=== PATIENT | male | born 1950 | race Caucasian/White ===

== ENCOUNTER 2017-10-21 09:31 | Inpatient (IN) | payer MEDICARE, MEDICAID, SELFPAY ==
[2017-10-21] VITALS (29 sets, daily range): BP systolic 112–157; BP diastolic 59–99; PULSE 71–105; RESP 8–37; TEMP 36.7–37.6; O2SAT 90–99; BMI 20.7; BMI 20.6
--- NOTE | 2017-10-21 09:45 | RAD_ITS ---
STUDY: X-RAY CHEST REASON FOR EXAM: Male, 66 years old. Increasing shortness of breath. TECHNIQUE: Single AP portable view of the chest. COMPARISON: Comparison is made with prior study dated October 04, 2017. FINDINGS: EKG electrodes are seen. Hyperinflation. Mild increased markings in the lingular segment of the left upper lobe slightly more prominent as compared to prior study. This may represent atelectasis and/or early infiltrate superimposed on scarring. There is no demonstrated pleural abnormality. Normal size heart. Normal mediastinum and dennise. There is prominence of the pulmonary hilar arteries without peripheral pulmonary vascular congestion, suggesting pulmonary hypertension. Normal visualized aortic arch and descending thoracic aorta. There are degenerative changes of the visualized thoracic spine. Normal visualized ribs, clavicles, and shoulders. There is no demonstrated abnormality of the visualized soft tissue structures of the upper abdomen. RAD/Chest 1 View (Portable) IMPRESSION: Hyperinflation. Mild increased markings in the lingular segment of the left upper lobe suggestive of atelectasis and/or early infiltrate superimposed on scarring. Prominence of the pulmonary arteries bilaterally. Electronically Signed: Bienvenido Carmen MD at 10:25 EST Tel [phone], Service support ,
--- NOTE | 2017-10-21 09:45 | EKG12_ITS ---
Test Reason : SOB Blood Pressure : / mmHG Vent. Rate : 086 BPM Atrial Rate : 086 BPM P-R Int : 108 ms QRS Dur : 084 ms QT Int : 356 ms P-R-T Axes : 075 069 101 degrees QTc Int : 426 ms Sinus rhythm with short NE T wave abnormality, consider lateral ischemia Abnormal ECG Confirmed by KATHLEEN DOVE, KAREN ([id number]), pictures editor LAURIE FAN ([id number]) on 10/28/2017 8:50:13 AM Referred By: KB/PHIL Confirmed By:KAREN WANG MD
--- NOTE | 2017-10-21 09:49 | ED.VISSUMM ---
- ER Visit Summary Date of Service: 10/21/17 Chief Complaint: Short of breath History of Present Illness: The patient is a 66 M with shortness of breath. Symptoms started this morning when he woke up. He denies any other associated symptoms like chest pain, cough, or sputum. He does have a history of COPD and is currently on prednisone 5 mg daily and a course of doxycycline. He wears a nasal cannula at 3 L. His pulse ox at his nursing facility was noted to be in the 80s and he was increased to 4 L. This resolved his hypoxia. Patient is denying any other complaints at this time. Denies any other history of lung disease. He does have history of diabetes, hypertension, and hyperlipidemia. Denies any history of PE or DVT. He is a former smoker. Physical Examination: 99% on 2.5 L currently. Blood pressure 155/76. Afebrile. Heart rate 99 and respiratory rate 28. Patient is slightly somnolent, but arouses easily to voice. He is clearly oriented. Head atraumatic. Cranial nerves grossly intact. HEENT exam otherwise unremarkable. Heart regular. Lungs show mild wheezing, more so on the left side. Diminished throughout all [place]. Abdomen soft. Skin appears normal. Calves soft and supple. Test Results: EKG, chest x-ray, laboratory studies pending. Emergency Department Course and Treatment: Patient was treated with Solu-Medrol and DuoNeb while awaiting results. I suspect a respiratory etiology. I also considered cardiac causes. Nothing to suggest PE currently. EKG showed sinus rhythm at a rate of 86 with some lateral T-wave inversions. This is new from earlier in the month. Troponin was normal. White count is elevated at 18.3. And his chest x-ray is concerning for chronic changes with a left upper lobe infiltrate. Patient meets sepsis criteria. A lactate, hepatic panel, coags, urinalysis, and cultures were added. Fluid resuscitation continued and he was started on Zosyn and vancomycin. He continued to remain somnolent despite normal oxygen saturation. Blood gas showed a pH of 7.38. CO2 is 64.8. Patient has a respiratory acidosis. He was started on BiPAP. He had additional albuterol. Workup and resuscitation are still in progress, but the patient will need admission to the ICU. The therapeutic radiologist and hospitalist were contacted. Will check magnesium. Patient is tolerating BiPAP. Will admit to the ICU. Treatment Plan: As above Disposition: Admission Impression: 1. Acute respiratory failure, hypercapnia 2. Healthcare associated pneumonia 3. Sepsis 4. EKG changes This note was generated with [employer] dictation software. It may contain incorrect words, spelling, and punctuation that were not noted in review of the chart prior to signing ED Disposition - Plan for ED Patient: Chief Complaint: Shortness of Breath Referrals: Care Physician,No Primary [Primary Care Provider] -
--- NOTE | 2017-10-21 09:52 | ED.DCSUM_ITS ---
- ER Visit Summary Date of Service: 10/21/17 Chief Complaint: Short of breath History of Present Illness: The patient is a 66 M with shortness of breath. Symptoms started this morning when he woke up. He denies any other associated symptoms like chest pain, cough, or sputum. He does have a history of COPD and is currently on prednisone 5 mg daily and a course of doxycycline. He wears a nasal cannula at 3 L. His pulse ox at his nursing facility was noted to be in the 80s and he was increased to 4 L. This resolved his hypoxia. Patient is denying any other complaints at this time. Denies any other history of lung disease. He does have history of diabetes, hypertension, and hyperlipidemia. Denies any history of PE or DVT. He is a former smoker. Physical Examination: 99% on 2.5 L currently. Blood pressure 155/76. Afebrile. Heart rate 99 and respiratory rate 28. Patient is slightly somnolent , but arouses easily to voice. He is clearly oriented. Head atraumatic. Cranial nerves grossly intact. HEENT exam otherwise unremarkable. Heart regular. Lungs show mild wheezing, more so on the left side. Diminished throughout all [place]. Abdomen soft. Skin appears normal. Calves soft and supple. Test Results: EKG, chest x-ray, laboratory studies pending. Emergency Department Course and Treatment: Patient was treated with Solu-Medrol and DuoNeb while awaiting results. I suspect a respiratory etiology. I also considered cardiac causes. Nothing to suggest PE currently. EKG showed sinus rhythm at a rate of 86 with some lateral T-wave inversions. This is new from earlier in the month. Troponin was normal. White count is elevated at 18.3. And his chest x-ray is concerning for chronic changes with a left upper lobe infiltrate. Patient meets sepsis criteria. A lactate, hepatic panel, coags, urinalysis, and cultures were added. Fluid resuscitation continued and he was started on Zosyn and vancomycin. He continued to remain somnolent despite normal oxygen saturation. Blood gas showed a pH of 7.38. CO2 is 64.8. Patient has a respiratory acidosis. He was started on BiPAP. He had additional albuterol. Workup and resuscitation are still in progress, but the patient will need admission to the ICU. The 911 emergency services dispatcher and hospitalist were contacted. Will check magnesium. Patient is tolerating BiPAP. Will admit to the ICU. Treatment Plan: As above Disposition: Admission Impression: 1. Acute respiratory failure, hypercapnia 2. Healthcare associated pneumonia 3. Sepsis 4. EKG changes This note was generated with [employer] dictation software. It may contain incorrect words, spelling, and punctuation that were not noted in review of the chart prior to signing ED Disposition - Plan for ED Patient: Chief Complaint: Shortness of Breath Referrals: Care Physician,No Primary [Primary Care Provider] -
[2017-10-21 09:58] LABS: Absolute Lymphocyte Count 0.32 X10^3/ul (0.83-4.51); Absolute Neutrophil Count 17.2 X10^3/uL (2.0-7.7); Basophil# 0.01 X10^3/uL; Basophil% 0.1 % (0-1); Differential Indicated SCAN CRITERIA MET; Eosinophil# 0.09 X10^3/uL; Eosinophils% 0.5 % (0-5); Hematocrit 41.3 % (40-54); Hemoglobin 13.6 g/dl (13.0-16.5); Lymphocyte # 0.32 X10^3/ul (4.0); Lymphocyte % 1.7 % (19-41); Mean Corp Hgb Conc 32.9 g/gl (32-36); Mean Corpuscular Hgb 31.5 pg (27.0-32.0); Mean Corpuscular Volume 95.6 fL (80-94); Mean Platelet Vol. 10.6 fl (6.2-12.0); Monocyte# 0.61 X10^3/uL; Monocyte% 3.3 % (0-10); Neutrophil # 17.24 X10^3/uL (2.7-7.7); Neutrophil % 94.1 % (47-70); POSITIVE COUNT NO; POSITIVE DIFFERENTIAL YES; POSITIVE MORPHOLOGY NO; Platelet Count 199 K/mm3 (150-450); RBC Distribution Width CV 12.8 % (11.6-14.6); RBC Distribution Width SD 43.3 fl (35.1-43.9); Red Blood Count 4.32 M/mm3 (4.6-6.2); White Blood Count 18.3 K/mm3 (4.4-11.0)
[2017-10-21] MEDS: Ipratropium/Albuterol Sulfate 3 ML AMPUL.NEB INHALATION ×2 (09:59→23:00)
[2017-10-21 10:13] LABS: Anion Gap 4 (5-15); BUN 7 mg/dL (7-18); BUN/Creat Ratio 10.6 RATIO (10-20); Calcium,Total 8.9 mg/dL (8.5-10.1); Chloride 96 mmol/L (98-107); Creatinine, Serum 0.66 mg/dL (0.70-1.30); EST Glomerular Filtration Rate 129 mL/min (>60); Est Glom Filt Rate - Afr Amer 156 mL/min (>60); Estimated Creatinine Clearance 90.23 ml/min; Glucose 233 mg/dL (70-110); Potassium 4.3 mmol/L (3.5-5.1); Sodium Level 135 mmol/L (136-145)
[2017-10-21] MEDS: MethylPREDNISolone 125 MG/2 ML Vial IV (10:18)
[2017-10-21 10:26] LABS: Allen Test POS; Base Excess 13 mmol/L (-2 to +2); Bicarbonate 38.5 mmol/L (22-26); Blood Gas Specimen Type ART; O2 Delivery Device Nasal Can; PO2 69 mmHG (75-100); SITE R Radial; SO2 92 % (95-99); Time Given 1023; Total Carbon Dioxide 40 mmol/L; pCO2 64.8 mmHg (35-45); pH 7.38 (7.35-7.45)
[2017-10-21] MEDS: 0.9% Normal Saline 1,000 ML 999 ML IV (11:05)
[2017-10-21 11:17] LABS: Partial Thromboplast Time 25.8 Seconds (24.1-36.2)
[2017-10-21 11:25] LABS: AST(SGOT) 10 U/L (15-37); Alanine Aminotransfer ALT/SGPT 17 U/L (12-78); Albumin, Serum 3.7 g/dL (3.4-5.0); Alkaline Phosphatase 78 U/L (45-117); Bilirubin, Direct 0.14 mg/dL (0.00-0.30); Globulin 2.8 g/dL (2.2-4.2); Lactic Acid 1.7 mmol/L (0.4-2.0); Protein, Total 6.5 g/dL (6.4-8.2)
[2017-10-21 11:45] LABS: Magnesium 1.5 mg/dL (1.8-2.4)
[2017-10-21] MEDS: Albuterol 2.5 MG/3 ML VIAL.NEB. INHALATION ×2 (11:46→20:41)
[2017-10-21 17:07] LABS: Bacteria 0 SEEN /hpf (None Seen); Mucous, Urine 0 SEEN /hpf (<or=2+); Red Blood Cells-Urine 0 SEEN /hpf (0-5)
[2017-10-21] MEDS: Glucerna Shake 120 ML LIQUID PO ×2 (17:13→22:19)
[2017-10-21 17:16] LABS: Bedside Glucose 342 mg/dL (70-110)
[2017-10-21 17:18] LABS: Color, Urine Straw (Yellow); Glucose, Dipstick 1000 mg/dl (Normal); Ketone-Dipstick Negative (Negative); Leukocyte Esterase-Dipstick Negative /ul (Negative); Nitrite-Dipstick Negative (Negative); Occult Blood-Urine Negative /ul (Negative); Protein-Dipstick Negative (Negative); Urine Bilirubin Dipstick Negative (Negative); Urine Clarity Clear (Clear); Urine Urobilinogen Normal (Normal)
[2017-10-21 17:32] LABS: Squamous Epithelial Cells - UA 0-5 SEEN /hpf (0-5)
[2017-10-21 17:33] LABS: White Blood Cells 0-5 SEEN /hpf (0-5)
--- NOTE | 2017-10-21 18:09 | PCM.HP.STD ---
Problem List (1) Acute hypercapnic respiratory failure Status: Acute (2) COPD exacerbation Status: Acute (3) Chronic respiratory failure with hypoxia Status: Chronic (4) HCAP (healthcare-associated pneumonia) Status: Acute (5) Hypomagnesemia Status: Acute (6) Noncompliance with CPAP treatment Status: Chronic (7) Obstructive sleep apnea Status: Acute (8) Bipolar affective disorder Status: Chronic (9) CVD (cerebrovascular disease) Status: Chronic (10) Dyslipidemia Status: Chronic (11) GERD (gastroesophageal reflux disease) Status: Chronic (12) HTN (hypertension) Status: Chronic Qualifiers: Hypertension type: essential hypertension Qualified Code(s): I10 - Essential (primary) hypertension (13) History of TIA (transient ischemic attack) Status: Chronic (14) History of alcoholism Status: Chronic (15) PVD (peripheral vascular disease) Status: Chronic (16) Schizophrenia Status: Chronic (17) Tobacco use disorder Status: Chronic (18) Metabolic alkalosis with respiratory acidosis Status: Acute (19) Hyperglycemia Status: Acute History of Present Illness Date of Admission: 10/21/17 Chief Complaint: SOB The patient is a 66 year old M with a past medical history of bipolar disorder, schizophrenia, COPD, dyslipidemia, GERD, hypertension, history of alcoholism, peripheral vascular disease, ongoing tobacco dependence, CVA in the past and history of TIAs who was sent to the emergency room for shortness of breath. He denied chest pain, cough, sputum production, nausea/vomiting, muscle aches and pains. He is chronically on prednisone 5 mg daily and had a recent course of doxycycline. He has CPAP but does not consistently wear it. He wears a 3 L nasal cannula off and on when he feels short of breath. Pulse ox at the shelter was in the 80s and his oxygen was increased to 4 L. Vital signs at presentation to the emergency room were temperature 99.7, pulse rate 99, blood pressure 155/76, respiratory rate of 29 and he was 99% saturated on a 3 L nasal cannula. Significant lab included an elevated white blood cell count at 18.3 with 94% neutrophils. Hemoglobin and platelets were within normal limits. An ABG done on a 2 L nasal cannula showed pH of 7.38, PCO2 of 65 and PO2 of 69. Serum bicarb is elevated at 35 and the sodium is mildly decreased at 135. Random blood sugar was 233 and his hemoglobin A1c is 6.5. Magnesium was low at 1.5. LFTs were unremarkable. Chest x-ray showed hyperinflation with increased markings in the lingula suspicious for atelectasis versus early infiltrate. He was admitted to the hospital with a diagnosis of HCAP and acute exacerbation of COPD with hypoxia and hypercapnia. He had an echocardiogram done in 2012 which showed a 60% ejection fraction with mild concentric left ventricular hypertrophy. There was mild aortic stenosis and 2+ aortic valve insufficiency. Past Medical History Past Medical History (Chronic Problems): Chronic Problems Bipolar affective disorder (Chronic) CVD (cerebrovascular disease) (Chronic) Dyslipidemia (Chronic) GERD (gastroesophageal reflux disease) (Chronic) HTN (hypertension) (Chronic) History of alcoholism (Chronic) PVD (peripheral vascular disease) (Chronic) Schizophrenia (Chronic) Tobacco use disorder (Chronic) History of TIA (transient ischemic attack) (Chronic) Chronic respiratory failure with hypoxia (Chronic) Noncompliance with CPAP treatment (Chronic) Allergies No Known Allergies Allergy (Verified 10/21/17 09:40) Home Medications: Ambulatory Orders Medication Instructions Recorded Acetaminophen [Tylenol Extra 1,000 mg PO QHS 08/08/17 Strength] Acetaminophen [Tylenol] 650 mg PO Q6H PRN 08/08/17 Albuterol Inhaler [Ventolin Hfa 1 puff INHALATION Q4H PRN PRN 08/08/17 (SP)] Aspirin 81 mg PO DAILY 08/08/17 Atorvastatin Calcium 40 mg PO DAILY 08/08/17 Cilostazol 100 mg PO BID 08/08/17 Ferrous Fumarate [Ferretts] 325 mg PO TID 08/08/17 Guaifenesin [Tussin Mucus-Chest 200 mg PO Q6H PRN 08/08/17 Congestion] Haloperidol Decanoate [Haldol 300 mg IM Q30D 08/08/17 Decanoate 100] Insulin Aspart [Novolog Flexpen 0 - 15 units SC ACHS PRN 08/08/17 ([facility])] Insulin Detemir [Levemir] 10 unit SQ BREAKFAST 08/08/17 Insulin Detemir [Levemir] 18 unit SQ QHS 08/08/17 [place] Carbonate 600 mg PO DAILY 08/08/17 Lorazepam [Ativan] 1 mg PO Q4H PRN 08/08/17 Losartan Potassium 75 mg PO QHS 08/08/17 Mag Hydrox/Al Hydrox/Simeth 30 ml PO Q4H PRN PRN 08/08/17 [Mylanta II] Magnesium Oxide [Mag-Oxide 800 mg PO DAILY 08/08/17 Magnesium] Metformin HCl 1,000 mg PO BID 08/08/17 Metoprolol Tartrate [Lopressor 50 mg PO BID 08/08/17 (Beta Andriy)] Omeprazole [Prilosec] 40 mg PO DAILY 08/08/17 Oxygen, Home [Home Oxygen] 2 lpm NASAL DAILY 08/08/17 Pseudoephedrine [Sudafed] 60 mg PO Q8H PRN 08/08/17 Sodium Chloride [Saline Mist] 1 spray NASAL Q6H PRN 08/08/17 Fluticasone 0.05% [Flonase Nasal 1 spray NASAL DAILY 10/04/17 [place]] Guaifenesin [Mucinex] 400 mg PO TID 10/04/17 Loxapine Succinate [Loxapine] 25 mg PO QHS 10/04/17 Prednisone 5 mg PO DAILY 10/04/17 Albuterol Aerosols [Ventolin 2.5 mg INHALATION Q6HWA.RT 10/21/17 Aerosols] Cetirizine HCl [Zyrtec] 10 mg PO DAILY 10/21/17 Doxycycline [Vibramycin] 100 mg PO BID 10/21/17 Surgical History: colectomy Psychiatric History: Bipolar, Schizophrenia Lives: Prison Smoking Status: Current every day smoker Tobacco Use: Cigarettes Alcohol: None Drugs: None - *Family History Maternal History Items: Unknown Paternal History Items: No pertinent history Sibling History Items: No pertinent history Review of Systems Constitutional: Denies: Anorexia, Chills, Fever, Weakness HEENT: Denies: Difficulty Hearing, Head Aches, Nasal Congestion, Sore Throat Cardiovascular: Denies: Chest Pain, Edema, Light Headedness, Palpitations Respiratory: Reports: Cough, Shortness of Breath, Shortness of breath at rest, Shortness of breath upon exertion. Denies: Hemoptysis Gastrointestinal: Denies: Abdominal Pain, Nausea, Vomiting Genitourinary: Denies: Dysuria Musculoskeletal: Denies: Joint Pain, Joint Tenderness Skin: Denies: Jaundice, Rash, Wounds Neurological: Denies: Numbness, Tingling, Focal weakness Psychiatric: Denies: Homicidal Ideations, Suicidal Ideations Hematologic/ Lymphatic: Denies: Hx of blood clot VTE Information - Inpt Only VTE Present on Admission: No VTE Mechan Device Prophylaxis: None VTE Pharm Prophylaxis ordered?: Yes Patient Problems: Active and Suspected Problems HCAP (healthcare-associated pneumonia) (Acute) COPD exacerbation (Acute) Acute hypercapnic respiratory failure (Acute) Obstructive sleep apnea (Acute) Hypomagnesemia (Acute) Metabolic alkalosis with respiratory acidosis (Acute) Hyperglycemia (Acute) - Physical Exam General: Alert, Cooperative HEENT: Atraumatic, PERRLA Oral: Moist Mucosa Neck: No JVD, No Nodes, No Nuchal Rigidity, Trachea Midline Lungs: No rales, Tachypneic, Using Accessory Muscles, Wheezes - inspiratory and expiratory Cardiovascular: Regular Rhythm, Normal S1, Normal S2, No Gallop, Tachycardic, - - difficult to assess for MM over the loud wheezing Abdomen: Bowel Sounds Present, Soft, Non Tender, Non-Distended Extremities: No cyanosis, No edema, No Calf Tenderness Skin: No rashes, No breakdown Neurological: Cranial nerves II-XII grossly intact, Neuro grossly intact Psych/Mental Status: Appropriate Vital Signs Temp Pulse Resp BP Pulse Ox 99.0 F 105 H 20 H 154/99 H 95 10/21/17 17:40 10/21/17 17:40 10/21/17 17:40 10/21/17 17:40 10/21/17 17:40 Oxygen Flow Rate 2 Oxygen Delivery Method Nasal Cannula Weight: 124 lb Body Mass Index (BMI) 20.6 Intake and Output for Last 24 Hours 10/19/17 10/20/17 10/21/17 23:59 23:59 23:59 Intake Total 360 / 360 Output Total 1450 / 1450 Balance -1090 / -1090 Laboratory Tests Past 24 Hrs 10/21/17 16:50 Urine Color Straw Urine Clarity Clear Urine pH 7.0 Ur Specific [place] 1.010 Urine Protein Negative Urine Glucose (UA) 1000 H Urine Ketones Negative Urine Occult Blood Negative Urine Nitrite Negative Urine Bilirubin Negative Urine Urobilinogen Normal Ur Leukocyte Esterase Negative Urine RBC 0 SEEN Urine WBC 0-5 SEEN Ur Squamous Epith Cells 0-5 SEEN Urine Bacteria 0 SEEN Urine Mucus 0 SEEN POC Glucose 10/21/17 17:10 POC Glucose 342 H Assessment/Plan Active and Suspected Problems HCAP (healthcare-associated pneumonia) (Acute) COPD exacerbation (Acute) Acute hypercapnic respiratory failure (Acute) Obstructive sleep apnea (Acute) Hypomagnesemia (Acute) Metabolic alkalosis with respiratory acidosis (Acute) Hyperglycemia (Acute) Impressions 1. Severe sepsis due to HCAP 2. acute exacerbation of COPD 3. Acute respiratory failure with hypoxemia and hypercapnia requiring BiPAP with tachypnea and accessory muscle use 4. Obstructive sleep apnea-not compliant with CPAP 5. Ongoing tobacco dependence 6. Bipolar disorder 7. Schizophrenia 8. History of alcoholism in the past 9. Hypomagnesemia 10. History of CVA in the past and also TIAs 11. GERD 12. Dyslipidemia 13. Hypertension 14. Peripheral vascular disease 15. Metabolic alkalosis with respiratory acidosis 16. Hyperglycemia with no history of diabetes 17. Mild aortic stenosis, mild left ventricular hypertrophy and 2+ aortic valve insufficiency on an echocardiogram done in 2012 Continue with BIPAP Continue the Vanco and the Zosyn started in the ER High-dose intravenous steroids and [id number] aerosols Mucinex 1200 mg p.o. twice daily PEP therapy Continue home medications Pepcid for GI prophylaxis Check a hemoglobin A1c Code Visit Inpatient E&M: 28781 Init Hosp L3
[2017-10-21 19:27] LABS: Hemoglobin A1c 6.5 % (4.2-6.3)
[2017-10-21] MEDS: 0.9% Normal Saline 1,000 ML 75 ML IV (21:00)
[2017-10-21] MEDS: guaiFENesin 1,200 MG Tablet 1200 MG PO (22:13)
[2017-10-21] MEDS: Famotidine 20 MG Tablet PO (22:13)
[2017-10-21] MEDS: Atorvastatin Calcium 40 MG Tablet PO (22:14)
[2017-10-21] MEDS: Losartan Potassium 25 MG Tablet 75 MG PO (22:14)
[2017-10-21] MEDS: Cilostazol 50 MG Tablet 100 MG PO (22:14)
[2017-10-21] MEDS: Metoprolol Tartrate 50 MG Tablet PO (22:16)
[2017-10-21] MEDS: 0.9% NaCl Peripheral Flush Adult/Peds IV (22:22)
[2017-10-21 22:36] LABS: Bedside Glucose 364 mg/dL (70-110)
[2017-10-22] VITALS (12 sets, daily range): BP systolic 125–143; BP diastolic 65–78; PULSE 72–96; RESP 12–21; TEMP 36.1–36.7; O2SAT 92–96
[2017-10-22] MEDS: Piperacil/Tazobactam 3.375 GM/50 ML ML IV ×2 (00:41→05:03)
[2017-10-22] MEDS: LORazepam 1 MG Tablet PO ×2 (01:27→13:58)
[2017-10-22] MEDS: Ipratropium/Albuterol Sulfate 3 ML AMPUL.NEB INHALATION ×3 (02:51→14:36)
[2017-10-22] MEDS: Enoxaparin 40 MG/0.4 ML Syringe SC (05:03)
[2017-10-22 05:41] LABS: Hemoglobin 11.8 g/dl (13.0-16.5); Mean Corp Hgb Conc 32.8 g/gl (32-36); Mean Corpuscular Hgb 31.4 pg (27.0-32.0); Mean Corpuscular Volume 95.7 fL (80-94); Mean Platelet Vol. 10.6 fl (6.2-12.0); Platelet Count 171 K/mm3 (150-450); RBC Distribution Width CV 12.4 % (11.6-14.6); RBC Distribution Width SD 42.3 fl (35.1-43.9); Red Blood Count 3.76 M/mm3 (4.6-6.2); White Blood Count 10.5 K/mm3 (4.4-11.0)
[2017-10-22 05:53] LABS: Scan Indicated on CBC? Y/N NO
--- NOTE | 2017-10-22 05:59 | RAD_ITS ---
STUDY: X-RAY CHEST REASON FOR EXAM: Male, 66 years old. Shortness of breath. Cough. TECHNIQUE: PA and lateral views of the chest. COMPARISON: Comparison is made with prior study dated October 21, 2017. FINDINGS: EKG electrodes are seen. Hyperinflation. Stable mild increased markings in the lingular segment of the left upper lobe. Calcified granuloma in the right lower lobe. There is no demonstrated pleural abnormality. Normal size heart. Normal mediastinum and dennise. Normal visualized pulmonary arteries. There is atherosclerotic calcification of the aortic arch with tortuosity. There are degenerative changes of the visualized thoracic spine. Healed right rib fractures. There is no demonstrated abnormality of the visualized soft tissue structures of the upper abdomen. RAD/Chest PA and Lateral IMPRESSION: Hyperinflation. Stable increased markings in the lingular segment of the left upper lobe. There has been essentially no change since prior study. Electronically Signed: Bienvenido Carmen MD at 8:54 EST Tel [phone], Service support ,
[2017-10-22 06:04] LABS: ALB/GLOB Ratio 1.1 RATIO (0.9-2.4); AST(SGOT) 9 U/L (15-37); Alanine Aminotransfer ALT/SGPT 14 U/L (12-78); Alkaline Phosphatase 67 U/L (45-117); Anion Gap 6 (5-15); BUN 12 mg/dL (7-18); Calcium,Total 8.4 mg/dL (8.5-10.1); Chloride 95 mmol/L (98-107); Creatinine, Serum 0.75 mg/dL (0.70-1.30); EST Glomerular Filtration Rate 112 mL/min (>60); Est Glom Filt Rate - Afr Amer 135 mL/min (>60); Estimated Creatinine Clearance 79.16 ml/min; Globulin 2.8 g/dL (2.2-4.2); Glucose 287 mg/dL (70-110); Magnesium 2.3 mg/dL (1.8-2.4); Phosphorus 2.5 mg/dL (2.5-4.9); Potassium 4.6 mmol/L (3.5-5.1); Protein, Total 5.8 g/dL (6.4-8.2); Sodium Level 132 mmol/L (136-145)
[2017-10-22] MEDS: guaiFENesin 1,200 MG Tablet 1200 MG PO (08:30)
[2017-10-22] MEDS: metFORMIN HCl 1,000 MG Tablet 1000 MG PO (08:30)
[2017-10-22] MEDS: Magnesium Oxide 400 MG Tablet 800 MG PO (08:30)
[2017-10-22] MEDS: Cilostazol 50 MG Tablet 100 MG PO (08:31)
[2017-10-22] MEDS: Glucerna Shake 120 ML LIQUID PO (08:31)
[2017-10-22] MEDS: Famotidine 20 MG Tablet PO (08:31)
[2017-10-22] MEDS: Aspirin 81 MG TAB.CHEW PO (08:31)
[2017-10-22 08:41] LABS: Bedside Glucose 282 mg/dL (70-110)
[2017-10-22] MEDS: Metoprolol Tartrate 50 MG Tablet PO (08:46)
--- NOTE | 2017-10-22 09:37 | CASEMGMT ---
Patient is from [facility]. SAL called Randi at [facility] and patient is a residential resident. she did ask that he have PT/OT here and hopefully if he gets a qualifying stay he can return skilled. SAL faxed updates to [facility]. Plan: Return to [facility] Zaira RON
[2017-10-22] MEDS: 0.9% Normal Saline 1,000 ML 75 ML IV (09:56)
[2017-10-22] MEDS: Fluticasone 0.05% 1 SPRAY NASAL.SRY NASAL (10:34)
[2017-10-22 11:11] LABS: Bedside Glucose 281 mg/dL (70-110)
--- NOTE | 2017-10-22 12:10 | NURSING ---
Patient is taking good PO intake, discontinued glucerna shakes.
[2017-10-22 12:11] LABS: Bedside Glucose 324 mg/dL (70-110)
--- NOTE | 2017-10-22 12:32 | PCM.PROGNOTE ---
Patient Problems: Active and Suspected Problems Acute exacerbation of chronic obstructive pulmonary disease (Acute) Acute respiratory failure with hypoxia and hypercapnia (Acute) Influenza A (Acute) Subjective: Patient is a 66-year-old resident of a fdc with bipolar disorder and schizophrenia who presented to the emergency room with increasing shortness of breath and required BiPAP rescue to keep him oxygenated. Chest x-ray at admission showed increased markings in the lingula thought to be secondary to an early pneumonia. He is afebrile except for the first temp at admission which was 99.7. Vital signs are stable. He shovels his food in his mouth and is coughing while eating. He will not stop talking long enough to listen to instructions. There is sputum and saliva running down his chin. Pulse ox is 96% on 2 L nasal O2 today and his respiratory rate is 20. White blood cell count today is 10.5, down from 18.3 at admission. Sodium was low at 132 and the chloride is low at 95. BUN is 12 with a creatinine of 0.75. Blood sugars are high secondary to steroids. Respiratory panel is negative. Streptococcal and Legionella antigens are negative. Influenza swab was negative. Urine and blood cultures are pending. Sputum sample was ordered but not obtained....pt does not follow instruction Chest x-ray today is unchanged from chest x-ray on 10/21. He was seen by speech therapy today and approved for mechanical soft textures and nectar thick liquids. He had overt signs of aspiration with thin liquids.He felt he swallowed much better with thickened liquids - Physical Exam General: Alert, - - yelling profanities and very agitated. His older sister is in the room and she always agitates him HEENT: Atraumatic, Normocephalic Oral: - - Edentulous Neck: Supple, Trachea Midline Lungs: No rales, Wheezes - Mild, only in end expiration, no conversational dyspnea, no accessory muscle use Cardiovascular: Regular rate, Regular Rhythm, No Gallop Abdomen: Bowel Sounds Present, Soft, Non Tender, Non-Distended Extremities: No edema Vital Signs Temp Pulse Resp BP Pulse Ox 97.0 F L 88 20 H 143/65 H 96 10/22/17 10:30 10/22/17 10:30 10/22/17 10:30 10/22/17 10:30 10/22/17 10:30 Oxygen Flow Rate 2 Oxygen Delivery Method Nasal Cannula Weight: 123 lb 15.808 oz Body Mass Index (BMI) 20.6 Intake and Output for Last 24 Hours 10/20/17 10/21/17 10/22/17 23:59 23:59 23:59 Intake Total 1530 / 1530 1479 / 1479 Output Total 2024 1275 / 1275 Balance -495 / -495 204 / 204 Microbiology Past 72 Hours 10/21/17 20:30 Respiratory Panel (PCR) - Final Mucosa - Nasopharyngeal 10/21/17 20:30 Influenza Types A,B Direct FA (JEANINE) - Final Mucosa - Nasopharyngeal 10/21/17 22:05 Streptococcus pneumoniae Antigen (M - Final Urine, Clean Catch 10/21/17 22:05 Legionella Antigen - Final Urine, Clean Catch Laboratory Tests Past 24 Hrs 10/21/17 10/22/17 10/22/17 16:50 05:10 05:10 WBC 10.5 RBC 3.76 L Hgb 11.8 L Hct 36.0 L MCV 95.7 H MCH 31.4 MCHC 32.8 RDW 12.4 RDW Differential 42.3 Plt Count 171 MPV 10.6 Sodium 132 L Potassium 4.6 Chloride 95 L Carbon Dioxide 31.0 Anion Gap 6 BUN 12 Creatinine 0.75 Estim Creat Clear Calc 79.16 Est GFR (MDRD) Af Amer 135 Est GFR (MDRD) Non-Af 112 BUN/Creatinine Ratio 16.0 Glucose 287 H Calcium 8.4 L Phosphorus 2.5 Magnesium 2.3 Total Bilirubin 0.40 AST 9 L ALT 14 Alkaline Phosphatase 67 Total Protein 5.8 L Albumin 3.0 L Globulin 2.8 Albumin/Globulin Ratio 1.1 Urine Color Straw Urine Clarity Clear Urine pH 7.0 Ur Specific [place] 1.010 Urine Protein Negative Urine Glucose (UA) 1000 H Urine Ketones Negative Urine Occult Blood Negative Urine Nitrite Negative Urine Bilirubin Negative Urine Urobilinogen Normal Ur Leukocyte Esterase Negative Urine RBC 0 SEEN Urine WBC 0-5 SEEN Ur Squamous Epith Cells 0-5 SEEN Urine Bacteria 0 SEEN Urine Mucus 0 SEEN POC Glucose 10/22/17 10/22/17 10/22/17 12:01 08:23 06:42 POC Glucose 324 H 282 H 281 H 10/21/17 10/21/17 22:31 17:10 POC Glucose 364 H 342 H Assessment/Plan Active and Suspected Problems Acute exacerbation of chronic obstructive pulmonary disease (Acute) Acute respiratory failure with hypoxia and hypercapnia (Acute) Influenza A (Acute) Impressions 1. Severe sepsis due to HCAP 2. acute exacerbation of COPD 3. Acute respiratory failure with hypoxemia and hypercapnia requiring BiPAP with tachypnea and accessory muscle use 4. Obstructive sleep apnea-not compliant with CPAP 5. Ongoing tobacco dependence 6. Bipolar disorder 7. Schizophrenia 8. History of alcoholism in the past 9. Hypomagnesemia 10. History of CVA in the past and also TIAs 11. GERD 12. Dyslipidemia 13. Hypertension 14. Peripheral vascular disease 15. Metabolic alkalosis with respiratory acidosis 16. Hyperglycemia with no history of diabetes 17. Mild aortic stenosis, mild left ventricular hypertrophy and 2+ aortic valve insufficiency on an echocardiogram done in 2012 He is very disruptive today and on his baseline oxygen requirement Will DC back to the [facility]. I suspect he aspirates at the [facility] because he gulps his food down like he is ravenous and then aspirates. He does much better with supervision while eating. Likely will not be compliant with thickening at the [facility] but may benefit from supervision with eating. Suspect he will be a regular visitor to the ED and hospital due to non-compliance with smoking, thickening his liquids, CPAP.
--- NOTE | 2017-10-22 12:47 | PN_ITS ---
Patient Problems: Active and Suspected Problems Acute exacerbation of chronic obstructive pulmonary disease (Acute) Acute respiratory failure with hypoxia and hypercapnia (Acute) Influenza A (Acute) Subjective: Patient is a 66-year-old resident of a [facility] with bipolar disorder and schizophrenia who presented to the emergency room with increasing shortness of breath and required BiPAP rescue to keep him oxygenated. Chest x-ray at admission showed increased markings in the lingula thought to be secondary to an early pneumonia. He is afebrile except for the first temp at admission which was 99.7. Vital signs are stable. He shovels his food in his mouth and is coughing while eating. He will not stop talking long enough to listen to instructions. There is sputum and saliva running down his chin. Pulse ox is 96% on 2 L nasal O2 today and his respiratory rate is 20. White blood cell count today is 10.5, down from 18.3 at admission. Sodium was low at 132 and the chloride is low at 95. BUN is 12 with a creatinine of 0.75. Blood sugars are high secondary to steroids. Respiratory panel is negative. Streptococcal and Legionella antigens are negative. Influenza swab was negative. Urine and blood cultures are pending. Sputum sample was ordered but not obtained....pt does not follow instruction Chest x-ray today is unchanged from chest x-ray on 10/21. He was seen by speech therapy today and approved for mechanical soft textures and nectar thick liquids. He had overt signs of aspiration with thin liquids.He felt he swallowed much better with thickened liquids - Physical Exam General: Alert, - - yelling profanities and very agitated. His older sister is in the room and she always agitates him HEENT: Atraumatic, Normocephalic Oral: - - Edentulous Neck: Supple, Trachea Midline Lungs: No rales, Wheezes - Mild, only in end expiration, no conversational dyspnea, no accessory muscle use Cardiovascular: Regular rate, Regular Rhythm, No Gallop Abdomen: Bowel Sounds Present, Soft, Non Tender, Non-Distended Extremities: No edema Vital Signs Temp Pulse Resp BP Pulse Ox 97.0 F L 88 20 H 143/65 H 96 10/22/17 10:30 10/22/17 10:30 10/22/17 10:30 10/22/17 10:30 10/22/17 10:30 Oxygen Flow Rate 2 Oxygen Delivery Method Nasal Cannula Weight: 123 lb 15.808 oz Body Mass Index (BMI) 20.6 Intake and Output for Last 24 Hours 10/20/17 10/21/17 10/22/17 23:59 23:59 23:59 Intake Total 1530 / 1530 1479 / 1479 Output Total 2024 1275 / 1275 Balance -495 / -495 204 / 204 Microbiology Past 72 Hours 10/21/17 20:30 Respiratory Panel (PCR) - Final Mucosa - Nasopharyngeal 10/21/17 20:30 Influenza Types A,B Direct FA (JEANINE) - Final Mucosa - Nasopharyngeal 10/21/17 22:05 Streptococcus pneumoniae Antigen (M - Final Urine, Clean Catch 10/21/17 22:05 Legionella Antigen - Final Urine, Clean Catch Laboratory Tests Past 24 Hrs 10/21/17 10/22/17 10/22/17 16:50 05:10 05:10 WBC 10.5 RBC 3.76 L Hgb 11.8 L Hct 36.0 L MCV 95.7 H MCH 31.4 MCHC 32.8 RDW 12.4 RDW Differential 42.3 Plt Count 171 MPV 10.6 Sodium 132 L Potassium 4.6 Chloride 95 L Carbon Dioxide 31.0 Anion Gap 6 BUN 12 Creatinine 0.75 Estim Creat Clear Calc 79.16 Est GFR (MDRD) Af Amer 135 Est GFR (MDRD) Non-Af 112 BUN/Creatinine Ratio 16.0 Glucose 287 H Calcium 8.4 L Phosphorus 2.5 Magnesium 2.3 Total Bilirubin 0.40 AST 9 L ALT 14 Alkaline Phosphatase 67 Total Protein 5.8 L Albumin 3.0 L Globulin 2.8 Albumin/Globulin Ratio 1.1 Urine Color Straw Urine Clarity Clear Urine pH 7.0 Ur Specific [place] 1.010 Urine Protein Negative Urine Glucose (UA) 1000 H Urine Ketones Negative Urine Occult Blood Negative Urine Nitrite Negative Urine Bilirubin Negative Urine Urobilinogen Normal Ur Leukocyte Esterase Negative Urine RBC 0 SEEN Urine WBC 0-5 SEEN Ur Squamous Epith Cells 0-5 SEEN Urine Bacteria 0 SEEN Urine Mucus 0 SEEN POC Glucose 10/22/17 10/22/17 10/22/17 12:01 08:23 06:42 POC Glucose 324 H 282 H 281 H 10/21/17 10/21/17 22:31 17:10 POC Glucose 364 H 342 H Assessment/Plan Active and Suspected Problems Acute exacerbation of chronic obstructive pulmonary disease (Acute) Acute respiratory failure with hypoxia and hypercapnia (Acute) Influenza A (Acute) Impressions 1. Severe sepsis due to HCAP 2. acute exacerbation of COPD 3. Acute respiratory failure with hypoxemia and hypercapnia requiring BiPAP with tachypnea and accessory muscle use 4. Obstructive sleep apnea-not compliant with CPAP 5. Ongoing tobacco dependence 6. Bipolar disorder 7. Schizophrenia 8. History of alcoholism in the past 9. Hypomagnesemia 10. History of CVA in the past and also TIAs 11. GERD 12. Dyslipidemia 13. Hypertension 14. Peripheral vascular disease 15. Metabolic alkalosis with respiratory acidosis 16. Hyperglycemia with no history of diabetes 17. Mild aortic stenosis, mild left ventricular hypertrophy and 2+ aortic valve insufficiency on an echocardiogram done in 2012 He is very disruptive today and on his baseline oxygen requirement Will DC back to the [facility]. I suspect he aspirates at the [facility] because he gulps his food down like he is ravenous and then aspirates. He does much better with supervision while eating. Likely will not be compliant with thickening at the [facility] but may benefit from supervision with eating. Suspect he will be a regular visitor to the ED and hospital due to non- compliance with smoking, thickening his liquids, CPAP.
--- NOTE | 2017-10-22 14:58 | PCM.TXEXTCAR ---
- Diet 10/21/17 17:23 Diet: Cardiac: Carb-Controlled Food consistency:: Soft Liquid Consistency:: [place] Thick Dietary Modifications:: [place] Thick Liquids Soft Diet Is pt able to select menu?: No - Routine Orders/Code Status Enema Type: Fleetz Enema Frequency: Daily PRN Suppository Type: Dulcolax 10mg Suppository Frequency: Daily PRN O2 Frequency: Continuous Keep PO Greater than or Equal to (%): 88 - Problem/Diagnosis (1) Acute hypercapnic respiratory failure Status: Acute Current Visit: Yes (2) COPD exacerbation Status: Acute Current Visit: Yes (3) Chronic respiratory failure with hypoxia Status: Chronic Current Visit: Yes (4) HCAP (healthcare-associated pneumonia) Status: Ruled-out Current Visit: Yes (5) Hypomagnesemia Status: Acute Current Visit: Yes (6) Noncompliance with CPAP treatment Status: Chronic Current Visit: Yes (7) Obstructive sleep apnea Status: Chronic Current Visit: Yes (8) Bipolar affective disorder Status: Chronic Current Visit: No (9) CVD (cerebrovascular disease) Status: Chronic Current Visit: No (10) Dyslipidemia Status: Chronic Current Visit: No (11) GERD (gastroesophageal reflux disease) Status: Chronic Current Visit: No (12) HTN (hypertension) Status: Chronic Current Visit: No (13) History of TIA (transient ischemic attack) Status: Chronic Current Visit: No (14) History of alcoholism Status: Chronic Current Visit: No (15) PVD (peripheral vascular disease) Status: Chronic Current Visit: No (16) Schizophrenia Status: Chronic Current Visit: No (17) Tobacco use disorder Status: Chronic Current Visit: No (18) Metabolic alkalosis with respiratory acidosis Status: Acute Current Visit: Yes (19) Hyperglycemia Status: Acute Current Visit: Yes (20) Dysphagia Status: Acute Current Visit: Yes (21) Aspiration of food Status: Acute Current Visit: Yes (22) Severe sepsis Status: Ruled-out Current Visit: Yes (23) Aortic stenosis, mild Status: Chronic Current Visit: Yes (24) Aortic valve insufficiency Status: Chronic Current Visit: Yes - Allergies/Procedures Done in Hospital Allergies/Adverse Reactions: Allergies No Known Allergies Allergy (Verified 10/21/17 09:40) Procedures: None - Type of Care/Length of Stay Estimated LOS: More Than 30 Days Type of Care Needed: Senior Living/Assisted Living Rehab Potential: Fair Prognosis: Fair - Additional Orders/Day of Discharge H&P will serve as current which was dated: 10/21/17 Day of Discharge: 10/22/17 - Dietary and Speech Recommendations Dietitian Recommendations/Changes: Continue cardiac, CHO controlled diet and Glucerna via medpass. Diet consistency per REL[employer]ORMAN recommendation. Likes vanilla Glucerna. - Follow Up Care Primary Care Physician: Care Physician,No Primary [Primary Care Provider] -
--- NOTE | 2017-10-22 15:05 | TREXTCAR_ITS ---
- Diet 10/21/17 17:23 Diet: Cardiac: Carb-Controlled Food consistency:: Soft Liquid Consistency:: [place] Dietary Modifications:: [place] Liquids Soft Diet Is pt able to select menu?: No - Routine Orders/Code Status Enema Type: Fleetz Enema Frequency: Daily PRN Suppository Type: Dulcolax 10mg Suppository Frequency: Daily PRN O2 Frequency: Continuous Keep PO Greater than or Equal to (%): 88 - Problem/Diagnosis (1) Acute hypercapnic respiratory failure Status: Acute Current Visit: Yes (2) COPD exacerbation Status: Acute Current Visit: Yes (3) Chronic respiratory failure with hypoxia Status: Chronic Current Visit: Yes (4) HCAP (healthcare-associated pneumonia) Status: Ruled-out Current Visit: Yes (5) Hypomagnesemia Status: Acute Current Visit: Yes (6) Noncompliance with CPAP treatment Status: Chronic Current Visit: Yes (7) Obstructive sleep apnea Status: Chronic Current Visit: Yes (8) Bipolar affective disorder Status: Chronic Current Visit: No (9) CVD (cerebrovascular disease) Status: Chronic Current Visit: No (10) Dyslipidemia Status: Chronic Current Visit: No (11) GERD (gastroesophageal reflux disease) Status: Chronic Current Visit: No (12) HTN (hypertension) Status: Chronic Current Visit: No (13) History of TIA (transient ischemic attack) Status: Chronic Current Visit: No (14) History of alcoholism Status: Chronic Current Visit: No (15) PVD (peripheral vascular disease) Status: Chronic Current Visit: No (16) Schizophrenia Status: Chronic Current Visit: No (17) Tobacco use disorder Status: Chronic Current Visit: No (18) Metabolic alkalosis with respiratory acidosis Status: Acute Current Visit: Yes (19) Hyperglycemia Status: Acute Current Visit: Yes (20) Dysphagia Status: Acute Current Visit: Yes (21) Aspiration of food Status: Acute Current Visit: Yes (22) Severe sepsis Status: Ruled-out Current Visit: Yes (23) Aortic stenosis, mild Status: Chronic Current Visit: Yes (24) Aortic valve insufficiency Status: Chronic Current Visit: Yes - Allergies/Procedures Done in Hospital Allergies/Adverse Reactions: Allergies No Known Allergies Allergy (Verified 10/21/17 09:40) Procedures: None - Type of Care/Length of Stay Estimated LOS: More Than 30 Days Type of Care Needed: Skilled Nursing/Assisted Living Rehab Potential: Fair Prognosis: Fair - Additional Orders/Day of Discharge H&P will serve as current which was dated: 10/21/17 Day of Discharge: 10/22/17 - Dietary and Speech Recommendations Dietitian Recommendations/Changes: Continue cardiac, CHO controlled diet and Glucerna via medpass. Diet consistency per CLINICAL PHARMACOLOGIST recommendation. Likes vanilla Glucerna. - Follow Up Care Primary Care Physician: Care Physician,No Primary [Primary Care Provider] -
--- NOTE | 2017-10-22 15:07 | PCM.DC.SUM ---
Discharge Date and Diagnosis - Problem List Patient Problems: Active and Suspected Problems COPD exacerbation (Acute) Acute hypercapnic respiratory failure (Acute) Hypomagnesemia (Acute) Metabolic alkalosis with respiratory acidosis (Acute) Hyperglycemia (Acute) Dysphagia (Acute) Aspiration of food (Acute) Date of Admission: 10/21/17 Date of Discharge: 10/22/17 - Primary Discharge Diagnosis Active and Suspected Problems COPD exacerbation (Acute) Acute hypercapnic respiratory failure (Acute) Hypomagnesemia (Acute) Metabolic alkalosis with respiratory acidosis (Acute) Hyperglycemia (Acute) Dysphagia (Acute) Aspiration of food (Acute) - Secondary Discharge Diagnosis Chronic Problems Bipolar affective disorder (Chronic) CVD (cerebrovascular disease) (Chronic) Dyslipidemia (Chronic) GERD (gastroesophageal reflux disease) (Chronic) HTN (hypertension) (Chronic) History of alcoholism (Chronic) PVD (peripheral vascular disease) (Chronic) Schizophrenia (Chronic) Tobacco use disorder (Chronic) History of TIA (transient ischemic attack) (Chronic) Chronic respiratory failure with hypoxia (Chronic) Obstructive sleep apnea (Chronic) Noncompliance with CPAP treatment (Chronic) Aortic stenosis, mild (Chronic) Aortic valve insufficiency (Chronic) Hospital Course and Treatment Imaging Results: Clinical Impression(s) from Imaging Studies Chest X-Ray 10/21/17 09:45 IMPRESSION: Hyperinflation. Mild increased markings in the lingular segment of the left upper lobe suggestive of atelectasis and/or early infiltrate superimposed on scarring. Prominence of the pulmonary arteries bilaterally. Electronically Signed: Bienvenido Carmen MD at 10:25 EST Tel [phone], Service support , Chest X-Ray 10/22/17 05:59 IMPRESSION: Hyperinflation. Stable increased markings in the lingular segment of the left upper lobe. There has been essentially no change since prior study. Electronically Signed: Bienvenido Carmen MD at 8:54 EST Tel [phone], Service support , none Operations: None Procedures: None Summary of Care Provided: The patient is a 66 year old M with a past medical history of bipolar disorder, schizophrenia, COPD, dyslipidemia, GERD, hypertension, history of alcoholism, peripheral vascular disease, ongoing tobacco dependence, CVA in the past and history of TIAs who was sent to the emergency room for shortness of breath. He denied chest pain, cough, sputum production, nausea/vomiting, muscle aches and pains. He is chronically on prednisone 5 mg daily and had a recent course of doxycycline. He has CPAP but does not consistently wear it. He wears a 3 L nasal cannula off and on when he feels short of breath. Pulse ox at the shelter was in the 80s and his oxygen was increased to 4 L. Vital signs at presentation to the emergency room were temperature 99.7, pulse rate 99, blood pressure 155/76, respiratory rate of 29 and he was 99% saturated on a 3 L nasal cannula. Significant lab included an elevated white blood cell count at 18.3 with 94% neutrophils. Hemoglobin and platelets were within normal limits. An ABG done on a 2 L nasal cannula showed pH of 7.38, PCO2 of 65 and PO2 of 69. Serum bicarb was elevated at 35 and the sodium was mildly decreased at 135. Random blood sugar was 233 and his hemoglobin A1c was 6.5. Magnesium was low at 1.5. LFTs were unremarkable. Chest x-ray showed hyperinflation with increased markings in the lingula suspicious for atelectasis versus early infiltrate. He was admitted to the hospital with a diagnosis of HCAP and acute exacerbation of COPD with hypoxia and hypercapnia. He was started on vancomycin and Zosyn. [id number] DuoNeb aerosols were ordered and q. 2 hour albuterol aerosols as needed for dyspnea and wheezing. He was placed on BiPAP in the emergency room for tachypnea with accessory muscle use and diffuse inspiratory and expiratory wheezing. He was observed eating his dinner and was noted to have coughing with every attempt to consume thin liquids. He was seen in consultation by speech therapy and had dysphagia. His diet was converted to a cardiac, carb control diet with nectar thick liquids and mechanical soft foods. He tolerated this much better. He was afebrile since admission. The leukocytosis resolved in less than 24 hours from admission. White blood cell count on 10/22 was 10.5. Blood sugars have been elevated secondary to high-dose steroids. He was weaned off BiPAP and on the date of discharge his pulse ox on a 2 L nasal cannula was 96%. He was not tachypneic, had no conversational dyspnea and also had no accessory muscle use. Auscultation of his lungs at the time of discharge had fair air exchange with symmetric chest rise. There was scattered mild end expiratory wheezing. He requested to be discharged and in fact he was quite emphatic and profane about it. He will be discharged to the shelter and continued on Augmentin 875 p.o. twice daily for treatment of aspiration. He will be placed on a steroid taper over the next 12 days and then resume prednisone 5 mg p.o. daily. Smoking cessation counseling was administered in the hospital. This note was generated with [employer] dictation software. It may contain incorrect words, spelling, and punctuation that were not noted in checking the note before signing. Home Medications: Medications to take at Discharge Acetaminophen [Tylenol Extra Strength] 1,000 mg PO QHS 08/08/17 Acetaminophen [Tylenol] 650 mg PO Q6H PRN 08/08/17 Albuterol Inhaler [Ventolin Hfa] 1 puff INHALATION Q4H PRN PRN 08/08/17 Aspirin 81 mg PO DAILY 08/08/17 Atorvastatin Calcium 40 mg PO DAILY 08/08/17 Cilostazol 100 mg PO BID 08/08/17 Ferrous Fumarate [Ferretts] 325 mg PO TID 08/08/17 Guaifenesin [Tussin Mucus-Chest Congestion] 200 mg PO Q6H PRN 08/08/17 Haloperidol Decanoate [Haldol Decanoate 100] 300 mg IM Q30D 08/08/17 Insulin Aspart [Novolog Flexpen] 0 - 15 units SC ACHS PRN 08/08/17 Insulin Detemir [Levemir] 10 unit SQ BREAKFAST 08/08/17 Insulin Detemir [Levemir] 18 unit SQ QHS 08/08/17 Boomer Carbonate 600 mg PO DAILY 08/08/17 Lorazepam [Ativan] 1 mg PO Q4H PRN 08/08/17 Losartan Potassium 75 mg PO QHS 08/08/17 Mag Hydrox/Al Hydrox/Simeth [Mylanta II] 30 ml PO Q4H PRN PRN 08/08/17 Magnesium Oxide [Mag-Oxide Magnesium] 800 mg PO DAILY 08/08/17 Metformin HCl 1,000 mg PO BID 08/08/17 Metoprolol Tartrate [Lopressor (beta tia)] 50 mg PO BID 08/08/17 Omeprazole [Prilosec] 40 mg PO DAILY 08/08/17 Oxygen, Home [Home Oxygen] 2 lpm NASAL DAILY 08/08/17 Pseudoephedrine [Sudafed] 60 mg PO Q8H PRN 08/08/17 Sodium Chloride [Saline Mist] 1 spray NASAL Q6H PRN 08/08/17 Fluticasone 0.05% [Flonase Nasal [place]] 1 spray NASAL DAILY 10/04/17 Guaifenesin [Mucinex] 400 mg PO TID 10/04/17 Loxapine Succinate [Loxapine] 25 mg PO QHS 10/04/17 Prednisone 5 mg PO DAILY 10/04/17 Albuterol Aerosols [Ventolin Aerosols] 2.5 mg INHALATION Q6HWA.RT 10/21/17 Cetirizine HCl [Zyrtec] 10 mg PO DAILY 10/21/17 Acetaminophen [Tylenol Tablet] 650 mg PO Q4H PRN PRN tablet 10/22/17 Amox/Clavulanate Tablet [Augmentin Tablet] 875 mg PO Q12H #14 tab 10/22/17 Prednisone 10 mg PO UD #30 tab 10/22/17 Following Prescrptions Were Given to Patient: Amox/Clavulanate Tablet [Augmentin Tablet] 875 mg PO Q12H #14 tab Prednisone 10 mg PO UD #30 tab Primary Care Physician: Care Physician,No Primary [Primary Care Provider] - Disposition: Asstd Living/Non-Skill NH Minutes spent on discharge:: 37 Patient Condition:: Stable Meaningful Use Info Meaningful Use Diagnoses (Choose all that apply): None applicable Code Visit Inpatient E&M: 31383 Disch Hosp
--- NOTE | 2017-10-22 15:16 | DS.PCM_ITS ---
Discharge Date and Diagnosis - Problem List Patient Problems: Active and Suspected Problems COPD exacerbation (Acute) Acute hypercapnic respiratory failure (Acute) Hypomagnesemia (Acute) Metabolic alkalosis with respiratory acidosis (Acute) Hyperglycemia (Acute) Dysphagia (Acute) Aspiration of food (Acute) Date of Admission: 10/21/17 Date of Discharge: 10/22/17 - Primary Discharge Diagnosis Active and Suspected Problems COPD exacerbation (Acute) Acute hypercapnic respiratory failure (Acute) Hypomagnesemia (Acute) Metabolic alkalosis with respiratory acidosis (Acute) Hyperglycemia (Acute) Dysphagia (Acute) Aspiration of food (Acute) - Secondary Discharge Diagnosis Chronic Problems Bipolar affective disorder (Chronic) CVD (cerebrovascular disease) (Chronic) Dyslipidemia (Chronic) GERD (gastroesophageal reflux disease) (Chronic) HTN (hypertension) (Chronic) History of alcoholism (Chronic) PVD (peripheral vascular disease) (Chronic) Schizophrenia (Chronic) Tobacco use disorder (Chronic) History of TIA (transient ischemic attack) (Chronic) Chronic respiratory failure with hypoxia (Chronic) Obstructive sleep apnea (Chronic) Noncompliance with CPAP treatment (Chronic) Aortic stenosis, mild (Chronic) Aortic valve insufficiency (Chronic) Hospital Course and Treatment Imaging Results: Clinical Impression(s) from Imaging Studies Chest X-Ray 10/21/17 09:45 IMPRESSION: Hyperinflation. Mild increased markings in the lingular segment of the left upper lobe suggestive of atelectasis and/or early infiltrate superimposed on scarring. Prominence of the pulmonary arteries bilaterally. Electronically Signed: Bienvenido Carmen MD at 10:25 EST Tel [phone], Service support , Chest X-Ray 10/22/17 05:59 IMPRESSION: Hyperinflation. Stable increased markings in the lingular segment of the left upper lobe. There has been essentially no change since prior study. Electronically Signed: Bienvenido Carmen MD at 8:54 EST Tel [phone], Service support , none Operations: None Procedures: None Summary of Care Provided: The patient is a 66 year old M with a past medical history of bipolar disorder, schizophrenia, COPD, dyslipidemia, GERD, hypertension, history of alcoholism, peripheral vascular disease, ongoing tobacco dependence, CVA in the past and history of TIAs who was sent to the emergency room for shortness of breath. He denied chest pain, cough, sputum production, nausea/vomiting, muscle aches and pains. He is chronically on prednisone 5 mg daily and had a recent course of doxycycline. He has CPAP but does not consistently wear it. He wears a 3 L nasal cannula off and on when he feels short of breath. Pulse ox at the [place] [facility] was in the 80s and his oxygen was increased to 4 L. Vital signs at presentation to the emergency room were temperature 99.7, pulse rate 99, blood pressure 155/76, respiratory rate of 29 and he was 99% saturated on a 3 L nasal cannula. Significant lab included an elevated white blood cell count at 18.3 with 94% neutrophils. Hemoglobin and platelets were within normal limits. An ABG done on a 2 L nasal cannula showed pH of 7.38, PCO2 of 65 and PO2 of 69. Serum bicarb was elevated at 35 and the sodium was mildly decreased at 135. Random blood sugar was 233 and his hemoglobin A1c was 6.5. Magnesium was low at 1.5. LFTs were unremarkable. Chest x-ray showed hyperinflation with increased markings in the lingula suspicious for atelectasis versus early infiltrate. He was admitted to the hospital with a diagnosis of HCAP and acute exacerbation of COPD with hypoxia and hypercapnia. He was started on vancomycin and Zosyn. [id number] DuoNeb aerosols were ordered and q. 2 hour albuterol aerosols as needed for dyspnea and wheezing. He was placed on BiPAP in the emergency room for tachypnea with accessory muscle use and diffuse inspiratory and expiratory wheezing. He was observed eating his dinner and was noted to have coughing with every attempt to consume thin liquids. He was seen in consultation by speech therapy and had dysphagia. His diet was converted to a cardiac, carb control diet with nectar thick liquids and mechanical soft foods. He tolerated this much better. He was afebrile since admission. The leukocytosis resolved in less than 24 hours from admission. White blood cell count on 10/22 was 10.5. Blood sugars have been elevated secondary to high- dose steroids. He was weaned off BiPAP and on the date of discharge his pulse ox on a 2 L nasal cannula was 96%. He was not tachypneic, had no conversational dyspnea and also had no accessory muscle use. Auscultation of his lungs at the time of discharge had fair air exchange with symmetric chest rise. There was scattered mild end expiratory wheezing. He requested to be discharged and in fact he was quite emphatic and profane about it. He will be discharged to the [place] and continued on Augmentin 875 p.o. twice daily for treatment of aspiration. He will be placed on a steroid taper over the next 12 days and then resume prednisone 5 mg p.o. daily. Smoking cessation counseling was administered in the hospital. This note was generated with [employer] dictation software. It may contain incorrect words, spelling, and punctuation that were not noted in checking the note before signing. Home Medications: Medications to take at Discharge Acetaminophen [Tylenol Extra Strength] 1,000 mg PO QHS 08/08/17 Acetaminophen [Tylenol] 650 mg PO Q6H PRN 08/08/17 Albuterol Inhaler [Ventolin Hfa] 1 puff INHALATION Q4H PRN PRN 08/08/17 Aspirin 81 mg PO DAILY 08/08/17 Atorvastatin Calcium 40 mg PO DAILY 08/08/17 Cilostazol 100 mg PO BID 08/08/17 Ferrous Fumarate [Ferretts] 325 mg PO TID 08/08/17 Guaifenesin [Tussin Mucus-Chest Congestion] 200 mg PO Q6H PRN 08/08/17 Haloperidol Decanoate [Haldol Decanoate 100] 300 mg IM Q30D 08/08/17 Insulin Aspart [Novolog Flexpen] 0 - 15 units SC ACHS PRN 08/08/17 Insulin Detemir [Levemir] 10 unit SQ BREAKFAST 08/08/17 Insulin Detemir [Levemir] 18 unit SQ QHS 08/08/17 [place] Carbonate 600 mg PO DAILY 08/08/17 Lorazepam [Ativan] 1 mg PO Q4H PRN 08/08/17 Losartan Potassium 75 mg PO QHS 08/08/17 Mag Hydrox/Al Hydrox/Simeth [Mylanta II] 30 ml PO Q4H PRN PRN 08/08/17 Magnesium Oxide [Mag-Oxide Magnesium] 800 mg PO DAILY 08/08/17 Metformin HCl 1,000 mg PO BID 08/08/17 Metoprolol Tartrate [Lopressor (beta tia)] 50 mg PO BID 08/08/17 Omeprazole [Prilosec] 40 mg PO DAILY 08/08/17 Oxygen, Home [Home Oxygen] 2 lpm NASAL DAILY 08/08/17 Pseudoephedrine [Sudafed] 60 mg PO Q8H PRN 08/08/17 Sodium Chloride [Saline Mist] 1 spray NASAL Q6H PRN 08/08/17 Fluticasone 0.05% [Flonase Nasal Shell] 1 spray NASAL DAILY 10/04/17 Guaifenesin [Mucinex] 400 mg PO TID 10/04/17 Loxapine Succinate [Loxapine] 25 mg PO QHS 10/04/17 Prednisone 5 mg PO DAILY 10/04/17 Albuterol Aerosols [Ventolin Aerosols] 2.5 mg INHALATION Q6HWA.RT 10/21/17 Cetirizine HCl [Zyrtec] 10 mg PO DAILY 10/21/17 Acetaminophen [Tylenol Tablet] 650 mg PO Q4H PRN PRN tablet 10/22/17 Amox/Clavulanate Tablet [Augmentin Tablet] 875 mg PO Q12H #14 tab 10/22/17 Prednisone 10 mg PO UD #30 tab 10/22/17 Following Prescrptions Were Given to Patient: Amox/Clavulanate Tablet [Augmentin Tablet] 875 mg PO Q12H #14 tab Prednisone 10 mg PO UD #30 tab Primary Care Physician: Care Physician,No Primary [Primary Care Provider] - Disposition: Asstd Living/Non-Skill NH Minutes spent on discharge:: 37 Patient Condition:: Stable Meaningful Use Info Meaningful Use Diagnoses (Choose all that apply): None applicable Code Visit Inpatient E&M: 88318 Disch Hosp
--- NOTE | 2017-10-22 15:20 | CASEMGMT ---
Patient is ready for d/c back to [facility]. SAL called Randi and let her know. SAL faxed orders to [facility]. [place] called [facility] [place] arranged [place] to get picked up at 4p via [employer] van. SAL notified RN and Randi at [facility]. All in agreement with d/c plan. Plan: Patient returning to [facility] under intermediate level of care. [facility] [place] [employer] van. Zaira FIGUEROA MSW
== END 2017-10-22 16:45 | disposition intermediate care facility (04) | DRG 871 ==
LOC: ED 09:52 → PCU 12:07
PROVIDERS: Admitting Provider Internal Medicine; Emergency Provider Emergency Medicine; Visit Provider Internal Medicine
DX: A41.9 Sepsis, unspecified organism (principal); J96.02 Acute respiratory failure with hypercapnia; J69.0 Pneumonitis due to inhalation of food and vomit; E87.4 Mixed disorder of acid-base balance; J96.11 Chronic respiratory failure with hypoxia; R13.10 Dysphagia, unspecified; J44.1 Chronic obstructive pulmonary disease with (acute) exacerbation; R65.20 Severe sepsis without septic shock; E83.42 Hypomagnesemia; F20.9 Schizophrenia, unspecified; Z99.81 Dependence on supplemental oxygen; K21.9 Gastro-esophageal reflux disease without esophagitis; E78.5 Hyperlipidemia, unspecified; F17.210 Nicotine dependence, cigarettes, uncomplicated; I73.9 Peripheral vascular disease, unspecified; I35.2 Nonrheumatic aortic (valve) stenosis with insufficiency; I10 Essential (primary) hypertension; F31.9 Bipolar disorder, unspecified; F10.21 Alcohol dependence, in remission; G47.33 Obstructive sleep apnea (adult) (pediatric); R73.9 Hyperglycemia, unspecified; Z86.73 Personal history of transient ischemic attack (TIA), and cerebral infarction without residual deficits; Z79.899 Other long term (current) drug therapy
CPT/HCPCS: 36415; 36600; 71010; 71020; 80048; 80053; 80076; 81001; 82803; 82962; 83036; 83605; 83735; 84100; 84484; 85025; 85027; 85610; 85730; 87040; 87086; 87088; 87449; 87633; 87804; 92610; 93005; 94002; 94640; 97802; 99285; 99406; J7030; J7040; A4216

== ENCOUNTER 2017-11-04 16:32 | Inpatient (IN) | payer MEDICARE, MEDICAID, SELFPAY ==
[2017-11-04] VITALS (19 sets, daily range): BP systolic 98–164; BP diastolic 50–74; PULSE 104–146; RESP 12–46; TEMP 37.2–37.8; O2SAT 69–100; BMI 25.0; BMI 20.1; BMI 20.2
[2017-11-04 16:50] LABS: Bedside Glucose 163 mg/dL (70-110)
--- NOTE | 2017-11-04 16:51 | RAD_ITS ---
STUDY: X-RAY CHEST REASON FOR EXAM: Male, 66 years old. Chest pain, shortness of breath TECHNIQUE: A single frontal view of the chest was obtained. COMPARISON: October 22, 2017 FINDINGS: The lungs are hyperinflated. There are stable coarse opacities in the lung bases, left greater than right. There are no focal airspace opacities. There is no demonstrated pleural abnormality. The cardiac silhouette is normal in size. The mediastinum and hilar regions are unremarkable. Normal visualized pulmonary arteries. There is atherosclerotic calcification of the aortic arch. There are diffuse degenerative changes of the visualized thoracic spine. There are old rib fractures on the right side. There is no demonstrated abnormality of the visualized upper abdomen. RAD/Chest 1 View (Portable) IMPRESSION: No acute cardiopulmonary abnormalities or changes. Stable hyperinflation/COPD with bibasilar scarring/fibrosis. Electronically Signed: Roxy Ahmadi MD at 17:20 EST Tel Direct: [phone], Service support ,
--- NOTE | 2017-11-04 16:51 | EKG12_ITS ---
Test Reason : Blood Pressure : / mmHG Vent. Rate : 113 BPM Atrial Rate : 113 BPM P-R Int : 098 ms QRS Dur : 076 ms QT Int : 348 ms P-R-T Axes : 099 106 079 degrees QTc Int : 477 ms Suspect arm lead reversal, interpretation assumes no reversal Sinus tachycardia with short CT with Premature atrial complexes Biatrial enlargement Nonspecific T wave abnormality Abnormal ECG Confirmed by KATHLEEN DOVE, KAREN ([id number]), story editor LAURIE FAN ([id number]) on 11/06/2017 11:37:35 AM Referred By: Confirmed By:KAREN WANG MD
--- NOTE | 2017-11-04 16:57 | ED.VISSUMM ---
- ER Visit Summary Date of Service: 11/04/17 Chief Complaint: Wheezing and shortness of breath History of Present Illness: The patient is a 66 M history of COPD on 3 L at the retirement. Also history of insulin-dependent diabetes, hypertension, hypercholesterolemia and prior stroke. Physical Examination: Vital signs are stable he is tachycardic at 118 and has a low-grade temperature 100.1. 97% that is on 4 L. HEENT exam shows dry mucous membranes with thick green phlegm. Neck nontender no lymphadenopathy. Heart tachycardic rate about 115 120 no murmur. Lungs prolonged expiratory phase bilaterally. Decreased air movement. Expiratory wheezing throughout. Light cough. Abdomen soft nontender. Nondistended normal bowel sounds. No peritoneal signs. Moving all 4 extremities neurovascularly intact. Nontender no edema. Neurologically is awake and alert following commands. No focal deficits. Test Results: CBC shows a white count of 9 and normal H&H. Electrolytes are abnormal but not significantly remarkable. Gap is 2. Normal creatinine. Chest x-ray shows no acute abnormality read both by myself the radiologist. Chronic changes consistent with COPD. No infiltrate. EKG sinus tach at 113. Emergency Department Course and Treatment: Treated with IV Solu-Medrol, IV fluids and aerosol treatments. Treatment Plan: Repeat exam at 1755 patient is doing much better but currently is on BiPAP. I will speak to the hospitalist about admission. Disposition: Admission Impression: Acute exacerbation COPD Acute bronchitis Respiratory failure on BiPAP This note was generated with [employer] dictation software. It may contain incorrect words, spelling, and punctuation that were not noted in review of the chart prior to signing ED Disposition - Plan for ED Patient: Chief Complaint: Shortness of Breath Referrals: Care Physician,No Primary [Primary Care Provider] -
--- NOTE | 2017-11-04 17:01 | ED.DCSUM_ITS ---
- ER Visit Summary Date of Service: 11/04/17 Chief Complaint: Wheezing and shortness of breath History of Present Illness: The patient is a 66 M history of COPD on 3 L at the [place] [facility]. Also history of insulin-dependent diabetes, hypertension, hypercholesterolemia and prior stroke. Physical Examination: Vital signs are stable he is tachycardic at 118 and has a low-grade temperature 100.1. 97% that is on 4 L. HEENT exam shows dry mucous membranes with thick green phlegm. Neck nontender no lymphadenopathy. Heart tachycardic rate about 115 120 no murmur. Lungs prolonged expiratory phase bilaterally. Decreased air movement. Expiratory wheezing throughout. Light cough. Abdomen soft nontender. Nondistended normal bowel sounds. No peritoneal signs. Moving all 4 extremities neurovascularly intact. Nontender no edema. Neurologically is awake and alert following commands. No focal deficits. Test Results: CBC shows a white count of 9 and normal H&H. Electrolytes are abnormal but not significantly remarkable. Gap is 2. Normal creatinine. Chest x-ray shows no acute abnormality read both by myself the radiologist. Chronic changes consistent with COPD. No infiltrate. EKG sinus tach at 113. Emergency Department Course and Treatment: Treated with IV Solu-Medrol, IV fluids and aerosol treatments. Treatment Plan: Repeat exam at 1755 patient is doing much better but currently is on BiPAP. I will speak to the hospitalist about admission. Disposition: Admission Impression: Acute exacerbation COPD Acute bronchitis Respiratory failure on BiPAP This note was generated with [employer] dictation software. It may contain incorrect words, spelling, and punctuation that were not noted in review of the chart prior to signing ED Disposition - Plan for ED Patient: Chief Complaint: Shortness of Breath Referrals: Care Physician,No Primary [Primary Care Provider] -
[2017-11-04] MEDS: Ipratropium/Albuterol Sulfate 3 ML AMPUL.NEB INHALATION ×2 (17:10→23:05)
[2017-11-04] MEDS: Albuterol 2.5 MG/3 ML VIAL.NEB. INHALATION (17:10)
[2017-11-04] MEDS: 0.9% Normal Saline 1,000 ML 999 ML IV (17:14)
[2017-11-04] MEDS: MethylPREDNISolone 125 MG/2 ML Vial IV (17:16)
[2017-11-04 17:22] LABS: Absolute Lymphocyte Count 0.32 X10^3/ul (0.83-4.51); Absolute Neutrophil Count 9.2 X10^3/uL (2.0-7.7); Basophil# 0.02 X10^3/uL; Basophil% 0.2 % (0-1); Hematocrit 45.2 % (40-54); Hemoglobin 14.4 g/dl (13.0-16.5); Lymphocyte # 0.32 X10^3/ul (4.0); Lymphocyte % 3.2 % (19-41); Mean Corp Hgb Conc 31.9 g/gl (32-36); Mean Corpuscular Hgb 31.5 pg (27.0-32.0); Mean Corpuscular Volume 98.9 fL (80-94); Mean Platelet Vol. 10.3 fl (6.2-12.0); Monocyte# 0.34 X10^3/uL; Monocyte% 3.4 % (0-10); Neutrophil # 9.22 X10^3/uL (2.7-7.7); Platelet Count 150 K/mm3 (150-450); RBC Distribution Width CV 12.8 % (11.6-14.6); RBC Distribution Width SD 45.7 fl (35.1-43.9); Red Blood Count 4.57 M/mm3 (4.6-6.2); White Blood Count 9.9 K/mm3 (4.4-11.0)
[2017-11-04 17:25] LABS: Anion Gap 2 (5-15); BUN 17 mg/dL (7-18); BUN/Creat Ratio 20.2 RATIO (10-20); Calcium,Total 9.1 mg/dL (8.5-10.1); Chloride 95 mmol/L (98-107); Creatinine, Serum 0.84 mg/dL (0.70-1.30); EST Glomerular Filtration Rate 97 mL/min (>60); Est Glom Filt Rate - Afr Amer 118 mL/min (>60); Estimated Creatinine Clearance 85.95 ml/min; Glucose 153 mg/dL (70-110); Potassium 4.6 mmol/L (3.5-5.1); Sodium Level 132 mmol/L (136-145)
[2017-11-04 17:41] LABS: POSITIVE COUNT NO; POSITIVE DIFFERENTIAL YES; POSITIVE MORPHOLOGY NO
[2017-11-04 17:42] LABS: Differential Indicated SCAN CRITERIA MET
[2017-11-04 17:48] LABS: Anisocytosis RARE; Macrocytosis RARE; Platelet Estimate ADEQUATE (ADEQ)
--- NOTE | 2017-11-04 17:49 | ED.RN ---
PT'S SPO2 DROPPED TO 69%, NASAL CANNULA WAS NOT IN NOSE, PT HOB DOWN, INCONTINENCE CARE BEING PROVIDED. NON-REBREATHER WITH 15L APPLIED, SPO2 UP TO 80'S, 94% AFTER SEVERAL MINUTES. RT IN ROOM, BIPAP APPLIED AT 15/5 60%. PT NOW RESTING QUIETLY IN BED WITH NO SIGNS OF DISTRESS.
--- NOTE | 2017-11-04 19:00 | PCM.HP.STD ---
Problem List (1) Acute exacerbation of chronic obstructive pulmonary disease Status: Acute (2) Acute respiratory failure with hypoxia and hypercapnia Status: Acute (3) Dysphagia Status: Chronic Comment: supposed to be on a mechanical soft diet with nectar thick liquids (4) Hypomagnesemia Status: Chronic (5) Aortic stenosis, mild Status: Chronic (6) Aortic valve insufficiency Status: Chronic (7) Bipolar affective disorder Status: Chronic (8) CVD (cerebrovascular disease) Status: Chronic (9) Chronic respiratory failure with hypoxia Status: Chronic (10) Dyslipidemia Status: Chronic (11) GERD (gastroesophageal reflux disease) Status: Chronic (12) HTN (hypertension) Status: Chronic Qualifiers: (13) History of TIA (transient ischemic attack) Status: Chronic (14) History of alcoholism Status: Chronic (15) Noncompliance with CPAP treatment Status: Chronic (16) Obstructive sleep apnea Status: Chronic (17) PVD (peripheral vascular disease) Status: Chronic (18) Schizophrenia Status: Chronic (19) Tobacco use disorder Status: Chronic (20) HCAP (healthcare-associated pneumonia) Status: Ruled-out (21) Severe sepsis Status: Ruled-out (22) Edentulous Status: Chronic (23) Noncompliance of patient with dietary regimen Status: Chronic History of Present Illness Date of Admission: 11/04/17 Chief Complaint: Wheezing and shortness of breath The patient is a 66 year old M with a past medical history of bipolar disorder, schizophrenia, severe COPD, dyslipidemia, GERD, hypertension, past history of alcoholism, peripheral vascular disease, tobacco addiction, remote CVA, history of TIAs and dysphagia who was sent to the [facility] emergency room on 11/04/2017 from the long term with a complaint of increasing shortness of breath and increased wheezing. Vital signs at presentation to the emergency room were temperature 100.1, pulse rate 118, blood pressure 164/74, respiratory rate 40 and he was 97% saturated on a 4 L nasal cannula. He had accessory muscle use with retractions. Lab in the emergency room revealed a white blood cell count of 9.9 with a left shift. Patient is chronically on steroids for treatment of severe COPD. Hemoglobin was 14.4 and the platelets are 151,000. Sodium is low at 132 and the serum bicarb is elevated at 35. Random blood sugar was 153. Chest x-ray showed hyperinflation with chronic changes in the bases but no acute infiltrates, pulmonary vascular congestion or pleural effusions. Influenza swab was negative. He had multiple aerosols in the emergency room and was given 125 mg of Solu-Medrol. He was placed on BiPAP and his respiratory rate has slowed down. He remains tachycardic with a heart rate of 123 and his respiratory rate is now 30. He is 96-98% saturated on an FiO2 of 60%. He is being admitted to the hospital with a diagnosis of acute on chronic combined respiratory failure and acute exacerbation of chronic obstructive pulmonary disease. He was recently an inpt at [facility] on PCU. He was admitted on 10/21 for shortness of breath and admitted to the hospital with a diagnosis of HCAP an acute exacerbation of COPD however he demanded to be discharged on 10/22 and he was sent back to the long term on a tapering dose of steroids and Augmentin. During that admission he was seen in consultation by the speech therapist and diagnosed with dysphagia. He was placed on a mechanical soft diet with nectar thick liquids however he has not been compliant with this at the long term because his family states that he would not drink or eat because he does not like thickened liquids. He is known to be noncompliant with CPAP and he continues to smoke despite multiple admonishments to discontinue smoking due to chronic hypoxemia and severe COPD. Past Medical History Past Medical History (Chronic Problems): Chronic Problems Bipolar affective disorder (Chronic) CVD (cerebrovascular disease) (Chronic) Dyslipidemia (Chronic) GERD (gastroesophageal reflux disease) (Chronic) HTN (hypertension) (Chronic) History of alcoholism (Chronic) PVD (peripheral vascular disease) (Chronic) Schizophrenia (Chronic) Tobacco use disorder (Chronic) History of TIA (transient ischemic attack) (Chronic) Chronic respiratory failure with hypoxia (Chronic) Obstructive sleep apnea (Chronic) Noncompliance with CPAP treatment (Chronic) Hypomagnesemia (Chronic) Dysphagia (Chronic) supposed to be on a mechanical soft diet with nectar thick liquids Aortic stenosis, mild (Chronic) Aortic valve insufficiency (Chronic) Edentulous (Chronic) Noncompliance of patient with dietary regimen (Chronic) Allergies No Known Allergies Allergy (Verified 11/04/17 16:37) Home Medications: Ambulatory Orders Medication Instructions Recorded Acetaminophen [Tylenol Extra 1,000 mg PO QHS 08/08/17 Strength] Acetaminophen [Tylenol] 650 mg PO Q6H PRN 08/08/17 Albuterol Inhaler [Ventolin Hfa] 1 puff INHALATION Q4H PRN PRN 08/08/17 Aspirin 81 mg PO DAILY 08/08/17 Atorvastatin Calcium 40 mg PO DAILY 08/08/17 Cilostazol 100 mg PO BID 08/08/17 Ferrous Fumarate [Ferretts] 325 mg PO TID 08/08/17 Guaifenesin [Tussin Mucus-Chest 200 mg PO Q6H PRN 08/08/17 Congestion] Haloperidol Decanoate [Haldol 300 mg IM Q30D 08/08/17 Decanoate 100] Insulin Aspart [Novolog Flexpen] 0 - 15 units SC ACHS PRN 08/08/17 Insulin Detemir [Levemir] 10 unit SQ BREAKFAST 08/08/17 Insulin Detemir [Levemir] 18 unit SQ QHS 08/08/17 [place] Carbonate 600 mg PO DAILY 08/08/17 Lorazepam [Ativan] 1 mg PO Q4H PRN 08/08/17 Losartan Potassium 75 mg PO QHS 08/08/17 Mag Hydrox/Al Hydrox/Simeth 30 ml PO Q4H PRN PRN 08/08/17 [Mylanta II] Magnesium Oxide [Mag-Oxide 800 mg PO DAILY 08/08/17 Magnesium] Metformin HCl 1,000 mg PO BID 08/08/17 Metoprolol Tartrate [Lopressor 50 mg PO BID 08/08/17 (beta tia)] Omeprazole [Prilosec] 40 mg PO DAILY 08/08/17 Oxygen, Home [Home Oxygen] 2 lpm NASAL DAILY 08/08/17 Pseudoephedrine [Sudafed] 60 mg PO Q8H PRN 08/08/17 Sodium Chloride [Saline Mist] 1 spray NASAL Q6H PRN 08/08/17 Fluticasone 0.05% [Flonase Nasal 1 spray NASAL DAILY 10/04/17 [place]] Guaifenesin [Mucinex] 400 mg PO TID 10/04/17 Loxapine Succinate [Loxapine] 25 mg PO QHS 10/04/17 Prednisone 5 mg PO DAILY 10/04/17 Albuterol Aerosols [Ventolin 2.5 mg INHALATION Q6HWA.RT 10/21/17 Aerosols] Cetirizine HCl [Zyrtec] 10 mg PO DAILY 10/21/17 Acetaminophen [Tylenol Tablet] 650 mg PO Q4H PRN PRN tablet 10/22/17 Amox/Clavulanate Tablet [Augmentin 875 mg PO Q12H #14 tab 10/22/17 Tablet] Prednisone 10 mg PO UD #30 tab 10/22/17 Lactobacillus Acidophilus 1 each PO BID 11/04/17 [Acidophilus] Oseltamivir Phosphate [Tamiflu] 75 mg PO DAILY 11/04/17 Surgical History: colectomy Psychiatric History: Bipolar, Schizophrenia Smoking Status: Current every day smoker Tobacco Use: Cigarettes Alcohol: None Drugs: None - *Family History Maternal History Items: Unknown Paternal History Items: No pertinent history Sibling History Items: No pertinent history Review of Systems Constitutional: Reports: Fever HEENT: Reports: Difficulty Swallowing. Denies: Head Aches, Sore Throat Cardiovascular: Denies: Chest Pain Respiratory: Reports: Shortness of Breath, Wheezing Gastrointestinal: Denies: Diarrhea, Vomiting Skin: Denies: Jaundice, Rash, Wounds Unable to obtain accurate/complete ROS d/t: limnited to him being on BIPAP and being edentulous and I could not underst VTE Information - Inpt Only VTE Present on Admission: No VTE Mechan Device Prophylaxis: SCD's, Knee High REESE Hose VTE Pharm Prophylaxis ordered?: Yes Patient Problems: Active and Suspected Problems Acute exacerbation of chronic obstructive pulmonary disease (Acute) Acute respiratory failure with hypoxia and hypercapnia (Acute) - Physical Exam General: Alert, - - on BIPAP and requiring a high FIO2 to maintain saturation HEENT: Atraumatic, PERRLA, EOMI, Normocephalic Oral: No Gingival or Mucosal Lesions/ Ulcerations, Dry Mucosa, - - Edentulous Neck: Supple, No JVD, No Nodes, Trachea Midline Lungs: No rales, Diminished, Short of Breath, Tachypneic, Using Accessory Muscles, Wheezes Cardiovascular: Regular Rhythm, Normal S1, Normal S2, Murmur, No Gallop, Tachycardic Abdomen: Bowel Sounds Present, Soft, Non Tender, Non-Distended Extremities: No cyanosis, No edema, No Calf Tenderness, Clubbing Skin: No rashes, No breakdown Musculoskeletal: No Tenderness to Palpation of Joints or Extremities Neurological: Cranial nerves II-XII grossly intact, Neuro grossly intact Vital Signs Temp Pulse Resp BP Pulse Ox 98.9 F 123 H 30 H 132/70 H 98 11/04/17 18:23 11/04/17 18:23 11/04/17 18:23 11/04/17 18:23 11/04/17 18:23 Oxygen Flow Rate 15 Oxygen Delivery Method Bi-pap Weight: 165 lb Body Mass Index (BMI) 25.0 Microbiology Past 72 Hours 11/04/17 17:10 Influenza Types A,B Direct FA (JEANINE) - Final Mucosa - Nose Laboratory Tests Past 24 Hrs 11/04/17 11/04/17 16:38 16:38 WBC 9.9 RBC 4.57 L Hgb 14.4 Hct 45.2 MCV 98.9 H MCH 31.5 MCHC 31.9 L RDW 12.8 RDW Differential 45.7 H Plt Count 150 MPV 10.3 Immature Gran % (Auto) 0.200 Neut % (Auto) 93.0 H Lymph % (Auto) 3.2 L [place] % (Auto) 3.4 Eos % (Auto) 0.0 Baso % (Auto) 0.2 Absolute Neuts (auto) 9.2 H Absolute Lymphs (auto) 0.32 L Total Counted Not Reportable Differential Comment SEE COMMENT Platelet Estimate ADEQUATE Anisocytosis RARE Macrocytosis RARE Sodium 132 L Potassium 4.6 Chloride 95 L Carbon Dioxide 35.0 H Anion Gap 2 L BUN 17 Creatinine 0.84 Estim Creat Clear Calc 85.95 Est GFR (MDRD) Af Amer 118 Est GFR (MDRD) Non-Af 97 BUN/Creatinine Ratio 20.2 H Glucose 153 H Calcium 9.1 POC Glucose 11/04/17 16:43 POC Glucose 163 H Assessment/Plan Active and Suspected Problems Acute exacerbation of chronic obstructive pulmonary disease (Acute) Acute respiratory failure with hypoxia and hypercapnia (Acute) Impressions 1. Acute respiratory failure with hypoxemia and hypercarbia Start high-dose intravenous steroids [id number] aerosols Mucinex 1200 p.o. twice daily Keep n.p.o. and reevaluate in the a.m. Maintain on BiPAP 2. Acute exacerbation of COPD 3. Acute febrile illness-suspect viral No infiltrates on chest x-ray, normal white blood cell count, no purulent sputum Blood cultures and sputum cultures ordered. Will obtain respiratory panel in the a.m. MRSA swab of his nose Empiric cefepime started 4. History of dysphagia-noncompliant with thickening of his liquids 5. ROLANDO-noncompliant with CPAP 6. Diabetes mellitus type 2/peripheral vascular disease/history of CVA and TIAs/schizophrenia/bipolar disorder/nicotine addiction/G of alcoholism/hyperlipidemia/GERD/hypertension -complicate care, management, prognosis and recovery. Recheck lab in the a.m. Droplet precautions Give oral medications with applesauce but otherwise keep the patient n.p.o. Code Visit Inpatient E&M: 37667 Init Hosp L3
--- NOTE | 2017-11-04 19:01 | ED.RN ---
MED SURG ACUTE EXACERBATION COPD, ACUTE ON CHRONIC RESPITORY FAILURE SEMENTI
--- NOTE | 2017-11-04 19:15 | HP.PCM_ITS ---
Problem List (1) Acute exacerbation of chronic obstructive pulmonary disease Status: Acute (2) Acute respiratory failure with hypoxia and hypercapnia Status: Acute (3) Dysphagia Status: Chronic Comment: supposed to be on a mechanical soft diet with nectar thick liquids (4) Hypomagnesemia Status: Chronic (5) Aortic stenosis, mild Status: Chronic (6) Aortic valve insufficiency Status: Chronic (7) Bipolar affective disorder Status: Chronic (8) CVD (cerebrovascular disease) Status: Chronic (9) Chronic respiratory failure with hypoxia Status: Chronic (10) Dyslipidemia Status: Chronic (11) GERD (gastroesophageal reflux disease) Status: Chronic (12) HTN (hypertension) Status: Chronic Qualifiers: (13) History of TIA (transient ischemic attack) Status: Chronic (14) History of alcoholism Status: Chronic (15) Noncompliance with CPAP treatment Status: Chronic (16) Obstructive sleep apnea Status: Chronic (17) PVD (peripheral vascular disease) Status: Chronic (18) Schizophrenia Status: Chronic (19) Tobacco use disorder Status: Chronic (20) HCAP (healthcare-associated pneumonia) Status: Ruled-out (21) Severe sepsis Status: Ruled-out (22) Edentulous Status: Chronic (23) Noncompliance of patient with dietary regimen Status: Chronic History of Present Illness Date of Admission: 11/04/17 Chief Complaint: Wheezing and shortness of breath The patient is a 66 year old M with a past medical history of bipolar disorder, schizophrenia, severe COPD, dyslipidemia, GERD, hypertension, past history of alcoholism, peripheral vascular disease, tobacco addiction, remote CVA, history of TIAs and dysphagia who was sent to the [facility] emergency room on 11/04/2017 from the assisted with a complaint of increasing shortness of breath and increased wheezing. Vital signs at presentation to the emergency room were temperature 100.1, pulse rate 118, blood pressure 164/74, respiratory rate 40 and he was 97% saturated on a 4 L nasal cannula. He had accessory muscle use with retractions. Lab in the emergency room revealed a white blood cell count of 9.9 with a left shift. Patient is chronically on steroids for treatment of severe COPD. Hemoglobin was 14.4 and the platelets are 151,000. Sodium is low at 132 and the serum bicarb is elevated at 35. Random blood sugar was 153. Chest x-ray showed hyperinflation with chronic changes in the bases but no acute infiltrates, pulmonary vascular congestion or pleural effusions. Influenza swab was negative. He had multiple aerosols in the emergency room and was given 125 mg of Solu-Medrol. He was placed on BiPAP and his respiratory rate has slowed down. He remains tachycardic with a heart rate of 123 and his respiratory rate is now 30. He is 96-98% saturated on an FiO2 of 60%. He is being admitted to the hospital with a diagnosis of acute on chronic combined respiratory failure and acute exacerbation of chronic obstructive pulmonary disease. He was recently an inpt at [facility] on PCU. He was admitted on 10/21 for shortness of breath and admitted to the hospital with a diagnosis of HCAP an acute exacerbation of COPD however he demanded to be discharged on 10/22 and he was sent back to the assisted on a tapering dose of steroids and Augmentin. During that admission he was seen in consultation by the speech therapist and diagnosed with dysphagia. He was placed on a mechanical soft diet with nectar thick liquids however he has not been compliant with this at the assisted because his family states that he would not drink or eat because he does not like thickened liquids. He is known to be noncompliant with CPAP and he continues to smoke despite multiple admonishments to discontinue smoking due to chronic hypoxemia and severe COPD. Past Medical History Past Medical History (Chronic Problems): Chronic Problems Bipolar affective disorder (Chronic) CVD (cerebrovascular disease) (Chronic) Dyslipidemia (Chronic) GERD (gastroesophageal reflux disease) (Chronic) HTN (hypertension) (Chronic) History of alcoholism (Chronic) PVD (peripheral vascular disease) (Chronic) Schizophrenia (Chronic) Tobacco use disorder (Chronic) History of TIA (transient ischemic attack) (Chronic) Chronic respiratory failure with hypoxia (Chronic) Obstructive sleep apnea (Chronic) Noncompliance with CPAP treatment (Chronic) Hypomagnesemia (Chronic) Dysphagia (Chronic) supposed to be on a mechanical soft diet with nectar thick liquids Aortic stenosis, mild (Chronic) Aortic valve insufficiency (Chronic) Edentulous (Chronic) Noncompliance of patient with dietary regimen (Chronic) Allergies No Known Allergies Allergy (Verified 11/04/17 16:37) Home Medications: Ambulatory Orders Medication Instructions Recorded Acetaminophen [Tylenol Extra 1,000 mg PO QHS 08/08/17 Strength] Acetaminophen [Tylenol] 650 mg PO Q6H PRN 08/08/17 Albuterol Inhaler [Ventolin Hfa] 1 puff INHALATION Q4H PRN PRN 08/08/17 Aspirin 81 mg PO DAILY 08/08/17 Atorvastatin Calcium 40 mg PO DAILY 08/08/17 Cilostazol 100 mg PO BID 08/08/17 Ferrous Fumarate [Ferretts] 325 mg PO TID 08/08/17 Guaifenesin [Tussin Mucus-Chest 200 mg PO Q6H PRN 08/08/17 Congestion] Haloperidol Decanoate [Haldol 300 mg IM Q30D 08/08/17 Decanoate 100] Insulin Aspart [Novolog Flexpen] 0 - 15 units SC ACHS PRN 08/08/17 Insulin Detemir [Levemir] 10 unit SQ BREAKFAST 08/08/17 Insulin Detemir [Levemir] 18 unit SQ QHS 08/08/17 [place] Carbonate 600 mg PO DAILY 08/08/17 Lorazepam [Ativan] 1 mg PO Q4H PRN 08/08/17 Losartan Potassium 75 mg PO QHS 08/08/17 Mag Hydrox/Al Hydrox/Simeth 30 ml PO Q4H PRN PRN 08/08/17 [Mylanta II] Magnesium Oxide [Mag-Oxide 800 mg PO DAILY 08/08/17 Magnesium] Metformin HCl 1,000 mg PO BID 08/08/17 Metoprolol Tartrate [Lopressor 50 mg PO BID 08/08/17 (beta tia)] Omeprazole [Prilosec] 40 mg PO DAILY 08/08/17 Oxygen, Home [Home Oxygen] 2 lpm NASAL DAILY 08/08/17 Pseudoephedrine [Sudafed] 60 mg PO Q8H PRN 08/08/17 Sodium Chloride [Saline Mist] 1 spray NASAL Q6H PRN 08/08/17 Fluticasone 0.05% [Flonase Nasal 1 spray NASAL DAILY 10/04/17 [place]] Guaifenesin [Mucinex] 400 mg PO TID 10/04/17 Loxapine Succinate [Loxapine] 25 mg PO QHS 10/04/17 Prednisone 5 mg PO DAILY 10/04/17 Albuterol Aerosols [Ventolin 2.5 mg INHALATION Q6HWA.RT 10/21/17 Aerosols] Cetirizine HCl [Zyrtec] 10 mg PO DAILY 10/21/17 Acetaminophen [Tylenol Tablet] 650 mg PO Q4H PRN PRN tablet 10/22/17 Amox/Clavulanate Tablet [Augmentin 875 mg PO Q12H #14 tab 10/22/17 Tablet] Prednisone 10 mg PO UD #30 tab 10/22/17 Lactobacillus Acidophilus 1 each PO BID 11/04/17 [Acidophilus] Oseltamivir Phosphate [Tamiflu] 75 mg PO DAILY 11/04/17 Surgical History: colectomy Psychiatric History: Bipolar, Schizophrenia Smoking Status: Current every day smoker Tobacco Use: Cigarettes Alcohol: None Drugs: None - *Family History Maternal History Items: Unknown Paternal History Items: No pertinent history Sibling History Items: No pertinent history Review of Systems Constitutional: Reports: Fever HEENT: Reports: Difficulty Swallowing. Denies: Head Aches, Sore Throat Cardiovascular: Denies: Chest Pain Respiratory: Reports: Shortness of Breath, Wheezing Gastrointestinal: Denies: Diarrhea, Vomiting Skin: Denies: Jaundice, Rash, Wounds Unable to obtain accurate/complete ROS d/t: limnited to him being on BIPAP and being edentulous and I could not underst VTE Information - Inpt Only VTE Present on Admission: No VTE Mechan Device Prophylaxis: SCD's, Knee High REESE Hose VTE Pharm Prophylaxis ordered?: Yes Patient Problems: Active and Suspected Problems Acute exacerbation of chronic obstructive pulmonary disease (Acute) Acute respiratory failure with hypoxia and hypercapnia (Acute) - Physical Exam General: Alert, - - on BIPAP and requiring a high FIO2 to maintain saturation HEENT: Atraumatic, PERRLA, EOMI, Normocephalic Oral: No Gingival or Mucosal Lesions/ Ulcerations, Dry Mucosa, - - Edentulous Neck: Supple, No JVD, No Nodes, Trachea Midline Lungs: No rales, Diminished, Short of Breath, Tachypneic, Using Accessory Muscles, Wheezes Cardiovascular: Regular Rhythm, Normal S1, Normal S2, Murmur, No Gallop, Tachycardic Abdomen: Bowel Sounds Present, Soft, Non Tender, Non-Distended Extremities: No cyanosis, No edema, No Calf Tenderness, Clubbing Skin: No rashes, No breakdown Musculoskeletal: No Tenderness to Palpation of Joints or Extremities Neurological: Cranial nerves II-XII grossly intact, Neuro grossly intact Vital Signs Temp Pulse Resp BP Pulse Ox 98.9 F 123 H 30 H 132/70 H 98 11/04/17 18:23 11/04/17 18:23 11/04/17 18:23 11/04/17 18:23 11/04/17 18:23 Oxygen Flow Rate 15 Oxygen Delivery Method Bi-pap Weight: 165 lb Body Mass Index (BMI) 25.0 Microbiology Past 72 Hours 11/04/17 17:10 Influenza Types A,B Direct FA (JEANINE) - Final Mucosa - Nose Laboratory Tests Past 24 Hrs 11/04/17 11/04/17 16:38 16:38 WBC 9.9 RBC 4.57 L Hgb 14.4 Hct 45.2 MCV 98.9 H MCH 31.5 MCHC 31.9 L RDW 12.8 RDW Differential 45.7 H Plt Count 150 MPV 10.3 Immature Gran % (Auto) 0.200 Neut % (Auto) 93.0 H Lymph % (Auto) 3.2 L [place] % (Auto) 3.4 Eos % (Auto) 0.0 Baso % (Auto) 0.2 Absolute Neuts (auto) 9.2 H Absolute Lymphs (auto) 0.32 L Total Counted Not Reportable Differential Comment SEE COMMENT Platelet Estimate ADEQUATE Anisocytosis RARE Macrocytosis RARE Sodium 132 L Potassium 4.6 Chloride 95 L Carbon Dioxide 35.0 H Anion Gap 2 L BUN 17 Creatinine 0.84 Estim Creat Clear Calc 85.95 Est GFR (MDRD) Af Amer 118 Est GFR (MDRD) Non-Af 97 BUN/Creatinine Ratio 20.2 H Glucose 153 H Calcium 9.1 POC Glucose 11/04/17 16:43 POC Glucose 163 H Assessment/Plan Active and Suspected Problems Acute exacerbation of chronic obstructive pulmonary disease (Acute) Acute respiratory failure with hypoxia and hypercapnia (Acute) Impressions 1. Acute respiratory failure with hypoxemia and hypercarbia * Start high-dose intravenous steroids * [id number] aerosols * Mucinex 1200 p.o. twice daily * Keep n.p.o. and reevaluate in the a.m. * Maintain on BiPAP 2. Acute exacerbation of COPD 3. Acute febrile illness-suspect viral * No infiltrates on chest x-ray, normal white blood cell count, no purulent sputum * Blood cultures and sputum cultures ordered. Will obtain respiratory panel in the a.m. * MRSA swab of his nose * Empiric cefepime started 4. History of dysphagia-noncompliant with thickening of his liquids 5. ROLANDO-noncompliant with CPAP 6. Diabetes mellitus type 2/peripheral vascular disease/history of CVA and TIAs /schizophrenia/bipolar disorder/nicotine addiction/G of alcoholism/ hyperlipidemia/GERD/hypertension -complicate care, management, prognosis and recovery. Recheck lab in the a.m. Droplet precautions Give oral medications with applesauce but otherwise keep the patient n.p.o. Code Visit Inpatient E&M: 49546 Init Hosp L3
[2017-11-04] MEDS: Dextrose 5%/0.9% NaCl 1,000 ML 100 ML IV (20:25)
[2017-11-04] MEDS: Metoprolol Tartrate 50 MG Tablet PO (22:27)
[2017-11-04] MEDS: Famotidine 20 MG Tablet PO (22:27)
[2017-11-04] MEDS: Acetaminophen 500 MG Tablet 1000 MG PO (22:28)
[2017-11-04] MEDS: Losartan Potassium 25 MG Tablet 75 MG PO (22:28)
[2017-11-04] MEDS: guaiFENesin 1,200 MG Tablet 1200 MG PO (22:28)
[2017-11-04] MEDS: Cilostazol 50 MG Tablet 100 MG PO (22:28)
[2017-11-04] MEDS: Atorvastatin Calcium 40 MG Tablet PO (22:28)
[2017-11-04 22:51] LABS: Allen Test POS; Base Excess 8 mmol/L (-2 to +2); Bicarbonate 35.4 mmol/L (22-26); Blood Gas Specimen Type ART; O2 Delivery Device Nasal Can; PO2 69 mmHG (75-100); SITE R Radial; SO2 88 % (95-99); Time Given 2245; Total Carbon Dioxide 38 mmol/L; pCO2 86.4 mmHg (35-45); pH 7.22 (7.35-7.45)
[2017-11-04 23:05] LABS: Bedside Glucose 357 mg/dL (70-110)
[2017-11-05] VITALS (20 sets, daily range): BP systolic 106–129; BP diastolic 54–64; PULSE 63–110; RESP 12–26; TEMP 36.3–37.1; O2SAT 83–100
--- NOTE | 2017-11-05 04:22 | NURSING ---
Let Adriana TAM know lab called pt is Flue A +
[2017-11-05] MEDS: Acetaminophen 500 MG Tablet 1000 MG PO ×2 (05:40→13:56)
[2017-11-05] MEDS: Dextrose 5%/0.9% NaCl 1,000 ML 100 ML IV (05:42)
[2017-11-05 06:05] LABS: Bedside Glucose 318 mg/dL (70-110)
[2017-11-05 07:02] LABS: Hematocrit 39.6 % (40-54); Hemoglobin 12.4 g/dl (13.0-16.5); Mean Corp Hgb Conc 31.3 g/gl (32-36); Mean Corpuscular Hgb 31.3 pg (27.0-32.0); Mean Platelet Vol. 10.7 fl (6.2-12.0); Platelet Count 108 K/mm3 (150-450); RBC Distribution Width CV 12.9 % (11.6-14.6); Red Blood Count 3.96 M/mm3 (4.6-6.2); White Blood Count 6.9 K/mm3 (4.4-11.0)
[2017-11-05 07:06] LABS: Scan Indicated on CBC? Y/N NO
[2017-11-05] MEDS: Ipratropium/Albuterol Sulfate 3 ML AMPUL.NEB INHALATION ×4 (07:09→18:49)
[2017-11-05 07:20] LABS: ALB/GLOB Ratio 0.7 RATIO (0.9-2.4); AST(SGOT) 25 U/L (15-37); Alanine Aminotransfer ALT/SGPT 19 U/L (12-78); Albumin, Serum 2.5 g/dL (3.4-5.0); Alkaline Phosphatase 53 U/L (45-117); Anion Gap 6 (5-15); BUN 22 mg/dL (7-18); BUN/Creat Ratio 23.4 RATIO (10-20); Calcium,Total 8.4 mg/dL (8.5-10.1); Chloride 100 mmol/L (98-107); Creatinine, Serum 0.94 mg/dL (0.70-1.30); EST Glomerular Filtration Rate 86 mL/min (>60); Est Glom Filt Rate - Afr Amer 104 mL/min (>60); Estimated Creatinine Clearance 61.76 ml/min; Globulin 3.5 g/dL (2.2-4.2); Glucose 318 mg/dL (70-110); Magnesium 1.8 mg/dL (1.8-2.4); Phosphorus 4.4 mg/dL (2.5-4.9); Sodium Level 132 mmol/L (136-145)
[2017-11-05] MEDS: Famotidine 20 MG Tablet PO (08:57)
[2017-11-05] MEDS: Cilostazol 50 MG Tablet 100 MG PO (08:57)
[2017-11-05] MEDS: Aspirin 81 MG TAB.CHEW PO (08:57)
[2017-11-05] MEDS: Metoprolol Tartrate 50 MG Tablet PO ×2 (08:57→22:25)
[2017-11-05] MEDS: Magnesium Oxide 400 MG Tablet 800 MG PO (08:58)
[2017-11-05] MEDS: guaiFENesin 1,200 MG Tablet 1200 MG PO ×2 (08:58→22:25)
[2017-11-05] MEDS: Lithium Carbonate 300mg Capsule 600 MG PO (08:58)
[2017-11-05] MEDS: Fluticasone 0.05% 1 SPRAY NASAL.SRY NASAL (09:01)
[2017-11-05] MEDS: Oseltamivir Phosphate 75 MG Capsule PO ×2 (09:01→22:25)
[2017-11-05] MEDS: Enoxaparin 40 MG/0.4 ML Syringe SC (09:02)
[2017-11-05 10:56] LABS: Bedside Glucose 327 mg/dL (70-110)
--- NOTE | 2017-11-05 11:23 | CASEMGMT ---
Social Work Reviewed chart and pt is a long-term pt at [facility]. Updated clinicals faxed. Will continue to follow and assist with discharge planning. La Hardy, LPC [employer]
--- NOTE | 2017-11-05 12:58 | PCM.PROGNOTE ---
Patient Problems: Active and Suspected Problems Acute exacerbation of chronic obstructive pulmonary disease (Acute) Acute respiratory failure with hypoxia and hypercapnia (Acute) Subjective: Admitted 1/ with acute exacerbation of COPD and acute on chronic combined respiratory failure. All events the past 24 hours of been reviewed. Afebrile this morning. T-max was 100.1 and that was in the emergency room. Tachycardia has significantly improved and his heart rate was in the 60s and 70s this morning. When he gets agitated it increases. Respiratory rate today is ranging between 20 and 25 and he was 94-99% saturated on a 60% FiO2 with BiPAP. White blood cell count today is 6.9, platelets are low at 108,000 and his hemoglobin dropped from 14.4-12.4 with hydration. Blood sugars are in the 300s with the institution of IV steroids. LFTs are within normal limits. Potassium is 5.0 today. The serum bicarb is down to 26 from 35 at admission. He has been compliant with the BIPAP and states his breathing is better. Less cough. He has seen Dr. Londono in the past and did have a sleep study. Has ROLANDO and central sleep apnea also. Pressure needed 18/12. He has had 4 admissions this past year for acute exacerbations COPD. - Physical Exam General: Alert, Cooperative, No apparent distress - while on the BIPAP.....when he was placed on a NC at 3 LPM he had a pulse ox of 83%. He was placed back on BIPAP and was fed even though he did not tolerate the cannula and I was told he was coughing even with nectar thick liquids. HEENT: Atraumatic Oral: - - he is edentulous. His kdrtue-et-hhi brought his upper dentures in......he has no lower dentures. Neck: Supple, No JVD Lungs: No rales, Wheezes - mild while on BIPAP Cardiovascular: Regular rate, Regular Rhythm, Normal S1, Normal S2, No Gallop Abdomen: Bowel Sounds Present, Soft, Non Tender, Non-Distended Extremities: No cyanosis, No edema, Clubbing Skin: No rashes Psych/Mental Status: Appropriate Vital Signs Temp Pulse Resp BP Pulse Ox 97.3 F L 110 H 25 H 115/55 L 99 11/05/17 08:52 11/05/17 11:10 11/05/17 11:10 11/05/17 08:52 11/05/17 08:52 Oxygen Flow Rate 3 Oxygen Delivery Method Bi-pap Weight: 121 lb 4.068 oz Body Mass Index (BMI) 20.1 Intake and Output for Last 24 Hours 11/03/17 11/04/17 11/05/17 23:59 23:59 23:59 Intake Total 1240 / 1240 Output Total 300 / 300 Balance 940 / 940 Microbiology Past 72 Hours 11/05/17 01:10 Streptococcus pneumoniae Antigen (M - Final Urine, Clean Catch 11/05/17 01:10 Legionella Antigen - Final Urine, Clean Catch Laboratory Tests Past 24 Hrs 11/04/17 11/05/17 11/05/17 22:39 06:38 06:38 WBC 6.9 RBC 3.96 L Hgb 12.4 L Hct 39.6 L MCV 100.0 H MCH 31.3 MCHC 31.3 L RDW 12.9 RDW Differential 46.0 H Plt Count 108 L MPV 10.7 Specimen Type ART Sample Site R Radial pH 7.22 L Bicarbonate Actual 35.4 H POC Total CO2 38 Base Excess 8 H O2 Saturation 88 L ABG pCO2 86.4 H* ABG pO2 69 L Ney Test POS O2 Delivery Device Nasal Can Liter Flow 5.0 Blood Gas Notified Whom HOSP Blood Gas Notified Time 2245 Sodium 132 L Potassium 5.0 Chloride 100 Carbon Dioxide 26.0 Anion Gap 6 BUN 22 H Creatinine 0.94 Estim Creat Clear Calc 61.76 Est GFR (MDRD) Af Amer 104 Est GFR (MDRD) Non-Af 86 BUN/Creatinine Ratio 23.4 H Glucose 318 H Calcium 8.4 L Phosphorus 4.4 Magnesium 1.8 Total Bilirubin 0.30 AST 25 ALT 19 Alkaline Phosphatase 53 Total Protein 6.0 L Albumin 2.5 L Globulin 3.5 Albumin/Globulin Ratio 0.7 L POC Glucose 11/05/17 11/05/17 11/04/17 10:45 05:40 22:26 POC Glucose 327 H 318 H 357 H Assessment/Plan Active and Suspected Problems Acute exacerbation of chronic obstructive pulmonary disease (Acute) Acute respiratory failure with hypoxia and hypercapnia (Acute) Impressions 1. Acute respiratory failure with hypoxemia and hypercarbia due to influenza A ( diagnosed on the respiratory panel) Start high-dose intravenous steroids Ppdlst-leq-iwgmk aerosols Mucinex 1200 p.o. twice daily keep NPO and consult the ST.....I think he needs to have a MBS......he tolerated nectar thick 1 month ago and now he is even coughing with nectar thick Maintain on BiPAP 2. Acute exacerbation of COPD due to influenza A 3. Influenza A No infiltrates on chest x-ray, normal white blood cell count, no purulent sputum Blood cultures and sputum cultures ordered. MRSA swab of his nose Empiric cefepime started 4. History of dysphagia-noncompliant with thickening of his liquids 5. ROLANDO-noncompliant with CPAP 6. Diabetes mellitus type 2/peripheral vascular disease/history of CVA and TIAs/schizophrenia/bipolar disorder/nicotine addiction/G of alcoholism/hyperlipidemia/GERD/hypertension -complicate care, management, prognosis and recovery. NPO Maintain on BIPAP Continue high-dose intravenous steroids and aqxtay-wwv-aywtb aerosol treatments Consult Dr. Acuna-we are hopeful that he can have a Trilogy for discharge to the [place] when he is stable He will follow up in the pulmonary office post DC for ongoing treatment Adjust insulin to get better control of the blood sugars Recheck CXR in the AM Continue Cefepime for now since I think he may have aspirated today. If the CXR is no change in the AM will DC the Cefepime Code Visit Inpatient E&M: [id number] [facility] L3
--- NOTE | 2017-11-05 13:01 | PN_ITS ---
Patient Problems: Active and Suspected Problems Acute exacerbation of chronic obstructive pulmonary disease (Acute) Acute respiratory failure with hypoxia and hypercapnia (Acute) Subjective: Admitted 1/ with acute exacerbation of COPD and acute on chronic combined respiratory failure. All events the past 24 hours of been reviewed. Afebrile this morning. T-max was 100.1 and that was in the emergency room. Tachycardia has significantly improved and his heart rate was in the 60s and 70s this morning. When he gets agitated it increases. Respiratory rate today is ranging between 20 and 25 and he was 94-99% saturated on a 60% FiO2 with BiPAP. White blood cell count today is 6.9, platelets are low at 108,000 and his hemoglobin dropped from 14.4-12.4 with hydration. Blood sugars are in the 300s with the institution of IV steroids. LFTs are within normal limits. Potassium is 5.0 today. The serum bicarb is down to 26 from 35 at admission. He has been compliant with the BIPAP and states his breathing is better. Less cough. He has seen Dr. Londono in the past and did have a sleep study. Has ROLANDO and central sleep apnea also. Pressure needed 18/12. He has had 4 admissions this past year for acute exacerbations COPD. - Physical Exam General: Alert, Cooperative, No apparent distress - while on the BIPAP.....when he was placed on a NC at 3 LPM he had a pulse ox of 83%. He was placed back on BIPAP and was fed even though he did not tolerate the cannula and I was told he was coughing even with nectar thick liquids. HEENT: Atraumatic Oral: - - he is edentulous. His jrclfj-rq-uij brought his upper dentures in......he has no lower dentures. Neck: Supple, No JVD Lungs: No rales, Wheezes - mild while on BIPAP Cardiovascular: Regular rate, Regular Rhythm, Normal S1, Normal S2, No Gallop Abdomen: Bowel Sounds Present, Soft, Non Tender, Non-Distended Extremities: No cyanosis, No edema, Clubbing Skin: No rashes Psych/Mental Status: Appropriate Vital Signs Temp Pulse Resp BP Pulse Ox 97.3 F L 110 H 25 H 115/55 L 99 11/05/17 08:52 11/05/17 11:10 11/05/17 11:10 11/05/17 08:52 11/05/17 08:52 Oxygen Flow Rate 3 Oxygen Delivery Method Bi-pap Weight: 121 lb 4.068 oz Body Mass Index (BMI) 20.1 Intake and Output for Last 24 Hours 11/03/17 11/04/17 11/05/17 23:59 23:59 23:59 Intake Total 1240 / 1240 Output Total 300 / 300 Balance 940 / 940 Microbiology Past 72 Hours 11/05/17 01:10 Streptococcus pneumoniae Antigen (M - Final Urine, Clean Catch 11/05/17 01:10 Legionella Antigen - Final Urine, Clean Catch Laboratory Tests Past 24 Hrs 11/04/17 11/05/17 11/05/17 22:39 06:38 06:38 WBC 6.9 RBC 3.96 L Hgb 12.4 L Hct 39.6 L MCV 100.0 H MCH 31.3 MCHC 31.3 L RDW 12.9 RDW Differential 46.0 H Plt Count 108 L MPV 10.7 Specimen Type ART Sample Site R Radial pH 7.22 L Bicarbonate Actual 35.4 H POC Total CO2 38 Base Excess 8 H O2 Saturation 88 L ABG pCO2 86.4 H* ABG pO2 69 L Ney Test POS O2 Delivery Device Nasal Can Liter Flow 5.0 Blood Gas Notified Whom HOSP Blood Gas Notified Time 2245 Sodium 132 L Potassium 5.0 Chloride 100 Carbon Dioxide 26.0 Anion Gap 6 BUN 22 H Creatinine 0.94 Estim Creat Clear Calc 61.76 Est GFR (MDRD) Af Amer 104 Est GFR (MDRD) Non-Af 86 BUN/Creatinine Ratio 23.4 H Glucose 318 H Calcium 8.4 L Phosphorus 4.4 Magnesium 1.8 Total Bilirubin 0.30 AST 25 ALT 19 Alkaline Phosphatase 53 Total Protein 6.0 L Albumin 2.5 L Globulin 3.5 Albumin/Globulin Ratio 0.7 L POC Glucose 11/05/17 11/05/17 11/04/17 10:45 05:40 22:26 POC Glucose 327 H 318 H 357 H Assessment/Plan Active and Suspected Problems Acute exacerbation of chronic obstructive pulmonary disease (Acute) Acute respiratory failure with hypoxia and hypercapnia (Acute) Impressions 1. Acute respiratory failure with hypoxemia and hypercarbia due to influenza A ( diagnosed on the respiratory panel) * Start high-dose intravenous steroids * Ajjcet-qqd-fvpmw aerosols * Mucinex 1200 p.o. twice daily * keep NPO and consult the ST.....I think he needs to have a MBS......he tolerated nectar thick 1 month ago and now he is even coughing with nectar thick * Maintain on BiPAP 2. Acute exacerbation of COPD due to influenza A 3. Influenza A * No infiltrates on chest x-ray, normal white blood cell count, no purulent sputum * Blood cultures and sputum cultures ordered. * MRSA swab of his nose * Empiric cefepime started 4. History of dysphagia-noncompliant with thickening of his liquids 5. ROLANDO-noncompliant with CPAP 6. Diabetes mellitus type 2/peripheral vascular disease/history of CVA and TIAs /schizophrenia/bipolar disorder/nicotine addiction/G of alcoholism/ hyperlipidemia/GERD/hypertension -complicate care, management, prognosis and recovery. NPO Maintain on BIPAP Continue high-dose intravenous steroids and frkjxb-lnc-nukfy aerosol treatments Consult Dr. Acuna-we are hopeful that he can have a Trilogy for discharge to the [place] when he is stable He will follow up in the pulmonary office post DC for ongoing treatment Adjust insulin to get better control of the blood sugars Recheck CXR in the AM Continue Cefepime for now since I think he may have aspirated today. If the CXR is no change in the AM will DC the Cefepime Code Visit Inpatient E&M: [id number] [facility] L3
--- NOTE | 2017-11-05 13:45 | NURSING ---
discussed pt w/ aware attempt to trial patient without bipap and just on NC. back to check on pt, he is also asking about changing to NC as wants to eat. Pt changed to 3lnc, bipap on standby. cont.spo2 maintained. primary RN informed.
[2017-11-05 16:36] LABS: Bedside Glucose 239 mg/dL (70-110)
[2017-11-05] MEDS: LORazepam 1 MG Tablet 0.5 MG PO (18:24)
[2017-11-05] MEDS: Losartan Potassium 25 MG Tablet 75 MG PO (22:25)
[2017-11-05] MEDS: 0.9% NaCl Peripheral Flush Adult/Peds IV (22:25)
[2017-11-05 23:00] LABS: Bedside Glucose 227 mg/dL (70-110)
[2017-11-06] VITALS (15 sets, daily range): BP systolic 97–130; BP diastolic 53–61; PULSE 58–103; RESP 3–18; TEMP 36.6–37; O2SAT 92–100
[2017-11-06] MEDS: 0.9% NaCl Peripheral Flush Adult/Peds IV ×4 (05:39→22:02)
--- NOTE | 2017-11-06 05:55 | RAD_ITS ---
STUDY: X-RAY CHEST REASON FOR EXAM: Male, 66 years old. Hypoxemia. Wheezing and COPD. TECHNIQUE: Single AP portable view of the chest. COMPARISON: Comparison is made with prior study dated November 04, 2017. FINDINGS: Stable mild increased markings at the left lung base suggesting atelectasis and/or scarring. The right lung is clear. There is no demonstrated pleural abnormality. Normal size heart. Normal mediastinum and dennise. Normal visualized pulmonary arteries. There is atherosclerotic calcification of the aortic arch with tortuosity. Normal visualized thoracic spine. Healed right rib fractures. There is no demonstrated abnormality of the visualized soft tissue structures of the upper abdomen. RAD/Chest 1 View (Portable) IMPRESSION: Mild degree of increased markings at the left lung base. This is unchanged. Electronically Signed: Bienvenido Carmen MD at 8:58 EST Tel [phone], Service support ,
[2017-11-06 06:00] LABS: Bedside Glucose 164 mg/dL (70-110)
[2017-11-06] MEDS: Ipratropium/Albuterol Sulfate 3 ML AMPUL.NEB INHALATION ×5 (06:46→22:53)
[2017-11-06] MEDS: guaiFENesin 1,200 MG Tablet 1200 MG PO ×2 (09:53→22:03)
[2017-11-06] MEDS: Aspirin 81 MG TAB.CHEW PO (09:53)
[2017-11-06] MEDS: Lithium Carbonate 300mg Capsule 600 MG PO (09:53)
[2017-11-06] MEDS: Famotidine 20 MG Tablet PO ×2 (09:53→22:02)
[2017-11-06] MEDS: Metoprolol Tartrate 50 MG Tablet PO ×2 (09:53→22:02)
[2017-11-06] MEDS: Enoxaparin 40 MG/0.4 ML Syringe SC (09:53)
[2017-11-06] MEDS: Magnesium Oxide 400 MG Tablet 800 MG PO (09:53)
[2017-11-06] MEDS: Oseltamivir Phosphate 75 MG Capsule PO ×2 (09:54→22:03)
[2017-11-06] MEDS: Cilostazol 50 MG Tablet 100 MG PO ×2 (09:54→22:02)
[2017-11-06] MEDS: Fluticasone 0.05% 1 SPRAY NASAL.SRY NASAL (09:55)
--- NOTE | 2017-11-06 10:30 | NURSING ---
Patient was only able to tolerate being off Bipap for approximately 20 minutes. He was resting in bed the entire time and called out stating that he needed oxygen. Bipap mask placed back on patient. Will continue to monitor.
--- NOTE | 2017-11-06 11:40 | BH.SGPN.T2 ---
NURSING INFORMED RT THAT PATIENT WAS TRIED ON 4 LPM NC. PATIENT BECAME SHORT OF BREATH AND PLACED BACK ON BIPAP PER ORDERED SETTINGS.
[2017-11-06 12:10] LABS: M R Staph aureus DNA By PCR Negative (Negative); Probe Check PASS; Specimen Processing Control PASS
[2017-11-06 12:16] LABS: Bedside Glucose 144 mg/dL (70-110)
--- NOTE | 2017-11-06 12:22 | CON.PCM_ITS ---
Problem List (1) Influenza A Status: Acute Reason for Consult Date of Consultation: 11/05/17 - ROLANDO and central sleep apnea Reason for Consultation: ROLANDO and central sleep apnea History of Present Illness: The patient is a 66 year old M who resides at [facility] and was sent to the emergency department for evaluation after experiencing weakness that lasted 4 days. In the last 48 hours they noticed an increase in shortness of breath and wheezing. Upon presentation to the emergency department the patient did have a temperature of 100.1, was tachycardic with a heart rate of 118 and tachypneic with a respiratory rate of 40. He was requiring 4 L of nasal cannula oxygen to adequately oxygenate. According to the documentation from ED he was using his accessory muscles. Family reports that there has been an outbreak of influenza at the long-term, and he was being premedicated with Tamiflu prophylactically 2 days prior to presentation to the emergency department. The patient has tested positive for influenza a on this admission. Also of note he was recently treated for HCAP Pneumonia on October 21 - October 22. The patient is a known smoker of one pack per day. He was previously seen by our practice here in the hospital for consultation and did follow-up with us in the outpatient setting. He was prescribed BiPAP for his sleep apnea, and has been reported to be noncompliant. He does utilize 2 L of nasal cannula oxygen at baseline. We do not have a plenty function test on file to document or quantify his lung function. He does present as having COPD, with the stage of clubbing that he has in the amount of tobacco abuse it is likely that he has moderate to severe COPD. The patient was previously evaluated for a 4 mm lung nodule, which will require a repeat CT of the chest in 6 months. Past Medical History Past Medical History (Chronic Problems): Chronic Problems Bipolar affective disorder (Chronic) CVD (cerebrovascular disease) (Chronic) Dyslipidemia (Chronic) GERD (gastroesophageal reflux disease) (Chronic) HTN (hypertension) (Chronic) History of alcoholism (Chronic) PVD (peripheral vascular disease) (Chronic) Schizophrenia (Chronic) Tobacco use disorder (Chronic) History of TIA (transient ischemic attack) (Chronic) Chronic respiratory failure with hypoxia (Chronic) Obstructive sleep apnea (Chronic) Noncompliance with CPAP treatment (Chronic) Hypomagnesemia (Chronic) Dysphagia (Chronic) supposed to be on a mechanical soft diet with nectar thick liquids Aortic stenosis, mild (Chronic) Aortic valve insufficiency (Chronic) Edentulous (Chronic) Noncompliance of patient with dietary regimen (Chronic) Allergies No Known Allergies Allergy (Verified 11/04/17 16:37) Home Medications: Ambulatory Orders Medication Instructions Recorded Acetaminophen [Tylenol Extra 1,000 mg PO QHS 08/08/17 Strength] Acetaminophen [Tylenol] 650 mg PO Q6H PRN 08/08/17 Albuterol Inhaler [Ventolin Hfa] 1 puff INHALATION Q4H PRN PRN 08/08/17 Aspirin 81 mg PO DAILY 08/08/17 Atorvastatin Calcium 40 mg PO DAILY 08/08/17 Cilostazol 100 mg PO BID 08/08/17 Ferrous Fumarate [Ferretts] 325 mg PO TID 08/08/17 Guaifenesin [Tussin Mucus-Chest 200 mg PO Q6H PRN 08/08/17 Congestion] Haloperidol Decanoate [Haldol 300 mg IM Q30D 08/08/17 Decanoate 100] Insulin Aspart [Novolog Flexpen] 0 - 15 units SC ACHS PRN 08/08/17 Insulin Detemir [Levemir] 10 unit SQ BREAKFAST 08/08/17 Insulin Detemir [Levemir] 18 unit SQ QHS 08/08/17 Titanic Carbonate 600 mg PO DAILY 08/08/17 Lorazepam [Ativan] 1 mg PO Q4H PRN 08/08/17 Losartan Potassium 75 mg PO QHS 08/08/17 Mag Hydrox/Al Hydrox/Simeth 30 ml PO Q4H PRN PRN 08/08/17 [Mylanta II] Magnesium Oxide [Mag-Oxide 800 mg PO DAILY 08/08/17 Magnesium] Metformin HCl 1,000 mg PO BID 08/08/17 Metoprolol Tartrate [Lopressor 50 mg PO BID 08/08/17 (beta tia)] Omeprazole [Prilosec] 40 mg PO DAILY 08/08/17 Oxygen, Home [Home Oxygen] 2 lpm NASAL DAILY 08/08/17 Pseudoephedrine [Sudafed] 60 mg PO Q8H PRN 08/08/17 Sodium Chloride [Saline Mist] 1 spray NASAL Q6H PRN 08/08/17 Fluticasone 0.05% [Flonase Nasal 1 spray NASAL DAILY 10/04/17 [place]] Guaifenesin [Mucinex] 400 mg PO TID 10/04/17 Loxapine Succinate [Loxapine] 25 mg PO QHS 10/04/17 Prednisone 5 mg PO DAILY 10/04/17 Albuterol Aerosols [Ventolin 2.5 mg INHALATION Q6HWA.RT 10/21/17 Aerosols] Cetirizine HCl [Zyrtec] 10 mg PO DAILY 10/21/17 Acetaminophen [Tylenol Tablet] 650 mg PO Q4H PRN PRN tablet 10/22/17 Amox/Clavulanate Tablet [Augmentin 875 mg PO Q12H #14 tab 10/22/17 Tablet] Prednisone 10 mg PO UD #30 tab 10/22/17 Lactobacillus Acidophilus 1 each PO BID 11/04/17 [Acidophilus] Oseltamivir Phosphate [Tamiflu] 75 mg PO DAILY 11/04/17 Surgical History: colectomy Psychiatric History: Bipolar, Schizophrenia Smoking Status: Current every day smoker Tobacco Use: Cigarettes Alcohol: None Drugs: None - *Family History Maternal History Items: No pertinent history Paternal History Items: Cancer - Colon cancer Sibling History Items: COPD Review of Systems Constitutional: Reports: Weakness, Fatigue. Denies: Anorexia, Chills, Fever Eyes: Denies: Blurred vision, Pain, Vision Change HEENT: Denies: Head Aches, Nasal Congestion, Post Nasal Drip, Sore Throat Cardiovascular: Reports: Chest Tightness. Denies: Chest Pain, Heaviness, Orthopnea, Palpitations Respiratory: Reports: Cough, Shortness of Breath, Sputum production, Wheezing. Denies: Hemoptysis Gastrointestinal: Denies: Abdominal Pain Genitourinary: Denies: Dysuria Skin: Denies: Dryness, Jaundice, Rash, Wounds Neurological: Reports: Difficulty swallowing - Chronic. Denies: Balance problems, Numbness, Tingling Psychiatric: Reports: Anxiety, Depression Endocrine: Denies: Change in Body Habitus, Heat/ Cold Intolerance, Polydipsia, Polyuria Hematologic/ Lymphatic: Denies: Adenopathy, Anemia, Easy Bruising, Easy Bleeding Patient Problems: Active and Suspected Problems Acute exacerbation of chronic obstructive pulmonary disease (Acute) Acute respiratory failure with hypoxia and hypercapnia (Acute) Influenza A (Acute) - Physical Exam Vital Signs Temp Pulse Resp BP Pulse Ox 98.1 F 95 18 126/61 H 96 11/06/17 09:30 11/06/17 11:00 11/06/17 11:00 11/06/17 09:30 11/06/17 11:00 Oxygen Flow Rate 4 Oxygen Delivery Method Nasal Cannula Weight: 121 lb 4.068 oz Body Mass Index (BMI) 20.1 Intake and Output for Last 24 Hours 11/04/17 11/05/17 11/06/17 23:59 23:59 23:59 Intake Total 1540 / 1540 Output Total 300 / 300 100 / 100 Balance 1240 / 1240 -100 / -100 Microbiology Past 72 Hours 11/05/17 01:10 Streptococcus pneumoniae Antigen (M - Final Urine, Clean Catch 11/05/17 01:10 Legionella Antigen - Final Urine, Clean Catch Laboratory Tests Past 24 Hrs 11/06/17 08:20 MRSA (PCR) Negative POC Glucose 11/06/17 11/05/17 11/05/17 05:35 22:00 16:28 POC Glucose 164 H 227 H 239 H Assessment/Plan Active and Suspected Problems Acute exacerbation of chronic obstructive pulmonary disease (Acute) Acute respiratory failure with hypoxia and hypercapnia (Acute) Influenza A (Acute) RECOMMENDATIONS: 1. Continue BiPAP, offer breaks, use supplemental oxygen to maintain saturations 89-92% 2. Continue bronchodilators 3. Continue steroids, discharged on a prednisone taper 4. Continue Tamiflu, complete recommended course, today is treatment day 4 5. Continue antibiotics, await culture results 6. Continue follow-up with pulmonary medicine and posterior on an outpatient basis 7. Encourage smoking cessation IMPRESSIONS: 1. Acute on chronic respiratory failure secondary to COPD exacerbation from influenza A Complete Tamiflu therapy, continue antibiotics while awaiting culture results. Continue steroids and discharged on a prednisone taper. Continue support with BiPAP as needed, wean oxygen as tolerates to maintain saturation 89 -92%. Continue to follow-up with pulmonary medicine was from outpatient basis, primary function test would be helpful. Discharge patient when ready for baseline oxygen requirements of 2 L/min. Encourage smoking cessation. 2. Sleep apnea The patient was previously set up with BiPAP, per report has been noncompliant. Discharged on it previously determined BiPAP settings, keep follow-up as previously scheduled with pulmonary medicine and posterior. Encourage BiPAP compliance. 3. Tobacco abuse Current 1 pack per day smoker, continue to encourage smoking cessation. 4. Schizophrenia/bipolar affective disorder/CVD/dyslipidemia/GERD/ hypertension/history of alcoholism/PVD/history of TIA Comorbid illness complicated exam, plan, care and prognosis. Continue all home medications as tolerates. Thank you for the consultation and the opportunity to participate in this patient's care. This note was generated with [employer] dictation software. It may contain incorrect words, spelling, and punctuation that were not noted in checking the note before signing.
[2017-11-06] MEDS: Acetaminophen 500 MG Tablet 1000 MG PO ×2 (13:35→22:03)
[2017-11-06] MEDS: 0.45% Normal Saline 1,000 ML 80 ML IV (14:21)
--- NOTE | 2017-11-06 17:30 | NURSING ---
Patient taken off BiPAP and placed on 5L via nasal cannula. On continuous pulse ox, will cont to monitor.
[2017-11-06 18:50] LABS: Bedside Glucose 108 mg/dL (70-110)
[2017-11-06] MEDS: LORazepam 1 MG Tablet 0.5 MG PO (19:46)
[2017-11-06] MEDS: Losartan Potassium 25 MG Tablet 75 MG PO (22:01)
[2017-11-06] MEDS: LOXAPINE SUCCINATE 25 MG CAPSULE PO (22:02)
[2017-11-06] MEDS: Atorvastatin Calcium 40 MG Tablet PO (22:02)
[2017-11-06] MEDS: LORazepam 2 MG/ML Syringe 1 MG IV (22:03)
[2017-11-06 22:16] LABS: Bedside Glucose 99 mg/dL (70-110)
--- NOTE | 2017-11-06 22:58 | PCM.PROGNOTE ---
Patient Problems: Active and Suspected Problems Acute exacerbation of chronic obstructive pulmonary disease (Acute) Acute respiratory failure with hypoxia and hypercapnia (Acute) Influenza A (Acute) Subjective: All events of the past 24 hours of been reviewed. He is afebrile and vital signs are stable. He has intermittently been on BiPAP and a 5 L nasal cannula today. When he is awake and on a 5 L nasal cannula his pulse ox was 99%. When he is sleeping or complains of shortness of breath he is 98% saturated on BiPAP with a 50% FiO2. He gets agitated at times and yells but, he has had no aggressive behavior. He was resting in bed when I saw him and on a NC. He was not tachypneic and had no accessory muscle use. BS's are controlled and he has not had any hypoglycemia. He remains NPO. no bedside swallowing done by ST today because he has still been requiring BIPAP. He will be re-evaluated in the AM and he has been able to tolerate longer periods of time off BIPAP so I think we will be able to start him on some kind of oral intake tomorrow. He was very pleasant with me tonight and he talked a lot without having tachypnea or conversational dyspnea......he is difficult to understand because he did not have dentures in. - Physical Exam General: Alert, Cooperative, No apparent distress HEENT: Atraumatic, Normocephalic Oral: Moist Mucosa Neck: Supple, No Nodes, No Nuchal Rigidity, Trachea Midline Lungs: No rhonchi, No rales, Diminished - rare, Wheezes - mild today Abdomen: Bowel Sounds Present, Soft, Non Tender, Non-Distended Extremities: No cyanosis, No edema, Clubbing Neurological: Cranial nerves II-XII grossly intact, Neuro grossly intact Psych/Mental Status: Appropriate Vital Signs Temp Pulse Resp BP Pulse Ox 98.6 F 66 18 130/58 H 97 11/06/17 19:40 11/06/17 22:53 11/06/17 22:53 11/06/17 19:40 11/06/17 22:53 Oxygen Flow Rate 5 Oxygen Delivery Method Nasal Cannula Weight: 121 lb 4.068 oz Body Mass Index (BMI) 20.1 Intake and Output for Last 24 Hours 11/04/17 11/05/17 11/06/17 23:59 23:59 23:59 Intake Total 1540 / 1540 Output Total 300 / 300 100 / 100 Balance 1240 / 1240 -100 / -100 Microbiology Past 72 Hours 11/05/17 01:10 Streptococcus pneumoniae Antigen (M - Final Urine, Clean Catch 11/05/17 01:10 Legionella Antigen - Final Urine, Clean Catch Laboratory Tests Past 24 Hrs 11/06/17 08:20 MRSA (PCR) Negative POC Glucose 11/06/17 11/06/17 11/06/17 22:06 18:43 12:10 POC Glucose 99 108 144 H 11/06/17 11/05/17 05:35 22:00 POC Glucose 164 H 227 H Assessment/Plan Active and Suspected Problems Acute exacerbation of chronic obstructive pulmonary disease (Acute) Acute respiratory failure with hypoxia and hypercapnia (Acute) Influenza A (Acute) Impressions 1. Acute respiratory failure with hypoxemia and hypercarbia due to influenza A ( diagnosed on the respiratory panel) Start high-dose intravenous steroids Utcjop-yyf-ejkdo aerosols Mucinex 1200 p.o. twice daily keep NPO and consult the ST.....I think he needs to have a MBS......he tolerated nectar thick 1 month ago and now he is even coughing with nectar thick Maintain on BiPAP 2. Acute exacerbation of COPD due to influenza A 3. Influenza A diagnosed on a respiratory panel.....nasal swab was negative for influenza in the ER No infiltrates on chest x-ray, normal white blood cell count, no purulent sputum Blood cultures and sputum cultures ordered. MRSA swab of his nose Empiric cefepime started - because he is know to have dysphagia and aspirate 4. History of dysphagia-noncompliant with thickening of his liquids 5. ROLANDO-noncompliant with CPAP 6. Diabetes mellitus type 2/peripheral vascular disease/history of CVA and TIAs/schizophrenia/bipolar disorder/nicotine addiction/G of alcoholism/hyperlipidemia/GERD/hypertension -complicate care, management, prognosis and recovery. wean oxygen as tolerated Increased time off BiPAP as tolerated. Will use BiPAP when he is sleeping or napping. Bedside swallowing eval in the a.m. and start some type of oral intake Plan modified barium swallow for Thursday if he is still in the hospital Recheck lab in the a.m. Discontinue cefepime since chest x-ray today failed to show any infiltrates and he is afebrile. Legionella and streptococcal antigens in the urine were negative. Blood cultures have had no growth to date. Discussed CODE STATUS with his brother fernando and recommended he consider DNR CC arrest. With schizophrenia and bipolar disorder he is unlikely ever to be compliant with CPAP/BiPAP, tobacco cessation or thickening of liquids. If he were to be placed on a ventilator he would likely require tracheostomy and I suspect the PEG tube. He would have no quality of life if this happened. He is going to discuss this with his and his siblings and get back to me. I did review Dr. Acuna's consult and because the patient is noncompliant with CPAP there is no plan to get a trilogy. Finish 10 doses of Tamiflu Decrease Solu-Medrol to 40 mg IV every 12 hours time spent talking with family and with the pt - 30minutes Code Visit Inpatient E&M: 26233 [facility] Hosp L3
--- NOTE | 2017-11-06 23:16 | PN_ITS ---
Patient Problems: Active and Suspected Problems Acute exacerbation of chronic obstructive pulmonary disease (Acute) Acute respiratory failure with hypoxia and hypercapnia (Acute) Influenza A (Acute) Subjective: All events of the past 24 hours of been reviewed. He is afebrile and vital signs are stable. He has intermittently been on BiPAP and a 5 L nasal cannula today. When he is awake and on a 5 L nasal cannula his pulse ox was 99%. When he is sleeping or complains of shortness of breath he is 98% saturated on BiPAP with a 50% FiO2. He gets agitated at times and yells but, he has had no aggressive behavior. He was resting in bed when I saw him and on a NC. He was not tachypneic and had no accessory muscle use. BS's are controlled and he has not had any hypoglycemia. He remains NPO. no bedside swallowing done by ST today because he has still been requiring BIPAP. He will be re-evaluated in the AM and he has been able to tolerate longer periods of time off BIPAP so I think we will be able to start him on some kind of oral intake tomorrow. He was very pleasant with me tonight and he talked a lot without having tachypnea or conversational dyspnea......he is difficult to understand because he did not have dentures in. - Physical Exam General: Alert, Cooperative, No apparent distress HEENT: Atraumatic, Normocephalic Oral: Moist Mucosa Neck: Supple, No Nodes, No Nuchal Rigidity, Trachea Midline Lungs: No rhonchi, No rales, Diminished - rare, Wheezes - mild today Abdomen: Bowel Sounds Present, Soft, Non Tender, Non-Distended Extremities: No cyanosis, No edema, Clubbing Neurological: Cranial nerves II-XII grossly intact, Neuro grossly intact Psych/Mental Status: Appropriate Vital Signs Temp Pulse Resp BP Pulse Ox 98.6 F 66 18 130/58 H 97 11/06/17 19:40 11/06/17 22:53 11/06/17 22:53 11/06/17 19:40 11/06/17 22:53 Oxygen Flow Rate 5 Oxygen Delivery Method Nasal Cannula Weight: 121 lb 4.068 oz Body Mass Index (BMI) 20.1 Intake and Output for Last 24 Hours 11/04/17 11/05/17 11/06/17 23:59 23:59 23:59 Intake Total 1540 / 1540 Output Total 300 / 300 100 / 100 Balance 1240 / 1240 -100 / -100 Microbiology Past 72 Hours 11/05/17 01:10 Streptococcus pneumoniae Antigen (M - Final Urine, Clean Catch 11/05/17 01:10 Legionella Antigen - Final Urine, Clean Catch Laboratory Tests Past 24 Hrs 11/06/17 08:20 MRSA (PCR) Negative POC Glucose 11/06/17 11/06/17 11/06/17 22:06 18:43 12:10 POC Glucose 99 108 144 H 11/06/17 11/05/17 05:35 22:00 POC Glucose 164 H 227 H Assessment/Plan Active and Suspected Problems Acute exacerbation of chronic obstructive pulmonary disease (Acute) Acute respiratory failure with hypoxia and hypercapnia (Acute) Influenza A (Acute) Impressions 1. Acute respiratory failure with hypoxemia and hypercarbia due to influenza A ( diagnosed on the respiratory panel) * Start high-dose intravenous steroids * Bxokmd-gis-claza aerosols * Mucinex 1200 p.o. twice daily * keep NPO and consult the ST.....I think he needs to have a MBS......he tolerated nectar thick 1 month ago and now he is even coughing with nectar thick * Maintain on BiPAP 2. Acute exacerbation of COPD due to influenza A 3. Influenza A diagnosed on a respiratory panel.....nasal swab was negative for influenza in the ER * No infiltrates on chest x-ray, normal white blood cell count, no purulent sputum * Blood cultures and sputum cultures ordered. * MRSA swab of his nose * Empiric cefepime started - because he is know to have dysphagia and aspirate 4. History of dysphagia-noncompliant with thickening of his liquids 5. ROLANDO-noncompliant with CPAP 6. Diabetes mellitus type 2/peripheral vascular disease/history of CVA and TIAs /schizophrenia/bipolar disorder/nicotine addiction/G of alcoholism/ hyperlipidemia/GERD/hypertension -complicate care, management, prognosis and recovery. * wean oxygen as tolerated * Increased time off BiPAP as tolerated. Will use BiPAP when he is sleeping or napping. * Bedside swallowing eval in the a.m. and start some type of oral intake * Plan modified barium swallow for Thursday if he is still in the hospital * Recheck lab in the a.m. * Discontinue cefepime since chest x-ray today failed to show any infiltrates and he is afebrile. Legionella and streptococcal antigens in the urine were negative. Blood cultures have had no growth to date. * Discussed CODE STATUS with his brother fernando and recommended he consider DNR CC arrest. With schizophrenia and bipolar disorder he is unlikely ever to be compliant with CPAP/BiPAP, tobacco cessation or thickening of liquids. If he were to be placed on a ventilator he would likely require tracheostomy and I suspect the PEG tube. He would have no quality of life if this happened. He is going to discuss this with his and his siblings and get back to me. * I did review Dr. Acuna's consult and because the patient is noncompliant with CPAP there is no plan to get a trilogy. * Finish 10 doses of Tamiflu * Decrease Solu-Medrol to 40 mg IV every 12 hours time spent talking with family and with the pt - 30minutes Code Visit Inpatient E&M: 30656 Subs Hosp L3
[2017-11-07] VITALS (16 sets, daily range): BP systolic 125–157; BP diastolic 69–77; PULSE 51–85; RESP 12–20; TEMP 36.7–37.2; O2SAT 77–100
[2017-11-07] MEDS: Dextrose 50%-Water 25 GM/50 ML DISP.SYRIN IV (01:06)
[2017-11-07] MEDS: 0.45% Normal Saline 1,000 ML 80 ML IV ×2 (01:09→12:42)
[2017-11-07 01:16] LABS: Bedside Glucose 62 mg/dL (70-110)
[2017-11-07 01:46] LABS: Bedside Glucose 134 mg/dL (70-110)
[2017-11-07 06:06] LABS: Bedside Glucose 125 mg/dL (70-110)
[2017-11-07] MEDS: Ipratropium/Albuterol Sulfate 3 ML AMPUL.NEB INHALATION ×4 (07:15→19:14)
[2017-11-07 08:04] LABS: Hematocrit 36.8 % (40-54); Hemoglobin 11.2 g/dl (13.0-16.5); Mean Corp Hgb Conc 30.4 g/gl (32-36); Mean Corpuscular Hgb 30.6 pg (27.0-32.0); Mean Corpuscular Volume 100.5 fL (80-94); Mean Platelet Vol. 10.9 fl (6.2-12.0); Platelet Count 113 K/mm3 (150-450); RBC Distribution Width CV 12.6 % (11.6-14.6); RBC Distribution Width SD 45.1 fl (35.1-43.9); Red Blood Count 3.66 M/mm3 (4.6-6.2); White Blood Count 6.8 K/mm3 (4.4-11.0)
[2017-11-07 08:17] LABS: Anion Gap 3 (5-15); BUN 25 mg/dL (7-18); BUN/Creat Ratio 38.7 RATIO (10-20); Calcium,Total 8.7 mg/dL (8.5-10.1); Chloride 101 mmol/L (98-107); Creatinine, Serum 0.65 mg/dL (0.70-1.30); EST Glomerular Filtration Rate 132 mL/min (>60); Est Glom Filt Rate - Afr Amer 160 mL/min (>60); Estimated Creatinine Clearance 89.32 ml/min; Glucose 105 mg/dL (70-110); Potassium 4.7 mmol/L (3.5-5.1); Sodium Level 137 mmol/L (136-145)
[2017-11-07 08:19] LABS: Scan Indicated on CBC? Y/N NO
--- NOTE | 2017-11-07 10:27 | PCM.PROGNOTE ---
Patient Problems: Active and Suspected Problems Acute exacerbation of chronic obstructive pulmonary disease (Acute) Acute respiratory failure with hypoxia and hypercapnia (Acute) Influenza A (Acute) Subjective: The patient was seen and examined at the bedside this morning. Events from the last 24 hours have been reviewed. The patient is currently afebrile, hemodynamically stable and maintaining appropriate oxygen saturations on 5 L/min via nasal cannula. The patient is currently sitting in his bedside recliner eating ice cream. He was evaluated by speech therapy with plans for possible modified barium swallow on Thursday. Objective: The patient's most recent lab work, culture data and imaging studies have all been personally reviewed. Blood cultures are pending. Strep and urine Legionella antigens were both negative. Respiratory viral panel was positive for influenza A. 6 minute walk test from July 2017 revealed the need for 3 L of supplemental oxygen with exertion. - Physical Exam General: Alert, Cooperative, No apparent distress HEENT: Atraumatic, PERRLA, Normocephalic Oral: Moist Mucosa, No Gingival or Mucosal Lesions/ Ulcerations Neck: Supple, No Nodes, Trachea Midline Lungs: No rhonchi, No wheeze, No rales, Diminished Cardiovascular: Regular rate, Regular Rhythm, Normal S1, Normal S2, No murmurs Abdomen: Bowel Sounds Present, Soft, Non Tender Extremities: No cyanosis, No edema, Clubbing Skin: - - No significant change from previous Musculoskeletal: No Tenderness to Palpation of Joints or Extremities Lymphatic: No Cervical, Supraclavicular, or Inguinal Adenopathy Neurological: Neuro grossly intact Psych/Mental Status: Normal Affect, Appropriate Vital Signs Temp Pulse Resp BP Pulse Ox 98.9 F 68 18 157/72 H 97 11/07/17 07:50 11/07/17 07:55 11/07/17 07:55 11/07/17 07:50 11/07/17 07:50 Oxygen Flow Rate 5 Oxygen Delivery Method Nasal Cannula Weight: 121 lb 4.068 oz Body Mass Index (BMI) 20.1 Intake and Output for Last 24 Hours 11/05/17 11/06/17 11/07/17 23:59 23:59 23:59 Intake Total 1540 / 1540 1016 / 1016 Output Total 300 / 300 100 / 100 Balance 1240 / 1240 -100 / -100 1016 / 1016 Microbiology Past 72 Hours 11/05/17 01:10 Streptococcus pneumoniae Antigen (M - Final Urine, Clean Catch 11/05/17 01:10 Legionella Antigen - Final Urine, Clean Catch Laboratory Tests Past 24 Hrs 11/06/17 11/07/17 11/07/17 08:20 07:15 07:15 WBC 6.8 RBC 3.66 L Hgb 11.2 L Hct 36.8 L MCV 100.5 H MCH 30.6 MCHC 30.4 L RDW 12.6 RDW Differential 45.1 H Plt Count 113 L MPV 10.9 Sodium 137 Potassium 4.7 Chloride 101 Carbon Dioxide 33.0 H Anion Gap 3 L BUN 25 H Creatinine 0.65 L Estim Creat Clear Calc 89.32 Est GFR (MDRD) Af Amer 160 Est GFR (MDRD) Non-Af 132 BUN/Creatinine Ratio 38.7 H Glucose 105 Calcium 8.7 MRSA (PCR) Negative POC Glucose 11/07/17 11/07/17 11/07/17 06:02 01:40 00:58 POC Glucose 125 H 134 H 62 L 11/06/17 11/06/17 11/06/17 22:06 18:43 12:10 POC Glucose 99 108 144 H Clinical Impression(s) from Imaging Studies Chest X-Ray 11/04/17 16:51 IMPRESSION: No acute cardiopulmonary abnormalities or changes. Stable hyperinflation/COPD with bibasilar scarring/fibrosis. Electronically Signed: Roxy Ahmadi MD at 17:20 EST Tel Direct: [phone], Service support , Chest X-Ray 11/06/17 05:55 IMPRESSION: Mild degree of increased markings at the left lung base. This is unchanged. Electronically Signed: Bienvenido Carmen MD at 8:58 EST Tel [phone], Service support , Assessment/Plan Active and Suspected Problems Acute exacerbation of chronic obstructive pulmonary disease (Acute) Acute respiratory failure with hypoxia and hypercapnia (Acute) Influenza A (Acute) RECOMMENDATIONS: 1. Continue scheduled aerosol regimen, steroids and Tamiflu 2. Encourage the use of nocturnal noninvasive positive pressure ventilation 3. Wean supplemental oxygen as tolerated 4. Diet recommendations per speech therapy 5. Encourage incentive spirometer use and mobilize patient as tolerated IMPRESSIONS: 1. Acute on chronic hypoxemic respiratory failure due to presumptive COPD with exacerbation secondary to influenza A Continue current supportive measures with BiPAP therapy as tolerated. Wean supplemental oxygen to maintain oxygen saturations at or above 90%. Continue Tamiflu, steroids and scheduled aerosol regimen. The patient will require a prednisone taper at discharge. Perform walking oximetry study prior to consideration for discharge from the hospital. Recommend close interval follow-up in the pulmonary medicine clinic following discharge. Baseline pulmonary function testing should ideally be performed, if the patient follows up in the pulmonary medicine clinic. 2. Complex severe sleep apnea The patient reports noncompliance with the use of nocturnal positive pressure ventilation. He does not seem overtly interested in maintaining compliance on an outpatient basis. There would be no indication for the initiation of a trilogy machine, given the patient's noncompliance with BiPAP therapy. 3. Ongoing tobacco dependence Smoking cessation strongly advised. Nicotine replacement therapy can be offered while inpatient. 4. Dysphagia with concern for aspiration Speech therapy following. Tentative plans for modified barium swallow on Thursday This note was generated with [employer] dictation software. It may contain incorrect words, spelling, and punctuation that were not noted in checking the note before signing. Code Visit Inpatient E&M: 23440 Subs Hosp L2
--- NOTE | 2017-11-07 10:30 | PN_ITS ---
Patient Problems: Active and Suspected Problems Acute exacerbation of chronic obstructive pulmonary disease (Acute) Acute respiratory failure with hypoxia and hypercapnia (Acute) Influenza A (Acute) Subjective: The patient was seen and examined at the bedside this morning. Events from the last 24 hours have been reviewed. The patient is currently afebrile, hemodynamically stable and maintaining appropriate oxygen saturations on 5 L/ min via nasal cannula. The patient is currently sitting in his bedside recliner eating ice cream. He was evaluated by speech therapy with plans for possible modified barium swallow on Thursday. Objective: The patient's most recent lab work, culture data and imaging studies have all been personally reviewed. Blood cultures are pending. Strep and urine Legionella antigens were both negative. Respiratory viral panel was positive for influenza A. 6 minute walk test from July 2017 revealed the need for 3 L of supplemental oxygen with exertion. - Physical Exam General: Alert, Cooperative, No apparent distress HEENT: Atraumatic, PERRLA, Normocephalic Oral: Moist Mucosa, No Gingival or Mucosal Lesions/ Ulcerations Neck: Supple, No Nodes, Trachea Midline Lungs: No rhonchi, No wheeze, No rales, Diminished Cardiovascular: Regular rate, Regular Rhythm, Normal S1, Normal S2, No murmurs Abdomen: Bowel Sounds Present, Soft, Non Tender Extremities: No cyanosis, No edema, Clubbing Skin: - - No significant change from previous Musculoskeletal: No Tenderness to Palpation of Joints or Extremities Lymphatic: No Cervical, Supraclavicular, or Inguinal Adenopathy Neurological: Neuro grossly intact Psych/Mental Status: Normal Affect, Appropriate Vital Signs Temp Pulse Resp BP Pulse Ox 98.9 F 68 18 157/72 H 97 11/07/17 07:50 11/07/17 07:55 11/07/17 07:55 11/07/17 07:50 11/07/17 07:50 Oxygen Flow Rate 5 Oxygen Delivery Method Nasal Cannula Weight: 121 lb 4.068 oz Body Mass Index (BMI) 20.1 Intake and Output for Last 24 Hours 11/05/17 11/06/17 11/07/17 23:59 23:59 23:59 Intake Total 1540 / 1540 1016 / 1016 Output Total 300 / 300 100 / 100 Balance 1240 / 1240 -100 / -100 1016 / 1016 Microbiology Past 72 Hours 11/05/17 01:10 Streptococcus pneumoniae Antigen (M - Final Urine, Clean Catch 11/05/17 01:10 Legionella Antigen - Final Urine, Clean Catch Laboratory Tests Past 24 Hrs 11/06/17 11/07/17 11/07/17 08:20 07:15 07:15 WBC 6.8 RBC 3.66 L Hgb 11.2 L Hct 36.8 L MCV 100.5 H MCH 30.6 MCHC 30.4 L RDW 12.6 RDW Differential 45.1 H Plt Count 113 L MPV 10.9 Sodium 137 Potassium 4.7 Chloride 101 Carbon Dioxide 33.0 H Anion Gap 3 L BUN 25 H Creatinine 0.65 L Estim Creat Clear Calc 89.32 Est GFR (MDRD) Af Amer 160 Est GFR (MDRD) Non-Af 132 BUN/Creatinine Ratio 38.7 H Glucose 105 Calcium 8.7 MRSA (PCR) Negative POC Glucose 11/07/17 11/07/17 11/07/17 06:02 01:40 00:58 POC Glucose 125 H 134 H 62 L 11/06/17 11/06/17 11/06/17 22:06 18:43 12:10 POC Glucose 99 108 144 H Clinical Impression(s) from Imaging Studies Chest X-Ray 11/04/17 16:51 IMPRESSION: No acute cardiopulmonary abnormalities or changes. Stable hyperinflation/COPD with bibasilar scarring/fibrosis. Electronically Signed: Roxy Ahmadi MD at 17:20 EST Tel Direct: [phone], Service support , Chest X-Ray 11/06/17 05:55 IMPRESSION: Mild degree of increased markings at the left lung base. This is unchanged. Electronically Signed: Bienvenido Carmen MD at 8:58 EST Tel [phone], Service support , Assessment/Plan Active and Suspected Problems Acute exacerbation of chronic obstructive pulmonary disease (Acute) Acute respiratory failure with hypoxia and hypercapnia (Acute) Influenza A (Acute) RECOMMENDATIONS: 1. Continue scheduled aerosol regimen, steroids and Tamiflu 2. Encourage the use of nocturnal noninvasive positive pressure ventilation 3. Wean supplemental oxygen as tolerated 4. Diet recommendations per speech therapy 5. Encourage incentive spirometer use and mobilize patient as tolerated IMPRESSIONS: 1. Acute on chronic hypoxemic respiratory failure due to presumptive COPD with exacerbation secondary to influenza A Continue current supportive measures with BiPAP therapy as tolerated. Wean supplemental oxygen to maintain oxygen saturations at or above 90%. Continue Tamiflu, steroids and scheduled aerosol regimen. The patient will require a prednisone taper at discharge. Perform walking oximetry study prior to consideration for discharge from the hospital. Recommend close interval follow- up in the pulmonary medicine clinic following discharge. Baseline pulmonary function testing should ideally be performed, if the patient follows up in the pulmonary medicine clinic. 2. Complex severe sleep apnea The patient reports noncompliance with the use of nocturnal positive pressure ventilation. He does not seem overtly interested in maintaining compliance on an outpatient basis. There would be no indication for the initiation of a trilogy machine, given the patient's noncompliance with BiPAP therapy. 3. Ongoing tobacco dependence Smoking cessation strongly advised. Nicotine replacement therapy can be offered while inpatient. 4. Dysphagia with concern for aspiration Speech therapy following. Tentative plans for modified barium swallow on Thursday This note was generated with [employer] dictation software. It may contain incorrect words, spelling, and punctuation that were not noted in checking the note before signing. Code Visit Inpatient E&M: 19502 Subs Hosp L2
[2017-11-07] MEDS: Enoxaparin 40 MG/0.4 ML Syringe SC (10:54)
[2017-11-07] MEDS: Lithium Carbonate 300mg Capsule 600 MG PO (10:54)
[2017-11-07] MEDS: Magnesium Oxide 400 MG Tablet 800 MG PO (10:54)
[2017-11-07] MEDS: Aspirin 81 MG TAB.CHEW PO (10:54)
[2017-11-07] MEDS: Oseltamivir Phosphate 75 MG Capsule PO ×2 (10:54→23:16)
[2017-11-07] MEDS: Cilostazol 50 MG Tablet 100 MG PO ×2 (10:55→23:15)
[2017-11-07] MEDS: Metoprolol Tartrate 50 MG Tablet PO ×2 (10:55→23:15)
[2017-11-07] MEDS: Fluticasone 0.05% 1 SPRAY NASAL.SRY NASAL (10:55)
[2017-11-07] MEDS: Menthol/Lanolin/Calamine/Znox 113 GM Tube 1 APPLIC TOPICAL ×2 (10:56→23:16)
[2017-11-07] MEDS: guaiFENesin 1,200 MG Tablet 1200 MG PO ×2 (11:00→23:15)
[2017-11-07] MEDS: Famotidine 20 MG Tablet PO ×2 (11:00→23:15)
--- NOTE | 2017-11-07 11:54 | PCM.PROGNOTE ---
Patient Problems: Active and Suspected Problems Acute exacerbation of chronic obstructive pulmonary disease (Acute) Acute respiratory failure with hypoxia and hypercapnia (Acute) Influenza A (Acute) Subjective: The patient is a 66 year old M with a past medical history of bipolar disorder, schizophrenia, severe COPD, dyslipidemia, GERD, hypertension, past history of alcoholism, peripheral vascular disease, tobacco addiction, remote CVA, history of TIAs and dysphagia who was sent to the [facility] emergency room on 11/04/2017 from the correction with a complaint of increasing shortness of breath and increased wheezing. Respiratory panel was + for influenza A. He required BIPAP for an extended period of time. He has dysphagia and was seen by speech therapy for a bedside swallowing evaluation on 11/07/2017. He has been approved for nectar thick liquids and mechanical soft diet. He requires supervision with eating to sit upright and not gulp his food. He is afebrile. Vital signs are good. He is 95% saturated on a 4 L nasal cannula and his baseline oxygen requirement on a 6 minute walk within the past 6 months is 3 L. All lab was personally reviewed. White blood cell count is normal at 6.8 and platelets are starting to increase again and are 113,000 today. Serum bicarb is 33 and the BUN is 25 with creatinine 0.65. Potassium is within normal limits. Blood sugars are controlled. He did have a low blood sugar at midnight 62 but the blood sugar this morning is 125 and he has been approved for a diet. He was calm this AM until his older sister came in and then became very agitated. they frequently end up in a shouting match with the profanities flying. She left and he was given a mg of Ativan and is now more calm. - Physical Exam General: Alert, Cooperative, - - He gets more wheezy when he is agitated and he is agitated now. He is however talking to me with no significant conversational dyspnea. HEENT: Atraumatic, Normocephalic Oral: Moist Mucosa Neck: Supple, No Nodes, Trachea Midline Lungs: No rales, Wheezes Cardiovascular: Regular rate, Regular Rhythm, Normal S1, Normal S2, No Gallop Abdomen: Bowel Sounds Present, Soft, Non Tender, Non-Distended Extremities: No cyanosis, No edema, Clubbing Skin: No rashes, No breakdown Neurological: Cranial nerves II-XII grossly intact, Neuro grossly intact Psych/Mental Status: Agitated, - - hearing voices but tehy are telling him the mafia killed the cat and he does not know if it the good mafia or the bad mafia. He tells them to shut up and let him think. Vital Signs Temp Pulse Resp BP Pulse Ox 98.9 F 84 18 157/72 H 97 11/07/17 07:50 11/07/17 10:55 11/07/17 07:55 11/07/17 07:50 11/07/17 07:50 Oxygen Flow Rate 5 Oxygen Delivery Method Nasal Cannula Weight: 121 lb 4.068 oz Body Mass Index (BMI) 20.1 Intake and Output for Last 24 Hours 11/05/17 11/06/17 11/07/17 23:59 23:59 23:59 Intake Total 1540 / 1540 1016 / 1016 Output Total 300 / 300 100 / 100 Balance 1240 / 1240 -100 / -100 1016 / 1016 Microbiology Past 72 Hours 11/05/17 01:10 Streptococcus pneumoniae Antigen (M - Final Urine, Clean Catch 11/05/17 01:10 Legionella Antigen - Final Urine, Clean Catch Laboratory Tests Past 24 Hrs 11/06/17 11/07/17 11/07/17 08:20 07:15 07:15 WBC 6.8 RBC 3.66 L Hgb 11.2 L Hct 36.8 L MCV 100.5 H MCH 30.6 MCHC 30.4 L RDW 12.6 RDW Differential 45.1 H Plt Count 113 L MPV 10.9 Sodium 137 Potassium 4.7 Chloride 101 Carbon Dioxide 33.0 H Anion Gap 3 L BUN 25 H Creatinine 0.65 L Estim Creat Clear Calc 89.32 Est GFR (MDRD) Af Amer 160 Est GFR (MDRD) Non-Af 132 BUN/Creatinine Ratio 38.7 H Glucose 105 Calcium 8.7 MRSA (PCR) Negative POC Glucose 11/07/17 11/07/17 11/07/17 06:02 01:40 00:58 POC Glucose 125 H 134 H 62 L 11/06/17 11/06/17 11/06/17 22:06 18:43 12:10 POC Glucose 99 108 144 H Assessment/Plan Active and Suspected Problems Acute exacerbation of chronic obstructive pulmonary disease (Acute) Acute respiratory failure with hypoxia and hypercapnia (Acute) Influenza A (Acute) Impressions 1. Acute respiratory failure with hypoxemia and hypercarbia due to influenza A (diagnosed on the respiratory panel) Started high-dose intravenous steroids [id number] aerosols Mucinex 1200 p.o. twice daily keep NPO and consult the ST.....I think he needs to have a MBS......he tolerated nectar thick 1 month ago and now he is even coughing with nectar thick Maintain on BiPAP when sleeping tolerating NC when awake 2. Acute exacerbation of COPD due to influenza A - improving. able to tolerate time off BIPAP now. 3. Influenza A diagnosed on a respiratory panel.....nasal swab was negative for influenza in the ER No infiltrates on chest x-ray, normal white blood cell count, no purulent sputum Blood cultures and sputum cultures ordered. BC's have no growth so far. he never gave a sputum sample MRSA swab of his nose Empiric cefepime started - because he is know to have dysphagia and aspirate but this was stopped on 11/06 4. History of dysphagia-noncompliant with thickening of his liquids but did fine on the bedside swallow today when supervised.....even thin thin per the note 5. ROLANDO-noncompliant with CPAP 6. Diabetes mellitus type 2/peripheral vascular disease/history of CVA and TIAs/schizophrenia/bipolar disorder/nicotine addiction/G of alcoholism/hyperlipidemia/GERD/hypertension -complicate care, management, prognosis and recovery. wean oxygen as tolerated Increased time off BiPAP as tolerated. Will use BiPAP when he is sleeping or napping. started on NTL and mech soft 11/07 Plan modified [facility]ium swallow for Thursday [facility]....will need to limit visitation if he gets too agitated. Cefepime discontinued on 11/06/2017 Discussed CODE STATUS with his brother and recommended he consider DNR CC arrest. With schizophrenia and bipolar disorder he is unlikely ever to be compliant with CPAP/BiPAP, tobacco cessation or thickening of liquids. If he were to be placed on a ventilator he would likely require tracheostomy and I suspect the PEG tube. He would have no quality of life if this happened. He is going to discuss this with his and his siblings and get back to me. I did review Dr. Acuna's consult and because the patient is noncompliant with CPAP there is no plan to get a trilogy. Finish 10 doses of Tamiflu Decrease Solu-Medrol to 40 mg IV every 12 hours Wean steroids as tolerated however he is still wheezy today so will continue with 40 mg of Solu-Medrol every 12 hours now Code Visit Inpatient E&M: 37736 Subs Hosp L2
--- NOTE | 2017-11-07 12:06 | PN_ITS ---
Patient Problems: Active and Suspected Problems Acute exacerbation of chronic obstructive pulmonary disease (Acute) Acute respiratory failure with hypoxia and hypercapnia (Acute) Influenza A (Acute) Subjective: The patient is a 66 year old M with a past medical history of bipolar disorder, schizophrenia, severe COPD, dyslipidemia, GERD, hypertension, past history of alcoholism, peripheral vascular disease, tobacco addiction, remote CVA, history of TIAs and dysphagia who was sent to the [facility] emergency room on 11/04/2017 from the skilled nursing with a complaint of increasing shortness of breath and increased wheezing. Respiratory panel was + for influenza A. He required BIPAP for an extended period of time. He has dysphagia and was seen by speech therapy for a bedside swallowing evaluation on 11/07/2017. He has been approved for nectar thick liquids and mechanical soft diet. He requires supervision with eating to sit upright and not gulp his food. He is afebrile. Vital signs are good. He is 95% saturated on a 4 L nasal cannula and his baseline oxygen requirement on a 6 minute walk within the past 6 months is 3 L. All lab was personally reviewed. White blood cell count is normal at 6.8 and platelets are starting to increase again and are 113,000 today. Serum bicarb is 33 and the BUN is 25 with creatinine 0.65. Potassium is within normal limits. Blood sugars are controlled. He did have a low blood sugar at midnight 62 but the blood sugar this morning is 125 and he has been approved for a diet. He was calm this AM until his older sister came in and then became very agitated. they frequently end up in a shouting match with the profanities flying. She left and he was given a mg of Ativan and is now more calm. - Physical Exam General: Alert, Cooperative, - - He gets more wheezy when he is agitated and he is agitated now. He is however talking to me with no significant conversational dyspnea. HEENT: Atraumatic, Normocephalic Oral: Moist Mucosa Neck: Supple, No Nodes, Trachea Midline Lungs: No rales, Wheezes Cardiovascular: Regular rate, Regular Rhythm, Normal S1, Normal S2, No Gallop Abdomen: Bowel Sounds Present, Soft, Non Tender, Non-Distended Extremities: No cyanosis, No edema, Clubbing Skin: No rashes, No breakdown Neurological: Cranial nerves II-XII grossly intact, Neuro grossly intact Psych/Mental Status: Agitated, - - hearing voices but tehy are telling him the mafia killed the cat and he does not know if it the good mafia or the bad mafia. He tells them to shut up and let him think. Vital Signs Temp Pulse Resp BP Pulse Ox 98.9 F 84 18 157/72 H 97 11/07/17 07:50 11/07/17 10:55 11/07/17 07:55 11/07/17 07:50 11/07/17 07:50 Oxygen Flow Rate 5 Oxygen Delivery Method Nasal Cannula Weight: 121 lb 4.068 oz Body Mass Index (BMI) 20.1 Intake and Output for Last 24 Hours 11/05/17 11/06/17 11/07/17 23:59 23:59 23:59 Intake Total 1540 / 1540 1016 / 1016 Output Total 300 / 300 100 / 100 Balance 1240 / 1240 -100 / -100 1016 / 1016 Microbiology Past 72 Hours 11/05/17 01:10 Streptococcus pneumoniae Antigen (M - Final Urine, Clean Catch 11/05/17 01:10 Legionella Antigen - Final Urine, Clean Catch Laboratory Tests Past 24 Hrs 11/06/17 11/07/17 11/07/17 08:20 07:15 07:15 WBC 6.8 RBC 3.66 L Hgb 11.2 L Hct 36.8 L MCV 100.5 H MCH 30.6 MCHC 30.4 L RDW 12.6 RDW Differential 45.1 H Plt Count 113 L MPV 10.9 Sodium 137 Potassium 4.7 Chloride 101 Carbon Dioxide 33.0 H Anion Gap 3 L BUN 25 H Creatinine 0.65 L Estim Creat Clear Calc 89.32 Est GFR (MDRD) Af Amer 160 Est GFR (MDRD) Non-Af 132 BUN/Creatinine Ratio 38.7 H Glucose 105 Calcium 8.7 MRSA (PCR) Negative POC Glucose 11/07/17 11/07/17 11/07/17 06:02 01:40 00:58 POC Glucose 125 H 134 H 62 L 11/06/17 11/06/17 11/06/17 22:06 18:43 12:10 POC Glucose 99 108 144 H Assessment/Plan Active and Suspected Problems Acute exacerbation of chronic obstructive pulmonary disease (Acute) Acute respiratory failure with hypoxia and hypercapnia (Acute) Influenza A (Acute) Impressions 1. Acute respiratory failure with hypoxemia and hypercarbia due to influenza A (diagnosed on the respiratory panel) * Started high-dose intravenous steroids * Nhyogq-czw-katnt aerosols * Mucinex 1200 p.o. twice daily * keep NPO and consult the ST.....I think he needs to have a MBS......he tolerated nectar thick 1 month ago and now he is even coughing with nectar thick * Maintain on BiPAP when sleeping tolerating NC when awake 2. Acute exacerbation of COPD due to influenza A - improving. able to tolerate time off BIPAP now. 3. Influenza A diagnosed on a respiratory panel.....nasal swab was negative for influenza in the ER * No infiltrates on chest x-ray, normal white blood cell count, no purulent sputum * Blood cultures and sputum cultures ordered. BC's have no growth so far. he never gave a sputum sample * MRSA swab of his nose * Empiric cefepime started - because he is know to have dysphagia and aspirate but this was stopped on 11/06 4. History of dysphagia-noncompliant with thickening of his liquids but did fine on the bedside swallow today when supervised.....even thin thin per the note 5. ROLANDO-noncompliant with CPAP 6. Diabetes mellitus type 2/peripheral vascular disease/history of CVA and TIAs /schizophrenia/bipolar disorder/nicotine addiction/G of alcoholism/ hyperlipidemia/GERD/hypertension -complicate care, management, prognosis and recovery. * wean oxygen as tolerated * Increased time off BiPAP as tolerated. Will use BiPAP when he is sleeping or napping. * started on NTL and mech soft 11/07 * Plan modified barium swallow for Thursday * As needed Ativan for severe agitation ordered....will need to limit visitation if he gets too agitated. * Cefepime discontinued on 11/06/2017 * Discussed CODE STATUS with his brother and recommended he consider DNR CC arrest. With schizophrenia and bipolar disorder he is unlikely ever to be compliant with CPAP/BiPAP, tobacco cessation or thickening of liquids. If he were to be placed on a ventilator he would likely require tracheostomy and I suspect the PEG tube. He would have no quality of life if this happened. He is going to discuss this with his and his siblings and get back to me. * I did review Dr. Acuna's consult and because the patient is noncompliant with CPAP there is no plan to get a trilogy. * Finish 10 doses of Tamiflu * Decrease Solu-Medrol to 40 mg IV every 12 hours * Wean steroids as tolerated however he is still wheezy today so will continue with 40 mg of Solu-Medrol every 12 hours now Code Visit Inpatient E&M: 40961 Subs Hosp L2
[2017-11-07] MEDS: LORazepam 2 MG/ML Syringe 1 MG IV (12:39)
[2017-11-07] MEDS: 0.9% NaCl Peripheral Flush Adult/Peds IV (12:39)
[2017-11-07] MEDS: Acetaminophen 500 MG Tablet 1000 MG PO ×2 (15:50→23:16)
[2017-11-07 17:31] LABS: Bedside Glucose 143 mg/dL (70-110)
[2017-11-07 19:36] LABS: Bedside Glucose 410 mg/dL (70-110)
[2017-11-07] MEDS: Losartan Potassium 25 MG Tablet 75 MG PO (23:15)
[2017-11-07] MEDS: Atorvastatin Calcium 40 MG Tablet PO (23:15)
[2017-11-07] MEDS: LOXAPINE SUCCINATE 25 MG CAPSULE PO (23:16)
[2017-11-07] MEDS: LORazepam 1 MG Tablet 0.5 MG PO (23:16)
[2017-11-07 23:30] LABS: Bedside Glucose 100 mg/dL (70-110)
[2017-11-08] VITALS (13 sets, daily range): BP systolic 128–166; BP diastolic 59–82; PULSE 53–92; RESP 12–20; TEMP 36.6–36.7; O2SAT 87–100
--- NOTE | 2017-11-08 04:22 | NURSING ---
Called Aaliyah in Respiratory to let her know that patient ripped the head gear of his CPAP and that he will need another one. I also communicated that I put patient on 4L NC and that his o2 saturation is 94% at this time
[2017-11-08] MEDS: 0.45% Normal Saline 1,000 ML 80 ML IV (04:44)
[2017-11-08 06:05] LABS: Bedside Glucose 135 mg/dL (70-110)
[2017-11-08] MEDS: Ipratropium/Albuterol Sulfate 3 ML AMPUL.NEB INHALATION ×3 (07:03→19:22)
--- NOTE | 2017-11-08 08:10 | PN_ITS ---
Patient Problems: Active and Suspected Problems Acute exacerbation of chronic obstructive pulmonary disease (Acute) Acute respiratory failure with hypoxia and hypercapnia (Acute) Influenza A (Acute) Subjective: The patient was seen and examined at the bedside this morning. Events from the last 24 hours have been reviewed. The patient is currently afebrile, hemodynamically stable and maintaining appropriate oxygen saturations on 2 L/ min via nasal cannula. The patient was tolerant of BiPAP overnight. Modified barium swallow is still tentatively planned for tomorrow. Objective: The patient's most recent lab work, culture data and imaging studies have all been personally reviewed. Blood cultures are pending. Strep and urine Legionella antigens were both negative. Respiratory viral panel was positive for influenza A. 6 minute walk test from July 2017 revealed the need for 3 L of supplemental oxygen with exertion. - Physical Exam General: Alert, Cooperative, No apparent distress HEENT: Atraumatic, PERRLA, Normocephalic Oral: Moist Mucosa, No Gingival or Mucosal Lesions/ Ulcerations Neck: Supple, No Nodes, Trachea Midline Lungs: No rhonchi, No wheeze, No rales, Diminished, - - No conversational dyspnea. Cardiovascular: Regular rate, Regular Rhythm, Normal S1, Normal S2, No murmurs Abdomen: Bowel Sounds Present, Soft, Non Tender, Non-Distended Extremities: No cyanosis, No edema, Clubbing Skin: - - No significant change from previous. Musculoskeletal: No Tenderness to Palpation of Joints or Extremities Lymphatic: No Cervical, Supraclavicular, or Inguinal Adenopathy Neurological: Neuro grossly intact Psych/Mental Status: Normal Affect, Appropriate Vital Signs Temp Pulse Resp BP Pulse Ox 97.8 F 70 20 H 128/59 H 97 11/08/17 04:00 11/08/17 07:03 11/08/17 07:03 11/08/17 04:00 11/08/17 07:03 Oxygen Flow Rate 2 Oxygen Delivery Method Nasal Cannula Weight: 121 lb 4.068 oz Body Mass Index (BMI) 20.1 Intake and Output for Last 24 Hours 11/06/17 11/07/17 11/08/17 23:59 23:59 23:59 Intake Total 3518 / 3518 850 / 850 Output Total 100 / 100 750 / 750 425 / 425 Balance -100 / -100 2768 / 2768 425 / 425 Laboratory Tests Past 24 Hrs 11/07/17 11/07/17 07:15 07:15 WBC 6.8 RBC 3.66 L Hgb 11.2 L Hct 36.8 L MCV 100.5 H MCH 30.6 MCHC 30.4 L RDW 12.6 RDW Differential 45.1 H Plt Count 113 L MPV 10.9 Sodium 137 Potassium 4.7 Chloride 101 Carbon Dioxide 33.0 H Anion Gap 3 L BUN 25 H Creatinine 0.65 L Estim Creat Clear Calc 89.32 Est GFR (MDRD) Af Amer 160 Est GFR (MDRD) Non-Af 132 BUN/Creatinine Ratio 38.7 H Glucose 105 Calcium 8.7 POC Glucose 11/08/17 11/07/17 11/07/17 06:02 23:13 17:24 POC Glucose 135 H 100 143 H 11/07/17 12:07 POC Glucose 410 H Clinical Impression(s) from Imaging Studies Chest X-Ray 11/04/17 16:51 IMPRESSION: No acute cardiopulmonary abnormalities or changes. Stable hyperinflation/COPD with bibasilar scarring/fibrosis. Electronically Signed: Roxy Ahmadi MD at 17:20 EST Tel Direct: [phone], Service support , Chest X-Ray 11/06/17 05:55 IMPRESSION: Mild degree of increased markings at the left lung base. This is unchanged. Electronically Signed: Bienvenido Carmen MD at 8:58 EST Tel [phone], Service support , Assessment/Plan Active and Suspected Problems Acute exacerbation of chronic obstructive pulmonary disease (Acute) Acute respiratory failure with hypoxia and hypercapnia (Acute) Influenza A (Acute) RECOMMENDATIONS: 1. Continue scheduled aerosol regimen, steroids and Tamiflu x 5 days 2. Encourage the use of nocturnal noninvasive positive pressure ventilation 3. Wean supplemental oxygen as tolerated 4. Diet recommendations per speech therapy. Plans for MBS tomorrow. 5. Encourage incentive spirometer use and mobilize patient as tolerated IMPRESSIONS: 1. Acute on chronic hypoxemic respiratory failure due to presumptive COPD with exacerbation secondary to influenza A Continue current supportive measures with BiPAP therapy as tolerated. Wean supplemental oxygen to maintain oxygen saturations at or above 90%. Continue Tamiflu, steroids and scheduled aerosol regimen. The patient will require a prednisone taper at discharge. Perform walking oximetry study prior to consideration for discharge from the hospital. Recommend close interval follow- up in the pulmonary medicine clinic following discharge. Baseline pulmonary function testing should ideally be performed, if the patient follows up in the pulmonary medicine clinic. 2. Complex severe sleep apnea The patient reports noncompliance with the use of nocturnal positive pressure ventilation. He does not seem overtly interested in maintaining compliance on an outpatient basis. There would be no indication for the initiation of a trilogy machine, given the patient's noncompliance with BiPAP therapy. 3. Ongoing tobacco dependence Smoking cessation strongly advised. Nicotine replacement therapy can be offered while inpatient. 4. Dysphagia with concern for aspiration Speech therapy following. Tentative plans for modified barium swallow on Thursday This note was generated with [employer] dictation software. It may contain incorrect words, spelling, and punctuation that were not noted in checking the note before signing. Code Visit Inpatient E&M: 31781 Subs Hosp L2
[2017-11-08] MEDS: LORazepam 2 MG/ML Syringe 1 MG IV (10:57)
[2017-11-08] MEDS: guaiFENesin 1,200 MG Tablet 1200 MG PO ×2 (11:05→22:26)
[2017-11-08] MEDS: Metoprolol Tartrate 50 MG Tablet PO ×2 (11:05→22:26)
[2017-11-08] MEDS: Lithium Carbonate 300mg Capsule 600 MG PO (11:05)
[2017-11-08] MEDS: Magnesium Oxide 400 MG Tablet 800 MG PO (11:05)
[2017-11-08] MEDS: Cilostazol 50 MG Tablet 100 MG PO ×2 (11:05→22:26)
[2017-11-08] MEDS: Enoxaparin 40 MG/0.4 ML Syringe SC (11:06)
[2017-11-08] MEDS: Aspirin 81 MG TAB.CHEW PO (11:06)
[2017-11-08] MEDS: Fluticasone 0.05% 1 SPRAY NASAL.SRY NASAL (11:06)
[2017-11-08] MEDS: Menthol/Lanolin/Calamine/Znox 113 GM Tube 1 APPLIC TOPICAL ×2 (11:07→22:24)
[2017-11-08] MEDS: Oseltamivir Phosphate 75 MG Capsule PO ×2 (11:10→22:26)
[2017-11-08] MEDS: Famotidine 20 MG Tablet PO ×2 (11:10→22:26)
--- NOTE | 2017-11-08 11:26 | PCM.PN.HOSP ---
Patient Problems: Active and Suspected Problems Acute exacerbation of chronic obstructive pulmonary disease (Acute) Acute respiratory failure with hypoxia and hypercapnia (Acute) Influenza A (Acute) Subjective: Patient seen and examined today. He was lying comfortably in bed. He had on 2 L of oxygen by nasal cannula. He denied any shortness of breath and had a cough which is nonproductive. He denied any chest pain, any wheezing, any abdominal pain, any diarrhea vomiting. Review of systems is otherwise negative. Objective: Patient is a 66-year-old male with a past medical history of bipolar disorder, schizophrenia, severe COPD, dyslipidemia, GERD, hypertension, peripheral vascular disease, nicotine dependence, remote CVA and history of TIAs and dysphagia was admitted on 11/04/2017 from his [facility] with a complaint of increasing shortness of breath and wheezing. He tested positive for influenza A. He was also put on BiPAP due to shortness of breath. He has long-term dysphagia and was seen by speech therapy for bedside swallow evaluation on 11/07/2017. He was approved for nectar thick liquids and mechanical soft diet and requires eating supervision and sit upright in bed and not comfortable seating. He is due to have swallowing evaluation. He has remained stable and is off BiPAP now and is on oxygen by nasal cannula. Vitals/I&O's: Vital Signs Temp Pulse Resp BP Pulse Ox 98.0 F 70 18 146/76 H 95 11/08/17 09:23 11/08/17 11:05 11/08/17 09:23 11/08/17 09:23 11/08/17 09:23 Oxygen Flow Rate 2 Oxygen Delivery Method Nasal Cannula Weight: 121 lb 4.068 oz Body Mass Index (BMI) 20.1 Intake and Output for Last 24 Hours 11/06/17 11/07/17 11/08/17 23:59 23:59 23:59 Intake Total 3518 / 3518 850 / 850 Output Total 100 / 100 750 / 750 425 / 425 Balance -100 / -100 2768 / 2768 425 / 425 General: Alert, Oriented x3, Cooperative HEENT: Atraumatic, PERRLA, EOMI, Normocephalic Oral: Moist Mucosa Neck: Supple Lungs: - - His breath sounds bibasilarly with few coarse crackles auscultated. No wheezing on auscultation. On 2 L of oxygen by nasal cannula. Cardiovascular: Regular rate, Regular Rhythm, Normal S1, Normal S2, No murmurs Abdomen: Bowel Sounds Present, Soft, Non Tender, Non-Distended, No Hepato-splenomegaly Extremities: No clubbing, No cyanosis, No edema, Capillary Refill Less than 3 Seconds Skin: No rashes, No breakdown Musculoskeletal: No Tenderness to Palpation of Joints or Extremities Lymphatic: No Cervical, Supraclavicular, or Inguinal Adenopathy Neurological: Cranial nerves II-XII grossly intact Psych/Mental Status: Normal Affect, Alert and oriented to time, place, person, mood and affect Laboratory Results 11/07/17 12:07: POC Glucose 410 H 11/07/17 17:24: POC Glucose 143 H 11/07/17 23:13: POC Glucose 100 11/08/17 06:02: POC Glucose 135 H Current Medications Acetaminophen (Tylenol) 1,000 mg PO Q8 [facility] Last Admin: 11/08/17 06:04 Dose: Not Given Albuterol Sulfate (Ventolin Aerosols) 2.5 mg INHALATION Q2H PRN PRN PRN Reason: DYSPNEA/WHEEZING/SOB Albuterol/Ipratropium (Duoneb) 3 ml INHALATION Q4HWA.RT [facility] Last Admin: 11/08/17 10:35 Dose: 3 ml Aspirin (Aspirin, Baby) 81 mg PO DAILY@0800 [facility] Last Admin: 11/08/17 11:06 Dose: 81 mg Atorvastatin Calcium (Lipitor) 40 mg PO QHS [facility] Last Admin: 11/07/17 23:15 Dose: 40 mg Calamine/Phenol (Calmoseptine Ointment) 1 applic TOPICAL BID [facility] PRN Reason: Protocol Last Admin: 11/08/17 11:07 Dose: 1 applicatio Cilostazol (Pletal) 100 mg PO BID [facility] Last Admin: 11/08/17 11:05 Dose: 100 mg Dextrose (D50w Syringe) 0 gm IV X1 PRN; Protocol PRN Reason: Hypoglycemia Last Admin: 11/07/17 01:06 Dose: 12.5 gm Enoxaparin Sodium (Lovenox) 40 mg SC DAILY@1000 [facility] Last Admin: 11/08/17 11:06 Dose: 40 mg Famotidine (Pepcid) 20 mg PO BID [facility] Last Admin: 11/08/17 11:10 Dose: 20 mg Fluticasone Propionate (Flonase Nasal [place]) 1 spray NASAL DAILY [facility] Last Admin: 11/08/17 11:06 Dose: 1 spray Glucagon () 1 mg IM .X1 PRN PRN Reason: Hypoglycemia Guaifenesin (Mucinex) 1,200 mg PO BID [facility] Last Admin: 11/08/17 11:05 Dose: 1,200 mg Sodium Chloride () 1,000 mls @ 80 mls/hr IV .[id number] [facility] Last Admin: 11/08/17 04:44 Dose: 80 mls/hr Insulin Aspart (Novolog Flexpen ([facility])) 0 units SC ACHS [facility] PRN Reason: Protocol Last Admin: 11/08/17 06:04 Dose: Not Given Insulin Detemir (Levemir ([facility])) 10 units SC BID [facility] Last Admin: 11/08/17 11:07 Dose: 10 u Lactobacillus Acidophilus (Acidophilus) 1 tablet PO BID [facility] Last Admin: 11/08/17 11:05 Dose: 1 tablet Bond Carbonate (Bond Carbonate) 600 mg PO DAILY [facility] Last Admin: 11/08/17 11:05 Dose: 600 mg Lorazepam (Ativan) 0.5 mg PO Q6H PRN PRN Reason: ANXIETY Last Admin: 11/07/17 23:16 Dose: 0.5 mg Lorazepam (Ativan) 1 mg IV Q6H PRN PRN PRN Reason: AGITATION Last Admin: 11/08/17 10:57 Dose: 1 mg Losartan Potassium (Cozaar) 75 mg PO QHS [facility] Last Admin: 11/07/17 23:15 Dose: 75 mg Loxapine Succinate (Loxapine) 25 mg PO QHS [facility] Last Admin: 11/07/17 23:16 Dose: 25 mg Magnesium Hydroxide (Milk Of Magnesia) 30 ml PO DAILY PRN PRN PRN Reason: Constipation Magnesium Oxide (Mag-Ox 400) 800 mg PO DAILY [facility] Last Admin: 11/08/17 11:05 Dose: 800 mg Methylprednisolone (Solu-Medrol) 40 mg IV Q12H [facility] Last Admin: 11/08/17 11:06 Dose: 40 mg Metoprolol Tartrate (Lopressor (Beta Andriy)) 50 mg PO BID [facility] Last Admin: 11/08/17 11:05 Dose: 50 mg Ondansetron HCl (Zofran) 4 mg IV Q8H PRN PRN PRN Reason: Nausea Oseltamivir Phosphate (Tamiflu) 75 mg PO BID [facility] Stop: 11/10/17 10:01 Last Admin: 11/08/17 11:10 Dose: 75 mg Sodium Chloride ([place] Nasal [place]) 1 spray NASAL Q6H PRN PRN Reason: STUFFINESS Sodium Chloride () 5 - 30 ml IV UD PRN PRN Reason: SALINE FLUSH Last Admin: 11/07/17 12:39 Dose: 10 ml Assessment/Plan Active and Suspected Problems Acute exacerbation of chronic obstructive pulmonary disease (Acute) Acute respiratory failure with hypoxia and hypercapnia (Acute) Influenza A (Acute) 1. Acute hypoxic and hypercapnic respiratory failure due to influenza A Resolving. Patient now on oxygen by nasal cannula- 2L. Of BiPAP. On breathing treatments with albuterol and DuoNeb. On steroids and Mucinex. Will switch steroids to p.o. 40 mg daily today. Blood cultures have been negative so far. Sputum sample was never obtained for analysis. Was on IV cefepime empirically but this was stopped on 11/06/2017. Chest x-ray showed no infiltrates and he had a normal white cell counts throughout admission. Will continue weaning off oxygen as tolerated. Will continue breathing treatments. To finish a 5 day course of Tamiflu. 2. Acute COPD exacerbation due to influenza infection Resolving. Of BiPAP and now on nasal cannula oxygen as documented above. Will continue steroids. Encouraged to stop smoking. 3. Dysphagia Has a history of long-standing dysphagia. At risk of aspiration. Has been noncompliant with thickening of his liquids. To keep n.p.o. past midnight for modified barium swallow tomorrow. Currently on nectar thick liquids. 4. ROLANDO: Stable. Noncompliant with CPAP. 5. Type 2 diabetes mellitus: On insulin detemir 10 units twice daily. On insulin sliding scale. Accu-Cheks before meals at bedtime. 6. Peripheral artery disease: Stable on cilostazol and aspirin as well as atorvastatin. 7. History of CVA and TIAs: Stable on atorvastatin and aspirin. 8. Hypertension hyperlipidemia: On losartan and metoprolol. 9. GERD: Stable on famotidine. 10. Schizophrenia and bipolar disorder: On Ativan as needed for anxiety. On lithium for bipolar disorder. 10. DVT prophylaxis: Lovenox 11. GI prophylaxis: Famotidine CODE STATUS: Currently remains full code. CODE STATUS was discussed with brother, who said he was going to discuss with his and siblings and get back to the team. Brother was informed by previous physician that patient will benefit from DNR CCA as with his history of comorbidities and severe COPD he may not benefit and would not be able to come off the ventilator if it got to that point. This note was generated with [employer] dictation software. It may contain incorrect words, spelling, and punctuation that were not noted in checking the note before signing. Code Visit Inpatient E&M: 55999 Subs Hosp L3
--- NOTE | 2017-11-08 11:37 | PN_ITS ---
Patient Problems: Active and Suspected Problems Acute exacerbation of chronic obstructive pulmonary disease (Acute) Acute respiratory failure with hypoxia and hypercapnia (Acute) Influenza A (Acute) Subjective: Patient seen and examined today. He was lying comfortably in bed. He had on 2 L of oxygen by nasal cannula. He denied any shortness of breath and had a cough which is nonproductive. He denied any chest pain, any wheezing, any abdominal pain, any diarrhea vomiting. Review of systems is otherwise negative. Objective: Patient is a 66-year-old male with a past medical history of bipolar disorder, schizophrenia, severe COPD, dyslipidemia, GERD, hypertension, peripheral vascular disease, nicotine dependence, remote CVA and history of TIAs and dysphagia was admitted on 11/04/2017 from his [facility] with a complaint of increasing shortness of breath and wheezing. He tested positive for influenza A. He was also put on BiPAP due to shortness of breath. He has long-term dysphagia and was seen by speech therapy for bedside swallow evaluation on 2017. He was approved for nectar thick liquids and mechanical soft diet and requires eating supervision and sit upright in bed and not comfortable seating. He is due to have swallowing evaluation. He has remained stable and is off BiPAP now and is on oxygen by nasal cannula. Vitals/I&O's: Vital Signs Temp Pulse Resp BP Pulse Ox 98.0 F 70 18 146/76 H 95 11/08/17 09:23 11/08/17 11:05 11/08/17 09:23 11/08/17 09:23 11/08/17 09:23 Oxygen Flow Rate 2 Oxygen Delivery Method Nasal Cannula Weight: 121 lb 4.068 oz Body Mass Index (BMI) 20.1 Intake and Output for Last 24 Hours 11/06/17 11/07/17 11/08/17 23:59 23:59 23:59 Intake Total 3518 / 3518 850 / 850 Output Total 100 / 100 750 / 750 425 / 425 Balance -100 / -100 2768 / 2768 425 / 425 General: Alert, Oriented x3, Cooperative HEENT: Atraumatic, PERRLA, EOMI, Normocephalic Oral: Moist Mucosa Neck: Supple Lungs: - - His breath sounds bibasilarly with few coarse crackles auscultated. No wheezing on auscultation. On 2 L of oxygen by nasal cannula. Cardiovascular: Regular rate, Regular Rhythm, Normal S1, Normal S2, No murmurs Abdomen: Bowel Sounds Present, Soft, Non Tender, Non-Distended, No Hepato- splenomegaly Extremities: No clubbing, No cyanosis, No edema, Capillary Refill Less than 3 Seconds Skin: No rashes, No breakdown Musculoskeletal: No Tenderness to Palpation of Joints or Extremities Lymphatic: No Cervical, Supraclavicular, or Inguinal Adenopathy Neurological: Cranial nerves II-XII grossly intact Psych/Mental Status: Normal Affect, Alert and oriented to time, place, person, mood and affect Laboratory Results 11/07/17 12:07: POC Glucose 410 H 11/07/17 17:24: POC Glucose 143 H 11/07/17 23:13: POC Glucose 100 11/08/17 06:02: POC Glucose 135 H Current Medications Acetaminophen (Tylenol) 1,000 mg PO Q8 [facility] Last Admin: 11/08/17 06:04 Dose: Not Given Albuterol Sulfate (Ventolin Aerosols) 2.5 mg INHALATION Q2H PRN PRN PRN Reason: DYSPNEA/WHEEZING/SOB Albuterol/Ipratropium (Duoneb) 3 ml INHALATION Q4HWA.RT [facility] Last Admin: 11/08/17 10:35 Dose: 3 ml Aspirin (Aspirin, Baby) 81 mg PO DAILY@0800 [facility] Last Admin: 11/08/17 11:06 Dose: 81 mg Atorvastatin Calcium (Lipitor) 40 mg PO QHS [facility] Last Admin: 11/07/17 23:15 Dose: 40 mg Calamine/Phenol (Calmoseptine Ointment) 1 applic TOPICAL BID [facility] PRN Reason: Protocol Last Admin: 11/08/17 11:07 Dose: 1 applicatio Cilostazol (Pletal) 100 mg PO BID [facility] Last Admin: 11/08/17 11:05 Dose: 100 mg Dextrose (D50w Syringe) 0 gm IV X1 PRN; Protocol PRN Reason: Hypoglycemia Last Admin: 11/07/17 01:06 Dose: 12.5 gm Enoxaparin Sodium (Lovenox) 40 mg SC DAILY@1000 [facility] Last Admin: 11/08/17 11:06 Dose: 40 mg Famotidine (Pepcid) 20 mg PO BID [facility] Last Admin: 11/08/17 11:10 Dose: 20 mg Fluticasone Propionate (Flonase Nasal [place]) 1 spray NASAL DAILY [facility] Last Admin: 11/08/17 11:06 Dose: 1 spray Glucagon () 1 mg IM .X1 PRN PRN Reason: Hypoglycemia Guaifenesin (Mucinex) 1,200 mg PO BID [facility] Last Admin: 11/08/17 11:05 Dose: 1,200 mg Sodium Chloride () 1,000 mls @ 80 mls/hr IV .[id number] [facility] Last Admin: 11/08/17 04:44 Dose: 80 mls/hr Insulin Aspart (Novolog Flexpen ([facility])) 0 units SC ACHS [facility] PRN Reason: Protocol Last Admin: 11/08/17 06:04 Dose: Not Given Insulin Detemir (Levemir ([facility])) 10 units SC BID [facility] Last Admin: 11/08/17 11:07 Dose: 10 u Lactobacillus Acidophilus (Acidophilus) 1 tablet PO BID [facility] Last Admin: 11/08/17 11:05 Dose: 1 tablet [place] Carbonate ([place] Carbonate) 600 mg PO DAILY [facility] Last Admin: 11/08/17 11:05 Dose: 600 mg Lorazepam (Ativan) 0.5 mg PO Q6H PRN PRN Reason: ANXIETY Last Admin: 11/07/17 23:16 Dose: 0.5 mg Lorazepam (Ativan) 1 mg IV Q6H PRN PRN PRN Reason: AGITATION Last Admin: 11/08/17 10:57 Dose: 1 mg Losartan Potassium (Cozaar) 75 mg PO QHS [facility] Last Admin: 11/07/17 23:15 Dose: 75 mg Loxapine Succinate (Loxapine) 25 mg PO QHS [facility] Last Admin: 11/07/17 23:16 Dose: 25 mg Magnesium Hydroxide (Milk Of Magnesia) 30 ml PO DAILY PRN PRN PRN Reason: Constipation Magnesium Oxide (Mag-Ox 400) 800 mg PO DAILY [facility] Last Admin: 11/08/17 11:05 Dose: 800 mg Methylprednisolone (Solu-Medrol) 40 mg IV Q12H [facility] Last Admin: 11/08/17 11:06 Dose: 40 mg Metoprolol Tartrate (Lopressor (Beta Andriy)) 50 mg PO BID [facility] Last Admin: 11/08/17 11:05 Dose: 50 mg Ondansetron HCl (Zofran) 4 mg IV Q8H PRN PRN PRN Reason: Nausea Oseltamivir Phosphate (Tamiflu) 75 mg PO BID [facility] Stop: 11/10/17 10:01 Last Admin: 11/08/17 11:10 Dose: 75 mg Sodium Chloride ([place] Nasal [place]) 1 spray NASAL Q6H PRN PRN Reason: STUFFINESS Sodium Chloride () 5 - 30 ml IV UD PRN PRN Reason: SALINE FLUSH Last Admin: 11/07/17 12:39 Dose: 10 ml Assessment/Plan Active and Suspected Problems Acute exacerbation of chronic obstructive pulmonary disease (Acute) Acute respiratory failure with hypoxia and hypercapnia (Acute) Influenza A (Acute) 1. Acute hypoxic and hypercapnic respiratory failure due to influenza A * Resolving. Patient now on oxygen by nasal cannula- 2L. Of BiPAP. * On breathing treatments with albuterol and DuoNeb. On steroids and Mucinex. Will switch steroids to p.o. 40 mg daily today. * Blood cultures have been negative so far. Sputum sample was never obtained for analysis. * Was on IV cefepime empirically but this was stopped on 11/06/2017. Chest x-ray showed no infiltrates and he had a normal white cell counts throughout admission. * Will continue weaning off oxygen as tolerated. Will continue breathing treatments. * To finish a 5 day course of Tamiflu. * 2. Acute COPD exacerbation due to influenza infection * Resolving. Of BiPAP and now on nasal cannula oxygen as documented above. Will continue steroids. * Encouraged to stop smoking. * 3. Dysphagia * Has a history of long-standing dysphagia. At risk of aspiration. Has been noncompliant with thickening of his liquids. To keep n.p.o. past midnight for modified barium swallow tomorrow. Currently on nectar thick liquids. * * 4. ROLANDO: Stable. Noncompliant with CPAP. 5. Type 2 diabetes mellitus: On insulin detemir 10 units twice daily. On insulin sliding scale. Accu-Cheks before meals at bedtime. 6. Peripheral artery disease: Stable on cilostazol and aspirin as well as atorvastatin. 7. History of CVA and TIAs: Stable on atorvastatin and aspirin. 8. Hypertension hyperlipidemia: On losartan and metoprolol. 9. GERD: Stable on famotidine. 10. Schizophrenia and bipolar disorder: On Ativan as needed for anxiety. On lithium for bipolar disorder. 10. DVT prophylaxis: Lovenox 11. GI prophylaxis: Famotidine CODE STATUS: Currently remains full code. CODE STATUS was discussed with brother, who said he was going to discuss with his and siblings and get back to the team. Brother was informed by previous physician that patient will benefit from DNR CCA as with his history of comorbidities and severe COPD he may not benefit and would not be able to come off the ventilator if it got to that point. This note was generated with [employer] dictation software. It may contain incorrect words, spelling, and punctuation that were not noted in checking the note before signing. * Code Visit Inpatient E&M: 19673 Subs Hosp L3
[2017-11-08 12:21] LABS: Bedside Glucose 191 mg/dL (70-110)
[2017-11-08 17:01] LABS: Bedside Glucose 173 mg/dL (70-110)
[2017-11-08] MEDS: LORazepam 1 MG Tablet 0.5 MG PO (22:25)
[2017-11-08] MEDS: Losartan Potassium 25 MG Tablet 75 MG PO (22:25)
[2017-11-08] MEDS: LOXAPINE SUCCINATE 25 MG CAPSULE PO (22:26)
[2017-11-08] MEDS: Atorvastatin Calcium 40 MG Tablet PO (22:26)
[2017-11-08] MEDS: Acetaminophen 500 MG Tablet 1000 MG PO (22:26)
[2017-11-08 22:31] LABS: Bedside Glucose 263 mg/dL (70-110)
[2017-11-09] VITALS (12 sets, daily range): BP systolic 145–186; BP diastolic 68–90; PULSE 64–92; RESP 12–20; TEMP 36.8–37.2; O2SAT 74–98
--- NOTE | 2017-11-09 00:15 | CPS ---
PT FOUND ON ROOM AIR WITH AN SPO2 OF 74%. PT PLACED ON BIPAP NURSING AWARE.
[2017-11-09] MEDS: Ipratropium/Albuterol Sulfate 3 ML AMPUL.NEB INHALATION ×4 (07:51→19:57)
--- NOTE | 2017-11-09 09:57 | PCM.PROGNOTE ---
Patient Problems: Active and Suspected Problems Acute exacerbation of chronic obstructive pulmonary disease (Acute) Acute respiratory failure with hypoxia and hypercapnia (Acute) Influenza A (Acute) Subjective: Chief complaint: Follow-up after admission for acute on chronic hypoxic and hypercapnic respiratory failure, acute COPD exacerbation, influenza A and chronic dysphagia. Patient seen and examined. No acute events overnight. Patient mentioned that his breathing is okay and he wants to go back to care home. He reported improvement of his shortness of breath, still complaining of cough without sputum production. He remained on BiPAP overnight, this morning he is on 3 L of oxygen and his pulse ox was 96%. His other vital signs are stable, afebrile. - Physical Exam General: Alert, Cooperative, Disoriented - Disoriented to time, oriented to place and person. HEENT: Atraumatic, PERRLA, EOMI Oral: Moist Mucosa Neck: Supple, No JVD, Negative Carotid Bruits, Trachea Midline, Thyroid Normal Size and Texture Lungs: No wheeze, No rales, Diminished, Rhonchi, Short of Breath, - - Decreased breath sounds bilateral, scattered rhonchi. Cardiovascular: Regular rate, Regular Rhythm, Normal S1, Normal S2, PMI Normal Abdomen: Bowel Sounds Present, Soft, Non Tender, Non-Distended, No Hepato-splenomegaly Extremities: No clubbing, No cyanosis, No edema Skin: No rashes, No breakdown Lymphatic: No Cervical, Supraclavicular, or Inguinal Adenopathy Neurological: Cranial nerves II-XII grossly intact, Motor Exam 5/5 strength throughout Psych/Mental Status: Normal Affect Vital Signs Temp Pulse Resp BP Pulse Ox 98.3 F 78 16 145/88 H 96 11/09/17 04:40 11/09/17 07:51 11/09/17 07:51 11/09/17 04:40 11/09/17 07:51 Oxygen Flow Rate 3 Oxygen Delivery Method Nasal Cannula Weight: 121 lb 4.068 oz Body Mass Index (BMI) 20.1 Intake and Output for Last 24 Hours 11/07/17 11/08/17 11/09/17 23:59 23:59 23:59 Intake Total 3518 / 3518 2090 / 2090 240 / 240 Output Total 750 / 750 725 / 725 Balance 2768 / 2768 1365 / 1365 240 / 240 POC Glucose 11/08/17 11/08/17 11/08/17 22:23 16:54 12:10 POC Glucose 263 H 173 H 191 H Clinical Impression(s) from Imaging Studies Chest X-Ray 11/04/17 16:51 IMPRESSION: No acute cardiopulmonary abnormalities or changes. Stable hyperinflation/COPD with bibasilar scarring/fibrosis. Electronically Signed: Roxy Ahmadi MD at 17:20 EST Tel Direct: [phone], Service support , Chest X-Ray 11/06/17 05:55 IMPRESSION: Mild degree of increased markings at the left lung base. This is unchanged. Electronically Signed: Bienvenido Carmen MD at 8:58 EST Tel [phone], Service support , Assessment/Plan Active and Suspected Problems Acute exacerbation of chronic obstructive pulmonary disease (Acute) Acute respiratory failure with hypoxia and hypercapnia (Acute) Influenza A (Acute) This is a 66 years old male patient admitted because of wheezing and shortness of breath, found to have acute on chronic hypoxic and hypercapnic respiratory failure secondary to acute COPD exacerbation that was triggered by influenza A. #1 acute on chronic hypoxic and hypercapnic respiratory failure: Secondary to acute COPD exacerbation that was triggered by influenza A. Patient is on bronchodilators, oral prednisone and Tamiflu. He has been on BiPAP at night. This morning, pulse ox is 96% on 3 L of oxygen. At home, he has been on 3 L as well. Chest x-ray showed no acute findings. ABG from admission reviewed. Plan: Continue same treatment, wean off oxygen as tolerated. #2 acute COPD exacerbation: He is on oral prednisone and bronchodilators. Pneumococcal and Legionella antigen were negative. Blood cultures are pending. Plan as above. #3 influenza A: He is on Tamiflu. Vital signs are stable, afebrile. #4 chronic dysphagia: With high risk of aspiration. Speech therapy is following. Plan for swallowing study today. #5 obstructive sleep apnea: Noncompliant with CPAP. #6 hypertension: Blood pressure stable, continue losartan and metoprolol. #7 type 2 diabetes mellitus: ADA diet, Accu-Cheks, continue Levemir insulin and insulin sliding scale. #7 bipolar disorder/schizophrenia: Continue lithium and loxapine as well as Ativan. #8 DVT prophylaxis: Subcu Lovenox. Other chronic medical problems: #1 GERD. #2 peripheral vascular disease. This note was generated with [employer] software. It may contain incorrect words, spelling, and punctuation that were not noted in checking the note before signing. Code Visit Inpatient E&M: 14265 Subs Hosp L2
--- NOTE | 2017-11-09 09:58 | PCM.PROGNOTE ---
Patient Problems: Active and Suspected Problems Acute exacerbation of chronic obstructive pulmonary disease (Acute) Acute respiratory failure with hypoxia and hypercapnia (Acute) Influenza A (Acute) Subjective: Patient seen and examined. No acute events overnight, no complaints today. Denies cough or sputum production. Denies wheezing. He does get short of breath with exertion per nursing staff. He is quite difficult to understand, he mumbles and gets frustrated/belligerent. Patient has been tolerating BiPAP at night and is maintaining oxygen saturations on 2-3L/nc during the day. Room air pulse ox 74% this a.m. He is scheduled for a swallowing study at 1430. Objective: Recent labwork and vitals reviewed, no new imaging. Patient was Influenza A (subtype H3) positive. He does have a baseline oxygen requirement of 3L/nc with exertion at the SNF per 6 minute walk test in July 2017. - Physical Exam General: Alert, Oriented x3, Cooperative, No apparent distress, - - difficult to comprehend his speech. No conversational dyspnea HEENT: Atraumatic, Normocephalic Oral: No Gingival or Mucosal Lesions/ Ulcerations, Dry Mucosa, - - edentulous Neck: Supple, No JVD, No Nodes, Trachea Midline Lungs: No rhonchi, Diminished Cardiovascular: Regular rate, Regular Rhythm, Normal S1, Normal S2, No murmurs Abdomen: Bowel Sounds Present, Soft, Non Tender, Non-Distended Extremities: No cyanosis, No edema, Capillary Refill Less than 3 Seconds, Clubbing, Diminished Peripheral Pulses Skin: No breakdown, - - ecchymosis to abdomen from injections Musculoskeletal: No Tenderness to Palpation of Joints or Extremities, Cachexia Lymphatic: No Cervical, Supraclavicular, or Inguinal Adenopathy Neurological: Cranial nerves II-XII grossly intact, Neuro grossly intact, Motor Exam 5/5 strength throughout Psych/Mental Status: Impulsive, - - cooperative Vital Signs Temp Pulse Resp BP Pulse Ox 98.3 F 78 16 145/88 H 96 11/09/17 04:40 11/09/17 07:51 11/09/17 07:51 11/09/17 04:40 11/09/17 07:51 Oxygen Flow Rate 3 Oxygen Delivery Method Nasal Cannula Weight: 55 kg Body Mass Index (BMI) 20.1 Intake and Output for Last 24 Hours 11/07/17 11/08/17 11/09/17 23:59 23:59 23:59 Intake Total 3518 / 3518 2090 / 2090 240 / 240 Output Total 750 / 750 725 / 725 Balance 2768 / 2768 1365 / 1365 240 / 240 POC Glucose 11/08/17 11/08/17 11/08/17 22:23 16:54 12:10 POC Glucose 263 H 173 H 191 H Assessment/Plan Active and Suspected Problems Acute exacerbation of chronic obstructive pulmonary disease (Acute) Acute respiratory failure with hypoxia and hypercapnia (Acute) Influenza A (Acute) RECOMMENDATIONS: 1. Continue scheduled aerosol regimen, steroids and Tamiflu x 5 days 2. Encourage the use of nocturnal noninvasive positive pressure ventilation 3. Wean supplemental oxygen as tolerated 4. Diet recommendations per speech therapy. Plans for MBS today at 1430. 5. Encourage incentive spirometer use and mobilize patient as tolerated 6. Patient should followup closely at pulmonary clinic if he is agreeable, recommend PFTs IMPRESSIONS: 1. Acute on chronic hypoxemic respiratory failure due to presumptive COPD with exacerbation secondary to influenza A Continue current supportive measures with BiPAP therapy as tolerated. Wean supplemental oxygen to maintain oxygen saturations at or above 90%. Continue Tamiflu, steroids and scheduled aerosol regimen. The patient will require a prednisone taper at discharge. Perform walking oximetry study prior to consideration for discharge from the hospital. Recommend close interval follow-up in the pulmonary medicine clinic following discharge. Baseline pulmonary function testing should ideally be performed, if the patient follows up in the pulmonary medicine clinic. 2. Complex severe sleep apnea The patient reports noncompliance with the use of nocturnal positive pressure ventilation. He does not seem overtly interested in maintaining compliance on an outpatient basis. There would be no indication for the initiation of a trilogy machine, given the patient's noncompliance with BiPAP therapy. 3. Ongoing tobacco dependence Smoking cessation strongly advised. Nicotine replacement therapy can be offered while inpatient. 4. Dysphagia with concern for aspiration Speech therapy following. Tentative plans for modified barium swallow 11/09/16 1430. 5. Hx ETOH abuse/Aortic stenosis/TIA/HTN/dyslipidemia/bipolar/CVD/GERD/PVD/schizophrenia Complicates care, management, recovery, and prognosis. Management per hospitalist recommendations. This note was generated with [employer] dictation software. It may contain incorrect words, spelling, and punctuation that were not noted in checking the note before signing.
--- NOTE | 2017-11-09 10:07 | PN_ITS ---
Patient Problems: Active and Suspected Problems Acute exacerbation of chronic obstructive pulmonary disease (Acute) Acute respiratory failure with hypoxia and hypercapnia (Acute) Influenza A (Acute) Subjective: Chief complaint: Follow-up after admission for acute on chronic hypoxic and hypercapnic respiratory failure, acute COPD exacerbation, influenza A and chronic dysphagia. Patient seen and examined. No acute events overnight. Patient mentioned that his breathing is okay and he [facility] to [facility] back to [facility]. He reported improvement of his shortness of breath, still complaining of cough without sputum production. He remained on BiPAP overnight, this morning he is on 3 L of oxygen and his pulse ox was 96%. His other vital signs are stable, afebrile. - Physical Exam General: Alert, Cooperative, Disoriented - Disoriented to time, oriented to place and person. HEENT: Atraumatic, PERRLA, EOMI Oral: Moist Mucosa Neck: Supple, No JVD, Negative Carotid Bruits, Trachea Midline, Thyroid Normal Size and Texture Lungs: No wheeze, No rales, Diminished, Rhonchi, Short of Breath, - - Decreased breath sounds bilateral, scattered rhonchi. Cardiovascular: Regular rate, Regular Rhythm, Normal S1, Normal S2, PMI Normal Abdomen: Bowel Sounds Present, Soft, Non Tender, Non-Distended, No Hepato- splenomegaly Extremities: No clubbing, No cyanosis, No edema Skin: No rashes, No breakdown Lymphatic: No Cervical, Supraclavicular, or Inguinal Adenopathy Neurological: Cranial nerves II-XII grossly intact, Motor Exam 5/5 strength throughout Psych/Mental Status: Normal Affect Vital Signs Temp Pulse Resp BP Pulse Ox 98.3 F 78 16 145/88 H 96 11/09/17 04:40 11/09/17 07:51 11/09/17 07:51 11/09/17 04:40 11/09/17 07:51 Oxygen Flow Rate 3 Oxygen Delivery Method Nasal Cannula Weight: 121 lb 4.068 oz Body Mass Index (BMI) 20.1 Intake and Output for Last 24 Hours 11/07/17 11/08/17 11/09/17 23:59 23:59 23:59 Intake Total 3518 / 3518 2090 / 2090 240 / 240 Output Total 750 / 750 725 / 725 Balance 2768 / 2768 1365 / 1365 240 / 240 POC Glucose 11/08/17 11/08/17 11/08/17 22:23 16:54 12:10 POC Glucose 263 H 173 H 191 H Clinical Impression(s) from Imaging Studies Chest X-Ray 11/04/17 16:51 IMPRESSION: No acute cardiopulmonary abnormalities or changes. Stable hyperinflation/COPD with bibasilar scarring/fibrosis. Electronically Signed: Roxy Ahmadi MD at 17:20 EST Tel Direct: [phone], Service support , Chest X-Ray 11/06/17 05:55 IMPRESSION: Mild degree of increased markings at the left lung base. This is unchanged. Electronically Signed: Bienvenido Carmen MD at 8:58 EST Tel [phone], Service support , Assessment/Plan Active and Suspected Problems Acute exacerbation of chronic obstructive pulmonary disease (Acute) Acute respiratory failure with hypoxia and hypercapnia (Acute) Influenza A (Acute) This is a 66 years old male patient admitted because of wheezing and shortness of breath, found to have acute on chronic hypoxic and hypercapnic respiratory failure secondary to acute COPD exacerbation that was triggered by influenza A. #1 acute on chronic hypoxic and hypercapnic respiratory failure: Secondary to acute COPD exacerbation that was triggered by influenza A. Patient is on bronchodilators, oral prednisone and Tamiflu. He has been on BiPAP at night. This morning, pulse ox is 96% on 3 L of oxygen. At home, he has been on 3 L as well. Chest x-ray showed no acute findings. ABG from admission reviewed. Plan : Continue same treatment, wean off oxygen as tolerated. #2 acute COPD exacerbation: He is on oral prednisone and bronchodilators. Pneumococcal and Legionella antigen were negative. Blood cultures are pending. Plan as above. #3 influenza A: He is on Tamiflu. Vital signs are stable, afebrile. #4 chronic dysphagia: With high risk of aspiration. Speech therapy is following. Plan for swallowing study today. #5 obstructive sleep apnea: Noncompliant with CPAP. #6 hypertension: Blood pressure stable, continue losartan and metoprolol. #7 type 2 diabetes mellitus: ADA diet, Accu-Cheks, continue Levemir insulin and insulin sliding scale. #7 bipolar disorder/schizophrenia: Continue lithium and loxapine as well as Ativan. #8 DVT prophylaxis: Subcu Lovenox. Other chronic medical problems: #1 GERD. #2 peripheral vascular disease. This note was generated with [employer].comation software. It may contain incorrect words, spelling, and punctuation that were not noted in checking the note before signing. Code Visit Inpatient E&M: 70965 Subs Hosp L2
--- NOTE | 2017-11-09 10:08 | PN_ITS ---
Patient Problems: Active and Suspected Problems Acute exacerbation of chronic obstructive pulmonary disease (Acute) Acute respiratory failure with hypoxia and hypercapnia (Acute) Influenza A (Acute) Subjective: Patient seen and examined. No acute events overnight, no complaints today. Denies cough or sputum production. Denies wheezing. He does get short of breath with exertion per nursing staff. He is quite difficult to understand, he mumbles and gets frustrated/belligerent. Patient has been tolerating BiPAP at night and is maintaining oxygen saturations on 2-3L/nc during the day. Room air pulse ox 74% this a.m. He is scheduled for a swallowing study at 1430. Objective: Recent labwork and vitals reviewed, no new imaging. Patient was Influenza A ( subtype H3) positive. He does have a baseline oxygen requirement of 3L/nc with exertion at the SNF per 6 minute walk test in July 2017. - Physical Exam General: Alert, Oriented x3, Cooperative, No apparent distress, - - difficult to comprehend his speech. No conversational dyspnea HEENT: Atraumatic, Normocephalic Oral: No Gingival or Mucosal Lesions/ Ulcerations, Dry Mucosa, - - edentulous Neck: Supple, No JVD, No Nodes, Trachea Midline Lungs: No rhonchi, Diminished Cardiovascular: Regular rate, Regular Rhythm, Normal S1, Normal S2, No murmurs Abdomen: Bowel Sounds Present, Soft, Non Tender, Non-Distended Extremities: No cyanosis, No edema, Capillary Refill Less than 3 Seconds, Clubbing, Diminished Peripheral Pulses Skin: No breakdown, - - ecchymosis to abdomen from injections Musculoskeletal: No Tenderness to Palpation of Joints or Extremities, Cachexia Lymphatic: No Cervical, Supraclavicular, or Inguinal Adenopathy Neurological: Cranial nerves II-XII grossly intact, Neuro grossly intact, Motor Exam 5/5 strength throughout Psych/Mental Status: Impulsive, - - cooperative Vital Signs Temp Pulse Resp BP Pulse Ox 98.3 F 78 16 145/88 H 96 11/09/17 04:40 11/09/17 07:51 11/09/17 07:51 11/09/17 04:40 11/09/17 07:51 Oxygen Flow Rate 3 Oxygen Delivery Method Nasal Cannula Weight: 55 kg Body Mass Index (BMI) 20.1 Intake and Output for Last 24 Hours 11/07/17 11/08/17 11/09/17 23:59 23:59 23:59 Intake Total 3518 / 3518 2090 / 2090 240 / 240 Output Total 750 / 750 725 / 725 Balance 2768 / 2768 1365 / 1365 240 / 240 POC Glucose 11/08/17 11/08/17 11/08/17 22:23 16:54 12:10 POC Glucose 263 H 173 H 191 H Assessment/Plan Active and Suspected Problems Acute exacerbation of chronic obstructive pulmonary disease (Acute) Acute respiratory failure with hypoxia and hypercapnia (Acute) Influenza A (Acute) RECOMMENDATIONS: 1. Continue scheduled aerosol regimen, steroids and Tamiflu x 5 days 2. Encourage the use of nocturnal noninvasive positive pressure ventilation 3. Wean supplemental oxygen as tolerated 4. Diet recommendations per speech therapy. Plans for MBS today at 1430. 5. Encourage incentive spirometer use and mobilize patient as tolerated 6. Patient should followup closely at pulmonary clinic if he is agreeable, recommend PFTs IMPRESSIONS: 1. Acute on chronic hypoxemic respiratory failure due to presumptive COPD with exacerbation secondary to influenza A Continue current supportive measures with BiPAP therapy as tolerated. Wean supplemental oxygen to maintain oxygen saturations at or above 90%. Continue Tamiflu, steroids and scheduled aerosol regimen. The patient will require a prednisone taper at discharge. Perform walking oximetry study prior to consideration for discharge from the hospital. Recommend close interval follow- up in the pulmonary medicine clinic following discharge. Baseline pulmonary function testing should ideally be performed, if the patient follows up in the pulmonary medicine clinic. 2. Complex severe sleep apnea The patient reports noncompliance with the use of nocturnal positive pressure ventilation. He does not seem overtly interested in maintaining compliance on an outpatient basis. There would be no indication for the initiation of a trilogy machine, given the patient's noncompliance with BiPAP therapy. 3. Ongoing tobacco dependence Smoking cessation strongly advised. Nicotine replacement therapy can be offered while inpatient. 4. Dysphagia with concern for aspiration Speech therapy following. Tentative plans for modified barium swallow 11/09/16 1430. 5. Hx ETOH abuse/Aortic stenosis/TIA/HTN/dyslipidemia/bipolar/CVD/GERD/PVD/ schizophrenia Complicates care, management, recovery, and prognosis. Management per hospitalist recommendations. This note was generated with [employer] dictation software. It may contain incorrect words, spelling, and punctuation that were not noted in checking the note before signing.
[2017-11-09] MEDS: Cilostazol 50 MG Tablet 100 MG PO ×2 (10:30→21:21)
[2017-11-09] MEDS: Metoprolol Tartrate 50 MG Tablet PO ×2 (10:30→22:48)
[2017-11-09] MEDS: Enoxaparin 40 MG/0.4 ML Syringe SC (10:30)
[2017-11-09] MEDS: guaiFENesin 1,200 MG Tablet 1200 MG PO ×2 (10:30→21:20)
[2017-11-09] MEDS: Famotidine 20 MG Tablet PO ×2 (10:30→21:20)
[2017-11-09] MEDS: Aspirin 81 MG TAB.CHEW PO (10:31)
[2017-11-09] MEDS: Magnesium Oxide 400 MG Tablet 800 MG PO (10:31)
[2017-11-09] MEDS: Menthol/Lanolin/Calamine/Znox 113 GM Tube 1 APPLIC TOPICAL ×2 (10:32→21:24)
[2017-11-09] MEDS: Fluticasone 0.05% 1 SPRAY NASAL.SRY NASAL (10:32)
[2017-11-09 11:11] LABS: Bedside Glucose 77 mg/dL (70-110)
[2017-11-09 11:11] LABS: Bedside Glucose 47 mg/dL (70-110)
[2017-11-09] MEDS: Oseltamivir Phosphate 75 MG Capsule PO ×2 (11:22→21:20)
[2017-11-09] MEDS: Lithium Carbonate 300mg Capsule 600 MG PO (11:22)
[2017-11-09 11:35] LABS: Bedside Glucose 165 mg/dL (70-110)
--- NOTE | 2017-11-09 12:24 | CASEMGMT ---
Social Work Note Updated clinicals faxed to SNF and informed that physician anticipated discharge tomorrow, 11/10. SW to continue to follow and assist with discharge planning. Plan: [facility]ynn for intermediate level of care. ASAF MccallumW
[2017-11-09] MEDS: Acetaminophen 500 MG Tablet 1000 MG PO ×2 (14:21→21:20)
--- NOTE | 2017-11-09 14:30 | RAD_ITS ---
STUDY: SWALLOWING STUDY REASON FOR EXAM: Male, 66 years old. Dysphasia. TECHNIQUE: The examination was performed with Speech Pathology in attendance. Under fluoroscopic observation, the patient ingested thin barium, thick barium, barium pudding, and barium coated cracker. FLUOROSCOPY TIME: 2:47 minutes/seconds. 2341 spot images were obtained. RADIOLOGIST INVOLVEMENT: Radiologist was present and providing direct supervision. COMPARISON: None. FINDINGS: The following was observed during swallowing of the various mixtures of barium: Thin Barium: Transient penetration to the level of the cords with ingestion of thin liquids. Thick Barium: There was no evidence of aspiration or laryngeal penetration. Barium Pudding: There was no evidence of aspiration or laryngeal penetration. RAD/Swallowing Function w/Video IMPRESSION: Transient penetration with ingestion of thin liquids. The swallow study findings were discussed with the patient by the speech pathologist at the conclusion of the examination. Please see speech pathology report for more information and recommendations. Electronically Signed: Bienvenido Carmen MD at 15:29 EST Tel [phone], Service support ,
--- NOTE | 2017-11-09 14:45 | SP.MBSS_ITS ---
PRIMARY / SECONDARY DIAGNOSIS: dysphagia (R13.10) REFERRING PHYSICIAN: Dr. Sofia Conte MD CURRENT DIET: mechanical soft textures, nectar thickened liquids DENTITION: edentulous MENTAL STATUS: impaired RESPIRATORY STATUS: O2 via room air PREVIOUS MODIFIED BARIUM SWALLOW STUDY: none REASON FOR REFERRAL: Patient is a 66 year old male referred for a modified barium swallow (MBS) study due to concerns for intolerance of more restrictive means of PO medication contributing to current medical condition. 11/06/2017 CXR revealed mild degree of increased markings at the left lung base, unchanged; mild degree of increased markings at the left lung base, unchanged. MEDICAL HISTORY: Bipolar affective disorder, schizophrenia, cerebrovascular disease, dyslipidemia, gastroesophageal reflux disease, hypertension, history of alcoholism, peripheral vascular disease, tobacco use disorder, history of transient ischemic attack, chronic respiratory failure with hypoxia, obstructive sleep apnea, noncompliance with CPAP treatment, hypomagnesemia, dysphagia, mild aortic stenosis, aortic valve insufficiency, edentulous, noncompliance of patient with dietary regimen. STUDY FINDINGS: Patient participated in a Modified Barium Swallow (MBS) study on 11/09/2017. Dr. Carmen was the radiologist present for this evaluation. This study was recorded in the lateral view and images were sent to PACs for storage. The following consistencies were presented to this patient for analysis of oropharyngeal swallow function: thin liquids, nectar thickened liquids, pudding , and a regular textured, Kathia Doone cookie. Results of the MBS are as follows: PENETRATION / ASPIRATION SCALE (OLVERA): 1 = does not enter airway 2 = enters airway/above vocal folds/ejected 3 = enters airway/above vocal folds/not ejected 4 = enters airway/contacts vocal folds/ejected 5 = enters airway/contacts vocal folds/not ejected 6 = enters airway/below vocal folds/ejected 7 = enters airway/below vocal folds/not ejected despite effort 8 = enters airway/below vocal folds/no effort PENETRATION / ASPIRATION SCALE (SCORE): Thin liquid - 5 mL tsp.: 1 Thin liquids via cup (single sip): 1 Thin liquids via cup (single sip): 1 Thin liquids via cup (single sip): 1 Thin liquids via cup (single sip): 1, 5* [place] thickened liquids via cup (single sip): 1 [place] thickened liquids via cup (single sip): 1 [place] thickened liquids via cup (single sip): 1 Pudding via spoon: 5 Thin liquids via cup (single sip): 5 Regular textured cookie: 2 [place] thickened liquids via cup (single sip): 1 [place] thickened liquids via cup (single sip): 1 * denotes post prandial / post deglutition penetration of pharyngeal residue denotes expectoration of solid bolus, consumption of barium pudding only IMPRESSION: DIAGNOSIS: mild to moderate oropharyngeal dysphagia (R13.12) ORAL PHASE CHARACTERIZED BY: LABIAL SEAL: no labial escape TONGUE CONTROL DURING BOLUS MANIPULATION: intermittent posterior escape of less than half of bolus BOLUS PREPARATION / MASTICATION: slow prolonged chewing/mashing with expectoration of solid components BOLUS TRANSPORT / LINGUAL MOTION: brisk tongue motion ORAL RESIDUE: residue collection on oral structures (posterior tongue base, intermittently along the soft palate / anterior hard palate) PHARYNGEAL PHASE CHARACTERIZED BY: INITIATION OF PHARYNGEAL SWALLOW: bolus head in valleculae at first hyoid excursion SOFT PALATE ELEVATION: no bolus between soft palate and pharyngeal wall LARYNGEAL ELEVATION: complete superior movement of thyroid cartilage with complete approximation of arytenoids cartilage to epiglottic petiole ANTERIOR HYOID EXCURSION: complete anterior movement EPIGLOTTIC MOVEMENT: complete epiglottic inversion LARYNGEAL VESTIBULE CLOSURE AT HEIGHT OF SWALLOW: complete laryngeal vestibule closure with no air/contrast in laryngeal vestibule PHARYNGEAL STRIPPING WAVE: pharyngeal stripping wave present / complete PHARYNGOESOPHAGEAL SEGMENT OPENING: partial to minimal distension and minimal duration with marked obstruction of flow TONGUE BASE RETRACTION: narrow column of contrast between tongue base and posterior pharyngeal wall PHARYNGEAL RESIDUE: collection of residue within or on pharyngeal structures ( pyriform sinus, valleculae) ESOPHAGEAL PHASE CHARACTERIZED BY: ESOPHAGEAL BOLUS CLEARANCE IN THE UPRIGHT POSITION: could not view EFFECTS OF TREATMENT STRATEGIES ATTEMPTED: Double swallow = moderately effective Liquid chaser = moderately effective Reduced bolus size = effective DIET TEXTURE RECOMMENDATIONS: Will recommend a pureed textured, nectar thickened liquid diet. COMPENSATORY STRATEGIES RECOMMENDED: Supervision, reduced bolus volume, reduced rate of intake, liquid chaser, avoid straws, seated upright at 90 degrees during PO intake, remain upright for 30-60 minutes post meal (GERD precaution), medications with applesauce INTERPRETATION OF RESULTS: Patient presents with mild to moderate oropharyngeal dysphagia (R13.12) secondary to what appears to be significant cervical osteophytes vs. diffuse idiopathic skeletal hyperostosis impeding pharyngeal motility complicated by typical intake patterns for individuals with schizophrenia (lager bolus volumes , rapid rate of intake). Oral phase marked by mastication inefficiency with noted inability to masticate solid bolus, though the Patient was noted to not utilize dentures (states he does not wear them down in radiology despite being aware that the current study focused on intake abilities). Pharyngeal phase primarily marked by poor pharyngeal motility / pharyngeal dysmotility attributed to reduced tongue based retraction and noted cervical osteophytes originating from C4 - C7 resulting in pharyngeal retention within the valleculae and pyriforms contributing to post-prandial penetration and higher risk of post prandial aspiration. All deficits ameliorated with bolus volume adjustments and execution of liquid chaser. No aspiration appreciated throughout trials, unable to definitively rule out silent aspiration. RECOMMENDATIONS: Patient requires intensive skilled speech-language intervention targeting continued diet texture management; training and implementation of recommended compensatory strategies; Patient and caregiver training targeting meal preparation / thickened liquid preparation if unable to advance to baseline diet textures prior to discharge. Concern for adherence to recommended aspiration precautions and recommended diet textures secondary to above mentioned diagnosis concerning for optimal decision making, along with very recent history of non-compliance with recommended aspiration precautions. ADDITIONAL COMMENTS/RECOMMENDATIONS: Results and recommendations were discussed with the Patient immediately following MBS completion, with the Patient verbalizing understanding and agreement with all recommendations and education provided. IMAGE COUNT: [id number]
--- NOTE | 2017-11-09 14:45 | NURSING ---
Patient off unit for swallow study.
[2017-11-09 16:16] LABS: Bedside Glucose 431 mg/dL (70-110)
[2017-11-09] MEDS: Losartan Potassium 25 MG Tablet 75 MG PO (21:19)
[2017-11-09] MEDS: Atorvastatin Calcium 40 MG Tablet PO (21:19)
[2017-11-09] MEDS: LOXAPINE SUCCINATE 25 MG CAPSULE PO (21:19)
[2017-11-09 22:46] LABS: Bedside Glucose 325 mg/dL (70-110)
[2017-11-09] MEDS: LORazepam 1 MG Tablet 0.5 MG PO (22:48)
[2017-11-10] VITALS (7 sets, daily range): BP systolic 147–169; BP diastolic 67–83; PULSE 61–82; RESP 18; TEMP 36.4–36.6; O2SAT 91–99
[2017-11-10] MEDS: Acetaminophen 500 MG Tablet 1000 MG PO (06:08)
[2017-11-10] MEDS: Ipratropium/Albuterol Sulfate 3 ML AMPUL.NEB INHALATION ×2 (07:13→10:46)
[2017-11-10] MEDS: Lithium Carbonate 300mg Capsule 600 MG PO (07:53)
[2017-11-10] MEDS: guaiFENesin 1,200 MG Tablet 1200 MG PO (07:53)
[2017-11-10] MEDS: Metoprolol Tartrate 50 MG Tablet PO (07:53)
[2017-11-10] MEDS: Magnesium Oxide 400 MG Tablet 800 MG PO (07:53)
[2017-11-10] MEDS: Famotidine 20 MG Tablet PO (07:53)
[2017-11-10] MEDS: Aspirin 81 MG TAB.CHEW PO (07:54)
[2017-11-10] MEDS: Fluticasone 0.05% 1 SPRAY NASAL.SRY NASAL (08:00)
--- NOTE | 2017-11-10 08:17 | PN_ITS ---
Patient Problems: Active and Suspected Problems Acute exacerbation of chronic obstructive pulmonary disease (Acute) Acute respiratory failure with hypoxia and hypercapnia (Acute) Influenza A (Acute) Subjective: Patient was seen and examined, no complaints this morning. Patient remains hemodynamically stable and afebrile. He had his MBS yesterday which showed transient penetration with ingestion of thin liquids, he is on nectar thickened liquid diet. Patient states he does not care for this. He is asking for a cigarette. He would like to go back to the intermediate today. - Physical Exam General: Alert, Oriented x3, Cooperative, No apparent distress, - - cachectic HEENT: Atraumatic, Normocephalic Oral: No Gingival or Mucosal Lesions/ Ulcerations, Dry Mucosa Neck: Supple, No Nodes, Trachea Midline Lungs: - - Diminished throughout, faint wheeze throughout right posterior [place]. no rales or rhonchi Cardiovascular: Regular rate, Regular Rhythm, Normal S1, Normal S2, No murmurs, No rub noted, No Gallop Abdomen: Bowel Sounds Present, Soft, Non Tender, Non-Distended Extremities: No cyanosis, No edema, Clubbing Skin: - - no change from previous Musculoskeletal: No Tenderness to Palpation of Joints or Extremities Lymphatic: No Cervical, Supraclavicular, or Inguinal Adenopathy Neurological: Cranial nerves II-XII grossly intact, Neuro grossly intact, Motor Exam 5/5 strength throughout Psych/Mental Status: Alert and oriented to time, place, person, mood and affect Vital Signs Temp Pulse Resp BP Pulse Ox 97.6 F L 62 18 154/67 H 95 11/10/17 07:45 11/10/17 07:53 11/10/17 07:45 11/10/17 07:45 11/10/17 07:45 Oxygen Flow Rate 3 Oxygen Delivery Method Nasal Cannula Weight: 121 lb 4.068 oz Body Mass Index (BMI) 20.1 Intake and Output for Last 24 Hours 11/08/17 11/09/17 11/10/17 23:59 23:59 23:59 Intake Total 2090 / 2090 860 / 860 350 / 350 Output Total 725 / 725 1300 / 1300 Balance 1365 / 1365 -440 / -440 350 / 350 POC Glucose 11/09/17 11/09/17 11/09/17 21:18 16:02 11:19 POC Glucose 325 H 431 H 165 H 11/09/17 11/09/17 09:27 08:53 POC Glucose 77 47 L Assessment/Plan Active and Suspected Problems Acute exacerbation of chronic obstructive pulmonary disease (Acute) Acute respiratory failure with hypoxia and hypercapnia (Acute) Influenza A (Acute) RECOMMENDATIONS: 1. Continue scheduled aerosol regimen, steroids and Tamiflu x 5 days, steroid taper at d/c 2. Encourage the use of nocturnal noninvasive positive pressure ventilation 3. Wean supplemental oxygen as tolerated, baseline 3L 4. Continue modified diet per speech recommendation 5. Encourage incentive spirometer use and mobilize patient as tolerated 6. Patient should followup closely at pulmonary clinic if he is agreeable, recommend PFTs 7. Okay from pulmonary standpoint to discharge patient back to SNF IMPRESSIONS: 1. Acute on chronic hypoxemic respiratory failure due to presumptive COPD with exacerbation secondary to influenza A Continue current supportive measures with BiPAP therapy as tolerated. Wean supplemental oxygen to maintain oxygen saturations at or above 90%. Continue Tamiflu, steroids and scheduled aerosol regimen. The patient will require a prednisone taper at discharge. Perform walking oximetry study prior to consideration for discharge from the hospital. Recommend close interval follow- up in the pulmonary medicine clinic following discharge. Baseline pulmonary function testing should ideally be performed, if the patient follows up in the pulmonary medicine clinic. 2. Complex severe sleep apnea The patient reports noncompliance with the use of nocturnal positive pressure ventilation. He does not seem overtly interested in maintaining compliance on an outpatient basis. There would be no indication for the initiation of a trilogy machine, given the patient's noncompliance with BiPAP therapy. 3. Ongoing tobacco dependence Smoking cessation strongly advised. Nicotine replacement therapy can be offered while inpatient. 4. Dysphagia with concern for aspiration Speech therapy following. MBS 11/09 showed transient penetration with ingestion of thin liquids. Patient is on nectar thickened liquids and should be continued at intermediate. 5. Hx ETOH abuse/Aortic stenosis/TIA/HTN/dyslipidemia/bipolar/CVD/GERD/PVD/ schizophrenia Complicates care, management, recovery, and prognosis. Management per hospitalist recommendations. This note was generated with Direct[employer] software. It may contain incorrect words, spelling, and punctuation that were not noted in checking the note before signing.
[2017-11-10 09:06] LABS: Bedside Glucose 172 mg/dL (70-110)
[2017-11-10] MEDS: Menthol/Lanolin/Calamine/Znox 113 GM Tube 1 APPLIC TOPICAL (10:16)
[2017-11-10] MEDS: Enoxaparin 40 MG/0.4 ML Syringe SC (10:16)
[2017-11-10] MEDS: Oseltamivir Phosphate 75 MG Capsule PO (10:16)
[2017-11-10] MEDS: Cilostazol 50 MG Tablet 100 MG PO (10:16)
--- NOTE | 2017-11-10 10:17 | PCM.TXEXTCAR ---
- Diet 11/09/17 09:30 Diet: Regular Diet Food consistency:: Mechanical Soft/Ground Liquid Consistency:: [place] Thick Dietary Modifications:: Mechanical Soft Diet [place] Thick Liquids Is pt able to select menu?: Yes Diet Comments: on nectar thickened liquids at [facility]. - Routine Orders/Code Status O2 Liters per Minute: 3 O2 Frequency: Continuous Keep PO Greater than or Equal to (%): 92 Code Status: Full Code - Suggestions for Active Care Change Position every (hours): 3 Hours to sit in a chair: 2 Times a day to sit in chair: 3 - Therapies Weight Bearing: Weight bearing as tolerated Physical Therapy: Eval and Treat Occupational Therapy: Eval and Treat - Allergies/Procedures Done in Hospital Allergies/Adverse Reactions: Allergies No Known Allergies Allergy (Verified 11/04/17 16:37) - Type of Care/Length of Stay Estimated LOS: More Than 30 Days Type of Care Needed: Intermediate Rehab Potential: Fair Prognosis: Fair - Additional Orders/Day of Discharge H&P will serve as current which was dated: 11/04/17 Day of Discharge: 11/10/17 - Dietary and Speech Recommendations Dietitian Recommendations/Changes: Continue liberal regular diet d/t malnutrition-consistency per FLOW SPECIALIST. Will continue provide Magic Cup BID for additional calories/protein if consumed. - Follow Up Care Primary Care Physician: Care Physician,No Primary [Primary Care Provider] - Please follow up with your Primary Care Physician in: 1-2 weeks.
--- NOTE | 2017-11-10 11:28 | NURSING ---
completed walking oxygen check on room air. pt saturations remained around 91-94% with walking around room. pt did c/o feeling short of breath. stated that he has been wearing 3L O2 for several months and did not want to try to wean down to 2L. 3L NC reapplied when pt sitting in recliner. will continue to monitor.
[2017-11-10 11:46] LABS: Bedside Glucose 229 mg/dL (70-110)
--- NOTE | 2017-11-10 11:55 | CASEMGMT ---
Social Work Note Transfer summary, medlist, and scripts faxed to SNF. Copies on chart and originals in SNF packet. Transport setup through [facility] via ambulette at 13:00. Notified SNF, RN and pt. Plan: [facility] for intermediate care. Transport via ambulette at 13:00 through [facility]. La Hardy MSW [employer]
--- NOTE | 2017-11-10 13:07 | NURSING ---
report called to Travis Wynn
[2017-11-10] MEDS: Sodium Chloride 0.65% 1 SPRAY SPRAY.BTL NASAL (13:10)
--- NOTE | 2017-11-11 14:29 | PCM.DC.SUM ---
Discharge Date and Diagnosis Date of Admission: 11/04/17 Date of Discharge: 11/10/17 - Primary Discharge Diagnosis #1 acute on chronic hypoxic and hypercapnic respiratory failure. #2 acute COPD exacerbation. #3 influenza A. #4 chronic dysphagia with high risk of aspiration. - Secondary Discharge Diagnosis Chronic Problems Bipolar affective disorder (Chronic) CVD (cerebrovascular disease) (Chronic) Dyslipidemia (Chronic) GERD (gastroesophageal reflux disease) (Chronic) HTN (hypertension) (Chronic) History of alcoholism (Chronic) PVD (peripheral vascular disease) (Chronic) Schizophrenia (Chronic) Tobacco use disorder (Chronic) History of TIA (transient ischemic attack) (Chronic) Chronic respiratory failure with hypoxia (Chronic) Obstructive sleep apnea (Chronic) Noncompliance with CPAP treatment (Chronic) Hypomagnesemia (Chronic) Dysphagia (Chronic) supposed to be on a mechanical soft diet with nectar thick liquids Aortic stenosis, mild (Chronic) Aortic valve insufficiency (Chronic) Edentulous (Chronic) Noncompliance of patient with dietary regimen (Chronic) Hospital Course and Treatment Imaging Results: Clinical Impression(s) from Imaging Studies Chest X-Ray 11/04/17 16:51 IMPRESSION: No acute cardiopulmonary abnormalities or changes. Stable hyperinflation/COPD with bibasilar scarring/fibrosis. Electronically Signed: Roxy Ahmadi MD at 17:20 EST Tel Direct: [phone], Service support , Chest X-Ray 11/06/17 05:55 IMPRESSION: Mild degree of increased markings at the left lung base. This is unchanged. Electronically Signed: Bienvenido Carmen MD at 8:58 EST Tel [phone], Service support , Videofluoroscopic Swallow 11/09/17 14:30 IMPRESSION: Transient penetration with ingestion of thin liquids. The swallow study findings were discussed with the patient by the speech pathologist at the conclusion of the examination. Please see speech pathology report for more information and recommendations. Electronically Signed: Bienvenido Carmen MD at 15:29 EST Tel [phone], Service support , Dr. Acuna/Dr. Londono, pulmonology. Operations: None Procedures: None Summary of Care Provided: Patient is seen and examined and appeared to be stable to be discharged home. He mentioned that his breathing is back to his baseline. He has been stable on 3 L of oxygen, other vital signs are stable. General: Alert, Cooperative, Disoriented - Disoriented to time, oriented to place and person. HEENT: Atraumatic, PERRLA, EOMI Oral: Moist Mucosa Neck: Supple, No JVD, Negative Carotid Bruits, Trachea Midline, Thyroid Normal Size and Texture Lungs: No wheeze, No rales, Diminished, Rhonchi, Short of Breath, - - Decreased breath sounds bilateral, scattered rhonchi. Cardiovascular: Regular rate, Regular Rhythm, Normal S1, Normal S2, PMI Normal Abdomen: Bowel Sounds Present, Soft, Non Tender, Non-Distended, No Hepato-splenomegaly Extremities: No clubbing, No cyanosis, No edema Skin: No rashes, No breakdown Lymphatic: No Cervical, Supraclavicular, or Inguinal Adenopathy Neurological: Cranial nerves II-XII grossly intact, Motor Exam 5/5 strength throughout Psych/Mental Status: Normal Affect Hospital course: This is a 66 years old male patient admitted because of wheezing and shortness of breath, found to have acute on chronic hypoxic and hypercapnic respiratory failure secondary to acute COPD exacerbation that was triggered by influenza A. #1 acute on chronic hypoxic and hypercapnic respiratory failure: Secondary to acute COPD exacerbation that was triggered by influenza A. He was treated with IV steroids, BiPAP and bronchodilators as well as Tamiflu for influenza A. With this treatment, patient symptoms improved and he was able to maintain his O2 saturation normally on 3 L which is his baseline at the snf. Blood culture showed no growth in 5 days. Pneumococcal and Legionella antigen were negative. Patient discharged to alf facility in a stable medical condition, discharged on tapering course of steroids, continue with on chronic bronchodilators without any changes, no antibiotic given upon discharge. #2 acute COPD exacerbation: Treated with IV steroids and bronchodilators as well as BiPAP. Pneumococcal and Legionella antigen were negative. Blood cultures are pending. Discharged to alf facility on tapering course of prednisone as above. #3 influenza A: Repleted 5 days of Tamiflu. #4 chronic dysphagia: With high risk of aspiration. Swallowing study done and revealed transient penetration with ingestion of thin liquids. Speech therapy recommended at the alf facility. #5 obstructive sleep apnea: Noncompliant with CPAP. #6 hypertension: Blood pressure been stable, continued ON losartan and metoprolol. Patient discharged to alf facility in a stable medical condition, discharged on tapering dose of prednisone, completed 5 days Tamiflu, no antibiotic prescribed upon discharge, continued on his chronic home medication including bronchodilators without any changes, plan to follow-up with PCP in 1-2 weeks and follow-up with pulmonology in 2-4 weeks. This note was generated with [employer] dictation software. It may contain incorrect words, spelling, and punctuation that were not noted in checking the note before signing. Home Medications: Medications to take at Discharge Acetaminophen [Tylenol Extra Strength] 1,000 mg PO QHS 08/08/17 Acetaminophen [Tylenol] 650 mg PO Q6H PRN 08/08/17 Albuterol Inhaler [Ventolin Hfa] 1 puff INHALATION Q4H PRN PRN 08/08/17 Aspirin 81 mg PO DAILY 08/08/17 Atorvastatin Calcium 40 mg PO DAILY 08/08/17 Cilostazol 100 mg PO BID 08/08/17 Ferrous Fumarate [Ferretts] 325 mg PO TID 08/08/17 Guaifenesin [Tussin Mucus-Chest Congestion] 200 mg PO Q6H PRN 08/08/17 Haloperidol Decanoate [Haldol Decanoate 100] 300 mg IM Q30D 08/08/17 Insulin Aspart [Novolog Flexpen] 0 - 15 units SC ACHS PRN 08/08/17 Insulin Detemir [Levemir] 10 unit SQ BREAKFAST 08/08/17 Insulin Detemir [Levemir] 18 unit SQ QHS 08/08/17 [place] Carbonate 600 mg PO DAILY 08/08/17 Lorazepam [Ativan] 1 mg PO Q4H PRN 08/08/17 Losartan Potassium 75 mg PO QHS 08/08/17 Mag Hydrox/Al Hydrox/Simeth [Mylanta II] 30 ml PO Q4H PRN PRN 08/08/17 Magnesium Oxide [Mag-Oxide Magnesium] 800 mg PO DAILY 08/08/17 Metformin HCl 1,000 mg PO BID 08/08/17 Metoprolol Tartrate [Lopressor (beta tia)] 50 mg PO BID 08/08/17 Omeprazole [Prilosec] 40 mg PO DAILY 08/08/17 Oxygen, Home [Home Oxygen] 2 lpm NASAL DAILY 08/08/17 Pseudoephedrine [Sudafed] 60 mg PO Q8H PRN 08/08/17 Sodium Chloride [Saline Mist] 1 spray NASAL Q6H PRN 08/08/17 Fluticasone 0.05% [Flonase Nasal [place]] 1 spray NASAL DAILY 10/04/17 Guaifenesin [Mucinex] 400 mg PO TID 10/04/17 Loxapine Succinate [Loxapine] 25 mg PO QHS 10/04/17 Prednisone 5 mg PO DAILY 10/04/17 Cetirizine HCl [Zyrtec] 10 mg PO DAILY 10/21/17 Lactobacillus Acidophilus [Acidophilus] 1 each PO BID 11/04/17 Albuterol Aerosols [Ventolin Aerosols] 2.5 mg INHALATION Q4H PRN PRN #1 vial.neb. 11/10/17 Ipratropium/Albuterol Sulfate [Duoneb] 3 ml INHALATION Q6H.RT #1 ampul.neb 11/10/17 Prednisone 40 mg PO DAILY #30 tab 11/10/17 Following Prescrptions Were Given to Patient: Albuterol Aerosols [Ventolin Aerosols] 2.5 mg INHALATION Q4H PRN PRN #1 vial.neb. PRN Reason: Shortness of breath, wheezing Ipratropium/Albuterol Sulfate [Duoneb] 3 ml INHALATION Q6H.RT #1 ampul.neb Prednisone 40 mg PO DAILY #30 tab Primary Care Physician: Care Physician,No Primary [Primary Care Provider] - Please follow up with your Primary Care Physician in: 1-2 weeks. Disposition: Custodial facility Minutes spent on discharge:: 34 Patient Condition:: Stable Meaningful Use Info Meaningful Use Diagnoses (Choose all that apply): None applicable Code Visit Inpatient E&M: 49297 Disch Hosp
--- NOTE | 2017-11-11 14:38 | DS.PCM_ITS ---
Discharge Date and Diagnosis Date of Admission: 11/04/17 Date of Discharge: 11/10/17 - Primary Discharge Diagnosis #1 acute on chronic hypoxic and hypercapnic respiratory failure. #2 acute COPD exacerbation. #3 influenza A. #4 chronic dysphagia with high risk of aspiration. - Secondary Discharge Diagnosis Chronic Problems Bipolar affective disorder (Chronic) CVD (cerebrovascular disease) (Chronic) Dyslipidemia (Chronic) GERD (gastroesophageal reflux disease) (Chronic) HTN (hypertension) (Chronic) History of alcoholism (Chronic) PVD (peripheral vascular disease) (Chronic) Schizophrenia (Chronic) Tobacco use disorder (Chronic) History of TIA (transient ischemic attack) (Chronic) Chronic respiratory failure with hypoxia (Chronic) Obstructive sleep apnea (Chronic) Noncompliance with CPAP treatment (Chronic) Hypomagnesemia (Chronic) Dysphagia (Chronic) supposed to be on a mechanical soft diet with nectar thick liquids Aortic stenosis, mild (Chronic) Aortic valve insufficiency (Chronic) Edentulous (Chronic) Noncompliance of patient with dietary regimen (Chronic) Hospital Course and Treatment Imaging Results: Clinical Impression(s) from Imaging Studies Chest X-Ray 11/04/17 16:51 IMPRESSION: No acute cardiopulmonary abnormalities or changes. Stable hyperinflation/COPD with bibasilar scarring/fibrosis. Electronically Signed: Roxy Ahmadi MD at 17:20 EST Tel Direct: [phone], Service support , Chest X-Ray 11/06/17 05:55 IMPRESSION: Mild degree of increased markings at the left lung base. This is unchanged. Electronically Signed: Bienvenido Carmen MD at 8:58 EST Tel [phone], Service support , Videofluoroscopic Swallow 11/09/17 14:30 IMPRESSION: Transient penetration with ingestion of thin liquids. The swallow study findings were discussed with the patient by the speech pathologist at the conclusion of the examination. Please see speech pathology report for more information and recommendations. Electronically Signed: Bienvenido Carmen MD at 15:29 EST Tel [phone], Service support , Dr. Acuna/Dr. Lonodno, pulmonology. Operations: None Procedures: None Summary of Care Provided: Patient is seen and examined and appeared to be stable to be discharged home. He mentioned that his breathing is back to his baseline. He has been stable on 3 L of oxygen, other vital signs are stable. General: Alert, Cooperative, Disoriented - Disoriented to time, oriented to place and person. HEENT: Atraumatic, PERRLA, EOMI Oral: Moist Mucosa Neck: Supple, No JVD, Negative Carotid Bruits, Trachea Midline, Thyroid Normal Size and Texture Lungs: No wheeze, No rales, Diminished, Rhonchi, Short of Breath, - - Decreased breath sounds bilateral, scattered rhonchi. Cardiovascular: Regular rate, Regular Rhythm, Normal S1, Normal S2, PMI Normal Abdomen: Bowel Sounds Present, Soft, Non Tender, Non-Distended, No Hepato- splenomegaly Extremities: No clubbing, No cyanosis, No edema Skin: No rashes, No breakdown Lymphatic: No Cervical, Supraclavicular, or Inguinal Adenopathy Neurological: Cranial nerves II-XII grossly intact, Motor Exam 5/5 strength throughout Psych/Mental Status: Normal Affect Hospital course: This is a 66 years old male patient admitted because of wheezing and shortness of breath, found to have acute on chronic hypoxic and hypercapnic respiratory failure secondary to acute COPD exacerbation that was triggered by influenza A. #1 acute on chronic hypoxic and hypercapnic respiratory failure: Secondary to acute COPD exacerbation that was triggered by influenza A. He was treated with IV steroids, BiPAP and bronchodilators as well as Tamiflu for influenza A. With this treatment, patient symptoms improved and he was able to maintain his O2 saturation normally on 3 L [facility]. Blood culture showed no growth in 5 days. Pneumococcal and Legionella antigen were negative. Patient discharged to [facility] in a stable medical condition, discharged on tapering course of steroids, continue with on chronic bronchodilators without any changes, no antibiotic given upon discharge. #2 acute COPD exacerbation: Treated with IV steroids and bronchodilators as well as BiPAP. Pneumococcal and Legionella antigen were negative. Blood cultures are pending. Discharged to [facility] facility on tapering course of prednisone as above. #3 influenza A: Repleted 5 days of Tamiflu. #4 chronic dysphagia: With high risk of aspiration. Swallowing study done and revealed transient penetration with ingestion of thin liquids. Speech therapy recommended at the [facility] facility. #5 obstructive sleep apnea: Noncompliant with CPAP. #6 hypertension: Blood pressure been stable, continued ON losartan and metoprolol. Patient discharged to [facility] facility in a stable medical condition, discharged on tapering dose of prednisone, completed 5 days Tamiflu, no antibiotic prescribed upon discharge, continued on his chronic home medication including bronchodilators without any changes, plan to follow-up with PCP in 1- 2 weeks and follow-up with pulmonology in 2-4 weeks. This note was generated with [employer] dictation software. It may contain incorrect words, spelling, and punctuation that were not noted in checking the note before signing. Home Medications: Medications to take at Discharge Acetaminophen [Tylenol Extra Strength] 1,000 mg PO QHS 08/08/17 Acetaminophen [Tylenol] 650 mg PO Q6H PRN 08/08/17 Albuterol Inhaler [Ventolin Hfa] 1 puff INHALATION Q4H PRN PRN 08/08/17 Aspirin 81 mg PO DAILY 08/08/17 Atorvastatin Calcium 40 mg PO DAILY 08/08/17 Cilostazol 100 mg PO BID 08/08/17 Ferrous Fumarate [Ferretts] 325 mg PO TID 08/08/17 Guaifenesin [Tussin Mucus-Chest Congestion] 200 mg PO Q6H PRN 08/08/17 Haloperidol Decanoate [Haldol Decanoate 100] 300 mg IM Q30D 08/08/17 Insulin Aspart [Novolog Flexpen] 0 - 15 units SC ACHS PRN 08/08/17 Insulin Detemir [Levemir] 10 unit SQ BREAKFAST 08/08/17 Insulin Detemir [Levemir] 18 unit SQ QHS 08/08/17 [place] Carbonate 600 mg PO DAILY 08/08/17 Lorazepam [Ativan] 1 mg PO Q4H PRN 08/08/17 Losartan Potassium 75 mg PO QHS 08/08/17 Mag Hydrox/Al Hydrox/Simeth [Mylanta II] 30 ml PO Q4H PRN PRN 08/08/17 Magnesium Oxide [Mag-Oxide Magnesium] 800 mg PO DAILY 08/08/17 Metformin HCl 1,000 mg PO BID 08/08/17 Metoprolol Tartrate [Lopressor (beta tia)] 50 mg PO BID 08/08/17 Omeprazole [Prilosec] 40 mg PO DAILY 08/08/17 Oxygen, Home [Home Oxygen] 2 lpm NASAL DAILY 08/08/17 Pseudoephedrine [Sudafed] 60 mg PO Q8H PRN 08/08/17 Sodium Chloride [Saline Mist] 1 spray NASAL Q6H PRN 08/08/17 Fluticasone 0.05% [Flonase Nasal [place]] 1 spray NASAL DAILY 10/04/17 Guaifenesin [Mucinex] 400 mg PO TID 10/04/17 Loxapine Succinate [Loxapine] 25 mg PO QHS 10/04/17 Prednisone 5 mg PO DAILY 10/04/17 Cetirizine HCl [Zyrtec] 10 mg PO DAILY 10/21/17 Lactobacillus Acidophilus [Acidophilus] 1 each PO BID 11/04/17 Albuterol Aerosols [Ventolin Aerosols] 2.5 mg INHALATION Q4H PRN PRN #1 vial.neb. 11/10/17 Ipratropium/Albuterol Sulfate [Duoneb] 3 ml INHALATION Q6H.RT #1 ampul.neb 11/10 Prednisone 40 mg PO DAILY #30 tab 11/10/17 Following Prescrptions Were Given to Patient: Albuterol Aerosols [Ventolin Aerosols] 2.5 mg INHALATION Q4H PRN PRN #1 vial.neb. PRN Reason: Shortness of breath, wheezing Ipratropium/Albuterol Sulfate [Duoneb] 3 ml INHALATION Q6H.RT #1 ampul.neb Prednisone 40 mg PO DAILY #30 tab Primary Care Physician: Care Physician,No Primary [Primary Care Provider] - Please follow up with your Primary Care Physician in: 1-2 weeks. Disposition: Longterm facility Minutes spent on discharge:: 34 Patient Condition:: Stable Meaningful Use Info Meaningful Use Diagnoses (Choose all that apply): None applicable Code Visit Inpatient E&M: 65483 Disch Hosp
== END 2017-11-10 13:50 | disposition skilled nursing facility (03) | DRG 193 ==
LOC: ED 18:19 → MS3 19:16
PROVIDERS: Student in an Organized Health Care Education/Training Program; Admitting Provider Internal Medicine; Emergency Provider Emergency Medicine; Visit Provider Hospitalist
DX: J10.1 Influenza due to other identified influenza virus with other respiratory manifestations (principal); J96.21 Acute and chronic respiratory failure with hypoxia; E11.51 Type 2 diabetes mellitus with diabetic peripheral angiopathy without gangrene; E46 Unspecified protein-calorie malnutrition; R13.10 Dysphagia, unspecified; E83.42 Hypomagnesemia; J96.22 Acute and chronic respiratory failure with hypercapnia; E87.1 Hypo-osmolality and hyponatremia; J44.1 Chronic obstructive pulmonary disease with (acute) exacerbation; F20.9 Schizophrenia, unspecified; Z99.81 Dependence on supplemental oxygen; I35.2 Nonrheumatic aortic (valve) stenosis with insufficiency; I10 Essential (primary) hypertension; E78.00 Pure hypercholesterolemia, unspecified; G47.33 Obstructive sleep apnea (adult) (pediatric); G47.31 Primary central sleep apnea; F31.9 Bipolar disorder, unspecified; K21.9 Gastro-esophageal reflux disease without esophagitis; F10.21 Alcohol dependence, in remission; F17.210 Nicotine dependence, cigarettes, uncomplicated; Z91.19 Patient's noncompliance with other medical treatment and regimen; Z91.11 Patient's noncompliance with dietary regimen; Z79.4 Long term (current) use of insulin; Z79.82 Long term (current) use of aspirin; Z79.52 Long term (current) use of systemic steroids; Z79.899 Other long term (current) drug therapy; Z86.73 Personal history of transient ischemic attack (TIA), and cerebral infarction without residual deficits; Z68.20 Body mass index [BMI] 20.0-20.9, adult
CPT/HCPCS: 36415; 36600; 71045; 74230; 80048; 80053; 82803; 82962; 83735; 84100; 85025; 85027; 87040; 87449; 87633; 87641; 87804; 92507; 92526; 92610; 92611; 93005; 94002; 94003; 94640; 94762; 97110; 97162; 97530; 97802; 99285; 99406; A4216

== ENCOUNTER 2017-12-17 13:24 | Emergency (ER) | payer MEDICARE, MEDICAID, SELFPAY ==
[2017-12-17 13:25] VITALS: BP 105/50; PULSE 74; RESP 18; TEMP 36.4; O2SAT 100
[2017-12-17 13:48] VITALS: O2SAT 98
[2017-12-17 13:51] VITALS: O2SAT 98
--- NOTE | 2017-12-17 14:37 | RAD_ITS ---
STUDY: X-RAY CHEST REASON FOR EXAM: Male, 67 years old. Increasing shortness of breath. TECHNIQUE: PA and lateral views of the chest. COMPARISON: Comparison is made with prior examination dated November 06, 2017. FINDINGS: EKG electrodes are seen. Hyperinflation. Infiltration in the superior segment of the right lower lobe as well as in the posterior segment of the right lower lobe. Stable scarring at both lung bases. There is no demonstrated pleural abnormality. Normal size heart. Normal mediastinum and dennise. There is prominence of the pulmonary hilar arteries without peripheral pulmonary vascular congestion, suggesting pulmonary hypertension. There is atherosclerotic calcification of the aortic arch with tortuosity. There are degenerative changes of the visualized thoracic spine. Healed right rib fractures. There is no demonstrated abnormality of the visualized soft tissue structures of the upper abdomen. RAD/Chest PA and Lateral IMPRESSION: New infiltration in the right lower lobe as described. Follow-up is recommended. Hyperinflation. Electronically Signed: Bienvenido Carmen MD at 14:57 EST Tel [phone], Service support ,
--- NOTE | 2017-12-17 14:47 | EKG12_ITS ---
Test Reason : CP Blood Pressure : / mmHG Vent. Rate : 082 BPM Atrial Rate : 082 BPM P-R Int : 104 ms QRS Dur : 092 ms QT Int : 372 ms P-R-T Axes : 046 070 094 degrees QTc Int : 434 ms Sinus rhythm with short VA Consider voltage criteria for LVH Nonspecific T wave abnormality Confirmed by MARJ DOVE, KAYLA ([id number]), electronic news gathering editor LAURIE FAN ([id number]) on 12/23/2017 1:54:14 PM Referred By: NELY ACEVEDO Confirmed By:KAYLA MCMAHAN MD
--- NOTE | 2017-12-17 15:44 | ED.VISSUMM ---
- ER Visit Summary Date of Service: 12/17/17 Chief Complaint: Shortness of breath and low pulse ox after patient removed his oxygen History of Present Illness: The patient is a 67 M who was sent from the [facility] because of dyspnea and low pulse ox. Patient has history of COPD with chronic respiratory failure requiring continuous oxygen. His only complaint is cough. He presently denies shortness of breath. He denies fever or chills. He denies chest pain. He denies any GI symptoms. Patient is not a good informant. Test medical history of CVA, hypercholesterolemia, schizophrenia, chronic respiratory failure secondary to COPD requiring continuous oxygen and aortic stenosis. Physical Examination: Signs are remarkable for a slight decrease in blood pressure 105/50. He is not tachycardic, tachypnic or hypoxic on oxygen at 2 L which is his baseline. Heart is regular without murmur, gallop or rub. Lungs reveal rales. Rales are noted on the right side posteriorly and question left side anteriorly. Abdomen is soft nontender. Neuro exam is nonfocal. Test Results: Chest x-ray reveals a right middle lobe infiltrate. Emergency Department Course and Treatment: Patient was treated with antibiotics and will return to extended care facility. Patient is not febrile tachycardic tachypnic or hypoxic and is at a nursing facility he can be treated at the facility and return if his symptoms worsen. Treatment Plan: Levofloxacin 500 mg daily for 7 days Disposition: Return to [facility] Impression: Right middle lobe pneumonia, healthcare acquired This note was generated with [employer] dictation software. It may contain incorrect words, spelling, and punctuation that were not noted in review of the chart prior to signing ED Disposition - Plan for ED Patient: Disposition: Home or Assisted Living Chief Complaint: Shortness of Breath Instructions: ED Pneumonia Adult Prescriptions: Levofloxacin [Levaquin] 500 mg PO DAILY #6 tab Referrals: [facility] Doctor,Out of [Primary Care Provider] -
--- NOTE | 2017-12-17 15:49 | ED.DCSUM_ITS ---
- ER Visit Summary Date of Service: 12/17/17 Chief Complaint: Shortness of breath and low pulse ox after patient removed his oxygen History of Present Illness: The patient is a 67 M who was sent from the senior care because of dyspnea and low pulse ox. Patient has history of COPD with chronic respiratory failure requiring continuous oxygen. His only complaint is cough. He presently denies shortness of breath. He denies fever or chills. He denies chest pain. He denies any GI symptoms. Patient is not a good informant. Test medical history of CVA, hypercholesterolemia, schizophrenia, chronic respiratory failure secondary to COPD requiring continuous oxygen and aortic stenosis. Physical Examination: Signs are remarkable for a slight decrease in blood pressure 105/50. He is not tachycardic, tachypnic or hypoxic on oxygen at 2 L which is his baseline. Heart is regular without murmur, gallop or rub. Lungs reveal rales. Rales are noted on the right side posteriorly and question left side anteriorly. Abdomen is soft nontender. Neuro exam is nonfocal. Test Results: Chest x-ray reveals a right middle lobe infiltrate. Emergency Department Course and Treatment: Patient was treated with antibiotics and will return to extended care facility. Patient is not febrile tachycardic tachypnic or hypoxic and is at a nursing facility he can be treated at the facility and return if his symptoms worsen. Treatment Plan: Levofloxacin 500 mg daily for 7 days Disposition: Return to senior care Impression: Right middle lobe pneumonia, healthcare acquired This note was generated with [employer] dictation software. It may contain incorrect words, spelling, and punctuation that were not noted in review of the chart prior to signing ED Disposition - Plan for ED Patient: Disposition: Home or Assisted Living Chief Complaint: Shortness of Breath Instructions: ED Pneumonia Adult Prescriptions: Levofloxacin [Levaquin] 500 mg PO DAILY #6 tab Referrals: [facility] Doctor,Out of [Primary Care Provider] -
[2017-12-17] MEDS: levoFLOXacin 750 MG Tablet PO (16:09)
[2017-12-17 16:11] VITALS: BP 147/86; PULSE 86; RESP 20; O2SAT 95
--- NOTE | 2017-12-17 16:20 | ED.RN ---
report called to janette saleh
[2017-12-17 18:44] VITALS: PULSE 73; RESP 14; O2SAT 99
== END 2017-12-17 18:46 | disposition home or self-care (01) ==
PROVIDERS: Emergency Provider Emergency Medicine
DX: J44.0 Chronic obstructive pulmonary disease with (acute) lower respiratory infection (principal); J18.1 Lobar pneumonia, unspecified organism; Y95 Nosocomial condition; J96.10 Chronic respiratory failure, unspecified whether with hypoxia or hypercapnia; E78.00 Pure hypercholesterolemia, unspecified; K21.9 Gastro-esophageal reflux disease without esophagitis; F20.9 Schizophrenia, unspecified; F31.9 Bipolar disorder, unspecified; Z99.81 Dependence on supplemental oxygen; Z72.0 Tobacco use; Z79.82 Long term (current) use of aspirin; Z79.4 Long term (current) use of insulin; Z79.52 Long term (current) use of systemic steroids; Z79.899 Other long term (current) drug therapy; Z86.73 Personal history of transient ischemic attack (TIA), and cerebral infarction without residual deficits
CPT/HCPCS: 71046; 93005; 99284

== ENCOUNTER 2017-12-25 00:30 | Inpatient (IN) | payer MEDICARE, MEDICAID, SELFPAY ==
[2017-12-25] VITALS (20 sets, daily range): BP systolic 115–154; BP diastolic 59–66; PULSE 66–87; RESP 18–27; TEMP 36.4–36.9; O2SAT 94–99; BMI 25.0; BMI 20.7; BMI 20.8
--- NOTE | 2017-12-25 00:41 | EKG12_ITS ---
Test Reason : REPEAT Blood Pressure : / mmHG Vent. Rate : 080 BPM Atrial Rate : 080 BPM P-R Int : 112 ms QRS Dur : 080 ms QT Int : 368 ms P-R-T Axes : 068 073 083 degrees QTc Int : 424 ms Normal sinus rhythm Nonspecific T wave abnormality Abnormal ECG Confirmed by VICTOR MANUEL HAMMER ([id number]), magazine editor LAURIE FAN ([id number]) on 12/29/2017 1:37:56 PM Referred By: JALEN Confirmed By:VICTOR MANUEL HAMMER
--- NOTE | 2017-12-25 00:41 | RAD_ITS ---
STUDY: X-RAY CHEST REASON FOR EXAM: Male, 67 years old. Shortness of breath, left-sided chest pain TECHNIQUE: PA and lateral views of the chest. COMPARISON: 12/17/2017 FINDINGS: There are superimposed monitor leads. There is hyperinflation of the lungs consistent with chronic obstructive lung disease (COPD). Chronic appearing interstitial lung disease, possible pulmonary hypertension with enlargement of the dennise. There is increased opacification along the right medial lung base without securing the cardiac contour. The lateral view demonstrate a posterior opacification more masslike at the level of the hilum. There is no demonstrated pleural abnormality. Normal size heart. Normal mediastinum and dennise. Normal visualized pulmonary arteries. There is atherosclerotic calcification of the aortic arch with tortuosity. Age-appropriate thoracic spine. Remote right healed fracture rib fracture. There is no demonstrated abnormality of the visualized soft tissue structures of the upper abdomen. RAD/Chest PA and Lateral IMPRESSION: Airspace disease in the right base, on lateral view more masslike along the perihilar level. Follow-up examination to resolution or CT examination chest recommended. Chronic interstitial lung disease, emphysema. Electronically Signed: Trish Portillo MD at 2:15 EST , Service support ,
[2017-12-25] MEDS: Aspirin 81 MG TAB.CHEW 324 MG PO (00:49)
[2017-12-25 00:52] LABS: Absolute Lymphocyte Count 0.98 X10^3/ul (0.83-4.51); Basophil# 0.02 X10^3/uL; Basophil% 0.2 % (0-1); Eosinophil# 0.06 X10^3/uL; Eosinophils% 0.6 % (0-5); Hematocrit 36.2 % (40-54); Hemoglobin 11.2 g/dl (13.0-16.5); Lymphocyte # 0.98 X10^3/ul (4.0); Lymphocyte % 10.3 % (19-41); Mean Corp Hgb Conc 30.9 g/gl (32-36); Mean Corpuscular Hgb 29.8 pg (27.0-32.0); Mean Corpuscular Volume 96.3 fL (80-94); Mean Platelet Vol. 9.5 fl (6.2-12.0); Monocyte# 0.44 X10^3/uL; Monocyte% 4.6 % (0-10); Neutrophil # 7.95 X10^3/uL (2.7-7.7); Platelet Count 242 K/mm3 (150-450); RBC Distribution Width CV 13.3 % (11.6-14.6); RBC Distribution Width SD 47.3 fl (35.1-43.9); Red Blood Count 3.76 M/mm3 (4.6-6.2); White Blood Count 9.5 K/mm3 (4.4-11.0)
[2017-12-25 00:54] LABS: POSITIVE COUNT NO; POSITIVE DIFFERENTIAL NO; POSITIVE MORPHOLOGY NO
[2017-12-25] MEDS: Albuterol 2.5 MG/3 ML VIAL.NEB. INHALATION (00:57)
[2017-12-25 01:09] LABS: Anion Gap 5 (5-15); BUN 7 mg/dL (7-18); BUN/Creat Ratio 8.3 RATIO (10-20); Calcium,Total 8.6 mg/dL (8.5-10.1); Chloride 91 mmol/L (98-107); Creatinine, Serum 0.84 mg/dL (0.70-1.30); EST Glomerular Filtration Rate 98 mL/min (>60); Est Glom Filt Rate - Afr Amer 118 mL/min (>60); Estimated Creatinine Clearance 76.26 ml/min; Glucose 279 mg/dL (74-106); Potassium 4.4 mmol/L (3.5-5.1); Sodium Level 131 mmol/L (136-145)
--- NOTE | 2017-12-25 01:34 | ED.RN ---
pt c/o continued pain. dr. jara informed. awaiting further orders.
--- NOTE | 2017-12-25 01:40 | EKG12_ITS ---
Test Reason : CP Blood Pressure : / mmHG Vent. Rate : 088 BPM Atrial Rate : 088 BPM P-R Int : 104 ms QRS Dur : 084 ms QT Int : 360 ms P-R-T Axes : 050 070 087 degrees QTc Int : 435 ms Sinus rhythm with short [place] with Premature atrial complexes Left ventricular hypertrophy with repolarization abnormality Abnormal ECG Confirmed by VICTOR MANUEL HAMMER ([id number]), editorial manager LAURIE FAN ([id number]) on 12/29/2017 1:39:56 PM Referred By: JALEN Confirmed By:VICTOR MANUEL HAMMER
[2017-12-25] MEDS: Acetaminophen 500 MG Tablet 1000 MG PO (01:46)
--- NOTE | 2017-12-25 01:51 | ED.VISSUMM ---
- ER Visit Summary Date of Service: 12/25/17 Chief Complaint: Chest pain History of Present Illness: The patient is a 67 M presenting for evaluation secondary chest pain. Patient states that this been going on since this morning. He states that it comes and goes suddenly and initially this morning it was a very mild type pain, but it seems to be increasing in frequency and in severity throughout the course of the day. Denies any inducible factors or exertional component to it. Denies any nausea vomiting diaphoresis dyspnea lightheadedness or palpitations. He has never had any prior similar symptoms in the past. He describes it as sharp and lasting couple seconds to a couple of minutes in his left chest. Denies any PE risk factors, the patient has a longtime smoking history high cholesterol diabetes hypertension and has never had a cardiac stress test or workup. Physical Examination: Vital signs are within normal limits, patient is afebrile. General: Patient is cachectic but well-developed and in no acute distress. Head: Normocephalic, atraumatic Eyes: Pupils equal round and reactive bilaterally, extra occular motion intact bialterally ENT: Moist mucous membranes Neck: Supple, no lymphadenopathy, no JVD, no meningismus CVS: Heart regular rate and rhythm, no murmurs, rubs or gallops, radial pulses 2+ bilaterally Resp: Respirations nondistressed, show evidence of wheezes bilaterally with no respiratory distress Abdomen: Soft, nontender, nondistended, no palpable masses, normal bowel sounds Back: Nontender Extremities: Nontender, atraumatic, active full range of motion, no peripheral edema, peripheral pulses +2?4 Skin: warm, no rashes, no petechia Neuro: Alert and oriented x 4, CN 2-12 intact, no lateralizing neurological defecits Psyc: Normal affect Test Results: EKG shows sinus rate with [address]. There was a shortened OR and LVH noted. A repeat EKG continued to demonstrate this. CBC shows mild anemia 11.2, chemistry shows sodium 131 CO2 is 35 troponin negative chest x-ray shows hyperinflation and chronic changes. Emergency Department Course and Treatment: Patient presented secondary to chest pain. His workup was negative as noted above. Patient's heart score is 5 and his HONEY risk score is 2 I believe he requires admission. I discussed this with the hospitalist and the patient was admitted. Disposition: Admission Impression: 1. Chest pain 2. EKG changes This note was generated with [employer] dictation software. It may contain incorrect words, spelling, and punctuation that were not noted in review of the chart prior to signing ED Disposition - Plan for ED Patient: Chief Complaint: Chest Pain
--- NOTE | 2017-12-25 02:41 | PCM.HP.STD ---
Problem List (1) Chest pain Status: Acute Qualifiers: Chest pain type: unspecified Qualified Code(s): R07.9 - Chest pain, unspecified (2) Dyslipidemia Status: Chronic (3) GERD (gastroesophageal reflux disease) Status: Chronic Qualifiers: Esophagitis presence: without esophagitis Qualified Code(s): K21.9 - Gastro-esophageal reflux disease without esophagitis (4) HTN (hypertension) Status: Chronic Qualifiers: Hypertension type: essential hypertension (5) Schizophrenia Status: Chronic Qualifiers: Schizophrenia type: unspecified Qualified Code(s): F20.9 - Schizophrenia, unspecified (6) Tobacco use disorder Status: Chronic History of Present Illness Date of Admission: 12/25/17 Chief Complaint: Chest pain - 1 day The patient is a 67 year old M with past medical history of chronic hypoxic respiratory failure secondary to COPD, on 3L home oxygen, hypertension, aortic stenosis, schizoaffective disorder, type II DM, nicotine use disorder comes in with complaints of chest pain. Patient states that he was at rest when he started having sharp stabbing chest pain that came on a couple of hours ago. But this seems to have been increasing in frequency and associated with some nausea and he vomited ?1. He denied any dizziness or palpitations or fever or chills. He has never had this symptom in the past. No aggravating or relieving factors. Pain is 8/10 when it comes on, and last for a few minutes and goes away. In the ED, his vitals were temperature of 98.3F, heart rate of 80, blood pressure 154/60, RR 24, oxygen saturation 97% on 3 L of oxygen. Admitting lab shows WBC count of 9.5, Hb 11.2, platelets 242. Sodium was 131, potassium 4.4, chloride 91 bicarbonate 35, BUN 7 creatinine 0.84, troponin ?1 is negative. She shows normal sinus rhythm with no acute ST changes Past Medical History Past Medical History (Chronic Problems): Chronic Problems (Last Reviewed 12/07/17 @ 09:35 by BLAIRE Renteria) Bipolar affective disorder (Chronic) CVD (cerebrovascular disease) (Chronic) Dyslipidemia (Chronic) GERD (gastroesophageal reflux disease) (Chronic) HTN (hypertension) (Chronic) History of alcoholism (Chronic) PVD (peripheral vascular disease) (Chronic) Schizophrenia (Chronic) Tobacco use disorder (Chronic) History of TIA (transient ischemic attack) (Chronic) Chronic respiratory failure with hypoxia (Chronic) Obstructive sleep apnea (Chronic) Noncompliance with CPAP treatment (Chronic) Hypomagnesemia (Chronic) Dysphagia (Chronic) supposed to be on a mechanical soft diet with nectar thick liquids Aortic stenosis, mild (Chronic) Aortic valve insufficiency (Chronic) Edentulous (Chronic) Noncompliance of patient with dietary regimen (Chronic) Allergies No Known Allergies Allergy (Verified 12/25/17 00:31) Home Medications: Ambulatory Orders Medication Instructions Recorded Acetaminophen [Tylenol Extra 1,000 mg PO QHS 08/08/17 Strength] Acetaminophen [Tylenol] 650 mg PO Q6H PRN 08/08/17 Albuterol Inhaler [Ventolin Hfa] 1 puff INHALATION Q4H PRN PRN 08/08/17 Aspirin 81 mg PO DAILY 08/08/17 Atorvastatin Calcium 40 mg PO DAILY 08/08/17 Cilostazol 100 mg PO BID 08/08/17 Ferrous Fumarate [Ferretts] 325 mg PO TID 08/08/17 Guaifenesin [Tussin Mucus-Chest 200 mg PO Q6H PRN 08/08/17 Congestion] Haloperidol Decanoate [Haldol 300 mg IM Q30D 08/08/17 Decanoate 100] Insulin Aspart [Novolog Flexpen] 0 - 15 units SC ACHS PRN 08/08/17 Insulin Detemir [Levemir] 10 unit SQ BREAKFAST 08/08/17 Insulin Detemir [Levemir] 18 unit SQ QHS 08/08/17 [place] Carbonate 600 mg PO DAILY 08/08/17 Lorazepam [Ativan] 1 mg PO Q4H PRN 08/08/17 Losartan Potassium 75 mg PO QHS 08/08/17 Mag Hydrox/Al Hydrox/Simeth 30 ml PO Q4H PRN PRN 08/08/17 [Mylanta II] Magnesium Oxide [Mag-Oxide 800 mg PO DAILY 08/08/17 Magnesium] Metformin HCl 1,000 mg PO BID 08/08/17 Metoprolol Tartrate [Lopressor 50 mg PO BID 08/08/17 (beta tia)] Omeprazole [Prilosec] 40 mg PO DAILY 08/08/17 Oxygen, Home [Home Oxygen] 3 lpm NASAL DAILY 08/08/17 Pseudoephedrine [Sudafed] 60 mg PO Q8H PRN 08/08/17 Sodium Chloride [Saline Mist] 1 spray NASAL Q6H PRN 08/08/17 Fluticasone 0.05% [Flonase Nasal 1 spray NASAL DAILY 10/04/17 [place]] Guaifenesin [Mucinex] 400 mg PO TID 10/04/17 Loxapine Succinate [Loxapine] 25 mg PO QHS 10/04/17 Prednisone 5 mg PO DAILY 10/04/17 Cetirizine HCl [Zyrtec] 10 mg PO DAILY 10/21/17 Lactobacillus Acidophilus 1 ea PO BID 11/04/17 [Acidophilus] Albuterol Aerosols [Ventolin 2.5 mg INHALATION Q4H PRN PRN #1 11/10/17 Aerosols] vial.neb. Ipratropium/Albuterol Sulfate 3 ml INHALATION Q6H.RT #1 ampul.neb 11/10/17 [Duoneb] Levofloxacin [Levaquin] 500 mg PO DAILY #6 tab 12/17/17 Surgical History: colectomy, - - left shoulder surgery Psychiatric History: Bipolar, Schizophrenia Smoking Status: Current every day smoker Tobacco Use: Cigarettes Alcohol: None Drugs: None - *Family History Maternal History Items: No pertinent history Paternal History Items: Cancer - Colon cancer Sibling History Items: COPD Review of Systems Constitutional: Denies: Anorexia, Chills, Fever, Malaise, Weakness, Weight Change Eyes: Denies: Blurred vision, Cataracts, Conjunctivae Inflammation, Pain, Redness, Vision Change HEENT: Denies: Difficulty Hearing, Difficulty Swallowing, Head Aches, Hearing Changes, Sinus Congestion, Sinus Drainage, Sore Throat, Visual Changes Cardiovascular: Reports: Chest Pain, Chest Pressure. Denies: Light Headedness, Orthopnea, Palpitations, Paroxysmal Noc. Dyspnea Respiratory: Reports: Shortness of Breath, Shortness of breath upon exertion - chronic. Denies: Cough, Hemoptysis, Shortness of breath at rest, Sputum production Gastrointestinal: Reports: Vomiting - once today. Denies: Abdominal Pain, Constipation, Nausea Genitourinary: Denies: Dysuria, Frequency, Incontinence Musculoskeletal: Denies: Joint Pain, Joint stiffness, Joint swelling, Joint Tenderness Skin: Denies: Dryness, Jaundice, Rash, Wounds Neurological: Denies: Numbness, Tingling, Focal weakness Psychiatric: Denies: Anxiety, Depression, Homicidal Ideations, Suicidal Ideations Hematologic/ Lymphatic: Denies: Easy Bruising, Easy Bleeding VTE Information - Inpt Only VTE Present on Admission: No VTE Pharm Prophylaxis ordered?: Yes Patient Problems: Active and Suspected Problems (Last Reviewed 12/07/17 @ 09:35 by Rosa Elena Yan QUALITY ASSURANCE MONITOR BODY-C) Chest pain (Acute) - Physical Exam General: Alert, Oriented x3, Cooperative, No apparent distress, - - on 3L oxygen, cachetic, not in distress, appeared not pale or jaundiced. HEENT: Atraumatic, PERRLA, EOMI, Normocephalic Oral: Moist Mucosa Neck: Supple Lungs: Normal air movement, No wheeze, Diminished Cardiovascular: Regular rate, Regular Rhythm, Normal S1, Normal S2, No murmurs Abdomen: Bowel Sounds Present, Soft, Non Tender, Non-Distended, No Hepato-splenomegaly, - - scar on abdomen Extremities: No edema Skin: No rashes Musculoskeletal: No Tenderness to Palpation of Joints or Extremities Lymphatic: No Cervical, Supraclavicular, or Inguinal Adenopathy Neurological: Cranial nerves II-XII grossly intact Psych/Mental Status: Normal Affect, Appropriate Vital Signs Temp Pulse Resp BP Pulse Ox 98.3 F 85 26 H 141/63 H 97 12/25/17 02:38 12/25/17 02:38 12/25/17 02:38 12/25/17 02:38 12/25/17 02:38 Assessment/Plan Active and Suspected Problems (Last Reviewed 12/07/17 @ 09:35 by Rosa Elena Yan, QUALITY ASSURANCE MONITOR BODY-C) Chest pain (Acute) 67 year old M with past medical history of chronic hypoxic respiratory failure secondary to COPD, on 3L home oxygen, hypertension, aortic stenosis, schizoaffective disorder, type II DM, nicotine use disorder, central and obstructive sleep apnea comes in with complaints of chest pain. 1. Chest pain, atypical, patient with multiple cardiovascular risk factors as history of stroke, hypertension, type II DM, chronic smoker, EKG acute ST changes, troponins negative, HONEY score of 2 Plan: Admit to PCU, monitor on telemetry, trend troponins, aspirin 81 mg p.o. daily, stress test in a.m., 2D echo in a.m.\ 2. Hypertension, controlled, 3. Type II DM, will continue home regimen with accucheks and ISS 4. 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 Chronic dysphagia with high risk of aspiration, seen at the last visit, will get speech therapy involved. 6. Chronic hypoxic respiratory failure/COPD, no signs of acute exacerbation 7. Schizoaffective disorder/anxiety/depression 8. DVT PPx -Lovenox SC Code Visit Inpatient E&M: 74402 Init Hosp L3
--- NOTE | 2017-12-25 03:00 | ED.RN ---
PT BROTHER NAME TOSHIA, PHONE NUMBER [phone]. PLEASE CONTACT IF PT NEEDS ANYTHING. THIS RN CONTACTED DEJA JIMENEZ AND NOTIFIED OF PT ADMISSION.
--- NOTE | 2017-12-25 03:09 | HP.PCM_ITS ---
Problem List (1) Chest pain Status: Acute Qualifiers: Chest pain type: unspecified Qualified Code(s): R07.9 - Chest pain, unspecified (2) Dyslipidemia Status: Chronic (3) GERD (gastroesophageal reflux disease) Status: Chronic Qualifiers: Esophagitis presence: without esophagitis Qualified Code(s): K21.9 - Gastro -esophageal reflux disease without esophagitis (4) HTN (hypertension) Status: Chronic Qualifiers: Hypertension type: essential hypertension (5) Schizophrenia Status: Chronic Qualifiers: Schizophrenia type: unspecified Qualified Code(s): F20.9 - Schizophrenia, unspecified (6) Tobacco use disorder Status: Chronic History of Present Illness Date of Admission: 12/25/17 Chief Complaint: Chest pain - 1 day The patient is a 67 year old M with past medical history of chronic hypoxic respiratory failure secondary to COPD, on 3L home oxygen, hypertension, aortic stenosis, schizoaffective disorder, type II DM, nicotine use disorder comes in with complaints of chest pain. Patient states that he was at rest when he started having sharp stabbing chest pain that came on a couple of hours ago. But this seems to have been increasing in frequency and associated with some nausea and he vomited ?1. He denied any dizziness or palpitations or fever or chills. He has never had this symptom in the past. No aggravating or relieving factors. Pain is 8/10 when it comes on, and last for a few minutes and goes away. In the ED, his vitals were temperature of 98.3F, heart rate of 80, blood pressure 154/60, RR 24, oxygen saturation 97% on 3 L of oxygen. Admitting lab shows WBC count of 9.5, Hb 11.2, platelets 242. Sodium was 131, potassium 4.4, chloride 91 bicarbonate 35, BUN 7 creatinine 0.84, troponin ?1 is negative. She shows normal sinus rhythm with no acute ST changes Past Medical History Past Medical History (Chronic Problems): Chronic Problems (Last Reviewed 12/07/17 @ 09:35 by BLAIRE Renteria) Bipolar affective disorder (Chronic) CVD (cerebrovascular disease) (Chronic) Dyslipidemia (Chronic) GERD (gastroesophageal reflux disease) (Chronic) HTN (hypertension) (Chronic) History of alcoholism (Chronic) PVD (peripheral vascular disease) (Chronic) Schizophrenia (Chronic) Tobacco use disorder (Chronic) History of TIA (transient ischemic attack) (Chronic) Chronic respiratory failure with hypoxia (Chronic) Obstructive sleep apnea (Chronic) Noncompliance with CPAP treatment (Chronic) Hypomagnesemia (Chronic) Dysphagia (Chronic) supposed to be on a mechanical soft diet with nectar thick liquids Aortic stenosis, mild (Chronic) Aortic valve insufficiency (Chronic) Edentulous (Chronic) Noncompliance of patient with dietary regimen (Chronic) Allergies No Known Allergies Allergy (Verified 12/25/17 00:31) Home Medications: Ambulatory Orders Medication Instructions Recorded Acetaminophen [Tylenol Extra 1,000 mg PO QHS 08/08/17 Strength] Acetaminophen [Tylenol] 650 mg PO Q6H PRN 08/08/17 Albuterol Inhaler [Ventolin Hfa] 1 puff INHALATION Q4H PRN PRN 08/08/17 Aspirin 81 mg PO DAILY 08/08/17 Atorvastatin Calcium 40 mg PO DAILY 08/08/17 Cilostazol 100 mg PO BID 08/08/17 Ferrous Fumarate [Ferretts] 325 mg PO TID 08/08/17 Guaifenesin [Tussin Mucus-Chest 200 mg PO Q6H PRN 08/08/17 Congestion] Haloperidol Decanoate [Haldol 300 mg IM Q30D 08/08/17 Decanoate 100] Insulin Aspart [Novolog Flexpen] 0 - 15 units SC ACHS PRN 08/08/17 Insulin Detemir [Levemir] 10 unit SQ BREAKFAST 08/08/17 Insulin Detemir [Levemir] 18 unit SQ QHS 08/08/17 [place] Carbonate 600 mg PO DAILY 08/08/17 Lorazepam [Ativan] 1 mg PO Q4H PRN 08/08/17 Losartan Potassium 75 mg PO QHS 08/08/17 Mag Hydrox/Al Hydrox/Simeth 30 ml PO Q4H PRN PRN 08/08/17 [Mylanta II] Magnesium Oxide [Mag-Oxide 800 mg PO DAILY 08/08/17 Magnesium] Metformin HCl 1,000 mg PO BID 08/08/17 Metoprolol Tartrate [Lopressor 50 mg PO BID 08/08/17 (beta tai)] Omeprazole [Prilosec] 40 mg PO DAILY 08/08/17 Oxygen, Home [Home Oxygen] 3 lpm NASAL DAILY 08/08/17 Pseudoephedrine [Sudafed] 60 mg PO Q8H PRN 08/08/17 Sodium Chloride [Saline Mist] 1 spray NASAL Q6H PRN 08/08/17 Fluticasone 0.05% [Flonase Nasal 1 spray NASAL DAILY 10/04/17 [place]] Guaifenesin [Mucinex] 400 mg PO TID 10/04/17 Loxapine Succinate [Loxapine] 25 mg PO QHS 10/04/17 Prednisone 5 mg PO DAILY 10/04/17 Cetirizine HCl [Zyrtec] 10 mg PO DAILY 10/21/17 Lactobacillus Acidophilus 1 ea PO BID 11/04/17 [Acidophilus] Albuterol Aerosols [Ventolin 2.5 mg INHALATION Q4H PRN PRN #1 11/10/17 Aerosols] vial.neb. Ipratropium/Albuterol Sulfate 3 ml INHALATION Q6H.RT #1 ampul.neb 11/10/17 [Duoneb] Levofloxacin [Levaquin] 500 mg PO DAILY #6 tab 12/17/17 Surgical History: colectomy, - - left shoulder surgery Psychiatric History: Bipolar, Schizophrenia Smoking Status: Current every day smoker Tobacco Use: Cigarettes Alcohol: None Drugs: None - *Family History Maternal History Items: No pertinent history Paternal History Items: Cancer - Colon cancer Sibling History Items: COPD Review of Systems Constitutional: Denies: Anorexia, Chills, Fever, Malaise, Weakness, Weight Change Eyes: Denies: Blurred vision, Cataracts, Conjunctivae Inflammation, Pain, Redness, Vision Change HEENT: Denies: Difficulty Hearing, Difficulty Swallowing, Head Aches, Hearing Changes, Sinus Congestion, Sinus Drainage, Sore Throat, Visual Changes Cardiovascular: Reports: Chest Pain, Chest Pressure. Denies: Light Headedness, Orthopnea, Palpitations, Paroxysmal Noc. Dyspnea Respiratory: Reports: Shortness of Breath, Shortness of breath upon exertion - chronic. Denies: Cough, Hemoptysis, Shortness of breath at rest, Sputum production Gastrointestinal: Reports: Vomiting - once today. Denies: Abdominal Pain, Constipation, Nausea Genitourinary: Denies: Dysuria, Frequency, Incontinence Musculoskeletal: Denies: Joint Pain, Joint stiffness, Joint swelling, Joint Tenderness Skin: Denies: Dryness, Jaundice, Rash, Wounds Neurological: Denies: Numbness, Tingling, Focal weakness Psychiatric: Denies: Anxiety, Depression, Homicidal Ideations, Suicidal Ideations Hematologic/ Lymphatic: Denies: Easy Bruising, Easy Bleeding VTE Information - Inpt Only VTE Present on Admission: No VTE Pharm Prophylaxis ordered?: Yes Patient Problems: Active and Suspected Problems (Last Reviewed 12/07/17 @ 09:35 by Rosa Elena Yan GEOLOGICAL TECHNICIAN-C) Chest pain (Acute) - Physical Exam General: Alert, Oriented x3, Cooperative, No apparent distress, - - on 3L oxygen , cachetic, not in distress, appeared not pale or jaundiced. HEENT: Atraumatic, PERRLA, EOMI, Normocephalic Oral: Moist Mucosa Neck: Supple Lungs: Normal air movement, No wheeze, Diminished Cardiovascular: Regular rate, Regular Rhythm, Normal S1, Normal S2, No murmurs Abdomen: Bowel Sounds Present, Soft, Non Tender, Non-Distended, No Hepato- splenomegaly, - - scar on abdomen Extremities: No edema Skin: No rashes Musculoskeletal: No Tenderness to Palpation of Joints or Extremities Lymphatic: No Cervical, Supraclavicular, or Inguinal Adenopathy Neurological: Cranial nerves II-XII grossly intact Psych/Mental Status: Normal Affect, Appropriate Vital Signs Temp Pulse Resp BP Pulse Ox 98.3 F 85 26 H 141/63 H 97 12/25/17 02:38 12/25/17 02:38 12/25/17 02:38 12/25/17 02:38 12/25/17 02:38 Assessment/Plan Active and Suspected Problems (Last Reviewed 12/07/17 @ 09:35 by Rosa Elena Yan, GEOLOGICAL TECHNICIAN-C) Chest pain (Acute) 67 year old M with past medical history of chronic hypoxic respiratory failure secondary to COPD, on 3L home oxygen, hypertension, aortic stenosis, schizoaffective disorder, type II DM, nicotine use disorder, central and obstructive sleep apnea comes in with complaints of chest pain. 1. Chest pain, atypical, patient with multiple cardiovascular risk factors as history of stroke, hypertension, type II DM, chronic smoker, EKG acute ST changes, troponins negative, HONEY score of 2 Plan: Admit to PCU, monitor on telemetry, trend troponins, aspirin 81 mg p.o. daily, stress test in a.m., 2D echo in a.m.\ 2. Hypertension, controlled, 3. Type II DM, will continue home regimen with accucheks and ISS 4. 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 Chronic dysphagia with high risk of aspiration, seen at the last visit, will get speech therapy involved. 6. Chronic hypoxic respiratory failure/COPD, no signs of acute exacerbation 7. Schizoaffective disorder/anxiety/depression 8. DVT PPx -Lovenox SC Code Visit Inpatient E&M: 74667 Init Hosp L3
[2017-12-25 03:41] LABS: Bedside Glucose 216 mg/dL (70-110)
[2017-12-25 03:51] LABS: Thyroid Stim Hormone (TSH) 2.25 uIU/mL (0.358-3.74)
[2017-12-25 05:23] LABS: Hematocrit 32.8 % (40-54); Hemoglobin 10.1 g/dl (13.0-16.5); Mean Corp Hgb Conc 30.8 g/gl (32-36); Mean Corpuscular Hgb 29.6 pg (27.0-32.0); Mean Corpuscular Volume 96.2 fL (80-94); Mean Platelet Vol. 9.6 fl (6.2-12.0); Platelet Count 212 K/mm3 (150-450); RBC Distribution Width CV 13.4 % (11.6-14.6); RBC Distribution Width SD 46.8 fl (35.1-43.9); Red Blood Count 3.41 M/mm3 (4.6-6.2); White Blood Count 7.9 K/mm3 (4.4-11.0)
[2017-12-25 05:25] LABS: Anion Gap 5 (5-15); BUN 11 mg/dL (7-18); BUN/Creat Ratio 17.4 RATIO (10-20); Calcium,Total 8.1 mg/dL (8.5-10.1); Chloride 94 mmol/L (98-107); Creatinine, Serum 0.63 mg/dL (0.70-1.30); EST Glomerular Filtration Rate 136 mL/min (>60); Est Glom Filt Rate - Afr Amer 164 mL/min (>60); Estimated Creatinine Clearance 93.75 ml/min; Glucose 168 mg/dL (74-106); Potassium 4.3 mmol/L (3.5-5.1); Scan Indicated on CBC? Y/N NO; Sodium Level 132 mmol/L (136-145)
--- NOTE | 2017-12-25 05:57 | CT_ITS ---
STUDY: CT CHEST WITH CONTRAST REASON FOR EXAM: Male, 67 years old. Chest pain RADIATION DOSAGE (If Supplied By Facility): CTDIvol = ( 10.50 ) mGy, DLP = ( 282.25 ) mGycm TECHNIQUE: Transaxial 2.5 mm imaging was performed following intravenous administration of 100 ml of Isovue 370 contrast material. Multiplanar coronal and sagittal images were reformatted. Individualized dose optimization techniques were used for this CT. COMPARISON: Chest x-ray 12/25/2017. 12/17/[address] chest 08/13/2017. 11/21/2016. 06/10/2014. FINDINGS: Irregular spiculated airspace disease in the posterior lower lobes bilaterally right greater than left new since previous examination with interstitial extension to the thickened pleura. This is multifocal bilaterally with more dense consolidation along the dependent right lower lobe. There is only minimal airspace disease in the right middle lobe and peripheral right upper lobe.. There are emphysematous changes of the lungs with emphysematous blebs. Small left, trace right pleural fluid. Normal heart and pericardium. There are calcifications of the coronary arteries. Normal mediastinum. Normal hilar regions. Normal enhanced pulmonary arteries. There is mild atherosclerotic calcification of the aortic arch, greater branches and descending aorta. There are multi-level degenerative changes of the thoracic spine. Pseudoarthrosis formation posterior right 10th rib with deformity of the ninth right rib are stable findings. There is no demonstrated abnormality of the visualized upper abdomen. CT/Chest WITH Contrast IMPRESSION: Right greater than left airspace disease in the dependent lower lobes has masslike and spiculated appearance, however bilaterality suggests an inflammatory or a process rather than neoplasm, therefore follow-up examination to resolution post therapy is recommended. If resolution cannot be obtained, consider PET scan. No mediastinal lymphadenopathy, destructive osseous lesion or other metastatic disease detected. Stable emphysema, atherosclerosis, remote injuries. Electronically Signed: Trish Portillo MD at 7:40 EST , Service support ,
[2017-12-25] MEDS: 0.9% Normal Saline 1,000 ML 100 ML IV (06:42)
[2017-12-25] MEDS: 0.9% NaCl Peripheral Flush Adult/Peds IV (06:46)
[2017-12-25 06:51] LABS: Bedside Glucose 151 mg/dL (70-110)
[2017-12-25] MEDS: Ipratropium/Albuterol Sulfate 3 ML AMPUL.NEB INHALATION ×2 (07:02→13:26)
[2017-12-25] MEDS: Aspirin 81 MG TAB.CHEW PO (09:16)
[2017-12-25] MEDS: Lithium Carbonate 300mg Capsule 600 MG PO (09:16)
[2017-12-25] MEDS: Cilostazol 50 MG Tablet 100 MG PO (09:16)
[2017-12-25] MEDS: Magnesium Oxide 400 MG Tablet 800 MG PO (09:17)
[2017-12-25] MEDS: Ferrous Sulfate 325 MG Tablet PO ×3 (09:17→17:15)
[2017-12-25] MEDS: Loratadine 10 MG Tablet PO (09:17)
[2017-12-25] MEDS: Fluticasone 0.05% 1 SPRAY NASAL.SRY NASAL (09:17)
[2017-12-25] MEDS: Pantoprazole Sodium 40 MG Tablet PO (09:17)
--- NOTE | 2017-12-25 09:44 | CASEMGMT ---
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 [facility] faxed updates to [facility] to follow for d/c back to [facility]. Zaira FIGUEROA MSW
--- NOTE | 2017-12-25 10:19 | NURSING ---
Called [facility], verified home medications and updated home med list
[2017-12-25] MEDS: Metoprolol Tartrate 50 MG Tablet PO (10:47)
[2017-12-25 11:21] LABS: Bedside Glucose 300 mg/dL (70-110)
--- NOTE | 2017-12-25 12:41 | ECHOD_ITS ---
Reason For Study: Chest pain Procedure This was a 2D Doppler, Color Flow transthoracic echocardiogram. Exam performed portable in patient room. Left Ventricle Mild concentric left ventricular hypertrophy. The estimated ejection fraction is 65 %. Normal diastology for age. No regional wall motion abnormalities noted. Right Ventricle Normal size and thickness. Normal systolic function. Atria Normal left atrium. Normal right atrium. Normal atrial septum. Mitral Valve The mitral valve is structurally normal. No prolapse or stenosis seen. Tricuspid Valve Normal tricuspid valve. Trivial tricuspid valve insufficiency. Right ventricular systolic pressure estimated to be 46 mmHg. Mild pulmonary hypertension. Aortic Valve Trisinus/trileaflet aortic valve. Moderate focal aortic valve thickening. Moderate focal aortic valve calcification. Mild restriction of the aortic valve. Mild (1+) aortic valve insufficiency. Pulmonic Valve Normal pulmonic valve. Great Vessels Normal aortic root. Normal arch. Normal inferior vena cava. Inferior vena cava collapse with sniff. Pericardium/Pleural No pericardial effusion. MMode/2D Measurements & Calculations LVIDd: 4.1 cm IVSd: 1.4 cm LVOT diam: 2.1 cm LVIDs: 2.0 cm LVPWd: 1.3 cm LVOT area: 3.4 cm2 RVDd: 3.1 cm FS: 50.7 % Ao root diam: 3.1 cm LAV(MOD-bp): 35.3 ml LA A4 area: 14.3 cm2 LA dimension: 4.0 cm LAV(MOD-bp) Indexed: 20.2 ml/m2 LAV(MOD-sp2): 32.5 ml LAV(MOD-sp4): 35.4 ml RA A4 area: 14.0 cm2 Doppler Measurements & Calculations MV E max seng: 89.8 cm/sec Lat Peak E' Seng: 9.6 cm/sec Med Peak E' Seng: 8.1 cm/sec MV A max seng: 81.2 cm/sec E/E' lat: 9.3 E/E' med: 11.1 MV E/A: 1.1 Ao V2 max: 243.8 cm/sec AI max seng: 373.9 cm/sec LV V1 max: 166.5 cm/sec Ao max P.8 mmHg AI max P.9 mmHg LV V1 max P.1 mmHg Ao V2 mean: 163.6 cm/sec AI dec slope: 275.3 cm/sec2 LV V1 mean P.5 mmHg Ao mean P.1 mmHg AI P1/2t: 397.8 msec LV V1 mean: 109.9 cm/sec Ao V2 VTI: 45.4 cm LV V1 VTI: 35.0 cm GIANNA(I,D): 2.6 cm2 GIANNA(V,D): 2.3 cm2 SV(LVOT): 117.5 ml PA V2 max: 104.4 cm/sec TR max seng: 312.4 cm/sec TR max P.1 mmHg Interpretation Summary The estimated ejection fraction is 65 %. Mild concentric left ventricular hypertrophy. Normal diastology for age. Right ventricular systolic pressure estimated to be 46 mmHg. Mild pulmonary hypertension. Mild (1+) aortic valve insufficiency. Compared to echo report dated 12/08/2012,no appreciable changes noted. Moderate focal aortic valve calcification of right coronary cusp. Ordering Physician: Brenda Alexander Referring Physician: NELY ACEVEDO Performed By: Aziza Adams RDCS
--- NOTE | 2017-12-25 13:42 | STRESSREP ---
Stress Test Report Date: 12/25/2017 Procedure: Pharmacologic stress nuclear imaging study Indications: Chest pain Consent: Per the patient Procedure: The patient underwent pharmacologic (Regadenoson) evaluation with a peak heart rate of 115 beats per minute (74 predicted maximal heart rate) and a peak blood pressure of 162/70 mmHg. The baseline ECG demonstrated sinus versus ectopic atrial rhythm with nonspecific ST and T-wave abnormality. The peak pharmacologic ECG demonstrated somatic/motion artifact with no obvious ECG changes. Occasional PAC pretest and during recovery. [There was no complaint of chest discomfort during pharmacologic infusion or recovery]. The examination was discontinued secondary to completion of protocol. Impression: 1. Pharmacologic (Regadenoson) evaluation 2. Peak pharmacologic ECG with continued nonspecific ST and T-wave abnormality. 3. Regional PA-C pretest and during recovery 4. Nuclear images pending Myocardial perfusion imaging study: Technique: The patient was injected with 10.7 millicuries of technetium 99m Cardiolite and subsequently rest SPECT Cardiolite nuclear imaging was obtained in the horizontal long, vertical long, and short axis views. The patient underwent pharmacologic (Regadenoson) evaluation with a peak heart rate of 115 beats per minute (74 % percent predicted maximal heart rate) and a peak blood pressure of 162/70 mmHg. the patient was injected with 33.4 millicuries of technetium 99m Cardiolite and subsequently stress SPECT Cardiolite nuclear imaging was obtained in the horizontal long, vertical long, and short axis views. A gated Cardiolite study at peak stress was obtained. Interpretation: Rest and stress SPECT Cardiolite nuclear imaging status post realignment, normalization, and attenuation correction demonstrate the appearance of relative uniform tracer uptake and myocardial perfusion appearing within normal limits. [There is end systolic thickening and brightening]. [The gated Cardiolite study demonstrates myocardial thickening and inward wall motion]. The reported LVEF is 69%. Impression: 1. Rest and stress SPECT Cardiolite nuclear imaging demonstrate relative uniform tracer uptake and myocardial perfusion appearing within normal limits 2. The gated Cardiolite study reports an LVEF of 69 %. This note was generated with [employer]ation software. It may contain incorrect words, spelling, and punctuation that were not noted in checking the note before signing.
--- NOTE | 2017-12-25 15:08 | PCM.TXEXTCAR ---
- Diet 12/25/17 14:58 ADA [Diet: Cardiac: Calorie-Controlled] Is pt able to select menu?: Yes How many daily calories?: 1800 calorie - Allergies/Procedures Done in Hospital Allergies/Adverse Reactions: Allergies No Known Allergies Allergy (Verified 12/25/17 00:31) - Type of Care/Length of Stay Estimated LOS: More Than 30 Days Type of Care Needed: Skilled Rehab Potential: Fair Prognosis: Fair - Additional Orders/Day of Discharge H&P will serve as current which was dated: 12/24/17 Day of Discharge: 12/25/17 - Dietary and Speech Recommendations Dietitian Recommendations/Changes: Recommend advance diet as tolerated to Regular as PO intake poor LIBRARY CONSULTANT with modified consistency per AGRICULTURAL TECHNICIAN recommendations. Will discontinue Glucerna Shake on medpass and provide Ensure Pudding with meals to ensure accurate consistency - Follow Up Care Primary Care Physician: Alie Doctor,Out of [NON-STAFF] - In 1 Week
--- NOTE | 2017-12-25 15:10 | PCM.DC.SUM ---
Discharge Date and Diagnosis - Problem List Patient Problems: Active and Suspected Problems (Last Reviewed 12/07/17 @ 09:35 by BLAIRE Renteria) Chest pain (Acute) Date of Admission: 12/25/17 Date of Discharge: 12/25/17 - Primary Discharge Diagnosis Active and Suspected Problems (Last Reviewed 12/07/17 @ 09:35 by BLAIRE Renteria) Chest pain (Acute) - Secondary Discharge Diagnosis Chronic Problems (Last Reviewed 12/07/17 @ 09:35 by BLAIRE Renteria) Bipolar affective disorder (Chronic) CVD (cerebrovascular disease) (Chronic) Dyslipidemia (Chronic) GERD (gastroesophageal reflux disease) (Chronic) HTN (hypertension) (Chronic) History of alcoholism (Chronic) PVD (peripheral vascular disease) (Chronic) Schizophrenia (Chronic) Tobacco use disorder (Chronic) History of TIA (transient ischemic attack) (Chronic) Chronic respiratory failure with hypoxia (Chronic) Obstructive sleep apnea (Chronic) Noncompliance with CPAP treatment (Chronic) Hypomagnesemia (Chronic) Dysphagia (Chronic) supposed to be on a mechanical soft diet with nectar thick liquids Aortic stenosis, mild (Chronic) Aortic valve insufficiency (Chronic) Edentulous (Chronic) Noncompliance of patient with dietary regimen (Chronic) Hospital Course and Treatment Imaging Results: 12/25/17 12:41 Echo Complete [ECHO] Routine Operations: None Summary of Care Provided: The patient is a 67 year old M [facility] presented to the emergency room due to chest pain, the patient was evaluated in the emergency room with negative cardiac enzymes ,he was placed in the PCU and he underwent a stress test that was negative for ischemia ,the patient was discharged back to the [facility] symptom-free. PHYSICAL EXAM at the time of discharge; vital signs were stable. He was alert and oriented to time place and person. He did not appear to be any form of distress. S1 and S2 heard no murmur or gallop Lung exam was clear to auscultation with no adventitious sounds. Abdomen was soft nontender with normal bowel sounds. extremity exam did not reveal any edema, palpable pulses bilaterally. Neurologic exam was grossly intact. Discharge Diet: No Restrictions Home Medications: Medications to take at Discharge Acetaminophen [Tylenol] 650 mg PO Q6H PRN 08/08/17 Albuterol Inhaler [Ventolin Hfa] 1 puff INHALATION Q4H PRN PRN 08/08/17 Aspirin 81 mg PO DAILY 08/08/17 Atorvastatin Calcium 40 mg PO DAILY 08/08/17 Cilostazol 100 mg PO BID 08/08/17 Ferrous Fumarate [Ferretts] 325 mg PO TID 08/08/17 Guaifenesin [Tussin Mucus-Chest Congestion] 200 mg PO Q6H PRN 08/08/17 Insulin Aspart [Novolog Flexpen] 0 - 15 units SC ACHS PRN 08/08/17 Insulin Detemir [Levemir] 10 unit SQ BREAKFAST 08/08/17 Insulin Detemir [Levemir] 14 unit SQ QHS 08/08/17 [place] Carbonate 600 mg PO DAILY 08/08/17 Lorazepam [Ativan] 1 mg PO Q4H PRN 08/08/17 Mag Hydrox/Al Hydrox/Simeth [Mylanta II] 30 ml PO Q4H PRN PRN 08/08/17 Magnesium Oxide [Mag-Oxide Magnesium] 800 mg PO DAILY 08/08/17 Metformin HCl 1,000 mg PO BID 08/08/17 Metoprolol Tartrate [Lopressor (beta tia)] 50 mg PO BID 08/08/17 Omeprazole [Prilosec] 40 mg PO DAILY 08/08/17 Oxygen, Home [Home Oxygen] 3 lpm NASAL DAILY 08/08/17 Sodium Chloride [Saline Mist] 1 spray NASAL Q6H PRN 08/08/17 Fluticasone 0.05% [Flonase Nasal [place]] 1 spray NASAL DAILY 10/04/17 Guaifenesin [Mucinex] 400 mg PO TID 10/04/17 Prednisone 5 mg PO DAILY 10/04/17 Cetirizine HCl [Zyrtec] 10 mg PO DAILY 10/21/17 Lactobacillus Acidophilus [Acidophilus] 1 ea PO BID 11/04/17 Albuterol Aerosols [Ventolin Aerosols] 2.5 mg INHALATION Q4H PRN PRN #1 vial.neb. 11/10/17 Ipratropium/Albuterol Sulfate [Duoneb] 3 ml INHALATION Q6H.RT #1 ampul.neb 11/10/17 Haloperidol Decanoate [Haldol Decanoate 50] 50 mg IM QMONTH 12/25/17 Losartan Potassium [Cozaar] 75 mg PO QHS tablet 12/25/17 Metformin HCl [Glucophage] 1,000 mg PO BIDCM tablet 12/25/17 Primary Care Physician: Alie Doctor,Out of [NON-STAFF] - In 1 Week Disposition: Home Patient Condition:: Fair Meaningful Use Info Meaningful Use Diagnoses (Choose all that apply): None applicable Code Visit OBSV E&M: 40525 Observation care discharge
--- NOTE | 2017-12-25 15:13 | DS.PCM_ITS ---
Discharge Date and Diagnosis - Problem List Patient Problems: Active and Suspected Problems (Last Reviewed 12/07/17 @ 09:35 by BLAIRE Renteria) Chest pain (Acute) Date of Admission: 12/25/17 Date of Discharge: 12/25/17 - Primary Discharge Diagnosis Active and Suspected Problems (Last Reviewed 12/07/17 @ 09:35 by BLAIRE Renteria) Chest pain (Acute) - Secondary Discharge Diagnosis Chronic Problems (Last Reviewed 12/07/17 @ 09:35 by BLAIRE Renteria) Bipolar affective disorder (Chronic) CVD (cerebrovascular disease) (Chronic) Dyslipidemia (Chronic) GERD (gastroesophageal reflux disease) (Chronic) HTN (hypertension) (Chronic) History of alcoholism (Chronic) PVD (peripheral vascular disease) (Chronic) Schizophrenia (Chronic) Tobacco use disorder (Chronic) History of TIA (transient ischemic attack) (Chronic) Chronic respiratory failure with hypoxia (Chronic) Obstructive sleep apnea (Chronic) Noncompliance with CPAP treatment (Chronic) Hypomagnesemia (Chronic) Dysphagia (Chronic) supposed to be on a mechanical soft diet with nectar thick liquids Aortic stenosis, mild (Chronic) Aortic valve insufficiency (Chronic) Edentulous (Chronic) Noncompliance of patient with dietary regimen (Chronic) Hospital Course and Treatment Imaging Results: 12/25/17 12:41 Echo Complete [ECHO] Routine Operations: None Summary of Care Provided: The patient is a 67 year old M resident of the senior living presented to the emergency room due to chest pain, the patient was evaluated in the emergency room with negative cardiac enzymes ,he was placed in the PCU and he underwent a stress test that was negative for ischemia ,the patient was discharged back to the [facility] symptom-free. PHYSICAL EXAM at the time of discharge; vital signs were stable. He was alert and oriented to time place and person. He did not appear to be any form of distress. S1 and S2 heard no murmur or gallop Lung exam was clear to auscultation with no adventitious sounds. Abdomen was soft nontender with normal bowel sounds. extremity exam did not reveal any edema, palpable pulses bilaterally. Neurologic exam was grossly intact. Discharge Diet: No Restrictions Home Medications: Medications to take at Discharge Acetaminophen [Tylenol] 650 mg PO Q6H PRN 08/08/17 Albuterol Inhaler [Ventolin Hfa] 1 puff INHALATION Q4H PRN PRN 08/08/17 Aspirin 81 mg PO DAILY 08/08/17 Atorvastatin Calcium 40 mg PO DAILY 08/08/17 Cilostazol 100 mg PO BID 08/08/17 Ferrous Fumarate [Ferretts] 325 mg PO TID 08/08/17 Guaifenesin [Tussin Mucus-Chest Congestion] 200 mg PO Q6H PRN 08/08/17 Insulin Aspart [Novolog Flexpen] 0 - 15 units SC ACHS PRN 08/08/17 Insulin Detemir [Levemir] 10 unit SQ BREAKFAST 08/08/17 Insulin Detemir [Levemir] 14 unit SQ QHS 08/08/17 [place] Carbonate 600 mg PO DAILY 08/08/17 Lorazepam [Ativan] 1 mg PO Q4H PRN 08/08/17 Mag Hydrox/Al Hydrox/Simeth [Mylanta II] 30 ml PO Q4H PRN PRN 08/08/17 Magnesium Oxide [Mag-Oxide Magnesium] 800 mg PO DAILY 08/08/17 Metformin HCl 1,000 mg PO BID 08/08/17 Metoprolol Tartrate [Lopressor (beta tia)] 50 mg PO BID 08/08/17 Omeprazole [Prilosec] 40 mg PO DAILY 08/08/17 Oxygen, Home [Home Oxygen] 3 lpm NASAL DAILY 08/08/17 Sodium Chloride [Saline Mist] 1 spray NASAL Q6H PRN 08/08/17 Fluticasone 0.05% [Flonase Nasal [place]] 1 spray NASAL DAILY 10/04/17 Guaifenesin [Mucinex] 400 mg PO TID 10/04/17 Prednisone 5 mg PO DAILY 10/04/17 Cetirizine HCl [Zyrtec] 10 mg PO DAILY 10/21/17 Lactobacillus Acidophilus [Acidophilus] 1 ea PO BID 11/04/17 Albuterol Aerosols [Ventolin Aerosols] 2.5 mg INHALATION Q4H PRN PRN #1 vial.neb. 11/10/17 Ipratropium/Albuterol Sulfate [Duoneb] 3 ml INHALATION Q6H.RT #1 ampul.neb 11/10 Haloperidol Decanoate [Haldol Decanoate 50] 50 mg IM QMONTH 12/25/17 Losartan Potassium [Cozaar] 75 mg PO QHS tablet 12/25/17 Metformin HCl [Glucophage] 1,000 mg PO BIDCM tablet 12/25/17 Primary Care Physician: Alie Doctor,Out of [NON-STAFF] - In 1 Week Disposition: Home Patient Condition:: Fair Meaningful Use Info Meaningful Use Diagnoses (Choose all that apply): None applicable Code Visit OBSV E&M: 62902 Observation care discharge
--- NOTE | 2017-12-25 15:55 | CASEMGMT ---
Patient is ready to be d/c back to [facility]. SAL faxed orders. SW called [facility] and [facility] to set up transport and neither of them could do it. SAL arranged for patient to get picked up at noon on Thursday. [facility] and [facility] know this information. Plan: Return to [facility] under intermediate level of care. [facility] transported him via wc van Thursday (12-26-17) at noon. Zaira FIGUEROA MSW
[2017-12-25 16:11] LABS: Bedside Glucose 222 mg/dL (70-110)
[2017-12-25] MEDS: Glucerna Shake 120 ML LIQUID PO (17:15)
[2017-12-25 17:25] LABS: Bedside Glucose 232 mg/dL (70-110)
--- NOTE | 2017-12-25 17:45 | NURSING ---
[facility]
== END 2017-12-25 17:58 | disposition intermediate care facility (04) | DRG 313 ==
LOC: ED 02:13 → PCU 02:31
PROVIDERS: Admitting Provider Internal Medicine; Emergency Provider Emergency Medicine; Visit Provider Internal Medicine
DX: R07.9 Chest pain, unspecified (principal); J96.11 Chronic respiratory failure with hypoxia; Z99.81 Dependence on supplemental oxygen; F20.9 Schizophrenia, unspecified; R13.10 Dysphagia, unspecified; J44.9 Chronic obstructive pulmonary disease, unspecified; E11.9 Type 2 diabetes mellitus without complications; I10 Essential (primary) hypertension; F17.210 Nicotine dependence, cigarettes, uncomplicated; F31.9 Bipolar disorder, unspecified; E78.5 Hyperlipidemia, unspecified; K21.9 Gastro-esophageal reflux disease without esophagitis; Z79.4 Long term (current) use of insulin; Z86.73 Personal history of transient ischemic attack (TIA), and cerebral infarction without residual deficits; F10.21 Alcohol dependence, in remission; I67.9 Cerebrovascular disease, unspecified; I73.9 Peripheral vascular disease, unspecified; G47.33 Obstructive sleep apnea (adult) (pediatric); I35.2 Nonrheumatic aortic (valve) stenosis with insufficiency
CPT/HCPCS: 36415; 71046; 71260; 78452; 80048; 82962; 84443; 84484; 85025; 85027; 93005; 93017; 93306; 94640; 97161; 97165; 99285; 99406; A9500; J7030; Q9967; A4216; J2785

== ENCOUNTER 2018-01-24 04:09 | Emergency (ER) | payer MEDICARE, MEDICAID, SELFPAY ==
[2018-01-24 04:10] VITALS: BP 183/87; PULSE 105; RESP 31; TEMP 37; O2SAT 91; BMI 21.7
[2018-01-24 04:17] VITALS: O2SAT 91
--- NOTE | 2018-01-24 04:32 | EKG12_ITS ---
Test Reason : SOB/CP Blood Pressure : / mmHG Vent. Rate : 097 BPM Atrial Rate : 097 BPM P-R Int : 108 ms QRS Dur : 080 ms QT Int : 356 ms P-R-T Axes : 079 080 071 degrees QTc Int : 452 ms Sinus rhythm with short ID Nonspecific ST and T wave abnormality Abnormal ECG Confirmed by KATHLEEN DOVE, KAREN ([id number]), acquisitions editor LAURIE FAN ([id number]) on 01/26/2018 1:28:06 PM Referred By: TYRELL Confirmed By:KAREN WANG MD
[2018-01-24] MEDS: MethylPREDNISolone 125 MG/2 ML Vial IV (04:38)
[2018-01-24 04:40] VITALS: PULSE 89; RESP 26; O2SAT 95
[2018-01-24] MEDS: Ipratropium/Albuterol Sulfate 3 ML AMPUL.NEB INHALATION (04:40)
[2018-01-24] MEDS: Albuterol 2.5 MG/3 ML VIAL.NEB. INHALATION ×3 (04:40→05:15)
[2018-01-24 04:44] LABS: Absolute Lymphocyte Count 0.76 X10^3/ul (0.83-4.51); Absolute Neutrophil Count 7.1 X10^3/uL (2.0-7.7); Basophil# 0.02 X10^3/uL; Basophil% 0.2 % (0-1); Eosinophil# 0.16 X10^3/uL; Eosinophils% 1.9 % (0-5); Hematocrit 40.6 % (40-54); Hemoglobin 12.3 g/dl (13.0-16.5); Lymphocyte # 0.76 X10^3/ul (4.0); Mean Corp Hgb Conc 30.3 g/gl (32-36); Mean Corpuscular Hgb 29.2 pg (27.0-32.0); Mean Corpuscular Volume 96.4 fL (80-94); Mean Platelet Vol. 10.5 fl (6.2-12.0); Monocyte# 0.43 X10^3/uL; Monocyte% 5.1 % (0-10); Neutrophil % 83.7 % (47-70); Platelet Count 196 K/mm3 (150-450); RBC Distribution Width CV 13.1 % (11.6-14.6); RBC Distribution Width SD 45.9 fl (35.1-43.9); Red Blood Count 4.21 M/mm3 (4.6-6.2); White Blood Count 8.5 K/mm3 (4.4-11.0)
[2018-01-24 04:46] LABS: POSITIVE COUNT NO; POSITIVE DIFFERENTIAL NO; POSITIVE MORPHOLOGY NO
--- NOTE | 2018-01-24 05:00 | RAD_ITS ---
STUDY: X-RAY CHEST REASON FOR EXAM: Male, 67 years old. Dyspnea TECHNIQUE: Frontal and lateral views of the chest. COMPARISON: CT scan of the chest from December 25, 2017 FINDINGS: Ill-defined spiculated opacities are seen in the right and left lung lower lobes are unchanged since the CT scan from December 25, 2017.. There is no demonstrated pleural abnormality. Normal size heart. Normal mediastinum and dennise. Normal visualized pulmonary arteries. Normal visualized aortic arch and descending thoracic aorta. Normal visualized thoracic spine. There is a healing fracture at the posterior lateral aspect of the right fifth rib. There is no demonstrated abnormality of the visualized soft tissue structures of the upper abdomen. RAD/Chest PA and Lateral IMPRESSION: Stable irregular opacities in the right and left lung bases may represent an inflammatory process. CT follow-up in 3 month would be recommended to ensure resolution or stability and to exclude neoplasm. Electronically Signed: Sabine Castelan MD at 5:32 EDT Tel , Service support ,
[2018-01-24 05:15] VITALS: PULSE 106; RESP 30
[2018-01-24 05:25] VITALS: BP 163/71; PULSE 103; RESP 32; O2SAT 95
--- NOTE | 2018-01-24 05:26 | ED.VISSUMM ---
- ER Visit Summary Date of Service: 01/24/18 Chief Complaint: Shortness of breath History of Present Illness: The patient is a 67 M presenting with acute on chronic shortness of breath that became worse tonight after going outside of the senior care in which he resides to smoke off of his 3 L of chronic oxygen per nasal cannula. He was visibly short of breath when he came in to the building, and had sats at 66% on room air. He was placed back on his oxygen at 2 L, and was 92%, which improved his dyspnea. He states he was more short of breath than usual before this as well. He also states that he has had sharp nonpleuritic chest pain just left of center for a while. He also states he has been having constant chest heaviness/pressure that has been present for 2 or 3 days without going away, worse with exertion and better with rest, nonpleuritic. He has a history of COPD but no known cardiac disease. According to senior care staff, he is chronically noncompliant with medicines and therapies and recommendations from them. Physical Examination: Mild respiratory distress, wheezing, diminished throughout. No rales or rhonchi heard. Heart is regular without tachycardia or murmur. No JVD, pedal edema, calf tenderness. Equal bilateral 2+/4 radial pulses present in both upper extremities. Abdomen benign. Test Results: Chest x-ray shows significant chronic pulmonary abnormality, no significant difference compared with prior 1 month ago; confirmed by radiologist. Labs unremarkable with negative troponin; he does have an elevated bicarb, consistent with chronic CO2 retention. EKG shows sinus rhythm with no acute injury pattern. Emergency Department Course and Treatment: He was given a series of nebulizer treatments and IV Solu-Medrol 125 mg. On reevaluation he is improved. Chest discomfort is improved significantly. We ambulated him on his home oxygen, he went down to 89-90%, but no lower, and recuperated quickly with rest. He felt better. With constant chest discomfort for several days and negative cardiac workup, I feel comfortable with discharging him back to correction facility, as his chest discomfort is likely related to his COPD. Will prescribe him antibiotic and steroid. Of note, he is now coughing up large amounts of clear sputum, likely because the aerosols opened his airways up, and I think this is a good sign. Treatment Plan: Doxycycline, prednisone Disposition: Discharge to SNF Impression: Acute COPD exacerbation This note was generated with Nasseo dictation software. It may contain incorrect words, spelling, and punctuation that were not noted in review of the chart prior to signing ED Disposition - Plan for ED Patient: Disposition: Home or Assisted Living Chief Complaint: Shortness of Breath Instructions: ED COPD Flare Prescriptions: Prednisone [Deltasone] 40 mg PO QHS #10 tab Doxycycline Hyclate 1 tab PO BID #20 cap Referrals: Doctor,Your [STAFF PHYSICIAN] - 3-5 Days
--- NOTE | 2018-01-24 05:29 | ED.DCSUM_ITS ---
- ER Visit Summary Date of Service: 01/24/18 Chief Complaint: Shortness of breath History of Present Illness: The patient is a 67 M presenting with acute on chronic shortness of breath that became worse tonight after going outside of the residential in which he resides to smoke off of his 3 L of chronic oxygen per nasal cannula. He was visibly short of breath when he came in to the building, and had sats at 66% on room air. He was placed back on his oxygen at 2 L, and was 92%, which improved his dyspnea. He states he was more short of breath than usual before this as well. He also states that he has had sharp nonpleuritic chest pain just left of center for a while. He also states he has been having constant chest heaviness/pressure that has been present for 2 or 3 days without going away, worse with exertion and better with rest, nonpleuritic. He has a history of COPD but no known cardiac disease. According to residential staff, he is chronically noncompliant with medicines and therapies and recommendations from them. Physical Examination: Mild respiratory distress, wheezing, diminished throughout. No rales or rhonchi heard. Heart is regular without tachycardia or murmur. No JVD, pedal edema, calf tenderness. Equal bilateral 2+/4 radial pulses present in both upper extremities. Abdomen benign. Test Results: Chest x-ray shows significant chronic pulmonary abnormality, no significant difference compared with prior 1 month ago; confirmed by radiologist. Labs unremarkable with negative troponin; he does have an elevated bicarb, consistent with chronic CO2 retention. EKG shows sinus rhythm with no acute injury pattern. Emergency Department Course and Treatment: He was given a series of nebulizer treatments and IV Solu-Medrol 125 mg. On reevaluation he is improved. Chest discomfort is improved significantly. We ambulated him on his home oxygen, he went down to 89-90%, but no lower, and recuperated quickly with rest. He felt better. With constant chest discomfort for several days and negative cardiac workup, I feel comfortable with discharging him back to custodial facility , as his chest discomfort is likely related to his COPD. Will prescribe him antibiotic and steroid. Of note, he is now coughing up large amounts of clear sputum, likely because the aerosols opened his airways up, and I think this is a good sign. Treatment Plan: Doxycycline, prednisone Disposition: Discharge to SNF Impression: Acute COPD exacerbation This note was generated with Blackboard dictation software. It may contain incorrect words, spelling, and punctuation that were not noted in review of the chart prior to signing ED Disposition - Plan for ED Patient: Disposition: Home or Assisted Living Chief Complaint: Shortness of Breath Instructions: ED COPD Flare Prescriptions: Prednisone [Deltasone] 40 mg PO QHS #10 tab Doxycycline Hyclate 1 tab PO BID #20 cap Referrals: Doctor,Your [STAFF PHYSICIAN] - 3-5 Days
[2018-01-24 05:46] LABS: Anion Gap 4 (5-15); BUN 6 mg/dL (7-18); BUN/Creat Ratio 8.4 RATIO (10-20); Calcium,Total 8.9 mg/dL (8.5-10.1); Chloride 97 mmol/L (98-107); Creatinine, Serum 0.72 mg/dL (0.70-1.30); EST Glomerular Filtration Rate 117 mL/min (>60); Est Glom Filt Rate - Afr Amer 141 mL/min (>60); Estimated Creatinine Clearance 85.94 ml/min; Glucose 173 mg/dL (74-106); Sodium Level 135 mmol/L (136-145)
--- NOTE | 2018-01-24 06:16 | NURSING ---
[facility] BE HERE BY 7:30 FOR CHIEF SECURITY AND SAFETY OFFICER
--- NOTE | 2018-01-24 06:23 | NURSING ---
REPORT GIVEN TO VEE JIMENEZ FOR DISCHARGE BACK. PATIENT IS AWAITING [facility] TRANSFER THEY ARE UNABLE TO COME TILL 7:30AM.
--- NOTE | 2018-01-24 06:28 | NURSING ---
NEMESIO MCNAMARA RN WAS THE NURSE THAT TALKED TO DEJA JIMENEZ NOT EVERETT VICTOR RN.
[2018-01-24 06:29] VITALS: BP 141/67; PULSE 111; RESP 18; O2SAT 93
== END 2018-01-24 07:57 | disposition home or self-care (01) ==
PROVIDERS: Emergency Provider Emergency Medicine
DX: J44.1 Chronic obstructive pulmonary disease with (acute) exacerbation (principal); E87.2 Acidosis; Z99.81 Dependence on supplemental oxygen; F17.200 Nicotine dependence, unspecified, uncomplicated
CPT/HCPCS: 71046; 80048; 84484; 85025; 93005; 94640; 96374; 99285; A4216

== ENCOUNTER → 2018-03-09 09:42 | Outpatient (CLI) | payer MEDICARE, SELFPAY ==
--- NOTE | 2018-03-09 09:54 | RAD_ITS ---
STUDY: X-RAY CHEST REASON FOR EXAM: Male, 67 years old. Shortness of breath, COPD. TECHNIQUE: PA and lateral views of the chest. COMPARISON: PA and lateral chest x-ray January 24, 2018; CT chest/thorax December 25, 2017. FINDINGS: There is hyperinflation of the lungs consistent with chronic obstructive lung disease (COPD). The patchy sites of subsegmental airspace disease in the basilar posterior lower lobes on CT appear here as stranding bibasilar densities unchanged from December 2017. No new infiltrate. There is no demonstrated pleural abnormality. Normal size heart. Normal mediastinum and dennise. Normal visualized pulmonary arteries. Normal visualized aortic arch and descending thoracic aorta. Normal visualized thoracic spine. Old healed fracture deformities of the posterolateral right fifth rib as well as posterior 9th and 10th rib. There is no demonstrated abnormality of the visualized soft tissue structures of the upper abdomen. RAD/Chest PA and Lateral IMPRESSION: COPD with hyperexpansion and chronic posterior basilar pulmonary scarring. No new infiltrate. Electronically Signed: Giorgio Schroeder MD at 20:02 EDT , Service support ,
== END ==
PROVIDERS: Visit Provider Internal Medicine Critical Care Medicine
DX: J44.1 Chronic obstructive pulmonary disease with (acute) exacerbation (principal); R06.02 Shortness of breath; R06.00 Dyspnea, unspecified
CPT/HCPCS: 71046

== ENCOUNTER 2018-03-16 15:57 | Emergency (ER) | payer MEDICARE, SELFPAY ==
[2018-03-16] VITALS (7 sets, daily range): BP systolic 138–145; BP diastolic 55–86; PULSE 101–106; RESP 23–33; TEMP 37.1; O2SAT 97–100; BMI 21.8
--- NOTE | 2018-03-16 16:16 | EKG12_ITS ---
Test Reason : SOB Blood Pressure : / mmHG Vent. Rate : 104 BPM Atrial Rate : 104 BPM P-R Int : 098 ms QRS Dur : 076 ms QT Int : 354 ms P-R-T Axes : 079 076 084 degrees QTc Int : 465 ms Sinus tachycardia with short [place] with Premature atrial complexes Otherwise normal ECG Confirmed by KATHLEEN DOVE, KAREN ([id number]), supervising film or videotape editor LAURIE FAN ([id number]) on 03/19/2018 1:59:06 PM Referred By: Lorenzo Londono Confirmed By:KAREN WANG MD
--- NOTE | 2018-03-16 16:17 | NURSING ---
NO LW OR POA
--- NOTE | 2018-03-16 16:25 | RAD_ITS ---
STUDY: X-RAY CHEST REASON FOR EXAM: Male, 67 years old. Shortness of breath. TECHNIQUE: Single AP portable view of the chest. COMPARISON: March 09, 2018. FINDINGS: Telemetry wires overlie the chest. There is hyperinflation of the lungs consistent with chronic obstructive lung disease (COPD). No focal infiltrate or mass. There is no demonstrated pleural abnormality. Normal size heart. Normal mediastinum and dennise. Normal visualized pulmonary arteries. There is atherosclerotic calcification of the aortic arch with tortuosity. The thoracic spine is obscured by the mediastinum. There is degenerative osteoarthritis of the bilateral shoulders. There is no demonstrated abnormality of the visualized soft tissue structures of the upper abdomen. RAD/Chest 1 View (Portable) IMPRESSION: COPD without acute cardiopulmonary disease or interval change. Electronically Signed: Mor Wang DO at 16:47 EDT Tel [phone], Service support ,
--- NOTE | 2018-03-16 16:29 | ED.VISSUMM ---
- ER Visit Summary Date of Service: 03/16/18 Chief Complaint: Low oxygen History of Present Illness: The patient is a 67 M with a history of COPD. He does wear oxygen, 3 L at his nursing facility. He went outside to smoke and took off his oxygen. When he came back and side he was 80%. He felt short of breath, but he is currently improved. He denies any chest pain, fevers, sputum. He said this happens all the time when he does this. Physical Examination: 97% on 3 L. Tachycardic at 106. Otherwise afebrile. No acute distress. Sitting and breathing comfortably. Lungs show diminished breath sounds throughout all [place], but otherwise normal. Heart regular. Abdomen soft. Skin, calves, pulses unremarkable. Test Results: EKG, labs, chest x-ray pending. Emergency Department Course and Treatment: Was placed on oxygen. He received a DuoNeb and a dose of Solu-Medrol while awaiting results.. EKG showed sinus rhythm at a rate of 104. Chest x-ray showed chronic changes and COPD changes. Nothing acute. CBC normal. Troponin 0 0.023. Chloride 94, CO2 40, glucose 150, creatinine 0.66. I reassessed the patient. His respiratory rate was 21. He was 100% on 3 L. He says that he has no shortness of breath or chest pain. He would like to go back to his nursing facility. He tells me again that he did not want to come in this happen before. I spoke with his doctor at the [facility] and he will be transferred back. Treatment Plan: As above Disposition: Discharged Impression: 1. COPD This note was generated with Egnyte dictation software. It may contain incorrect words, spelling, and punctuation that were not noted in review of the chart prior to signing ED Disposition - Plan for ED Patient: Chief Complaint: Shortness of Breath Referrals: Care Physician,No Primary [Primary Care Provider] -
[2018-03-16] MEDS: Ipratropium/Albuterol Sulfate 3 ML AMPUL.NEB INHALATION (16:30)
[2018-03-16] MEDS: MethylPREDNISolone 125 MG/2 ML Vial IV (16:39)
[2018-03-16 17:00] LABS: Absolute Lymphocyte Count 0.72 X10^3/ul (0.83-4.51); Absolute Neutrophil Count 9.5 X10^3/uL (2.0-7.7); Anion Gap 2 (5-15); BUN 7 mg/dL (7-18); BUN/Creat Ratio 10.6 RATIO (10-20); Basophil# 0.01 X10^3/uL; Basophil% 0.1 % (0-1); Calcium,Total 9.5 mg/dL (8.5-10.1); Chloride 94 mmol/L (98-107); Creatinine, Serum 0.66 mg/dL (0.70-1.30); EST Glomerular Filtration Rate 129 mL/min (>60); Eosinophil# 0.08 X10^3/uL; Eosinophils% 0.7 % (0-5); Est Glom Filt Rate - Afr Amer 156 mL/min (>60); Estimated Creatinine Clearance 96.84 ml/min; Glucose 150 mg/dL (74-106); Hematocrit 42.3 % (40-54); Lymphocyte # 0.72 X10^3/ul (4.0); Lymphocyte % 6.6 % (19-41); Mean Corp Hgb Conc 30.7 g/gl (32-36); Mean Corpuscular Hgb 29.4 pg (27.0-32.0); Mean Corpuscular Volume 95.7 fL (80-94); Mean Platelet Vol. 9.6 fl (6.2-12.0); Monocyte# 0.48 X10^3/uL; Monocyte% 4.4 % (0-10); Neutrophil # 9.53 X10^3/uL (2.7-7.7); Neutrophil % 87.9 % (47-70); Platelet Count 232 K/mm3 (150-450); Potassium 4.8 mmol/L (3.5-5.1); RBC Distribution Width CV 14.2 % (11.6-14.6); RBC Distribution Width SD 49.9 fl (35.1-43.9); Red Blood Count 4.42 M/mm3 (4.6-6.2); Sodium Level 136 mmol/L (136-145); White Blood Count 10.9 K/mm3 (4.4-11.0)
[2018-03-16 17:01] LABS: POSITIVE COUNT NO; POSITIVE DIFFERENTIAL NO; POSITIVE MORPHOLOGY NO
--- NOTE | 2018-03-16 17:11 | NURSING ---
TRYING TO REACH DR NELY PRESSLEY [phone]
--- NOTE | 2018-03-16 17:15 | ED.DEP ---
ED Disposition - Plan for ED Patient: Chief Complaint: Shortness of Breath Instructions: What is COPD? Referrals: Jcarlos Hart, SUCTION DREDGE DUMPING SUPERVISOR-C [NON-STAFF] -
--- NOTE | 2018-03-16 17:20 | NURSING ---
CALLED [facility] FOR TRANSPORT
== END 2018-03-16 18:03 | disposition skilled nursing facility (03) ==
PROVIDERS: Emergency Provider Emergency Medicine
DX: J44.9 Chronic obstructive pulmonary disease, unspecified (principal); Z99.81 Dependence on supplemental oxygen; E11.9 Type 2 diabetes mellitus without complications; K21.9 Gastro-esophageal reflux disease without esophagitis; Z72.0 Tobacco use
CPT/HCPCS: 71045; 80048; 84484; 85025; 93005; 94640; 96374; 99285; A4216

== ENCOUNTER 2018-03-19 09:23 | Inpatient (IN) | payer MEDICARE, SELFPAY ==
[2018-03-19] VITALS (21 sets, daily range): BP systolic 107–162; BP diastolic 54–76; PULSE 82–122; RESP 12–38; TEMP 36.8–37.9; O2SAT 94–100; BMI 20.6; BMI 19.7
--- NOTE | 2018-03-19 09:28 | EKG12_ITS ---
Test Reason : UNRESPONSIVE Blood Pressure : / mmHG Vent. Rate : 118 BPM Atrial Rate : 118 BPM P-R Int : 094 ms QRS Dur : 074 ms QT Int : 332 ms P-R-T Axes : 074 073 050 degrees QTc Int : 465 ms Sinus tachycardia with short [place] with Premature atrial complexes Right atrial enlargement Borderline ECG Confirmed by KATHLEEN DOVE, KAREN ([id number]), film editor supervisor LAURIE FAN ([id number]) on 03/22/2018 2:30:01 PM Referred By: Lorenzo Londono Confirmed By:KAREN WANG MD
--- NOTE | 2018-03-19 09:35 | RAD_ITS ---
STUDY: X-RAY CHEST REASON FOR EXAM: Male, 67 years old. Shortness of breath/dyspnea. TECHNIQUE: Single AP portable view of the chest. COMPARISON: Comparison is made with prior study dated March 16, 2018. FINDINGS: EKG electrodes are seen. Hyperinflation. Mild increased markings at the left lung base suggestive of possible left basilar atelectasis. This is more prominent than on prior examination. There is no demonstrated pleural abnormality. Normal size heart. Normal mediastinum and dennise. There is prominence of the pulmonary hilar arteries without peripheral pulmonary vascular congestion, suggesting pulmonary hypertension. There is atherosclerotic calcification of the aortic arch with tortuosity. Normal visualized thoracic spine. Healed right left rib fracture. There is no demonstrated abnormality of the visualized soft tissue structures of the upper abdomen. RAD/Chest 1 View (Portable) IMPRESSION: Hyperinflation. Mild increased markings at the left lung base. This may represent left basilar atelectasis. Electronically Signed: Bienvenido Carmen MD at 10:44 EDT Tel [phone], Service support ,
[2018-03-19] MEDS: Ipratropium/Albuterol Sulfate 3 ML AMPUL.NEB INHALATION ×4 (09:37→22:53)
[2018-03-19 09:46] LABS: Base Excess 14 mmol/L (-2 to +2); Bicarbonate 39.2 mmol/L (22-26); Blood Gas Specimen Type ART; O2 Delivery Device Nasal Can; PO2 57 mmHG (75-100); SITE L Radial; SO2 87 % (95-99); Time Given 935; Total Carbon Dioxide 41 mmol/L; pH 7.37 (7.35-7.45)
[2018-03-19 09:55] LABS: Absolute Neutrophil Count 15.4 X10^3/uL (2.0-7.7); Basophil# 0.01 X10^3/uL; Basophil% 0.1 % (0-1); Eosinophil# 0.01 X10^3/uL; Eosinophils% 0.1 % (0-5); Hematocrit 36.5 % (40-54); Hemoglobin 11.3 g/dl (13.0-16.5); Lymphocyte % 2.4 % (19-41); Mean Corpuscular Hgb 29.8 pg (27.0-32.0); Mean Corpuscular Volume 96.3 fL (80-94); Mean Platelet Vol. 10.1 fl (6.2-12.0); Monocyte% 3.6 % (0-10); Neutrophil # 15.42 X10^3/uL (2.7-7.7); Neutrophil % 93.6 % (47-70); Platelet Count 206 K/mm3 (150-450); RBC Distribution Width CV 13.8 % (11.6-14.6); RBC Distribution Width SD 46.7 fl (35.1-43.9); Red Blood Count 3.79 M/mm3 (4.6-6.2); White Blood Count 16.5 K/mm3 (4.4-11.0)
[2018-03-19 09:57] LABS: Prothrombin Time (Protime)PT. 13.4 SECONDS (11.7-14.9)
[2018-03-19 09:58] LABS: Partial Thromboplast Time 27.4 Seconds (24.1-36.2)
[2018-03-19 09:58] LABS: Mucous, Urine 0 SEEN /hpf (<or=2+); White Blood Cells 0 SEEN /hpf (0-5)
[2018-03-19] MEDS: 0.9% Normal Saline 1,000 ML 999 ML IV (10:00)
[2018-03-19] MEDS: MethylPREDNISolone 125 MG/2 ML Vial IV (10:01)
[2018-03-19 10:02] LABS: Differential Indicated SCAN CRITERIA MET; POSITIVE COUNT NO; POSITIVE DIFFERENTIAL YES; POSITIVE MORPHOLOGY NO
[2018-03-19 10:04] LABS: AST(SGOT) 8 U/L (15-37); Alanine Aminotransfer ALT/SGPT 14 U/L (16-61); Albumin, Serum 2.9 g/dL (3.2-5.0); Alkaline Phosphatase 72 U/L (45-117); Anion Gap 1 (5-15); BUN 11 mg/dL (7-18); BUN/Creat Ratio 15.2 RATIO (10-20); Bilirubin, Direct 0.16 mg/dL (0.00-0.30); Calcium,Total 9.1 mg/dL (8.5-10.1); Chloride 95 mmol/L (98-107); Creatinine, Serum 0.73 mg/dL (0.70-1.30); EST Glomerular Filtration Rate 115 mL/min (>60); Est Glom Filt Rate - Afr Amer 139 mL/min (>60); Estimated Creatinine Clearance 82.76 ml/min; Globulin 3.3 g/dL (2.2-4.2); Glucose 293 mg/dL (74-106); Potassium 5.2 mmol/L (3.5-5.1); Protein, Total 6.2 g/dL (6.4-8.2); Sodium Level 135 mmol/L (136-145)
[2018-03-19 10:06] LABS: Color, Urine Yellow (Yellow); Glucose, Dipstick 1000 mg/dl (Normal); Ketone-Dipstick Negative (Negative); Leukocyte Esterase-Dipstick Negative /ul (Negative); Nitrite-Dipstick Negative (Negative); Occult Blood-Urine 50 /ul (Negative); Protein-Dipstick Negative (Negative); Urine Bilirubin Dipstick Negative (Negative); Urine Clarity Sl. Cloudy (Clear); Urine Urobilinogen Normal (Normal)
[2018-03-19 10:09] LABS: Lactic Acid 1.6 mmol/L (0.4-2.0)
[2018-03-19 10:13] LABS: Bacteria RARE /hpf (None Seen); Red Blood Cells-Urine 0-5 SEEN /hpf (0-5); Squamous Epithelial Cells - UA 0-5 SEEN /hpf (0-5)
--- NOTE | 2018-03-19 10:26 | ED.RN ---
UPPER DENTURES PLACE IN PT BELONGINGS BAG WITH PANTS AND SHIRT WHEN PLACED ON BIPAP
--- NOTE | 2018-03-19 10:51 | ED.VISSUMM ---
- ER Visit Summary Date of Service: 03/19/18 Chief Complaint: Shortness of breath History of Present Illness: The patient is a 67 M who does not give any history. [facility] patient was found to be 71% on 3 L nasal cannula with decreased level of consciousness. He had been incontinent of urine. They gave him 3 breathing treatments. On EMS arrival he was 87% on his 3 L nasal cannula. [facility] reports that he had a fever of 102?. Physical Examination: Vitals: 100.1, 137/54, 108, 20, 94% on 3 L nasal cannula which is his home O2. General: Well-nourished and well-developed. Head: Normocephalic atraumatic. Neck: Supple, no lymphadenopathy. No JVD. Nontender. Cardiovascular: Tachycardic regular rhythm. No murmurs. Respiratory: Mild respiratory distress. Moderate wheezing bilaterally with decreased air movement. Abdominal: Soft, nontender, nondistended, normal bowel sounds. No guarding, rebound, or peritoneal signs. Back: Nontender. Extremities: Nontender, no edema. Skin: Normal color, no rash. Neurologic: Lethargic, but arouses to voice. Moves all extremities well.. Test Results: ABG shows pH is 7.365 PCO2 of 69.2. Chest x-ray shows chronic changes. EKG is sinus tachycardia 118 with a short IN interval of 94. This is unchanged from December of this year. CBC is more for white count of 16.5 with segment neutrophils and 9 for leukocytes of 2. He is on steroids. H&H is 11.3 and 36.5. Chem-7 is more for sodium 135, potassium 5.2, chloride 95, CO2 39.0, glucose 293. LFTs marked for an ALT of 14 and AST of 8. Coags are normal. UA is negative. [place] level 0.8. Emergency Department Course and Treatment: Patient was given albuterol Atrovent aerosols. He was placed on BiPAP. He was given Solu-Medrol and doxycycline IV. On repeat exam he is much more arousable. Treatment Plan: As discussed with Dr. Fisher. He will be admitted to the hospital for further evaluation and treatment. Disposition: Admitted in serious condition. Impression: 1. COPD exacerbation. 2. Rotatory failure on BiPAP. 3. Hypercapnia. 4. Critical care time 30 minutes. This note was generated with [employer] dictation software. It may contain incorrect words, spelling, and punctuation that were not noted in review of the chart prior to signing ED Disposition - Plan for ED Patient: Chief Complaint: Shortness of Breath Referrals: [facility] Doctor,Out of [Primary Care Provider] -
--- NOTE | 2018-03-19 10:55 | ED.DCSUM_ITS ---
- ER Visit Summary Date of Service: 03/19/18 Chief Complaint: Shortness of breath History of Present Illness: The patient is a 67 M who does not give any history. [facility] jail patient was found to be 71% on 3 L nasal cannula with decreased level of consciousness. He had been incontinent of urine. They gave him 3 breathing treatments. On EMS arrival he was 87% on his 3 L nasal cannula. [facility] reports that he had a fever of 102?. Physical Examination: Vitals: 100.1, 137/54, 108, 20, 94% on 3 L nasal cannula which is his home O2. General: Well-nourished and well-developed. Head: Normocephalic atraumatic. Neck: Supple, no lymphadenopathy. No JVD. Nontender. Cardiovascular: Tachycardic regular rhythm. No murmurs. Respiratory: Mild respiratory distress. Moderate wheezing bilaterally with decreased air movement. Abdominal: Soft, nontender, nondistended, normal bowel sounds. No guarding, rebound, or peritoneal signs. Back: Nontender. Extremities: Nontender, no edema. Skin: Normal color, no rash. Neurologic: Lethargic, but arouses to voice. Moves all extremities well.. Test Results: ABG shows pH is 7.365 PCO2 of 69.2. Chest x-ray shows chronic changes. EKG is sinus tachycardia 118 with a short [place] interval of 94. This is unchanged from December of this year. CBC is more for white count of 16.5 with segment neutrophils and 9 for leukocytes of 2. He is on steroids. H&H is 11.3 and 36.5. Chem-7 is more for sodium 135, potassium 5.2, chloride 95, CO2 39.0, glucose 293. LFTs marked for an ALT of 14 and AST of 8. Coags are normal. UA is negative. [place] level 0.8. Emergency Department Course and Treatment: Patient was given albuterol Atrovent aerosols. He was placed on BiPAP. He was given Solu-Medrol and doxycycline IV. On repeat exam he is much more arousable. Treatment Plan: As discussed with Dr. Fisher. He will be admitted to the hospital for further evaluation and treatment. Disposition: Admitted in serious condition. Impression: 1. COPD exacerbation. 2. Rotatory failure on BiPAP. 3. Hypercapnia. 4. Critical care time 30 minutes. This note was generated with [employer] dictation software. It may contain incorrect words, spelling, and punctuation that were not noted in review of the chart prior to signing ED Disposition - Plan for ED Patient: Chief Complaint: Shortness of Breath Referrals: [facility] Doctor,Out of [Primary Care Provider] -
--- NOTE | 2018-03-19 12:37 | PCM.CONS.GEN ---
Problem List (1) Acute respiratory failure with hypoxia and hypercapnia Status: Acute (2) Chronic respiratory failure with hypoxia Status: Chronic (3) Tobacco use disorder Status: Chronic (4) Aortic valve insufficiency Status: Chronic (5) Bipolar affective disorder Status: Chronic (6) Dyslipidemia Status: Chronic (7) Dysphagia Status: Chronic Qualifiers: Comment: supposed to be on a mechanical soft diet with nectar thick liquids (8) GERD (gastroesophageal reflux disease) Status: Chronic Qualifiers: (9) HTN (hypertension) Status: Chronic Qualifiers: (10) History of alcoholism Status: Chronic (11) Noncompliance of patient with dietary regimen Status: Chronic Comment: mech soft, nectar thick liquids (12) Noncompliance with CPAP treatment Status: Chronic (13) PVD (peripheral vascular disease) Status: Chronic (14) Schizophrenia Status: Chronic Qualifiers: (15) Aortic stenosis, mild Status: Chronic Reason for Consult Date of Consultation: 03/19/18 Reason for Consultation: Respiratory failure History of Present Illness: The patient is a 67 year old M with a complicated past medical history including bipolar and schizophrenia, presented to the ED from [facility] with reported mental status changes and hypoxia at 71% on 3 L at his baseline oxygen supplementation. The patient was given Tylenol for fever of 102.1?F and Ativan. [facility] 3 [facility]ols [facility] with improvement in his hypoxia to 87% on 3 L by the time the EMS arrived. The patient was in the ED on 03/16/18 with similar complaints, but was alert and stable enough to return to the [facility]. The patient was also admitted to [facility] about 3 weeks ago with respiratory failure and questionable pneumonia, as well as abdominal pain. His family states he was treated with antibiotics and steroids at that time and has been on steroids ever since. Chest x-ray showed hyperinflation and possible left basilar atelectasis. There is no pleural abnormality. Blood work showed a leukocytosis of 16,500, however has been taking steroids. Hemoglobin was 11.3 and hematocrit 36.5. Platelets normal. Coags were normal. Chemistry remarkable for sodium of 135, potassium 5.2, chloride 95, serum bicarb of 39. Glucose elevated at 293. AST and ALT were low. Lactate normal at 1.6. Urinalysis positive for glucose and occult, otherwise unremarkable. ABG was performed on 3 L of oxygen and showed a pH 7.37, PCO2 of 68, PO2 of 57, with a base excess of 14 and bicarb of 39.2 indicating compensated respiratory failure. The patient was given IV fluids, aerosols, Solu-Medrol and IV doxycycline, and placed on BiPAP with improvement in his mental status. Respiratory panel and urine/blood cultures were obtained. The patient was maintained on BiPAP. He was transferred to the progressive care unit for further management. Patient currently maintained on his baseline of 3 L. He is more alert and conversing. Patient had a normal stress test and echocardiogram in December 2017 that showed an estimated EF of 65%, mild concentric LVH, RVSP estimated 46 mmHg, and mild DAVID. Patient was last seen in the pulmonary clinic by Dr. Londono on 03/09/18. At that time, he was notably noncompliant with his modified diet, NPPV, and smoking cessation. Patient does take his oxygen off to smoke at the [facility]. His family tells me that they do not buy cigarettes for him, however he bums off of other residents and actually smokes the butts of extinguished cigarettes from other residents. He also goes to the vending machines frequently to get energy drinks and does not thicken his fluids. Past Medical History Past Medical History (Chronic Problems): Chronic Problems (Last Reviewed 03/09/18 @ 08:37 by [place]) Bipolar affective disorder (Chronic) CVD (cerebrovascular disease) (Chronic) Dyslipidemia (Chronic) GERD (gastroesophageal reflux disease) (Chronic) HTN (hypertension) (Chronic) History of alcoholism (Chronic) PVD (peripheral vascular disease) (Chronic) Schizophrenia (Chronic) Tobacco use disorder (Chronic) History of TIA (transient ischemic attack) (Chronic) Chronic respiratory failure with hypoxia (Chronic) Obstructive sleep apnea (Chronic) Noncompliance with CPAP treatment (Chronic) Hypomagnesemia (Chronic) Dysphagia (Chronic) supposed to be on a mechanical soft diet with nectar thick liquids Aortic stenosis, mild (Chronic) Aortic valve insufficiency (Chronic) Edentulous (Chronic) Noncompliance of patient with dietary regimen (Chronic) [facility], nectar thick liquids Allergies No Known Allergies Allergy (Verified 12/25/17 00:31) Home Medications: Ambulatory Orders Medication Instructions Recorded Albuterol Inhaler [Ventolin Hfa] 1 puff INHALATION Q8 PRN 08/08/17 Aspirin 81 mg PO DAILY 08/08/17 Atorvastatin Calcium 40 mg PO QHS 08/08/17 Cilostazol 100 mg PO BID 08/08/17 Insulin Aspart [Novolog Flexpen] 0 - 15 units SC ACHS PRN 08/08/17 Insulin Detemir [Levemir] 10 unit SQ BREAKFAST 08/08/17 Insulin Detemir [Levemir] 18 unit SQ QHS 08/08/17 [place] Carbonate 600 mg PO DAILY 08/08/17 Mag Hydrox/Al Hydrox/Simeth 30 ml PO Q4H PRN PRN 08/08/17 [Mylanta II] Magnesium Oxide [Mag-Oxide 400 mg PO DAILY 08/08/17 Magnesium] Metformin HCl 1,000 mg PO BID 08/08/17 Metoprolol Tartrate [Lopressor 50 mg PO BID 08/08/17 (beta tia)] Omeprazole [Prilosec] 40 mg PO DAILY 08/08/17 Oxygen, Home [Home Oxygen] 3 lpm NASAL DAILY 08/08/17 Sodium Chloride [Saline Mist] 1 spray NASAL Q6H PRN 08/08/17 Fluticasone 0.05% [Flonase Nasal 1 spray NASAL DAILY 10/04/17 [place]] Cetirizine HCl [Zyrtec] 10 mg PO DAILY 10/21/17 Lactobacillus Acidophilus 1 ea PO BID 11/04/17 [Acidophilus] Albuterol Aerosols [Ventolin 2.5 mg INHALATION Q4H PRN PRN #1 11/10/17 Aerosols] vial.neb. Haloperidol Decanoate [Haldol 50 mg IM QMONTH 12/25/17 Decanoate 50] Lorazepam [Ativan] 1 mg PO Q4H PRN #8 tab 12/25/17 Losartan Potassium [Cozaar] 75 mg PO QHS tablet 12/25/17 Ferrous Sulfate 325 mg PO TID 01/24/18 Ipratropium/Albuterol Sulfate 3 ml INHALATION TID 01/24/18 [Duoneb] guaifenesin 400 mg tablet 400 mg PO TID tab 03/09/18 Loxapine Succinate [Loxapine] 25 mg PO QHS 03/19/18 Surgical History: colectomy, - - left shoulder surgery Psychiatric History: Bipolar, Schizophrenia [facility]: [facility] Smoking Status: Current every day smoker Tobacco Use: Cigarettes Alcohol: Occasional Drugs: None - *Family History Maternal History Items: No pertinent history Paternal History Items: Cancer - Colon cancer Sibling History Items: COPD Review of Systems Constitutional: Reports: Anorexia, Chills, Fever, Malaise, Weakness, Fatigue. Denies: Night Sweats Eyes: Denies: Vision Change HEENT: Reports: Difficulty Swallowing, Dysphasia. Denies: Nasal Congestion, Post Nasal Drip, Sinus Congestion, Sore Throat Cardiovascular: Denies: Chest Pain, Chest Tightness, Edema, Light Headedness, Orthopnea, Palpitations, Paroxysmal Noc. Dyspnea, Syncope Respiratory: Reports: Shortness of breath upon exertion, Wheezing. Denies: Cough, Hemoptysis, Sputum production Gastrointestinal: Denies: Abdominal Pain, Constipation, Diarrhea, Dyspepsia, Hematemesis, Hematochezia, Nausea, Melena, Vomiting Genitourinary: Reports: Incontinence, Nocturia. Denies: Dysuria, Frequency, Hematuria Musculoskeletal: Reports: Back Pain - chronic Neurological: Reports: Difficulty swallowing, - - Chronic dysphagia/dysphasia. Denies: Change in Speech, Focal weakness, Numbness, Tingling, Tremor, Seizures Psychiatric: Reports: Depression, - - Bipolar/schizophrenic. Denies: Homicidal Ideations, Suicidal Ideations Endocrine: Denies: Change in Body Habitus, Polydipsia, Polyuria Hematologic/ Lymphatic: Reports: Anemia, Easy Bruising, Easy Bleeding. Denies: Adenopathy, Hx of blood clot Subjective: Patient was seen and examined, his sister Blanquita who is the POA is at the bedside. Patient semi-lethargic, he is asking for a Coke. Denies any current shortness of breath, cough, wheezing, nausea, vomiting, diarrhea. He feels warm. He becomes agitated when talking about smoking and diet modifications at the [facility]. Objective: Clinical Impression(s) from Imaging Studies Chest X-Ray 03/19/18 09:35 IMPRESSION: Hyperinflation. Mild increased markings at the left lung base. This may represent left basilar atelectasis. Electronically Signed: Bienvenido Carmen MD at 10:44 EDT Tel [phone], Service support , - Physical Exam General: No apparent distress, - - Semi-lethargic, arousable and answering questions appropriately. cachectic HEENT: Atraumatic, Normocephalic, - Oral: No Gingival or Mucosal Lesions/ Ulcerations, Dry Mucosa, - - Circumoral and debris/crusting-has been NPO. edentulous Neck: Supple, No Nodes, Trachea Midline Lungs: - - Very diminished throughout, no appreciable rhonchi, wheezes, or rales. No tachypnea or accessory muscle use. Symmetric expansion, no dullness to percussion Cardiovascular: Regular rate, Regular Rhythm, Normal S1, Normal S2, No murmurs, No rub noted, No Gallop Abdomen: Bowel Sounds Present, Soft, Non Tender, Hernia Extremities: No cyanosis, No edema, Clubbing Skin: No rashes, No breakdown, - - Various scratches on face and arms Musculoskeletal: No Tenderness to Palpation of Joints or Extremities Lymphatic: No Cervical, Supraclavicular, or Inguinal Adenopathy Neurological: Cranial nerves II-XII grossly intact, Neuro grossly intact, Motor Exam 5/5 strength throughout Psych/Mental Status: - - Lethargic but arousable and conversing. Falls asleep easily. Agitated easily Vital Signs Temp Pulse Resp BP Pulse Ox 100 F H 107 H 31 H 119/65 99 03/19/18 11:12 03/19/18 11:12 03/19/18 11:12 03/19/18 11:12 03/19/18 11:12 Assessment/Plan RECOMMENDATIONS 1. Wean oxygen supplementation to keep saturations 88-92%. 2. Encourage incentive spirometer 3. Increase activity as tolerated, PT consult 4. Continue aerosols 5. Nicotine replacement therapy 6. Await infectious workup, antibiotics can likely be discontinued if normal 7. Continue steroid taper from outpatient prescription, then discontinue 8. Resume modified diet once more alert, baseline of mechanical soft nectar thickened liquids. ST 9. BiPAP at at bedtime as tolerated 10. Ambulatory pulse ox prior to discharge 11. Hospice/palliative care consultation IMPRESSIONS 1. Acute on chronic hypoxic and hypercarbic respiratory failure/COPD Does not appear to be in an acute COPD exacerbation at this time. Clinically improved after BiPAP initiation, currently on his baseline oxygen requirements of 3 L. Chest x-ray with no significant findings. Physical exam reveals no significant wheezing. Recently treated for pneumonia at an outside facility and currently on taper. Has chronic CO2 retention. Patient is also noncompliant with his modified diet, which puts him at a greater risk of recurrent pneumonia/aspiration. He is likely dehydrated, has dry mucous membranes. Received IVF in ED. He also [facility] Ativan at the [facility], apparently for his tachypnea/resp distress and became more lethargic. He is frequently hypoxic at the [facility]. Wean oxygen supplementation to keep saturations greater than 88-92%. Encourage IS, increase activity as tolerated. Continue steroid taper that he was previously on as an outpatient. Await infectious workup, antibiotics can likely be discontinued if normal. 2. ROLANDO/tobacco use disorder Patient noncompliant with NPPV. He wore BiPAP briefly in the ER but was lethargic, he does not wish to continue this while in the hospital. Patient also continues to smoke a significant amount and has no intention of quitting. Nicotine replacement therapy. 3. Dysphagia Chronic, supposed to be on modified diet of mechanical soft and nectar thickened liquids, however noncompliant. Did discuss the long-term effects of aspiration and likelihood of recurrent pneumonia. Also discussed CODE STATUS and plan moving forward. Patient and family is agreeable for palliative care/hospice consultation. 4. Aortic stenosis/TIA/schizophrenia/bipolar/PVD/hypertension/GERD/noncompliance Complicates care, management, recovery, and prognosis. Continue home medications as indicated. Thank you for the opportunity to participate in this patient's care, please do not hesitate contact us with any further questions or concerns. This note was generated with [employer] dictation software. It may contain incorrect words, spelling, and punctuation that were not noted in checking the note before signing.
--- NOTE | 2018-03-19 12:47 | CON.PCM_ITS ---
Problem List (1) Acute respiratory failure with hypoxia and hypercapnia Status: Acute (2) Chronic respiratory failure with hypoxia Status: Chronic (3) Tobacco use disorder Status: Chronic (4) Aortic valve insufficiency Status: Chronic (5) Bipolar affective disorder Status: Chronic (6) Dyslipidemia Status: Chronic (7) Dysphagia Status: Chronic Qualifiers: Comment: supposed to be on a mechanical soft diet with nectar thick liquids (8) GERD (gastroesophageal reflux disease) Status: Chronic Qualifiers: (9) HTN (hypertension) Status: Chronic Qualifiers: (10) History of alcoholism Status: Chronic (11) Noncompliance of patient with dietary regimen Status: Chronic Comment: mech soft, nectar thick liquids (12) Noncompliance with CPAP treatment Status: Chronic (13) PVD (peripheral vascular disease) Status: Chronic (14) Schizophrenia Status: Chronic Qualifiers: (15) Aortic stenosis, mild Status: Chronic Reason for Consult Date of Consultation: 03/19/18 Reason for Consultation: Respiratory failure History of Present Illness: The patient is a 67 year old M with a complicated past medical history including bipolar and schizophrenia, presented to the ED from [facility] with reported mental status changes and hypoxia at 71% on 3 L at his baseline oxygen supplementation. The patient was given Tylenol for fever of 102.1?F and Ativan. He did receive 3 aerosols at the retirement with improvement in his hypoxia to 87% on 3 L by the time the EMS arrived. The patient was in the ED on 03/16/18 with similar complaints, but was alert and stable enough to return to the retirement. The patient was also admitted to [facility] about 3 weeks ago with respiratory failure and questionable pneumonia, as well as abdominal pain. His family states he was treated with antibiotics and steroids at that time and has been on steroids ever since. Chest x-ray showed hyperinflation and possible left basilar atelectasis. There is no pleural abnormality. Blood work showed a leukocytosis of 16,500, however has been taking steroids. Hemoglobin was 11.3 and hematocrit 36.5. Platelets normal. Coags were normal. Chemistry remarkable for sodium of 135, potassium 5.2, chloride 95, serum bicarb of 39. Glucose elevated at 293. AST and ALT were low. Lactate normal at 1.6. Urinalysis positive for glucose and occult, otherwise unremarkable. ABG was performed on 3 L of oxygen and showed a pH 7.37 , PCO2 of 68, PO2 of 57, with a base excess of 14 and bicarb of 39.2 indicating compensated respiratory failure. The patient was given IV fluids, aerosols, Solu-Medrol and IV doxycycline, and placed on BiPAP with improvement in his mental status. Respiratory panel and urine/blood cultures were obtained. The patient was maintained on BiPAP. He was transferred to the progressive care unit for further management. Patient currently maintained on his baseline of 3 L. He is more alert and conversing. Patient had a normal stress test and echocardiogram in December 2017 that showed an estimated EF of 65%, mild concentric LVH, RVSP estimated 46 mmHg, and mild DAVID. Patient was last seen in the pulmonary clinic by Dr. Londono on . At that time, he was notably noncompliant with his modified diet, NPPV, and smoking cessation. Patient does take his oxygen off to smoke at the retirement. His family tells me that they do not buy cigarettes for him, however he bums off of other residents and actually smokes the butts of extinguished cigarettes from other residents. He also goes to the vending machines frequently to get energy drinks and does not thicken his fluids. Past Medical History Past Medical History (Chronic Problems): Chronic Problems (Last Reviewed 03/09/18 @ 08:37 by La Livingston) Bipolar affective disorder (Chronic) CVD (cerebrovascular disease) (Chronic) Dyslipidemia (Chronic) GERD (gastroesophageal reflux disease) (Chronic) HTN (hypertension) (Chronic) History of alcoholism (Chronic) PVD (peripheral vascular disease) (Chronic) Schizophrenia (Chronic) Tobacco use disorder (Chronic) History of TIA (transient ischemic attack) (Chronic) Chronic respiratory failure with hypoxia (Chronic) Obstructive sleep apnea (Chronic) Noncompliance with CPAP treatment (Chronic) Hypomagnesemia (Chronic) Dysphagia (Chronic) supposed to be on a mechanical soft diet with nectar thick liquids Aortic stenosis, mild (Chronic) Aortic valve insufficiency (Chronic) Edentulous (Chronic) Noncompliance of patient with dietary regimen (Chronic) [facility], nectar thick liquids Allergies No Known Allergies Allergy (Verified 12/25/17 00:31) Home Medications: Ambulatory Orders Medication Instructions Recorded Albuterol Inhaler [Ventolin Hfa] 1 puff INHALATION Q8 PRN 08/08/17 Aspirin 81 mg PO DAILY 08/08/17 Atorvastatin Calcium 40 mg PO QHS 08/08/17 Cilostazol 100 mg PO BID 08/08/17 Insulin Aspart [Novolog Flexpen] 0 - 15 units SC ACHS PRN 08/08/17 Insulin Detemir [Levemir] 10 unit SQ BREAKFAST 08/08/17 Insulin Detemir [Levemir] 18 unit SQ QHS 08/08/17 [place] Carbonate 600 mg PO DAILY 08/08/17 Mag Hydrox/Al Hydrox/Simeth 30 ml PO Q4H PRN PRN 08/08/17 [Mylanta II] Magnesium Oxide [Mag-Oxide 400 mg PO DAILY 08/08/17 Magnesium] Metformin HCl 1,000 mg PO BID 08/08/17 Metoprolol Tartrate [Lopressor 50 mg PO BID 08/08/17 (beta tia)] Omeprazole [Prilosec] 40 mg PO DAILY 08/08/17 Oxygen, Home [Home Oxygen] 3 lpm NASAL DAILY 08/08/17 Sodium Chloride [Saline Mist] 1 spray NASAL Q6H PRN 08/08/17 Fluticasone 0.05% [Flonase Nasal 1 spray NASAL DAILY 10/04/17 [place]] Cetirizine HCl [Zyrtec] 10 mg PO DAILY 10/21/17 Lactobacillus Acidophilus 1 ea PO BID 11/04/17 [Acidophilus] Albuterol Aerosols [Ventolin 2.5 mg INHALATION Q4H PRN PRN #1 11/10/17 Aerosols] vial.neb. Haloperidol Decanoate [Haldol 50 mg IM QMONTH 12/25/17 Decanoate 50] Lorazepam [Ativan] 1 mg PO Q4H PRN #8 tab 12/25/17 Losartan Potassium [Cozaar] 75 mg PO QHS tablet 12/25/17 Ferrous Sulfate 325 mg PO TID 01/24/18 Ipratropium/Albuterol Sulfate 3 ml INHALATION TID 01/24/18 [Duoneb] guaifenesin 400 mg tablet 400 mg PO TID tab 03/09/18 Loxapine Succinate [Loxapine] 25 mg PO QHS 03/19/18 Surgical History: colectomy, - - left shoulder surgery Psychiatric History: Bipolar, Schizophrenia Lives: [facility] Smoking Status: Current every day smoker Tobacco Use: Cigarettes Alcohol: Occasional Drugs: None - *Family History Maternal History Items: No pertinent history Paternal History Items: Cancer - Colon cancer Sibling History Items: COPD Review of Systems Constitutional: Reports: Anorexia, Chills, Fever, Malaise, Weakness, Fatigue. Denies: Night Sweats Eyes: Denies: Vision Change HEENT: Reports: Difficulty Swallowing, Dysphasia. Denies: Nasal Congestion, Post Nasal Drip, Sinus Congestion, Sore Throat Cardiovascular: Denies: Chest Pain, Chest Tightness, Edema, Light Headedness, Orthopnea, Palpitations, Paroxysmal Noc. Dyspnea, Syncope Respiratory: Reports: Shortness of breath upon exertion, Wheezing. Denies: Cough, Hemoptysis, Sputum production Gastrointestinal: Denies: Abdominal Pain, Constipation, Diarrhea, Dyspepsia, Hematemesis, Hematochezia, Nausea, Melena, Vomiting Genitourinary: Reports: Incontinence, Nocturia. Denies: Dysuria, Frequency, Hematuria Musculoskeletal: Reports: Back Pain - chronic Neurological: Reports: Difficulty swallowing, - - Chronic dysphagia/dysphasia. Denies: Change in Speech, Focal weakness, Numbness, Tingling, Tremor, Seizures Psychiatric: Reports: Depression, - - Bipolar/schizophrenic. Denies: Homicidal Ideations, Suicidal Ideations Endocrine: Denies: Change in Body Habitus, Polydipsia, Polyuria Hematologic/ Lymphatic: Reports: Anemia, Easy Bruising, Easy Bleeding. Denies: Adenopathy, Hx of blood clot Subjective: Patient was seen and examined, his sister Blanquita who is the POA is at the bedside. Patient semi-lethargic, he is asking for a Coke. Denies any current shortness of breath, cough, wheezing, nausea, vomiting, diarrhea. He feels warm. He becomes agitated when talking about smoking and diet modifications at the retirement. Objective: Clinical Impression(s) from Imaging Studies Chest X-Ray 03/19/18 09:35 IMPRESSION: Hyperinflation. Mild increased markings at the left lung base. This may represent left basilar atelectasis. Electronically Signed: Bienvenido Carmen MD at 10:44 EDT Tel [phone], Service support , - Physical Exam General: No apparent distress, - - Semi-lethargic, arousable and answering questions appropriately. cachectic HEENT: Atraumatic, Normocephalic, - Oral: No Gingival or Mucosal Lesions/ Ulcerations, Dry Mucosa, - - Circumoral and debris/crusting-has been NPO. edentulous Neck: Supple, No Nodes, Trachea Midline Lungs: - - Very diminished throughout, no appreciable rhonchi, wheezes, or rales. No tachypnea or accessory muscle use. Symmetric expansion, no dullness to percussion Cardiovascular: Regular rate, Regular Rhythm, Normal S1, Normal S2, No murmurs, No rub noted, No Gallop Abdomen: Bowel Sounds Present, Soft, Non Tender, Hernia Extremities: No cyanosis, No edema, Clubbing Skin: No rashes, No breakdown, - - Various scratches on face and arms Musculoskeletal: No Tenderness to Palpation of Joints or Extremities Lymphatic: No Cervical, Supraclavicular, or Inguinal Adenopathy Neurological: Cranial nerves II-XII grossly intact, Neuro grossly intact, Motor Exam 5/5 strength throughout Psych/Mental Status: - - Lethargic but arousable and conversing. Falls asleep easily. Agitated easily Vital Signs Temp Pulse Resp BP Pulse Ox 100 F H 107 H 31 H 119/65 99 03/19/18 11:12 03/19/18 11:12 03/19/18 11:12 03/19/18 11:12 03/19/18 11:12 Assessment/Plan RECOMMENDATIONS 1. Wean oxygen supplementation to keep saturations 88-92%. 2. Encourage incentive spirometer 3. Increase activity as tolerated, PT consult 4. Continue aerosols 5. Nicotine replacement therapy 6. Await infectious workup, antibiotics can likely be discontinued if normal 7. Continue steroid taper from outpatient prescription, then discontinue 8. Resume modified diet once more alert, baseline of mechanical soft nectar thickened liquids. ST 9. BiPAP at at bedtime as tolerated 10. Ambulatory pulse ox prior to discharge 11. Hospice/palliative care consultation IMPRESSIONS 1. Acute on chronic hypoxic and hypercarbic respiratory failure/COPD Does not appear to be in an acute COPD exacerbation at this time. Clinically improved after BiPAP initiation, currently on his baseline oxygen requirements of 3 L. Chest x-ray with no significant findings. Physical exam reveals no significant wheezing. Recently treated for pneumonia at an outside facility and currently on taper. Has chronic CO2 retention. Patient is also noncompliant with his modified diet, which puts him at a greater risk of recurrent pneumonia/aspiration. He is likely dehydrated, has dry mucous membranes. Received IVF in ED. He also received Ativan at the retirement, apparently for his tachypnea/resp distress and became more lethargic. He is frequently hypoxic at the retirement. Wean oxygen supplementation to keep saturations greater than 88-92%. Encourage IS, increase activity as tolerated. Continue steroid taper that he was previously on as an outpatient. Await infectious workup, antibiotics can likely be discontinued if normal. 2. ROLANDO/tobacco use disorder Patient noncompliant with NPPV. He wore BiPAP briefly in the ER but was lethargic, he does not wish to continue this while in the hospital. Patient also continues to smoke a significant amount and has no intention of quitting. Nicotine replacement therapy. 3. Dysphagia Chronic, supposed to be on modified diet of mechanical soft and nectar thickened liquids, however noncompliant. Did discuss the long-term effects of aspiration and likelihood of recurrent pneumonia. Also discussed CODE STATUS and plan moving forward. Patient and family is agreeable for palliative care/ hospice consultation. 4. Aortic stenosis/TIA/schizophrenia/bipolar/PVD/hypertension/GERD/ noncompliance Complicates care, management, recovery, and prognosis. Continue home medications as indicated. Thank you for the opportunity to participate in this patient's care, please do not hesitate contact us with any further questions or concerns. This note was generated with [employer] dictation software. It may contain incorrect words, spelling, and punctuation that were not noted in checking the note before signing.
[2018-03-19 14:06] LABS: Allen Test POS; Base Excess 11 mmol/L (-2 to +2); Bicarbonate 36.1 mmol/L (22-26); Blood Gas Specimen Type ART; O2 Delivery Device Nasal Can; PO2 104 mmHG (75-100); SITE R Radial; SO2 98 % (95-99); Time Given 1350; Total Carbon Dioxide 38 mmol/L; pCO2 63.6 mmHg (35-45); pH 7.36 (7.35-7.45)
--- NOTE | 2018-03-19 14:30 | CASEMGMT ---
Patient is from [facility]. SAL spoke with Randi at [facility] and she said patient does not need a pre-cert to return. 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 SAL told her he will likely return tomorrow. Green sheet on chart with instructions. Plan: d/c back to [facility] under intermediate level of care. Zaira FIGUEROA MSW
[2018-03-19] MEDS: CLARIFY ORDER NOTE (15:34)
[2018-03-19] MEDS: Ferrous Sulfate 325 MG Tablet PO (16:25)
[2018-03-19 16:40] LABS: Bedside Glucose > 500 mg/dL (70-110)
[2018-03-19 16:56] LABS: Glucose 428 mg/dL (74-106)
--- NOTE | 2018-03-19 17:42 | PCM.HP.STD ---
Problem List (1) Shortness of breath Status: Acute (2) Fever Status: Acute Qualifiers: Fever type: unspecified Qualified Code(s): R50.9 - Fever, unspecified History of Present Illness Date of Admission: 03/19/18 Chief Complaint: Shortness of breath, fever, low pulse ox The patient is a 67 year old M who was seen in the emergency room at [facility] after being sent in from a local extended care facility at which she resides with complaints of shortness of breath, low pulse ox on 3 L at 71%, and temperature of 102.1. Patient's mental status was poor on admission to the emergency room, he was very lethargic and was not able to respond to questions, blood gases were obtained on 3 L, pH was 7.37, PCO2 was 68, PO2 is 57. Other labs included a white blood cell count which was elevated at 16.5, glucose was 293, and lithium was 0.8. I was not able to obtain any history from the patient due to his lethargy and altered mental status. Chest x-ray obtained does not show an active infiltrate, temperature was 100.1. Patient was placed on BiPAP, he was given IV Vibramycin in the emergency room, he will be admitted to PCU for acute combined respiratory failure on chronic combined respiratory failure. IV Solu-Medrol was given in the emergency room and this will be continued on the floor, blood sugars will be monitored and insulin will be given as needed. Pulmonary medicine was contacted and will participate in his care Past Medical History Past Medical History (Chronic Problems): Chronic Problems (Last Reviewed 03/09/18 @ 08:37 by La Livingston) Bipolar affective disorder (Chronic) CVD (cerebrovascular disease) (Chronic) Dyslipidemia (Chronic) GERD (gastroesophageal reflux disease) (Chronic) HTN (hypertension) (Chronic) History of alcoholism (Chronic) PVD (peripheral vascular disease) (Chronic) Schizophrenia (Chronic) Tobacco use disorder (Chronic) History of TIA (transient ischemic attack) (Chronic) Chronic respiratory failure with hypoxia (Chronic) Obstructive sleep apnea (Chronic) Noncompliance with CPAP treatment (Chronic) Hypomagnesemia (Chronic) Dysphagia (Chronic) supposed to be on a mechanical soft diet with nectar thick liquids Aortic stenosis, mild (Chronic) Aortic valve insufficiency (Chronic) Edentulous (Chronic) Noncompliance of patient with dietary regimen (Chronic) mech soft, nectar thick liquids Allergies No Known Allergies Allergy (Verified 12/25/17 00:31) Home Medications: Ambulatory Orders Medication Instructions Recorded Albuterol Inhaler [Ventolin Hfa] 1 puff INHALATION Q8 PRN 08/08/17 Aspirin 81 mg PO DAILY 08/08/17 Atorvastatin Calcium 40 mg PO QHS 08/08/17 Cilostazol 100 mg PO BID 08/08/17 Insulin Aspart [Novolog Flexpen] 0 - 15 units SC ACHS PRN 08/08/17 Insulin Detemir [Levemir] 10 unit SQ BREAKFAST 08/08/17 Insulin Detemir [Levemir] 18 unit SQ QHS 08/08/17 [place] Carbonate 600 mg PO DAILY 08/08/17 Mag Hydrox/Al Hydrox/Simeth 30 ml PO Q4H PRN PRN 08/08/17 [Mylanta II] Magnesium Oxide [Mag-Oxide 400 mg PO DAILY 08/08/17 Magnesium] Metformin HCl 1,000 mg PO BID 08/08/17 Metoprolol Tartrate [Lopressor 50 mg PO BID 08/08/17 (beta tia)] Omeprazole [Prilosec] 40 mg PO DAILY 08/08/17 Oxygen, Home [Home Oxygen] 3 lpm NASAL DAILY 08/08/17 Sodium Chloride [Saline Mist] 1 spray NASAL Q6H PRN 08/08/17 Fluticasone 0.05% [Flonase Nasal 1 spray NASAL DAILY 10/04/17 [place]] Cetirizine HCl [Zyrtec] 10 mg PO DAILY 10/21/17 Lactobacillus Acidophilus 1 ea PO BID 11/04/17 [Acidophilus] Albuterol Aerosols [Ventolin 2.5 mg INHALATION Q4H PRN PRN #1 11/10/17 Aerosols] vial.neb. Haloperidol Decanoate [Haldol 50 mg IM QMONTH 12/25/17 Decanoate 50] Lorazepam [Ativan] 1 mg PO Q4H PRN #8 tab 12/25/17 Losartan Potassium [Cozaar] 75 mg PO QHS tablet 12/25/17 Ferrous Sulfate 325 mg PO TID 01/24/18 Ipratropium/Albuterol Sulfate 3 ml INHALATION TID 01/24/18 [Duoneb] guaifenesin 400 mg tablet 400 mg PO TID tab 03/09/18 Loxapine Succinate [Loxapine] 25 mg PO QHS 03/19/18 Surgical History: colectomy, - - left shoulder surgery Psychiatric History: Bipolar, Schizophrenia Lives: [facility] Smoking Status: Current every day smoker Tobacco Use: Cigarettes Alcohol: Occasional Drugs: None - *Family History Maternal History Items: No pertinent history Paternal History Items: Cancer - Colon cancer Sibling History Items: COPD Review of Systems Comment: Review of systems was unobtainable at the time of my examination due to the patient's altered level of consciousness and respiratory distress, patient was on BiPAP at the time of my examination VTE Information - Inpt Only VTE Present on Admission: No VTE Mechan Device Prophylaxis: None VTE Pharm Prophylaxis ordered?: Yes Patient Problems: Active and Suspected Problems (Last Reviewed 03/09/18 @ 08:37 by La Livingston) Shortness of breath (Acute) Fever (Acute) - Physical Exam General: Well developed, Confused, Lethargic HEENT: Atraumatic, PERRLA, EOMI Oral: Moist Mucosa Neck: Supple, No JVD, Negative Carotid Bruits, No Nuchal Rigidity, Trachea Midline, Thyroid Normal Size and Texture Lungs: No rhonchi, No rales, Diminished, Short of Breath Cardiovascular: PMI Normal, No rub noted, No Gallop, Tachycardic Abdomen: Bowel Sounds Present, Soft, Non Tender, Non-Distended, No hernias noted Extremities: No clubbing, No cyanosis, No edema, Capillary Refill Less than 3 Seconds Skin: No rashes, No breakdown Musculoskeletal: No Tenderness to Palpation of Joints or Extremities Neurological: Cranial nerves II-XII grossly intact, Neuro grossly intact, Sensory exam intact to light touch and pain Psych/Mental Status: - - Patient is lethargic and confused Vital Signs Temp Pulse Resp BP Pulse Ox 99.9 F H 121 H 24 H 127/63 H 98 03/19/18 12:57 03/19/18 16:54 03/19/18 16:54 03/19/18 12:57 03/19/18 16:54 Oxygen Flow Rate (L/min) 2 Oxygen Delivery Method Nasal Cannula Weight: 53.7 kg Body Mass Index (BMI) 19.7 Microbiology Past 72 Hours 03/19/18 14:15 Gram Stain - Final Sputum, Expectorated/Coughed Laboratory Tests Past 24 Hrs 03/19/18 03/19/18 14:02 16:29 Specimen Type ART Sample Site R Radial pH 7.36 Bicarbonate Actual 36.1 H POC Total CO2 38 Base Excess 11 H O2 Saturation 98 ABG pCO2 63.6 H ABG pO2 104 H Ney Test POS O2 Delivery Device Nasal Can Liter Flow 3.0 Blood Gas Notified Whom HOSP Blood Gas Notified Time 1350 Glucose 428 H POC Glucose 03/19/18 16:12 POC Glucose > 500 H* Assessment/Plan Active and Suspected Problems (Last Reviewed 03/09/18 @ 08:37 by La Livingston) Shortness of breath (Acute) Fever (Acute) #1 acute combined respiratory failure on chronic combined respiratory failure-patient will be admitted to PCU, he will remain on BiPAP, he will be seen by pulmonary medicine, pulse ox will be monitored #2 acute exacerbation of COPD-IV Solu-Medrol will be given, aggressive aerosol treatments will be given, patient will remain on IV Vibramycin for now #3 type 2 diabetes-blood sugars will be monitored, sliding scale insulin will be used, patient is n.p.o. at this time #4 schizophrenia #5 bipolar disorder #6 leukocytosis-probably secondary to recent prednisone usage in the residential Code Visit Inpatient E&M: [id number] Init Hosp L3
--- NOTE | 2018-03-19 17:52 | HP.PCM_ITS ---
Problem List (1) Shortness of breath Status: Acute (2) Fever Status: Acute Qualifiers: Fever type: unspecified Qualified Code(s): R50.9 - Fever, unspecified History of Present Illness Date of Admission: 03/19/18 Chief Complaint: Shortness of breath, fever, low pulse ox The patient is a 67 year old M who was seen in the emergency room at [facility] after being sent in from a local extended care facility at which she resides with complaints of shortness of breath, low pulse ox on 3 L at 71%, and temperature of 102.1. Patient's mental status was poor on admission to the emergency room, he was very lethargic and was not able to respond to questions, blood gases were obtained on 3 L, pH was 7.37, PCO2 was 68 , PO2 is 57. Other labs included a white blood cell count which was elevated at 16.5, glucose was 293, and lithium was 0.8. I was not able to obtain any history from the patient due to his lethargy and altered mental status. Chest x -ray obtained does not show an active infiltrate, temperature was 100.1. Patient was placed on BiPAP, he was given IV Vibramycin in the emergency room, he will be admitted to PCU for acute combined respiratory failure on chronic combined respiratory failure. IV Solu-Medrol was given in the emergency room and this will be continued on the floor, blood sugars will be monitored and insulin will be given as needed. Pulmonary medicine was contacted and will participate in his care Past Medical History Past Medical History (Chronic Problems): Chronic Problems (Last Reviewed 03/09/18 @ 08:37 by La Livingston) Bipolar affective disorder (Chronic) CVD (cerebrovascular disease) (Chronic) Dyslipidemia (Chronic) GERD (gastroesophageal reflux disease) (Chronic) HTN (hypertension) (Chronic) History of alcoholism (Chronic) PVD (peripheral vascular disease) (Chronic) Schizophrenia (Chronic) Tobacco use disorder (Chronic) History of TIA (transient ischemic attack) (Chronic) Chronic respiratory failure with hypoxia (Chronic) Obstructive sleep apnea (Chronic) Noncompliance with CPAP treatment (Chronic) Hypomagnesemia (Chronic) Dysphagia (Chronic) supposed to be on a mechanical soft diet with nectar thick liquids Aortic stenosis, mild (Chronic) Aortic valve insufficiency (Chronic) Edentulous (Chronic) Noncompliance of patient with dietary regimen (Chronic) mech soft, nectar thick liquids Allergies No Known Allergies Allergy (Verified 12/25/17 00:31) Home Medications: Ambulatory Orders Medication Instructions Recorded Albuterol Inhaler [Ventolin Hfa] 1 puff INHALATION Q8 PRN 08/08/17 Aspirin 81 mg PO DAILY 08/08/17 Atorvastatin Calcium 40 mg PO QHS 08/08/17 Cilostazol 100 mg PO BID 08/08/17 Insulin Aspart [Novolog Flexpen] 0 - 15 units SC ACHS PRN 08/08/17 Insulin Detemir [Levemir] 10 unit SQ BREAKFAST 08/08/17 Insulin Detemir [Levemir] 18 unit SQ QHS 08/08/17 [place] Carbonate 600 mg PO DAILY 08/08/17 Mag Hydrox/Al Hydrox/Simeth 30 ml PO Q4H PRN PRN 08/08/17 [Mylanta II] Magnesium Oxide [Mag-Oxide 400 mg PO DAILY 08/08/17 Magnesium] Metformin HCl 1,000 mg PO BID 08/08/17 Metoprolol Tartrate [Lopressor 50 mg PO BID 08/08/17 (beta tia)] Omeprazole [Prilosec] 40 mg PO DAILY 08/08/17 Oxygen, Home [Home Oxygen] 3 lpm NASAL DAILY 08/08/17 Sodium Chloride [Saline Mist] 1 spray NASAL Q6H PRN 08/08/17 Fluticasone 0.05% [Flonase Nasal 1 spray NASAL DAILY 10/04/17 [place]] Cetirizine HCl [Zyrtec] 10 mg PO DAILY 10/21/17 Lactobacillus Acidophilus 1 ea PO BID 11/04/17 [Acidophilus] Albuterol Aerosols [Ventolin 2.5 mg INHALATION Q4H PRN PRN #1 11/10/17 Aerosols] vial.neb. Haloperidol Decanoate [Haldol 50 mg IM QMONTH 12/25/17 Decanoate 50] Lorazepam [Ativan] 1 mg PO Q4H PRN #8 tab 12/25/17 Losartan Potassium [Cozaar] 75 mg PO QHS tablet 12/25/17 Ferrous Sulfate 325 mg PO TID 01/24/18 Ipratropium/Albuterol Sulfate 3 ml INHALATION TID 01/24/18 [Duoneb] guaifenesin 400 mg tablet 400 mg PO TID tab 03/09/18 Loxapine Succinate [Loxapine] 25 mg PO QHS 03/19/18 Surgical History: colectomy, - - left shoulder surgery Psychiatric History: Bipolar, Schizophrenia Lives: Intermediate Smoking Status: Current every day smoker Tobacco Use: Cigarettes Alcohol: Occasional Drugs: None - *Family History Maternal History Items: No pertinent history Paternal History Items: Cancer - Colon cancer Sibling History Items: COPD Review of Systems Comment: Review of systems was unobtainable at the time of my examination due to the patient's altered level of consciousness and respiratory distress, patient was on BiPAP at the time of my examination VTE Information - Inpt Only VTE Present on Admission: No VTE Mechan Device Prophylaxis: None VTE Pharm Prophylaxis ordered?: Yes Patient Problems: Active and Suspected Problems (Last Reviewed 03/09/18 @ 08:37 by La Livingston ) Shortness of breath (Acute) Fever (Acute) - Physical Exam General: Well developed, Confused, Lethargic HEENT: Atraumatic, PERRLA, EOMI Oral: Moist Mucosa Neck: Supple, No JVD, Negative Carotid Bruits, No Nuchal Rigidity, Trachea Midline, Thyroid Normal Size and Texture Lungs: No rhonchi, No rales, Diminished, Short of Breath Cardiovascular: PMI Normal, No rub noted, No Gallop, Tachycardic Abdomen: Bowel Sounds Present, Soft, Non Tender, Non-Distended, No hernias noted Extremities: No clubbing, No cyanosis, No edema, Capillary Refill Less than 3 Seconds Skin: No rashes, No breakdown Musculoskeletal: No Tenderness to Palpation of Joints or Extremities Neurological: Cranial nerves II-XII grossly intact, Neuro grossly intact, Sensory exam intact to light touch and pain Psych/Mental Status: - - Patient is lethargic and confused Vital Signs Temp Pulse Resp BP Pulse Ox 99.9 F H 121 H 24 H 127/63 H 98 03/19/18 12:57 03/19/18 16:54 03/19/18 16:54 03/19/18 12:57 03/19/18 16:54 Oxygen Flow Rate (L/min) 2 Oxygen Delivery Method Nasal Cannula Weight: 53.7 kg Body Mass Index (BMI) 19.7 Microbiology Past 72 Hours 03/19/18 14:15 Gram Stain - Final Sputum, Expectorated/Coughed Laboratory Tests Past 24 Hrs 03/19/18 03/19/18 14:02 16:29 Specimen Type ART Sample Site R Radial pH 7.36 Bicarbonate Actual 36.1 H POC Total CO2 38 Base Excess 11 H O2 Saturation 98 ABG pCO2 63.6 H ABG pO2 104 H Ney Test POS O2 Delivery Device Nasal Can Liter Flow 3.0 Blood Gas Notified Whom HOSP Blood Gas Notified Time 1350 Glucose 428 H POC Glucose 03/19/18 16:12 POC Glucose > 500 H* Assessment/Plan Active and Suspected Problems (Last Reviewed 03/09/18 @ 08:37 by La Livingston ) Shortness of breath (Acute) Fever (Acute) #1 acute combined respiratory failure on chronic combined respiratory failure- patient will be admitted to PCU, he will remain on BiPAP, he will be seen by pulmonary medicine, pulse ox will be monitored #2 acute exacerbation of COPD-IV Solu-Medrol will be given, aggressive aerosol treatments will be given, patient will remain on IV Vibramycin for now #3 type 2 diabetes-blood sugars will be monitored, sliding scale insulin will be used, patient is n.p.o. at this time #4 schizophrenia #5 bipolar disorder #6 leukocytosis-probably secondary [facility] Code Visit Inpatient E&M: 32171 Init Hosp L3
--- NOTE | 2018-03-19 20:09 | NURSING ---
Updated heater worker nurse that when inserting order for Azithromycin a warning appeared for possible drug interaction with Pletal that can cause torsades and that Dr. Ferrara needs to be made aware to see if he wants to continue the Azithromycin. heater worker to inform primary care nurse.
--- NOTE | 2018-03-19 20:15 | NURSING ---
Informed primary RN that andre TAM notified this teacher theater arts that there was an interaction with azithromycin and pletal that it could cause torsades and that she needed to notify Dr. Ferrara and ask if he wanted the azithromycin to be continued
[2018-03-19] MEDS: Cilostazol 50 MG Tablet 100 MG PO (22:35)
[2018-03-19] MEDS: Heparin Injection (Vial) 5,000 UNIT/ML VIAL 5000 UNIT SC (22:35)
[2018-03-19] MEDS: Doxycycline 100 MG CAPSULE PO (22:35)
[2018-03-19] MEDS: LOXAPINE SUCCINATE 25 MG CAPSULE PO (22:36)
[2018-03-19] MEDS: Metoprolol Tartrate 50 MG Tablet PO (22:36)
[2018-03-19] MEDS: Atorvastatin Calcium 40 MG Tablet PO (22:36)
[2018-03-19] MEDS: Ceftriaxone 1 GM/50 ML BAG IV (22:37)
[2018-03-19 23:36] LABS: Bedside Glucose 340 mg/dL (70-110)
[2018-03-20] VITALS (12 sets, daily range): BP systolic 108–141; BP diastolic 54–64; PULSE 70–101; RESP 14–20; TEMP 36.4–36.7; O2SAT 91–97
[2018-03-20] MEDS: Ipratropium/Albuterol Sulfate 3 ML AMPUL.NEB INHALATION ×3 (03:04→10:50)
--- NOTE | 2018-03-20 03:40 | RAD_ITS ---
STUDY: X-RAY CHEST REASON FOR EXAM: Male, 67 years old. Dyspnea TECHNIQUE: Single AP portable view of the chest. COMPARISON: None. FINDINGS: The lungs are clear and expanded. There is no demonstrated pleural abnormality. Normal size heart. Normal mediastinum and dennise. Normal visualized pulmonary arteries. There is atherosclerotic calcification of the aortic arch with tortuosity. Normal visualized thoracic spine. There is degenerative osteoarthritis of the bilateral shoulders.Healed right fifth, sixth, seventh rib fractures. There is no demonstrated abnormality of the visualized soft tissue structures of the upper abdomen. RAD/Chest 1 View (Portable) IMPRESSION: Degenerative changes, as described above. No demonstrated acute cardiopulmonary process. Electronically Signed: Sabine Castelan MD at 6:25 EDT Tel , Service support ,
[2018-03-20] MEDS: 0.9% NaCl Peripheral Flush Adult/Peds IV (05:21)
[2018-03-20] MEDS: Cilostazol 50 MG Tablet 100 MG PO (06:47)
[2018-03-20 07:07] LABS: Hematocrit 31.3 % (40-54); Mean Corp Hgb Conc 31.9 g/gl (32-36); Mean Corpuscular Hgb 30.5 pg (27.0-32.0); Mean Corpuscular Volume 95.4 fL (80-94); Mean Platelet Vol. 10.3 fl (6.2-12.0); Platelet Count 175 K/mm3 (150-450); RBC Distribution Width CV 13.8 % (11.6-14.6); RBC Distribution Width SD 45.8 fl (35.1-43.9); Red Blood Count 3.28 M/mm3 (4.6-6.2)
--- NOTE | 2018-03-20 07:08 | PCM.PROGNOTE ---
Patient Problems: Active and Suspected Problems (Last Reviewed 03/09/18 @ 08:37 by La Livingston) Shortness of breath (Acute) Fever (Acute) Subjective: Patient did okay overnight. Patient did have dyspnea overnight requiring BiPAP rescue. Patient reportedly has been taking thin liquids overnight. Patient denies any dyspnea at this time. Patient did not have any pain overnight. - Physical Exam General: Alert, Cooperative, No apparent distress, - - Speaking in full sentences. No conversational dyspnea appreciated. HEENT: Atraumatic, PERRLA, EOMI, Normocephalic, - - No scleral icterus or injection noted. Oral: Moist Mucosa, - - Edentulous. Neck: Supple, No JVD, No Nodes, Trachea Midline Lungs: No wheeze, No rales, Diminished, Rhonchi - Right base, - - Metric expansion. No dullness to percussion. Cardiovascular: Regular rate, Regular Rhythm, Normal S1, Normal S2, No murmurs, No rub noted, No Gallop Abdomen: Bowel Sounds Present, Soft, Non Tender, Non-Distended Extremities: No cyanosis, No edema, Capillary Refill Less than 3 Seconds, Clubbing Skin: No rashes, No breakdown Musculoskeletal: No Tenderness to Palpation of Joints or Extremities Lymphatic: No Cervical, Supraclavicular, or Inguinal Adenopathy Neurological: Cranial nerves II-XII grossly intact, Neuro grossly intact, Motor Exam 5/5 strength throughout Psych/Mental Status: Normal Affect, Appropriate Vital Signs Temp Pulse Resp BP Pulse Ox 36.4 C L 83 15 141/63 H 97 03/20/18 04:59 03/20/18 04:59 03/20/18 04:59 03/20/18 04:59 03/20/18 04:59 Oxygen Flow Rate (L/min) 2 Oxygen Delivery Method Nasal Cannula Weight: 53.7 kg Body Mass Index (BMI) 19.7 Intake and Output for Last 24 Hours 03/18/18 03/19/18 03/20/18 23:59 23:59 23:59 Intake Total 2203.5 / 2203.5 528.5 / 528.5 Output Total 1600 / 1600 260 / 260 Balance 603.5 / 603.5 268.5 / 268.5 Microbiology Past 72 Hours 03/19/18 14:15 Gram Stain - Final Sputum, Expectorated/Coughed Laboratory Tests Past 24 Hrs 03/19/18 03/19/18 03/20/18 14:02 16:29 06:40 WBC Pending RBC Pending Hgb Pending Hct Pending MCV Pending MCH Pending MCHC Pending RDW Pending RDW Differential Pending Plt Count Pending Specimen Type ART Sample Site R Radial pH 7.36 Bicarbonate Actual 36.1 H POC Total CO2 38 Base Excess 11 H O2 Saturation 98 ABG pCO2 63.6 H ABG pO2 104 H Ney Test POS O2 Delivery Device Nasal Can Liter Flow 3.0 Blood Gas Notified Whom [facility] Blood Gas Notified Time 1350 Sodium Potassium Chloride Carbon Dioxide Anion Gap BUN Creatinine Est GFR (MDRD) Af Amer Est GFR (MDRD) Non-Af BUN/Creatinine Ratio Glucose 428 H Calcium 03/20/18 06:40 WBC RBC Hgb Hct MCV MCH MCHC RDW RDW Differential Plt Count Specimen Type Sample Site pH Bicarbonate Actual POC Total CO2 Base Excess O2 Saturation ABG pCO2 ABG pO2 Ney Test O2 Delivery Device Liter Flow Blood Gas Notified Whom Blood Gas Notified Time Sodium Pending Potassium Pending Chloride Pending Carbon Dioxide Pending Anion Gap Pending BUN Pending Creatinine Pending Est GFR (MDRD) Af Amer Pending Est GFR (MDRD) Non-Af Pending BUN/Creatinine Ratio Pending Glucose Pending Calcium Pending POC Glucose 03/19/18 03/19/18 22:29 16:12 POC Glucose 340 H > 500 H* Clinical Impression(s) from Imaging Studies Chest X-Ray 03/19/18 09:35 IMPRESSION: Hyperinflation. Mild increased markings at the left lung base. This may represent left basilar atelectasis. Electronically Signed: Bienvenido Carmen MD at 10:44 EDT Tel [phone], Service support , Medical Necessity - Tobacco Use Smoking Status: Current every day smoker Tobacco Use: Cigarettes Assessment/Plan Active and Suspected Problems (Last Reviewed 03/09/18 @ 08:37 by La Livingston) Shortness of breath (Acute) Fever (Acute) RECOMMENDATIONS 1. Wean oxygen supplementation to keep saturations 88-92%. 2. Encourage incentive spirometer 3. Increase activity as tolerated, PT consult 4. Continue aerosols, discontinue antibiotics at 48 hours if culture negative 5. Nicotine replacement therapy 6. Continue steroid taper from outpatient prescription, then discontinue 7. Transition to mechanical soft nectar thick liquids if patient wants aggressive therapy 8. Await hospice palliative care discussion IMPRESSIONS 1. Acute on chronic hypoxic and hypercarbic respiratory failure/COPD Patient with recurrent exacerbation secondary to pneumonia with underlying COPD. Patient readily admits to not complying with modified diet leading to recurrent aspirations. Patient likely has an element of chemical pneumonitis given edentulous state. Patient currently on thin liquids secondary to discussions about comfort measures. If patient were to decide for aggressive measures, modify diet should be reenacted. Patient can use BiPAP rescue if necessary if this adds comfort 2. ROLANDO/tobacco use disorder Patient noncompliant with NPPV. She did wear BiPAP overnight. Patient also continues to smoke a significant amount and has no intention of quitting. Nicotine replacement therapy. 3. Dysphagia Chronic, supposed to be on modified diet of mechanical soft and nectar thickened liquids, however noncompliant. Did discuss the long-term effects of aspiration and likelihood of recurrent pneumonia. Also discussed CODE STATUS and plan moving forward. Patient and family is agreeable for palliative care/hospice consultation. 4. Aortic stenosis/TIA/schizophrenia/bipolar/PVD/hypertension/GERD/noncompliance Complicates care, management, recovery, and prognosis. Continue home medications as indicated. Thank you for the opportunity to participate in this patient's care, please do not hesitate contact us with any further questions or concerns. This note was generated with [employer] dictation software. It may contain incorrect words, spelling, and punctuation that were not noted in checking the note before signing. Code Visit Inpatient E&M: 25420 Subs Hosp L3
[2018-03-20 07:11] LABS: Scan Indicated on CBC? Y/N NO
--- NOTE | 2018-03-20 07:16 | PN_ITS ---
Patient Problems: Active and Suspected Problems (Last Reviewed 03/09/18 @ 08:37 by La Livingston ) Shortness of breath (Acute) Fever (Acute) Subjective: Patient did okay overnight. Patient did have dyspnea overnight requiring BiPAP rescue. Patient reportedly has been taking thin liquids overnight. Patient denies any dyspnea at this time. Patient did not have any pain overnight. - Physical Exam General: Alert, Cooperative, No apparent distress, - - Speaking in full sentences. No conversational dyspnea appreciated. HEENT: Atraumatic, PERRLA, EOMI, Normocephalic, - - No scleral icterus or injection noted. Oral: Moist Mucosa, - - Edentulous. Neck: Supple, No JVD, No Nodes, Trachea Midline Lungs: No wheeze, No rales, Diminished, Rhonchi - Right base, - - Metric expansion. No dullness to percussion. Cardiovascular: Regular rate, Regular Rhythm, Normal S1, Normal S2, No murmurs, No rub noted, No Gallop Abdomen: Bowel Sounds Present, Soft, Non Tender, Non-Distended Extremities: No cyanosis, No edema, Capillary Refill Less than 3 Seconds, Clubbing Skin: No rashes, No breakdown Musculoskeletal: No Tenderness to Palpation of Joints or Extremities Lymphatic: No Cervical, Supraclavicular, or Inguinal Adenopathy Neurological: Cranial nerves II-XII grossly intact, Neuro grossly intact, Motor Exam 5/5 strength throughout Psych/Mental Status: Normal Affect, Appropriate Vital Signs Temp Pulse Resp BP Pulse Ox 36.4 C L 83 15 141/63 H 97 03/20/18 04:59 03/20/18 04:59 03/20/18 04:59 03/20/18 04:59 03/20/18 04:59 Oxygen Flow Rate (L/min) 2 Oxygen Delivery Method Nasal Cannula Weight: 53.7 kg Body Mass Index (BMI) 19.7 Intake and Output for Last 24 Hours 03/18/18 03/19/18 03/20/18 23:59 23:59 23:59 Intake Total 2203.5 / 2203.5 528.5 / 528.5 Output Total 1600 / 1600 260 / 260 Balance 603.5 / 603.5 268.5 / 268.5 Microbiology Past 72 Hours 03/19/18 14:15 Gram Stain - Final Sputum, Expectorated/Coughed Laboratory Tests Past 24 Hrs 03/19/18 03/19/18 03/20/18 14:02 16:29 06:40 WBC Pending RBC Pending Hgb Pending Hct Pending MCV Pending MCH Pending MCHC Pending RDW Pending RDW Differential Pending Plt Count Pending Specimen Type ART Sample Site R Radial pH 7.36 Bicarbonate Actual 36.1 H POC Total CO2 38 Base Excess 11 H O2 Saturation 98 ABG pCO2 63.6 H ABG pO2 104 H Ney Test POS O2 Delivery Device Nasal Can Liter Flow 3.0 Blood Gas Notified Whom [facility] Blood Gas Notified Time 1350 Sodium Potassium Chloride Carbon Dioxide Anion Gap BUN Creatinine Est GFR (MDRD) Af Amer Est GFR (MDRD) Non-Af BUN/Creatinine Ratio Glucose 428 H Calcium 03/20/18 06:40 WBC RBC Hgb Hct MCV MCH MCHC RDW RDW Differential Plt Count Specimen Type Sample Site pH Bicarbonate Actual POC Total CO2 Base Excess O2 Saturation ABG pCO2 ABG pO2 Ney Test O2 Delivery Device Liter Flow Blood Gas Notified Whom Blood Gas Notified Time Sodium Pending Potassium Pending Chloride Pending Carbon Dioxide Pending Anion Gap Pending BUN Pending Creatinine Pending Est GFR (MDRD) Af Amer Pending Est GFR (MDRD) Non-Af Pending BUN/Creatinine Ratio Pending Glucose Pending Calcium Pending POC Glucose 03/19/18 03/19/18 22:29 16:12 POC Glucose 340 H > 500 H* Clinical Impression(s) from Imaging Studies Chest X-Ray 03/19/18 09:35 IMPRESSION: Hyperinflation. Mild increased markings at the left lung base. This may represent left basilar atelectasis. Electronically Signed: Bienvenido Carmen MD at 10:44 EDT Tel [phone], Service support , Medical Necessity - Tobacco Use Smoking Status: Current every day smoker Tobacco Use: Cigarettes Assessment/Plan Active and Suspected Problems (Last Reviewed 03/09/18 @ 08:37 by La Livingston ) Shortness of breath (Acute) Fever (Acute) RECOMMENDATIONS 1. Wean oxygen supplementation to keep saturations 88-92%. 2. Encourage incentive spirometer 3. Increase activity as tolerated, PT consult 4. Continue aerosols, discontinue antibiotics at 48 hours if culture negative 5. Nicotine replacement therapy 6. Continue steroid taper from outpatient prescription, then discontinue 7. Transition to mechanical soft nectar thick liquids if patient wants aggressive therapy 8. Await hospice palliative care discussion IMPRESSIONS 1. Acute on chronic hypoxic and hypercarbic respiratory failure/COPD Patient with recurrent exacerbation secondary to pneumonia with underlying COPD. Patient readily admits to not complying with modified diet leading to recurrent aspirations. Patient likely has an element of chemical pneumonitis given edentulous state. Patient currently on thin liquids secondary to discussions about comfort measures. If patient were to decide for aggressive measures, modify diet should be reenacted. Patient can use BiPAP rescue if necessary if this adds comfort 2. ROLANDO/tobacco use disorder Patient noncompliant with NPPV. She did wear BiPAP overnight. Patient also continues to smoke a significant amount and has no intention of quitting. Nicotine replacement therapy. 3. Dysphagia Chronic, supposed to be on modified diet of mechanical soft and nectar thickened liquids, however noncompliant. Did discuss the long-term effects of aspiration and likelihood of recurrent pneumonia. Also discussed CODE STATUS and plan moving forward. Patient and family is agreeable for palliative care/ hospice consultation. 4. Aortic stenosis/TIA/schizophrenia/bipolar/PVD/hypertension/GERD/ noncompliance Complicates care, management, recovery, and prognosis. Continue home medications as indicated. Thank you for the opportunity to participate in this patient's care, please do not hesitate contact us with any further questions or concerns. This note was generated with [employer] dictation software. It may contain incorrect words, spelling, and punctuation that were not noted in checking the note before signing. Code Visit Inpatient E&M: 85872 Subs Hosp L3
[2018-03-20 07:26] LABS: Bedside Glucose 159 mg/dL (70-110)
[2018-03-20 08:20] LABS: Anion Gap 4 (5-15); BUN 15 mg/dL (7-18); Calcium,Total 8.9 mg/dL (8.5-10.1); Chloride 97 mmol/L (98-107); Creatinine, Serum 0.56 mg/dL (0.70-1.30); EST Glomerular Filtration Rate 157 mL/min (>60); Est Glom Filt Rate - Afr Amer 190 mL/min (>60); Estimated Creatinine Clearance 99.89 ml/min; Glucose 149 mg/dL (74-106); Sodium Level 138 mmol/L (136-145)
[2018-03-20] MEDS: Doxycycline 100 MG CAPSULE PO (09:03)
[2018-03-20] MEDS: Aspirin 81 MG TAB.CHEW PO (09:03)
[2018-03-20] MEDS: Metoprolol Tartrate 50 MG Tablet PO (09:03)
[2018-03-20] MEDS: Lithium Carbonate 300mg Capsule 600 MG PO (09:03)
[2018-03-20] MEDS: Ferrous Sulfate 325 MG Tablet PO ×2 (09:04→11:56)
[2018-03-20] MEDS: Pantoprazole Sodium 40 MG Tablet PO (09:04)
[2018-03-20] MEDS: Losartan Potassium 25 MG Tablet 75 MG PO (09:04)
[2018-03-20] MEDS: Heparin Injection (Vial) 5,000 UNIT/ML VIAL 5000 UNIT SC (09:05)
--- NOTE | 2018-03-20 10:26 | CASEMGMT ---
SOCIAL WORK: Phone call received from RN, Jules, to report that Dr. Fisher is requesting for Hospice to meet with patient and sister, Blanquita, prior to his return to [facility] this date. This SW initiated contact with sister, Blanquita, to discuss above. She reports that her sister has already taken care of this and reports that her sister works at [facility] and has made arrangements with a different Hospice. Sister agreed to call this SW back with details; contact information provided to sister. [place] [place]
--- NOTE | 2018-03-20 11:37 | TREXTCAR_ITS ---
- Diet 03/19/18 14:18 Diet: Calorie Controlled Food consistency:: Mechanical Soft/Ground Liquid Consistency:: [place] thickened Is pt able to select menu?: No How many daily calories?: 1800 calorie - Routine Orders/Code Status O2 Liters per Minute: 3 O2 Frequency: Bipap 12/6 with 30 % oxygen at nite and prn Code Status: Full Code - Therapies Speech Therapy: Eval and Treat - Problem/Diagnosis (1) Shortness of breath Status: Acute Current Visit: Yes (2) COPD exacerbation Status: Acute Current Visit: Yes (3) Bipolar affective disorder Status: Chronic Current Visit: No (4) Schizophrenia Status: Chronic Current Visit: No (5) Chronic respiratory failure with hypoxia Status: Chronic Current Visit: No - Allergies/Procedures Done in Hospital Allergies/Adverse Reactions: Allergies No Known Allergies Allergy (Verified 12/25/17 00:31) Procedures: None - Type of Care/Length of Stay Estimated LOS: More Than 30 Days Type of Care Needed: Intermediate Rehab Potential: Fair Prognosis: Fair - Additional Orders/Day of Discharge Additional Orders: Hospice to see patient H&P will serve as current which was dated: 03/19/18 Day of Discharge: 03/20/18 - Follow Up Care Primary Care Physician: Alie Castillo,Out of [Primary Care Provider] -
--- NOTE | 2018-03-20 11:37 | CASEMGMT ---
Phone call received from sister, Blanquita, to report that patient and other sister have already made arrangements with [facility] upon his return to [facility]. SW notified RN, Jules. SOFÍA HolderA
[2018-03-20 11:51] LABS: Bedside Glucose 270 mg/dL (70-110)
--- NOTE | 2018-03-20 13:10 | NURSING ---
CALLED REPORT TO AUSTEN TAM IN [facility]. NO QUESTIONS.
--- NOTE | 2018-03-20 17:00 | PCM.DC.SUM ---
Discharge Date and Diagnosis Date of Admission: 03/19/18 Date of Discharge: 03/20/18 - Primary Discharge Diagnosis #1 acute combined respiratory failure on chronic combined respiratory failure #2 acute exacerbation of chronic obstructive pulmonary disease #3 chronic aspiration #4 type 2 diabetes #5 schizophrenia #6 bipolar disorder #7 metabolic encephalopathy secondary to acute combined respiratory failure on chronic combined respiratory failure - Secondary Discharge Diagnosis Chronic Problems (Last Reviewed 03/09/18 @ 08:37 by La Livingston) Bipolar affective disorder (Chronic) CVD (cerebrovascular disease) (Chronic) Dyslipidemia (Chronic) GERD (gastroesophageal reflux disease) (Chronic) HTN (hypertension) (Chronic) History of alcoholism (Chronic) PVD (peripheral vascular disease) (Chronic) Schizophrenia (Chronic) Tobacco use disorder (Chronic) History of TIA (transient ischemic attack) (Chronic) Chronic respiratory failure with hypoxia (Chronic) Obstructive sleep apnea (Chronic) Noncompliance with CPAP treatment (Chronic) Hypomagnesemia (Chronic) Dysphagia (Chronic) supposed to be on a mechanical soft diet with nectar thick liquids Aortic stenosis, mild (Chronic) Aortic valve insufficiency (Chronic) Edentulous (Chronic) Noncompliance of patient with dietary regimen (Chronic) [facility], nectar thick liquids Hospital Course and Treatment Operations: None Procedures: None Summary of Care Provided: The patient is a 67 year old M who was seen in the emergency room at [facility] after being transported in from a extended care facility for decreased level consciousness and increased shortness of breath. Patient was found to be in combined respiratory failure with an elevated PCO2 and a low PO2. Patient was placed on BiPAP, chest x-ray was obtained which showed no active infiltrates, since labs showed an elevated white blood cell count but this was felt to be secondary to recent prednisone usage at the longterm. Patient was given IV Solu-Medrol and IV doxycycline as well as several aerosol treatments in the emergency room. Patient was admitted to PCU, aerosol treatments were continued, patient was continued on BiPAP. Patient was able be weaned to nasal cannula O2 after short period of time. It was noted that the patient had a history of aspiration and at the longterm at which she resides, patient does not follow the recommended diet. Patient continued on IV Solu-Medrol and his blood sugars were monitored and his insulin was adjusted. Patient was seen by pulmonary medicine during his hospitalization. Discussions were carried out with the patient and he desired hospice consultation when he returned back to the longterm, he also requested that his CODE STATUS be changed to DNR CC arrest time of his discharge from the hospital. On 03/20/18, patient was seen and examined and felt to be stable condition for discharge back to his longterm. Home Medications: Medications to take at Discharge Aspirin 81 mg PO DAILY 08/08/17 Atorvastatin Calcium 40 mg PO QHS 08/08/17 Cilostazol 100 mg PO BIDAC 08/08/17 [place] Carbonate 600 mg PO DAILY 08/08/17 Magnesium Oxide [Mag-Oxide Magnesium] 800 mg PO DAILY 08/08/17 Metoprolol Tartrate [Lopressor (beta tia)] 50 mg PO BID 08/08/17 Omeprazole [Prilosec] 40 mg PO DAILY 08/08/17 Oxygen, Home [Home Oxygen] 3 lpm NASAL DAILY 08/08/17 Lactobacillus Acidophilus [Acidophilus] 1 ea PO BID 11/04/17 Haloperidol Decanoate [Haldol Decanoate 50] 50 mg IM QMONTH 12/25/17 Ferrous Sulfate 325 mg PO TID 01/24/18 Losartan Potassium 75 mg PO DAILY 03/19/18 Loxapine Succinate [Loxapine] 25 mg PO QHS 03/19/18 Albuterol Aerosols [Ventolin Aerosols] 2.5 mg INHALATION Q2H PRN PRN vial.neb. 03/20/18 Insulin Detemir [Levemir FlexPen] 20 units SC BID insuln.pen 03/20/18 Insulin Lispro [Humalog KwikPen] 10 units SC TIDAC insuln.pen 03/20/18 Ipratropium/Albuterol Sulfate [Duoneb] 3 ml INHALATION Q4H.RT ampul.neb 03/20/18 Losartan Potassium [Cozaar] 75 mg PO DAILY tablet 03/20/18 Prednisone [Deltasone] 20 mg PO UD #1 tablet 03/20/18 Following Prescrptions Were Given to Patient: Prednisone [Deltasone] 20 mg PO UD #1 tablet Primary Care Physician: Alie Castillo,Out of [Primary Care Provider] - Disposition: [facility] facility Minutes spent on discharge:: 34 Patient Condition:: Stable Medical Necessity - Tobacco Use Smoking Status: Current every day smoker Tobacco Use: Cigarettes Meaningful Use Info Meaningful Use Diagnoses (Choose all that apply): None applicable Code Visit Inpatient E&M: 34197 Disch Hosp
--- NOTE | 2018-03-20 17:07 | DS.PCM_ITS ---
Discharge Date and Diagnosis Date of Admission: 03/19/18 Date of Discharge: 03/20/18 - Primary Discharge Diagnosis #1 acute combined respiratory failure on chronic combined respiratory failure #2 acute exacerbation of chronic obstructive pulmonary disease #3 chronic aspiration #4 type 2 diabetes #5 schizophrenia #6 bipolar disorder #7 metabolic encephalopathy secondary to acute combined respiratory failure on chronic combined respiratory failure - Secondary Discharge Diagnosis Chronic Problems (Last Reviewed 03/09/18 @ 08:37 by La Living[place]) Bipolar affective disorder (Chronic) CVD (cerebrovascular disease) (Chronic) Dyslipidemia (Chronic) GERD (gastroesophageal reflux disease) (Chronic) HTN (hypertension) (Chronic) History of alcoholism (Chronic) PVD (peripheral vascular disease) (Chronic) Schizophrenia (Chronic) Tobacco use disorder (Chronic) History of TIA (transient ischemic attack) (Chronic) Chronic respiratory failure with hypoxia (Chronic) Obstructive sleep apnea (Chronic) Noncompliance with CPAP treatment (Chronic) Hypomagnesemia (Chronic) Dysphagia (Chronic) supposed to be on a mechanical soft diet with nectar thick liquids Aortic stenosis, mild (Chronic) Aortic valve insufficiency (Chronic) Edentulous (Chronic) Noncompliance of patient with dietary regimen (Chronic) [facility] soft, nectar thick liquids Hospital Course and Treatment Operations: None Procedures: None Summary of Care Provided: The patient is a 67 year old M who was seen in the emergency room at [facility] after being transported in from a extended care facility for decreased level consciousness and increased shortness of breath. Patient was found to be in combined respiratory failure with an elevated PCO2 and a low PO2. Patient was placed on BiPAP, chest x-ray was obtained which showed no active infiltrates, since labs showed an elevated white blood cell count but this was felt to be secondary to recent prednisone usage at the group home. Patient was given IV Solu-Medrol and IV doxycycline as well as several aerosol treatments in the emergency room. Patient was admitted to PCU, aerosol treatments were continued, patient was continued on BiPAP. Patient was able be weaned to nasal cannula O2 after short period of time. It was noted that the patient had a history of aspiration and at the group home at which she resides , patient does not follow the recommended diet. Patient continued on IV Solu- Medrol and his blood sugars were monitored and his insulin was adjusted. Patient was seen by pulmonary medicine during his hospitalization. Discussions were carried out with the patient and he desired hospice consultation when he returned back to the group home, he also requested that his CODE STATUS be changed to DNR CC arrest time of his discharge from the hospital. On 03/20/18, patient was seen and examined and felt to be stable condition for discharge back to his group home. Home Medications: Medications to take at Discharge Aspirin 81 mg PO DAILY 08/08/17 Atorvastatin Calcium 40 mg PO QHS 08/08/17 Cilostazol 100 mg PO BIDAC 08/08/17 [place] Carbonate 600 mg PO DAILY 08/08/17 Magnesium Oxide [Mag-Oxide Magnesium] 800 mg PO DAILY 08/08/17 Metoprolol Tartrate [Lopressor (beta tia)] 50 mg PO BID 08/08/17 Omeprazole [Prilosec] 40 mg PO DAILY 08/08/17 Oxygen, Home [Home Oxygen] 3 lpm NASAL DAILY 08/08/17 Lactobacillus Acidophilus [Acidophilus] 1 ea PO BID 11/04/17 Haloperidol Decanoate [Haldol Decanoate 50] 50 mg IM QMONTH 12/25/17 Ferrous Sulfate 325 mg PO TID 01/24/18 Losartan Potassium 75 mg PO DAILY 03/19/18 Loxapine Succinate [Loxapine] 25 mg PO QHS 03/19/18 Albuterol Aerosols [Ventolin Aerosols] 2.5 mg INHALATION Q2H PRN PRN vial.neb. 03/20/18 Insulin Detemir [Levemir FlexPen] 20 units SC BID insuln.pen 03/20/18 Insulin Lispro [Humalog KwikPen] 10 units SC TIDAC insuln.pen 03/20/18 Ipratropium/Albuterol Sulfate [Duoneb] 3 ml INHALATION Q4H.RT ampul.neb Losartan Potassium [Cozaar] 75 mg PO DAILY tablet 03/20/18 Prednisone [Deltasone] 20 mg PO UD #1 tablet 03/20/18 Following Prescrptions Were Given to Patient: Prednisone [Deltasone] 20 mg PO UD #1 tablet Primary Care Physician: Alie Castillo,Out of [Primary Care Provider] - [facility]position[facility] Minutes spent on discharge:: 34 Patient Condition:: Stable Medical Necessity - Tobacco Use Smoking Status: Current every day smoker Tobacco Use: Cigarettes Meaningful Use Info Meaningful Use Diagnoses (Choose all that apply): None applicable Code Visit Inpatient E&M: 28900 Disch Hosp
== END 2018-03-20 12:30 | disposition skilled nursing facility (03) | DRG 189 ==
LOC: ED 10:18 → PCU 12:25
PROVIDERS: Admitting Provider Internal Medicine; Emergency Provider Emergency Medicine; Visit Provider Internal Medicine
DX: J96.22 Acute and chronic respiratory failure with hypercapnia (principal); G93.41 Metabolic encephalopathy; J44.1 Chronic obstructive pulmonary disease with (acute) exacerbation; E87.2 Acidosis; J96.21 Acute and chronic respiratory failure with hypoxia; E86.0 Dehydration; R13.10 Dysphagia, unspecified; E83.42 Hypomagnesemia; E11.9 Type 2 diabetes mellitus without complications; I10 Essential (primary) hypertension; E78.5 Hyperlipidemia, unspecified; I73.9 Peripheral vascular disease, unspecified; R32 Unspecified urinary incontinence; G47.33 Obstructive sleep apnea (adult) (pediatric); K21.9 Gastro-esophageal reflux disease without esophagitis; F20.9 Schizophrenia, unspecified; F31.9 Bipolar disorder, unspecified; F10.21 Alcohol dependence, in remission; F17.210 Nicotine dependence, cigarettes, uncomplicated; Z91.19 Patient's noncompliance with other medical treatment and regimen; Z91.11 Patient's noncompliance with dietary regimen; Z99.81 Dependence on supplemental oxygen; Z79.82 Long term (current) use of aspirin; Z79.4 Long term (current) use of insulin; Z79.899 Other long term (current) drug therapy; Z86.73 Personal history of transient ischemic attack (TIA), and cerebral infarction without residual deficits; Z90.49 Acquired absence of other specified parts of digestive tract
CPT/HCPCS: 36415; 36600; 51702; 71045; 80048; 80076; 80178; 81001; 82803; 82947; 82962; 83605; 84484; 85025; 85027; 85610; 85730; 87040; 87070; 87077; 87086; 87186; 87205; 87633; 87804; 93005; 94002; 94003; 94640; 96374; 99285; 99406; J7030; J7040; A4216